=== PATIENT | female | born 1930 | race Caucasian/White ===

== ENCOUNTER → 2016-05-18 | Outpatient (REF) | payer MEDICARE ==
[~2016-05-18] MED LIST: /WARF5TA PO; AUGM500T34 PO; CALCI50TA PO; CALCTAB93 PO; COUM6TAB PO; LOPR50TA PO; MEST60TA PO; METH2.5T PO; MIRA255PW PO; MOM30SS PO; MULTTAB PO; MULTTAB4 PO; NORCOTAB PO; PERCOCET PO; PRED50TA PO; PROBCAP4 PO; SENO8.6T9 PO; TRIA0.1C60 EXT; VITA100066 PO; VITA400C2 PO; ZEST30TA2 PO; fleets PR
[2016-05-18 16:33] LABS: ALBUMIN 3.7 GM/DL (3.2-5.2); ALBUMIN/GLOBULIN RATIO 1.23 (1.00-1.93); ALKALINE PHOSPHATASE 164 U/L (45-117); ALT/SGPT 22 U/L (12-78); ANION GAP 10 MEQ/L (8-16); AST/SGOT 17 U/L (15-37); BILIRUBIN,TOTAL 0.4 MG/DL (0.2-1.0); BLOOD UREA NITROGEN 14 MG/DL (7-18); CALCIUM LEVEL 8.8 MG/DL (8.8-10.2); CARBON DIOXIDE LEVEL 29 MEQ/L (21-32); CHLORIDE LEVEL 105 MEQ/L (98-107); CREATININE FOR GFR 0.86 MG/DL (0.55-1.02); GLOMERULAR FILTRATION RATE > 60.0 (>32); GLUCOSE, FASTING 166 MG/DL (83-110); POTASSIUM SERUM 4.2 MEQ/L (3.5-5.1); SODIUM LEVEL 144 MEQ/L (136-145); TOTAL PROTEIN 6.7 GM/DL (6.4-8.2)
== END ==
LOC: M SFHCPLAZ 13:36
PROVIDERS: ATTEND Nurse Practitioner Family
DX: I10 Essential (primary) hypertension (principal); E55.9 Vitamin D deficiency, unspecified

== ENCOUNTER → 2016-08-12 | Outpatient (REF) | payer MEDICARE ==
[2016-08-12 19:32] LABS: ALBUMIN 3.7 GM/DL (3.2-5.2); ALBUMIN/GLOBULIN RATIO 1.23 (1.00-1.93); ALKALINE PHOSPHATASE 137 U/L (45-117); ALT/SGPT 26 U/L (12-78); ANION GAP 7 MEQ/L (8-16); AST/SGOT 21 U/L (15-37); BILIRUBIN,TOTAL 0.4 MG/DL (0.2-1.0); BLOOD UREA NITROGEN 24 MG/DL (7-18); CALCIUM LEVEL 8.9 MG/DL (8.8-10.2); CARBON DIOXIDE LEVEL 30 MEQ/L (21-32); CHLORIDE LEVEL 104 MEQ/L (98-107); CREATININE FOR GFR 0.72 MG/DL (0.55-1.02); GLOMERULAR FILTRATION RATE > 60.0 (>32); GLUCOSE, FASTING 114 MG/DL (83-110); POTASSIUM SERUM 3.9 MEQ/L (3.5-5.1); SODIUM LEVEL 141 MEQ/L (136-145); TOTAL PROTEIN 6.7 GM/DL (6.4-8.2)
[2016-08-12 19:57] LABS: BASO % 0.1 % (0.0-1.0); EOS # 0.3 K/mm3 (0.0-0.50); EOS % 3.2 % (0.0-3.0); LARGE UNSTAINED CELL # 0.2 K/mm3 (0.0-0.4); LARGE UNSTAINED CELL % 1.7 % (0.0-4.0); LYMPH # 1.8 K/mm3 (1.5-4.5); MEAN CORPUSCULAR HEMOGLOBIN 31.5 pg (27.0-33.0); MEAN CORPUSCULAR HGB CONC 31.7 g/dl (32.0-36.5); MEAN CORPUSCULAR VOLUME 99.4 fl (80.0-96.0); MONO # 0.5 K/mm3 (0.0-0.8); MONO % 5.7 % (0.0-5.0); NEUTROPHILS # 5.8 K/mm3 (1.8-7.7); NEUTROPHILS % 68.3 % (36.0-66.0); PLATELET COUNT, AUTOMATED 272 k/mm3 (150-450); RED CELL DISTRIBUTION WIDTH 13.5 % (11.5-14.5); WHITE BLOOD COUNT 8.4 K/mm3 (4.0-10.0)
== END ==
LOC: M SFHCPLAZ 15:06
PROVIDERS: ATTEND Nurse Practitioner Family
DX: G70.00 Myasthenia gravis without (acute) exacerbation (principal); I10 Essential (primary) hypertension; E55.9 Vitamin D deficiency, unspecified; H53.2 Diplopia

== ENCOUNTER 2017-02-12 14:12 | Inpatient (IN) | payer MEDICARE ==
[~2017-02-12] VITALS: Ht 154.9 cm; Wt 58.7 kg
[2017-02-12 15:03] LABS: BASO % 0.2 % (0.0-1.0); IMMATURE GRANULOCYTE % 0.5 % (0-0); LYMPH # 1.1 10^3/uL (1.5-4.5); LYMPH % 10.5 % (24.0-44.0); MEAN CORPUSCULAR HEMOGLOBIN 30.2 pg (27.0-33.0); MEAN CORPUSCULAR HGB CONC 32.6 g/dl (32.0-36.5); MEAN CORPUSCULAR VOLUME 92.6 fl (80.0-96.0); MONO # 0.7 10^3/uL (0.0-0.8); MONO % 6.6 % (0.0-5.0); NEUTROPHILS # 8.6 10^3/uL (1.8-7.7); NEUTROPHILS % 82.2 % (36.0-66.0); PLATELET COUNT, AUTOMATED 314 10^3/uL (150-450); RED CELL DISTRIBUTION WIDTH 14.2 % (11.5-14.5); WHITE BLOOD COUNT 10.4 10^3/uL (4.0-10.0)
[2017-02-12 15:07] LABS: INR 1.31
[2017-02-12 15:16] LABS: ALBUMIN/GLOBULIN RATIO 0.49 (1.00-1.93); BILIRUBIN,DIRECT 0.2 MG/DL (0.0-0.2); BILIRUBIN,TOTAL 0.5 MG/DL (0.2-1.0); CALCIUM LEVEL 7.9 MG/DL (8.8-10.2); CREATININE FOR GFR 1.13 MG/DL (0.55-1.02); GLOMERULAR FILTRATION RATE 48.6 (>32); MAGNESIUM LEVEL 1.7 MG/DL (1.8-2.4); TOTAL PROTEIN 6.1 GM/DL (6.4-8.2)
[2017-02-12 15:21] LABS: FREE T4 1.43 NG/DL (0.76-1.46)
[2017-02-12 15:26] LABS: POTASSIUM SERUM 2.8 MEQ/L (3.5-5.1)
[2017-02-12] MEDS ORDERED: MAG SULF 1GM/100ML (MAG RUN) 1 GM in APPROPRIATE DILUENT 1 EA IV ONE (15:45)
[2017-02-12] MEDS ORDERED: POTASSIUM CHLORIDE 10 MEQ SR TABLET PO ONE (15:45)
[2017-02-12] MEDS ORDERED: ISOVUE-370 76% 100ML VIAL (Q9967) As Ordered ONE (15:53)
[2017-02-12] MEDS ORDERED: KCL 10MEQ IN 100ML SWI (KRUN) 10 MEQ in APPROPRIATE DILUENT 1 EA IV ONE ×2 (16:00)
[2017-02-12] MEDS ORDERED: METOPROLOL 5 MG/5 ML VIAL IV STA (16:01)
[2017-02-12] MEDS ORDERED: HEPARIN SOD (PORCINE) 5000 UNITS/ML VIAL IV PRN (16:30)
[2017-02-12] MEDS ORDERED: HEPARIN DRIP 25,000 UNITS in APPROPRIATE DILUENT 1 EA IV SCH (16:30)
[2017-02-12] MEDS ORDERED: LISI-538 PO (17:09)
[2017-02-12] MEDS ORDERED: PYRI60TA2 PO (17:09)
[2017-02-12] MEDS ORDERED: ACETAMINOPHEN TAB 650MG DOSE (2X325MG) PO PRN (18:45)
--- NOTE | 2017-02-12 20:28 | HPE ---
DATE OF ADMISSION: 02/12/2017 CHIEF COMPLAINT: Abdominal mass. HISTORY OF PRESENT ILLNESS: Ms. Alcala is an 86-year-old female who presented to the emergency department, according to her daughter, looking drawn and dehydrated. The patient states that she has lost 40 pounds recently, but cannot give a time frame. The daughter who is in the room states that she does not live with her mother or see her very often, so she does not know a lot of her mother's medical problems right now. According to the patient, when she wakes up she feels fatigued with a nasty feeling that runs up and down her spine. She states that she has had diarrhea lately, about three times per week, and it has lasted for about three months. She states that she knows she has lost 40 pounds, but admits to not really eating very much. She says that she just does not have an appetite, although she does admit to increased thirst. Over the last two days, she has felt "dry as a bone" and has been drinking as much fluid as she can. The episodes of diarrhea bother her immensely, she has had multiple episodes where she will be on her way to the bathroom and the diarrhea will "just explode, and run down my trousers." The patient denies shortness of breath, chest pain, belly pain, nausea, vomiting, constipation, fevers or sweats. She does state that lately she feels like she is always cold, and upon being reminded by her daughter, she admits that she has been having some abdominal pain across her left and right upper quadrants. REVIEW OF SYSTEMS: The patient denies shortness of breath, chest pain, belly pain, nausea, vomiting , constipation, fevers or sweats. MEDICAL HISTORY: 1. Paroxysmal atrial fibrillation. 2. Essential hypertension. 3. Myasthenia gravis. 4. Vitamin D deficiency. 5. Varicose veins. 6. Mitral regurgitation. MEDICATIONS: - lisinopril 20 mg twice a day - methotrexate 7.5 mg weekly - pyridostigmine bromide 30 mg three times a day - folic acid 1 mg daily SURGICAL HISTORY: 1. 2012, right hip. 2. 2012, appendectomy. 3. 1947, tonsillectomy. SOCIAL HISTORY: The patient is a nonsmoker, denies recreational drug use, drinks 1-2 cups of coffee a day, is , lives with daughter Annie, phone number [phone], who is her alternate decision maker should she be unable to make her own medical decisions. FAMILY HISTORY: Father at 85 years from cerebrovascular accident (CVA). Mother at 96 years from congestive heart failure. Siblings, one sister from heart valve problem. Two sisters, four sons, two daughters, all healthy. PHYSICAL EXAMINATION: VITAL SIGNS: Temperature is 97.1, pulse 94, respiratory rate is 16, blood pressure is 155/80. She is 99% on three liters nasal cannula. GENERAL: The patient is pleasant, calm and cooperative. She does seem slightly confused as to what is going on, and does take exaggerated pauses when answering questions. NECK: Supple, trachea midline. No abnormalities noted. HEART: Irregular rate and rhythm, diastolic murmur is appreciated along the left midclavicular line in the position of the mitral valve. LUNGS: Clear to auscultation bilaterally. ABDOMEN: Hyperactive bowel sounds in all four quadrants, there is tenderness to palpation in the right lower quadrant. EXTREMITIES: Diminished skin turgor, capillary refill is delayed. There is some swelling in her lower extremities. SKIN: The patient is pale, there are stains from her shoes on the dorsal aspects of her feet bilaterally. LABORATORY DATA: CBC: White count 10.4, hemoglobin 11.9, hematocrit 36.5, platelets 314. CMP: Sodium 137, potassium 2.8, chloride 100, carbon dioxide 27, BUN 29, creatinine 1.13, fasting glucose 185, calcium 7.9, magnesium 1.7, AST 16, ALT 18 , alkaline phosphatase 131. Total protein 6.1, albumin 2.0, lipase 90, TSH 3.64, free T4 1.43. Coagulation: PT 16.5, INR 1.31, APTT 30.7, D-dimer 3208.1. MICROBIOLOGY: Blood cultures pending. GI Panel negative. IMAGING: Chest x-ray showed mild cardiomegaly, pending final report. CT angiography showed bilateral pulmonary emboli in the branches of the pulmonary arteries. Abdomen and pelvis CT revealed distended transverse colon, with a mass possible neoplasm in the distal transverse colon. IMPRESSION: This is an 86-year-old female presenting to the emergency room (ER) at the bequest of her daughter. Imaging discovered bilateral pulmonary emboli in the branches of the pulmonary arteries and a mass in the distal transverse colon, suspicious for neoplasm. Admit to medical/surgical floor with basic metabolic panel (BMP), complete blood count (CBC) with differential, urinalysis, urine culture, magnesium level ordered for tomorrow morning. PLAN: 1. Pulmonary embolism: Admit to PCU, 60 mg of Lovenox has been ordered daily. 2. Abdominal mass: Suspicious for possible neoplasm. Patient has been having episodes of diarrhea, possibly as a result from this. She will be rehydrated with 40 mEq of potassium in dextrose 5% (D5) half normal saline running at 125 mL per hour. Surgery has been consulted. 3. Dehydration: Fluids at 125 an hour. 40 mEq of potassium in D5 half normal saline. 4. Hypokalemia: Potassium 2.8. She has received 60 mEq by mouth in the emergency department and will be getting potassium run this evening. She is also getting 40 mEq of potassium through her IV. We will repeat a basic metabolic panel in the morning. 5. Hypertension: Continue lisinopril 20 mg by mouth twice a day from home medications. 6. Myasthenia gravis: Continue pyridostigmine bromide 30 mg by mouth twice a day, methotrexate 7.5 mg by mouth on Tuesday, and folic acid 1 mg by mouth daily. Family Medicine Attending Note: I was present on site to supervise Sofía Munoz DO (PGY-1). We discussed the history and exam. I confirmed the watkins elements during my [id number] encounter with the patient. We conferred on the assessment and plan; I agree with the note as documented. Ms. Alcala is a patient of mine in the outpatient clinic. Unfortunately she has repeatedly declined several screening examinations including mammography and colonoscopy. I am very concerned that she does have a neoplastic disease based on her presentation today. We will need to monitor carefully. 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
[2017-02-12] MEDS: ENOXAPARIN 60 MG/0.6 ML SYR (J1650) SC SCH (21:07)
[2017-02-12] MEDS: KCL 40MEQ IN D5/0.45NS 1000ML 1,000 ML IV SCH (21:08)
[2017-02-12] MEDS: PYRIDOSTIGMINE 60 MG TAB PO SCH (21:09)
[2017-02-12] MEDS: LISINOPRIL 20 MG TAB PO SCH (21:11)
[2017-02-12 22:53] VITALS: BP 152/70
[2017-02-12 23:00] VITALS: BP 122/86
[2017-02-13 04:00] VITALS: BP 135/63
[2017-02-13] MEDS: KCL 40MEQ IN D5/0.45NS 1000ML 1,000 ML IV SCH ×3 (05:26→20:11)
[2017-02-13 05:43] LABS: MEAN CORPUSCULAR HEMOGLOBIN 30.4 pg (27.0-33.0); MEAN CORPUSCULAR HGB CONC 32.9 g/dl (32.0-36.5); MEAN CORPUSCULAR VOLUME 92.5 fl (80.0-96.0); PLATELET COUNT, AUTOMATED 275 10^3/uL (150-450); WHITE BLOOD COUNT 8.6 10^3/uL (4.0-10.0)
[2017-02-13 05:45] LABS: ADD MANUAL DIFFER YES; DIFF SLIDE NUMBER 69
[2017-02-13 05:58] LABS: ANION GAP 7 MEQ/L (8-16); BLOOD UREA NITROGEN 24 MG/DL (7-18); CALCIUM LEVEL 7.4 MG/DL (8.8-10.2); CARBON DIOXIDE LEVEL 25 MEQ/L (21-32); CHLORIDE LEVEL 106 MEQ/L (98-107); CREATININE FOR GFR 0.72 MG/DL (0.55-1.02); GLOMERULAR FILTRATION RATE > 60.0 (>32); GLUCOSE, FASTING 165 MG/DL (83-110); POTASSIUM SERUM 3.9 MEQ/L (3.5-5.1); SODIUM LEVEL 138 MEQ/L (136-145)
[2017-02-13 06:56] LABS: ANISOCYTOSIS 1+; BANDS 6 % (< 11)
[2017-02-13 08:20] VITALS: BP 142/88
[2017-02-13] MEDS: LISINOPRIL 20 MG TAB PO SCH ×2 (09:39→20:12)
[2017-02-13] MEDS: PYRIDOSTIGMINE 60 MG TAB PO SCH ×2 (09:39→20:12)
[2017-02-13] MEDS: FOLIC ACID 1 MG TAB PO SCH (09:39)
--- NOTE | 2017-02-13 11:39 | REP ---
REASON: Diarrhea and weight loss. COMPARISON: 02/19/2013 Please see the chest CT report. The liver and gallbladder are within normal limits. The spleen is within normal limits. There is marked pancreatic fatty infiltration and atrophy. The adrenal glands and kidneys are within normal limits for the patient's age. The abdominal aorta and para-aortic regions are within normal limits. There is massive distention of the colon which ends abruptly at the distal transverse colon where there is evidence of a soft tissue density possibly a mass. There is gas and stool distal to this, however. There is no evidence of free intraperitoneal fluid or air. CT PELVIS: There is some gas and stool in the sigmoid colon. It is not completely collapsed. There is no free fluid or free air. There is no evidence of a pelvic mass or adenopathy. Bone window technique throughout the exam shows chronic osseous changes with bone demineralization, spinal and sacroiliac degenerative changes, and previously ORIF to affix a right hip fracture status quo. IMPRESSION: 1. There is marked appearing colonic distention to the level of the distal transverse colon where there is a soft tissue density possibly representing neoplasm. That cannot be definitely determined by this exam. There is no evidence of a complete colonic obstruction as some gas and stool is seen distal to that point as described above. There is evidence of a concomitant slight small bowel ileus. 2. Other findings as described above. Signed by Brian Billy DO 02/13/2017 09:46 A
--- NOTE | 2017-02-13 11:39 | REP ---
REASON: Chest pain. COMPARISON: 04/17/2013, which is the latest prior. There is mild cardiomegaly status quo. There is interstitial fibrotic change, status quo. There are no acute patchy parenchymal opacities or pleural effusions. There is no change in the osseous structures. IMPRESSION: Stable chronic changes. Signed by Brian Billy DO 02/13/2017 09:45 A
--- NOTE | 2017-02-13 11:39 | REP ---
REASON: Dyspnea. COMPARISON: None. CONTRAST: 100 mL Isovue 370. Large abnormal filling defects are seen in the right and left main pulmonary arteries and extending into the upper and lower lobe pulmonary arteries. These are consistent with acute pulmonary emboli. There is no mediastinal or hilar adenopathy. There are no pleural or pericardial effusions. The imaged upper abdomen is within normal limits. The pancreas is fatty infiltrated and atrophic. The osseous structures are within normal limits for the patient's age. Evaluation of the lung david show evidence of asymmetric bibasilar opacities most consistent with fibrotic changes. There is cylindrical bronchiectasis. There are scattered calcified granulomas. IMPRESSION: 1. Pulmonary emboli as described above. 2. Chronic lung david changes as described above. A phone call was placed to the emergency department to speak to Dr. Breaux about these findings. Signed by Brian Billy DO 02/13/2017 09:46 A
[2017-02-13 12:06] VITALS: BP 112/84
--- NOTE | 2017-02-13 12:41 | IPNPDOC ---
Subjective Date Seen The patient was seen on 02/13/17. Subjective Chief Complaint/HPI The patient is a 86-year-old female admitted with a reason for visit of Abdominal Mass; Pulmonary Embolism. Events since last encounter She reports that she is feeling chilly and a little fatigued today but otherwise she feels okay. She's been tolerating meals well. She did have a bowel movement earlier today, but it was mixed with urine so they were not able to check for occult blood. Nursing reported it was not frankly bloody. Dr. Mendieta saw her today. I appreciate his consultation. It appears that he is going to try to use a series of enemas for preparation for possible endoscopic procedure so he can get a tissue diagnosis of the mass in her distal transverse colon. General: Reports: Fatigue, Normal Appetite Constitutional: Reports: Chills, Weakness Pulmonary: Denies: Cough Cardiovascular: Denies: Chest Pain, Palpitations Genitourinary: Denies: Dysuria Psych: Reports: Mood Normal Objective Physical Examination General Exam: Positive: Alert, Cooperative, No Acute Distress (huddleing under 2 blankets with a down vest on when I entered the room) Eye Exam: Positive: Conjunctiva & lids normal, Negative: Sclera icteric ENT Exam: Positive: Mucous membr. moist/pink Neck Exam: Negative: Lymphadenopathy Chest Exam: Positive: Clear to auscultation, Normal air movement Heart Exam: Positive: Rate Normal, Irregular Rhythm Abdomen Exam: Positive: BS Hypoactive (normal pitch), Tenderness (mild diffuse tenderness, RLQ> others), Other (there is tympany noted on percussion) Extremity Exam: Negative: Edema Psych Exam: Positive: Mood NL, Oriented x 3 Assessment /Plan Problems (1) Pulmonary embolism Status: Acute Problem Specific Plan: Monitor Clinically Problem Text: She is currently treated with Lovenox (1mg/kg/day / CrCl 29 on admission). This may be an issue (2) Abdominal mass (3) Atrial fibrillation (4) Dehydration (5) Hypokalemia (6) Hypertension (7) Myasthenia gravis VS, I&O, 24H, Fishbone Vital Signs/I&O Vital Signs Date Time Temp Pulse Resp B/P (MAP) Pulse Ox O2 Delivery O2 Flow Rate FiO2 02/13/17 12:06 98.7 102 19 112/84 (93) 96 Room Air 02/13/17 08:20 2.0 I&O- Last 24 Hours up to 6 AM 02/14/17 06:00 Intake Total 240 ml Output Total 450 ml Balance -210 ml Laboratory Data 24H LABS Laboratory Tests 2 02/12/17 14:34: Bedside Glucose (Misc Panel) 185H 02/12/17 14:36: Immature Granulocyte % (Auto) 0.5H, White Blood Count 10.4H, Red Blood Count 3.94L, Hemoglobin 11.9L, Hematocrit 36.5, Mean Corpuscular Volume 92.6, Mean Corpuscular Hemoglobin 30.2, Mean Corpuscular Hemoglobin Concent 32.6, Red Cell Distribution Width 14.2, Platelet Count 314, Neutrophils (%) (Auto) 82.2H, Lymphocytes (%) (Auto) 10.5L, Monocytes (%) (Auto) 6.6H, Eosinophils (%) (Auto) 0.0, Basophils (%) (Auto) 0.2, Neutrophils # (Auto) 8.6H, Lymphocytes # (Auto) 1.1L, Monocytes # (Auto) 0.7, Eosinophils # (Auto) 0.0, Basophils # (Auto) 0.0, Immature Granulocyte # (Auto) 0.1H, Nucleated Red Blood Cells % (auto) 0.0, Prothrombin Time 16.5H, Prothromb Time International Ratio 1.31, Activated Partial Thromboplast Time 30.7, D-Dimer, Quantitative 3208.4H, Anion Gap 10, Glomerular Filtration Rate 48.6, Calcium Level 7.9L, Magnesium Level 1.7L, Aspartate Amino Transf (AST/SGOT) 16, Alanine Aminotransferase (ALT/SGPT) 18, Alkaline Phosphatase 131H, Total Bilirubin 0.5, Direct Bilirubin 0.2, Total Creatine Kinase 32, Creatine Kinase MB 1.4, Creatine Kinase MB Relative Index 4.37H, Troponin I 0.06, C-Reactive Protein, Quantitative 17.60H, DJ-Pik-Q-Type Natriuretic Peptide 9522H, Total Protein 6.1L, Albumin 2.0L, Albumin/Globulin Ratio 0.49L, Lipase 90, Thyroid Stimulating Hormone (TSH) 3.640, Free Thyroxine 1.43 02/12/17 22:03: Urine Appearance CLEAR, Urine Color YELLOW, Urine pH 5.0, Urine Specific [place] >1.060H, Urine Protein NEGATIVE, Urine Glucose (UA) NEGATIVE, Urine Ketones NEGATIVE, Urine Urobilinogen 2.0H, Urine Bilirubin NEGATIVE, Urine Leukocyte Esterase NEGATIVE, Urine Blood NEGATIVE, Urine Nitrite NEGATIVE, Urine WBC (Auto) 3, Urine RBC (Auto) 2, Urine Hyaline Casts (Auto) 5, Urine Bacteria (Auto) NEGATIVE, Urine Squamous Epithelial Cells 0, Urine Mucus (Auto) SMALL, Urine Sperm (Auto) 02/12/17 22:26: Activated Partial Thromboplast Time 56.4H 02/13/17 03:51: 02/13/17 05:14: Nucleated Red Blood Cells % (auto) 0.0, Neutrophils 73, Band Neutrophils 6, Lymphocytes (Manual) 16, Monocytes (Manual) 3, Atypical Lymphocytes 2, Platelet Estimate NORMAL, Anisocytosis 1+, Anion Gap 7L, Glomerular Filtration Rate > 60.0, Blood Urea Nitrogen 24H, Creatinine 0.72, Sodium Level 138, Potassium Level 3.9#, Chloride Level 106, Carbon Dioxide Level 25, Calcium Level 7.4L, Magnesium Level 2.0 CBC/BMP Laboratory Tests 02/12/17 14:36 Red Blood Count 3.94 L, Mean Corpuscular Volume 92.6, Mean Corpuscular Hemoglobin 30.2, Mean Corpuscular Hemoglobin Concent 32.6, Red Cell Distribution Width 14.2, Neutrophils (%) (Auto) 82.2 H, Lymphocytes (%) (Auto) 10.5 L, Monocytes (%) (Auto) 6.6 H, Eosinophils (%) (Auto) 0.0, Basophils (%) ( Auto) 0.2, Neutrophils # (Auto) 8.6 H, Lymphocytes # (Auto) 1.1 L, Monocytes # ( Auto) 0.7, Eosinophils # (Auto) 0.0, Basophils # (Auto) 0.0 02/13/17 05:14 Red Blood Count 3.32 L, Mean Corpuscular Volume 92.5, Mean Corpuscular Hemoglobin 30.4, Mean Corpuscular Hemoglobin Concent 32.9, Red Cell Distribution Width 14.0, Calcium Level 7.4 L Microbiology Microbiology 02/12/17 Blood Culture, Received Pending 02/12/17 Blood Culture, Received Pending 02/13/17 Stool Lactoferrin - Final, Complete 02/13/17 Gastrointestinal Tract Panel (PCR) - Final, Complete 02/12/17 Urine Culture, Received Pending Brock Portillo MD Feb 13, 2017 12:41
[2017-02-13] MEDS ORDERED: FLEET ENEMA PR ONE (13:00)
[2017-02-13 16:00] VITALS: BP 114/76
[2017-02-13 16:51] VITALS: BP 114/72
[2017-02-13 19:16] VITALS: BP 142/86
[2017-02-13] MEDS: ENOXAPARIN 60 MG/0.6 ML SYR (J1650) SC SCH (20:11)
[2017-02-13] MEDS ORDERED: ONDANSETRON 4MG/2ML VIAL (J2405) IV PRN (21:15)
[2017-02-14] VITALS: BP 132/77
[2017-02-14 04:00] VITALS: BP 127/83
[2017-02-14] MEDS: KCL 40MEQ IN D5/0.45NS 1000ML 1,000 ML IV SCH ×2 (04:26→12:08)
[2017-02-14 07:39] VITALS: BP 126/61
[2017-02-14] MEDS: PYRIDOSTIGMINE 60 MG TAB PO SCH ×2 (08:11→21:52)
[2017-02-14] MEDS: FOLIC ACID 1 MG TAB PO SCH (08:11)
[2017-02-14] MEDS: LISINOPRIL 20 MG TAB PO SCH ×2 (08:12→21:52)
--- NOTE | 2017-02-14 08:50 | ECGEPIP ---
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
--- NOTE | 2017-02-14 11:45 | REP ---
ABDOMEN, FLAT UPRIGHT, PA CHEST, FOUR VIEWS: HISTORY: Colon obstruction. Air is present in small and large intestine. There is marked distention of the colon. Several air fluid levels are present. There is no pneumoperitoneum. An increase in interstitial markings is present in the lungs consistent with chronic interstitial fibrosis. The cardiac silhouette is enlarged. IMPRESSION: Findings consistent with colonic obstruction. Signed by Gary Culver MD 02/14/2017 11:59 A
[2017-02-14 12:00] VITALS: BP 130/92
--- NOTE | 2017-02-14 12:03 | IPNPDOC ---
Subjective Date Seen The patient was seen on 02/14/17. Subjective Chief Complaint/HPI The patient is a 86-year-old female admitted with a reason for visit of Abdominal Mass; Pulmonary Embolism. Events since last encounter s/p consult by Dr. Rees, planning on Diverting colostomy pending discussion with family. Objective Physical Examination General Exam: Positive: Alert, Cooperative, No Acute Distress (huddleing under 2 blankets with a down vest on when I entered the room) Eye Exam: Positive: Conjunctiva & lids normal, Negative: Sclera icteric ENT Exam: Positive: Mucous membr. moist/pink Neck Exam: Negative: Lymphadenopathy Chest Exam: Positive: Clear to auscultation, Normal air movement Heart Exam: Positive: Rate Normal, Irregular Rhythm Abdomen Exam: Positive: BS Hypoactive (normal pitch), Tenderness (mild diffuse tenderness, RLQ> others), Other (there is tympany noted on percussion) Extremity Exam: Negative: Edema Psych Exam: Positive: Mood NL, Oriented x 3 Assessment /Plan Problems (1) Pulmonary embolism Status: Acute Problem Specific Plan: Monitor Clinically Problem Text: She is currently treated with Lovenox (1mg/kg/day 06/10 CrCl 29 on admission). This will be an issue (2) Abdominal mass Status: Acute Problem Specific Plan: Consult Specialist Problem Text: NGT in place. Planned diverting colostomy with Dr. Rees, pending discussion with family. (3) Atrial fibrillation Status: Chronic Response to Treatment: Stable Problem Text: rate controlled. On Lovenox. (4) Dehydration Status: Acute Problem Text: IVF infusing. monitor I/O (5) Hypokalemia Status: Acute Problem Text: potassium pending for today (6) Hypertension Status: Chronic Response to Treatment: Stable (7) Myasthenia gravis Status: Chronic Response to Treatment: Stable Plan/VTE VTE Prophylaxis Ordered?: Yes (Lovenox) VS, I&O, 24H, Fishbone Vital Signs/I&O Vital Signs Date Time Temp Pulse Resp B/P (MAP) Pulse Ox O2 Delivery O2 Flow Rate FiO2 02/14/17 08:12 126/61 02/14/17 08:00 Room Air 02/14/17 07:39 97.6 92 20 93 02/13/17 16:00 2.0 I&O- Last 24 Hours up to 6 AM 02/15/17 06:00 Intake Total 500 ml Output Total 200 ml Balance 300 ml Laboratory Data Microbiology Microbiology 02/12/17 Blood Culture - Preliminary, Resulted No growth after 24 hours . All specim... 02/12/17 Blood Culture - Preliminary, Resulted No growth after 24 hours . All specim... 02/13/17 Stool Lactoferrin - Final, Complete 02/13/17 Gastrointestinal Tract Panel (PCR) - Final, Complete 02/12/17 Urine Culture - Final, Complete Oumou Ballesteros [facility] Feb 14, 2017 12:03
[2017-02-14 12:24] LABS: MEAN CORPUSCULAR HEMOGLOBIN 30.4 pg (27.0-33.0); MEAN CORPUSCULAR HGB CONC 32.7 g/dl (32.0-36.5); MEAN CORPUSCULAR VOLUME 92.9 fl (80.0-96.0); PLATELET COUNT, AUTOMATED 296 10^3/uL (150-450); RED CELL DISTRIBUTION WIDTH 14.4 % (11.5-14.5)
[2017-02-14 12:26] LABS: ADD MANUAL DIFFER YES; DIFF SLIDE NUMBER 209
[2017-02-14 12:54] LABS: ALBUMIN 1.8 GM/DL (3.2-5.2); ALBUMIN/GLOBULIN RATIO 0.49 (1.00-1.93); ALKALINE PHOSPHATASE 131 U/L (45-117); ALT/SGPT 17 U/L (12-78); ANION GAP 6 MEQ/L (8-16); AST/SGOT 19 U/L (15-37); BILIRUBIN,TOTAL 0.4 MG/DL (0.2-1.0); BLOOD UREA NITROGEN 17 MG/DL (7-18); CALCIUM LEVEL 7.4 MG/DL (8.8-10.2); CARBON DIOXIDE LEVEL 25 MEQ/L (21-32); CHLORIDE LEVEL 107 MEQ/L (98-107); CREATININE FOR GFR 0.62 MG/DL (0.55-1.02); GLOMERULAR FILTRATION RATE > 60.0 (>32); GLUCOSE, FASTING 165 MG/DL (83-110); SODIUM LEVEL 138 MEQ/L (136-145); TOTAL PROTEIN 5.5 GM/DL (6.4-8.2)
[2017-02-14 13:07] LABS: POTASSIUM SERUM 5.5 MEQ/L (3.5-5.1)
[2017-02-14 14:06] LABS: BANDS 7 % (< 11)
[2017-02-14 14:07] LABS: ANISOCYTOSIS 1+
[2017-02-14] MEDS: D5W/0.45% SODIUM CHLORIDE 1,000 ML IV SCH ×2 (14:11→21:51)
[2017-02-14 15:53] VITALS: BP 106/74
[2017-02-14 19:42] VITALS: BP 127/76
[2017-02-14] MEDS: ENOXAPARIN 60 MG/0.6 ML SYR (J1650) SC SCH (21:52)
[2017-02-15] VITALS (7 sets, daily range): BP systolic 118–142; BP diastolic 68–85
[2017-02-15] MEDS ORDERED: METOPROLOL 5 MG/5 ML VIAL IV ONE (05:15)
[2017-02-15] MEDS: D5W/0.45% SODIUM CHLORIDE 1,000 ML IV SCH ×3 (05:18→20:30)
[2017-02-15 05:31] LABS: MEAN CORPUSCULAR HEMOGLOBIN 30.8 pg (27.0-33.0); MEAN CORPUSCULAR HGB CONC 33.1 g/dl (32.0-36.5); MEAN CORPUSCULAR VOLUME 92.9 fl (80.0-96.0); PLATELET COUNT, AUTOMATED 243 10^3/uL (150-450); RED CELL DISTRIBUTION WIDTH 14.4 % (11.5-14.5); WHITE BLOOD COUNT 7.1 10^3/uL (4.0-10.0)
[2017-02-15 05:37] LABS: ADD MANUAL DIFFER YES; DIFF SLIDE NUMBER 65
[2017-02-15 05:59] LABS: ALBUMIN 1.3 GM/DL (3.2-5.2); ALBUMIN/GLOBULIN RATIO 0.41 (1.00-1.93); ALKALINE PHOSPHATASE 107 U/L (45-117); ALT/SGPT 12 U/L (12-78); ANION GAP 7 MEQ/L (8-16); AST/SGOT 10 U/L (15-37); BILIRUBIN,TOTAL 0.3 MG/DL (0.2-1.0); BLOOD UREA NITROGEN 14 MG/DL (7-18); CALCIUM LEVEL 7.3 MG/DL (8.8-10.2); CARBON DIOXIDE LEVEL 26 MEQ/L (21-32); CHLORIDE LEVEL 105 MEQ/L (98-107); CREATININE FOR GFR 0.58 MG/DL (0.55-1.02); GLOMERULAR FILTRATION RATE > 60.0 (>32); GLUCOSE, FASTING 156 MG/DL (83-110); POTASSIUM SERUM 3.7 MEQ/L (3.5-5.1); SODIUM LEVEL 138 MEQ/L (136-145); TOTAL PROTEIN 4.5 GM/DL (6.4-8.2)
--- NOTE | 2017-02-15 06:25 | ECGEPIP ---
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
[2017-02-15 07:08] LABS: BANDS 8 % (< 11)
[2017-02-15 07:09] LABS: ANISOCYTOSIS 1+; OVALOCYTES 1+
[2017-02-15] MEDS ORDERED: CARVedilol 3.125 MG TAB PO SCH (09:00)
[2017-02-15] MEDS: PYRIDOSTIGMINE 60 MG TAB PO SCH ×2 (09:40→20:29)
[2017-02-15] MEDS: FOLIC ACID 1 MG TAB PO SCH (09:41)
[2017-02-15] MEDS: LISINOPRIL 20 MG TAB PO SCH (09:41)
--- NOTE | 2017-02-15 10:32 | IPNPDOC ---
Subjective Date Seen The patient was seen on 02/15/17. Subjective Chief Complaint/HPI The patient is a 86-year-old female admitted with a reason for visit of Abdominal Mass; Pulmonary Embolism. Events since last encounter Elevated HR into 170s overnight. Given Lopressor 5 mg IV x 1 with HR into the 80 -90 range. HR has come up to 120-130s since taking Lopressor. Patient has a hx of paroxysmal Atrial fibrillation and stopped taking beta noni, due to not feeling she needed it. Denies CP, palpiations or SOB. Constitutional: Denies: Chills, Fever, Night Sweats ENT: Denies: Head Aches, Ear Pain, Dysphagia Skin: Denies: Rash, Lesions, Breakdown Pulmonary: Denies: Dyspnea, Cough Cardiovascular: Denies: Chest Pain, Palpitations, Orthopnea, Paroxysmal Noc. Dyspnea, Lt Headedness Objective Physical Examination General Exam: Positive: Alert, Cooperative, No Acute Distress (huddleing under 2 blankets with a down vest on when I entered the room) Eye Exam: Positive: Conjunctiva & lids normal, Negative: Sclera icteric ENT Exam: Positive: Mucous membr. moist/pink Neck Exam: Negative: Lymphadenopathy Chest Exam: Positive: Clear to auscultation, Normal air movement Heart Exam: Positive: Rate Normal, Irregular Rhythm Abdomen Exam: Positive: BS Hypoactive (normal pitch), Tenderness (mild diffuse tenderness, RLQ> others), Other (there is tympany noted on percussion) Extremity Exam: Negative: Edema Psych Exam: Positive: Mood NL, Oriented x 3 Assessment /Plan Problems (1) Pulmonary embolism Status: Acute Problem Specific Plan: Monitor Clinically Problem Text: She is currently treated with Lovenox (1mg/kg/day / CrCl 29 on admission). This will be an issue (2) Abdominal mass Status: Acute Problem Specific Plan: Consult Specialist Problem Text: NGT in place. Planned diverting colostomy with Dr. Rees, pending discussion with family. (3) Atrial fibrillation Status: Chronic Response to Treatment: Stable Problem Text: 02/15/17: poor rate control. Will start on Coreg 3.125 mg po bid. 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 rate controlled. On Lovenox. (4) Dehydration Status: Acute Response to Treatment: Progressing Problem Text: IVF infusing. monitor I/O (5) Hypokalemia Status: Resolved Problem Text: potassium pending for today (6) Hypertension Status: Chronic Response to Treatment: Stable (7) Myasthenia gravis Status: Chronic Response to Treatment: Stable Plan/VTE VTE Prophylaxis Ordered?: Yes (Lovenox) VS, I&O, 24H, Fishbone Vital Signs/I&O Vital Signs Date Time Temp Pulse Resp B/P (MAP) Pulse Ox O2 Delivery O2 Flow Rate FiO2 02/15/17 08:00 97.7 91 20 122/74 (90) 92 Room Air 02/13/17 16:00 2.0 Laboratory Data 24H LABS Laboratory Tests 2 02/14/17 12:12: Nucleated Red Blood Cells % (auto) 0.0, Neutrophils 67, Band Neutrophils 7, Lymphocytes (Manual) 26, Platelet Estimate NORMAL, Anisocytosis 1+, Macrocytosis , Anion Gap 6L, Glomerular Filtration Rate > 60.0, Blood Urea Nitrogen 17, Creatinine 0.62, Sodium Level 138, Potassium Level 5.5H, Chloride Level 107, Carbon Dioxide Level 25, Calcium Level 7.4L, Aspartate Amino Transf ( AST/SGOT) 19, Alanine Aminotransferase (ALT/SGPT) 17, Alkaline Phosphatase 131H , Total Bilirubin 0.4, Total Protein 5.5L, Albumin 1.8L, Albumin/Globulin Ratio 0.49L 02/15/17 05:19: Nucleated Red Blood Cells % (auto) 0.0, Neutrophils 70, Band Neutrophils 8, Lymphocytes (Manual) 15L, Platelet Estimate NORMAL, Anisocytosis 1+, Anion Gap 7L, Glomerular Filtration Rate > 60.0, Blood Urea Nitrogen 14, Creatinine 0.58, Sodium Level 138, Potassium Level 3.7#, Chloride Level 105, Carbon Dioxide Level 26, Calcium Level 7.3L, Aspartate Amino Transf (AST/SGOT) 10L, Alanine Aminotransferase (ALT/SGPT) 12, Alkaline Phosphatase 107, Total Bilirubin 0.3, Total Protein 4.5L, Albumin 1.3#L, Albumin/Globulin Ratio 0.41L, Monocytes ( Manual) 7, Ovalocytes 1+ CBC/BMP Laboratory Tests 02/14/17 12:12 Red Blood Count 3.95 L, Mean Corpuscular Volume 92.9, Mean Corpuscular Hemoglobin 30.4, Mean Corpuscular Hemoglobin Concent 32.7, Red Cell Distribution Width 14.4, Calcium Level 7.4 L, Aspartate Amino Transf (AST/SGOT) 19, Alanine Aminotransferase (ALT/SGPT) 17, Alkaline Phosphatase 131 H, Total Bilirubin 0.4, Total Protein 5.5 L, Albumin 1.8 L 02/15/17 05:19 Red Blood Count 3.38 L, Mean Corpuscular Volume 92.9, Mean Corpuscular Hemoglobin 30.8, Mean Corpuscular Hemoglobin Concent 33.1, Red Cell Distribution Width 14.4, Calcium Level 7.3 L, Aspartate Amino Transf (AST/SGOT) 10 L, Alanine Aminotransferase (ALT/SGPT) 12, Alkaline Phosphatase 107, Total Bilirubin 0.3, Total Protein 4.5 L, Albumin 1.3 #L Microbiology Microbiology 02/12/17 Blood Culture - Preliminary, Resulted No Growth after 48 hours. All Specime... 02/12/17 Blood Culture - Preliminary, Resulted No Growth after 48 hours. All Specime... 02/13/17 Stool Lactoferrin - Final, Complete 02/13/17 Gastrointestinal Tract Panel (PCR) - Final, Complete 02/12/17 Urine Culture - Final, Complete Oumou BallesterosP Feb 15, 2017 10:32
--- NOTE | 2017-02-15 17:25 | ECHO ---
DATE OF PROCEDURE: 02/15/2017 REFERRING PHYSICIAN: ANT Candelaria and Brock Portillo MD The study was performed on 02/15/2017 for indication of cardiac dysrhythmia. The patient measures 155 cm and weighs 61 kg. DIMENSIONS: IVS: 1.0 LV: 3.6 LVPW: 0.9 LA: 3.2 Aorta: 2.7 FINDINGS: The study is of good technical quality. Left ventricle is of normal size. There is low normal left ventricular (LV) systolic function. I estimate ejection fraction (EF) around 50-55%. No segmental wall motion abnormalities are appreciated. Right ventricle does not appear enlarged. Both atria are at least mildly enlarged. Aortic valve has three cusps; they are mildly sclerotic but have preserved mobility. Mitral valve also exhibits mild degenerative abnormalities with mild mitral annular calcifications, but leaflet mobility is preserved. Tricuspid valve appears normal. Pulmonic valve was poorly visualized but grossly appears normal. No pericardial effusion is noted. Inferior vena cava is normal size. Aortic root appears normal. Aortic arch and abdominal aorta were not well seen. Doppler interrogation of aortic valve reveals no significant stenosis or insufficiency. There is mild mitral insufficiency and [id number] tricuspid insufficiency. Calculated pulmonary artery pressure is in high 40s corresponding to moderate pulmonary hypertension. Pulmonic valve is functionally competent. Mitral inflow pattern and tissue Doppler imaging of mitral annulus revealed grade 1 diastolic dysfunction. CONCLUSIONS: 1. The study is of good technical quality. 2. Normal left ventricular (LV) size and low normal LV systolic function (estimated LVEF 50-55%), grade 1 diastolic dysfunction. 3. No significant valvular disease. 4. Normal central venous pressure. 5. Probably moderate pulmonary hypertension. COMMENTS: Subacute bacterial endocarditis (SBE) prophylaxis is not recommended. MTDD
[2017-02-15] MEDS: ENOXAPARIN 60 MG/0.6 ML SYR (J1650) SC SCH (20:29)
[2017-02-15] MEDS: CARVedilol 6.25 MG TAB PO SCH (20:30)
[2017-02-16] VITALS (11 sets, daily range): BP systolic 105–148; BP diastolic 57–94
--- NOTE | 2017-02-16 03:47 | CR.PDOC ---
General Surgery Consultation Date of Consultation 02/13/17 History and Physical CONSULT REPORT FOR: Brock Portillo REASON FOR CONSULTATION: Colon obstruction, possible distal transverse colon mass HISTORY OF PRESENT ILLNESS: Patient is currently admitted to the hospital for complaints of generalized body weakness, change in her bowel habits, and significant weight loss for the past 2 or 3 months. She is a bit of a poor historian but that she tells me that back in October she had this episode of retching and vomiting that lasted for over a week. She reports needing to move her bowels every second or third day but usually having loose stools when she goes. She does not report any blood with the stools but notes some mucus coming out of the stools. She has not had any previous screening colonoscopies and is reluctant to agree to a colonoscopy even at this time. She reports burping and occasional nausea but is able to tolerate some food and prior to the seeing her , she has had some cottage cheese which she finished. She has had bowel movements during this admission. Her daughter was worried that she has been reported to have lost about 40 pounds over the past 3-4 months and has not been able to do much for the past couple weeks due to generalized body weakness has been mainly bedridden. PAST MEDICAL HISTORY: 1. Paroxysmal atrial fibrillation. 2. Essential hypertension. 3. Myasthenia gravis. 4. Vitamin D deficiency. 5. Varicose veins. 6. Mitral regurgitation. PAST SURGICAL HISTORY: INCLUDES: 1. 2012, right hip. 2. 2012, appendectomy. 3. 1947, tonsillectomy. PREVIOUS ANESTHESIA REACTIONS: Patient denies ALLERGIES: Please see below. FAMILY HISTORY: Denies any family history for colorectal malignancy HOME MEDICATIONS: Please see below. REVIEW OF SYSTEMS: GENERAL: Patient reports generalized body weakness, easy fatigability, significant weight loss. HEENT: Denies blurred vision and double vision. Denies ear symptoms. Denies hoarseness. NECK: Denies any neck pain CARDIOVASCULAR: Denies chest pain and palpitations. Patient reports history of paroxysmal atrial fibrillation, history of heart murmurs MUSCULOSKELETAL: Denies arthralgias, back pain and thrombophlebitis. SKIN: Denies rash. NEUROLOGIC: Denies headache, stroke and transient ischemic attack. PSYCHIATRIC: Denies anxiety and depression. ENDOCRINE: Denies thyroid disease. HEMATOLOGY/ONCOLOGY: Denies bleeding or clotting disorder. Patient admitted for pulmonary embolism found and imaging HEART: Denies any chest pains, paroxysmal dyspnea, orthopnea. PULMONARY: Denies chronic cough, dyspnea and wheezing. GASTROINTESTINAL: Denies rectal bleeding, family history of colon cancer, dysphagia, heartburn and jaundice. GENITOURINARY: Denies dysuria, frequency, hematuria and nocturia. ENDOCRINE: Denies polydipsia, polyphagia, polyuria, heat or cold intolerance. INFECTIOUS: Denies any recent upper respiratory tract infection, UTI, need for use of antibiotics. NUTRITION: Reports anorexia PHYSICAL EXAMINATION: VITALS SIGNS: Please see below. GENERAL APPEARANCE:Patient seen, laying in bed, awake, alert, and oriented. Comfortable, in no acute distress. SKIN: Warm and moist. HEENT: Normocephalic, atraumatic. [place] palpebral conjunctiva, anicteric sclerae. Lips and mucosa appear moist. NECK: Supple, no thyromegaly. No obvious jugular venous distention. LUNGS: Clear to auscultation bilaterally. No wheezing appreciated. HEART: No chest wall abnormalities. Irregular rhythm, positive 3/6 murmur ABDOMEN: Abdomen is , rounded with the upper abdomen significantly distended, soft, minimally tender on palpation over the right and midepigastric area. EXTREMITIES: Extremities have no deformities. No edema identified ANCILLARIES: . LABORATORY DATA: Please see below. IMAGING STUDIES: CT abdomen and pelvis 1. There is marked appearing colonic distention to the level of the distal transverse colon where there is a soft tissue density possibly representing neoplasm. That cannot be definitely determined by this exam. There is no evidence of a complete colonic obstruction as some gas and stool is seen distal to that point as described above. There is evidence of a concomitant slight small bowel ileus. IMPRESSION AND PLAN: She has a partial colon obstruction related to a distal transverse colon mass/ thickening. This has a high likelihood of malignancy. She is distended though she still is able to tolerate some diet and is having bowel function so we will slowly prep her with enemas daily and see if we can get her to decompress enough to do a colonoscopy. If not then, given recent history of pulmonary embolism, significant hypoalbuminemia and significant weight loss with prefer to do prefer to do divert her colon obstruction via a colostomy or ileostomy, prep her for a colonoscopy to get a definite diagnosis, give her some time to regain some of the weight that she has lost an to increase her protein stores prior to doing a definite that/radical surgery to deal with the colon obstruction. Vital Signs Vital Signs Date Time Temp Pulse Resp B/P (MAP) Pulse Ox O2 Delivery O2 Flow Rate FiO2 02/13/17 09:39 142/88 02/13/17 08:20 98.2 48 20 95 Nasal Cannula 2.0 I&Os I&O- Last 24 Hours up to 6 AM 02/14/17 06:00 Intake Total 0 ml Output Total 450 ml Balance -450 ml Laboratory Data Labs 24H Laboratory Tests 2 02/12/17 14:34: Bedside Glucose (Misc Panel) 185H 02/12/17 14:36: Immature Granulocyte % (Auto) 0.5H, White Blood Count 10.4H, Red Blood Count 3.94L, Hemoglobin 11.9L, Hematocrit 36.5, Mean Corpuscular Volume 92.6, Mean Corpuscular Hemoglobin 30.2, Mean Corpuscular Hemoglobin Concent 32.6, Red Cell Distribution Width 14.2, Platelet Count 314, Neutrophils (%) (Auto) 82.2H, Lymphocytes (%) (Auto) 10.5L, Monocytes (%) (Auto) 6.6H, Eosinophils (%) (Auto) 0.0, Basophils (%) (Auto) 0.2, Neutrophils # (Auto) 8.6H, Lymphocytes # (Auto) 1.1L, Monocytes # (Auto) 0.7, Eosinophils # (Auto) 0.0, Basophils # (Auto) 0.0, Immature Granulocyte # (Auto) 0.1H, Nucleated Red Blood Cells % (auto) 0.0, Prothrombin Time 16.5H, Prothromb Time International Ratio 1.31, Activated Partial Thromboplast Time 30.7, D-Dimer, Quantitative 3208.4H, Anion Gap 10, Glomerular Filtration Rate 48.6, Calcium Level 7.9L, Magnesium Level 1.7L, Aspartate Amino Transf (AST/SGOT) 16, Alanine Aminotransferase (ALT/SGPT) 18, Alkaline Phosphatase 131H, Total Bilirubin 0.5, Direct Bilirubin 0.2, Total Creatine Kinase 32, Creatine Kinase MB 1.4, Creatine Kinase MB Relative Index 4.37H, Troponin I 0.06, C-Reactive Protein, Quantitative 17.60H, NS-Nzo-R-Type Natriuretic Peptide 9522H, Total Protein 6.1L, Albumin 2.0L, Albumin/Globulin Ratio 0.49L, Lipase 90, Thyroid Stimulating Hormone (TSH) 3.640, Free Thyroxine 1.43 02/12/17 22:03: Urine Appearance CLEAR, Urine Color YELLOW, Urine pH 5.0, Urine Specific [place] >1.060H, Urine Protein NEGATIVE, Urine Glucose (UA) NEGATIVE, Urine Ketones NEGATIVE, Urine Urobilinogen 2.0H, Urine Bilirubin NEGATIVE, Urine Leukocyte Esterase NEGATIVE, Urine Blood NEGATIVE, Urine Nitrite NEGATIVE, Urine WBC (Auto) 3, Urine RBC (Auto) 2, Urine Hyaline Casts (Auto) 5, Urine Bacteria (Auto) NEGATIVE, Urine Squamous Epithelial Cells 0, Urine Mucus (Auto) SMALL, Urine Sperm (Auto) 02/12/17 22:26: Activated Partial Thromboplast Time 56.4H 02/13/17 03:51: 02/13/17 05:14: Nucleated Red Blood Cells % (auto) 0.0, Neutrophils 73, Band Neutrophils 6, Lymphocytes (Manual) 16, Monocytes (Manual) 3, Atypical Lymphocytes 2, Platelet Estimate NORMAL, Anisocytosis 1+, Anion Gap 7L, Glomerular Filtration Rate > 60.0, Blood Urea Nitrogen 24H, Creatinine 0.72, Sodium Level 138, Potassium Level 3.9#, Chloride Level 106, Carbon Dioxide Level 25, Calcium Level 7.4L, Magnesium Level 2.0 CBC/BMP Laboratory Tests 02/12/17 14:36 Red Blood Count 3.94 L, Mean Corpuscular Volume 92.6, Mean Corpuscular Hemoglobin 30.2, Mean Corpuscular Hemoglobin Concent 32.6, Red Cell Distribution Width 14.2, Neutrophils (%) (Auto) 82.2 H, Lymphocytes (%) (Auto) 10.5 L, Monocytes (%) (Auto) 6.6 H, Eosinophils (%) (Auto) 0.0, Basophils (%) ( Auto) 0.2, Neutrophils # (Auto) 8.6 H, Lymphocytes # (Auto) 1.1 L, Monocytes # ( Auto) 0.7, Eosinophils # (Auto) 0.0, Basophils # (Auto) 0.0 02/13/17 05:14 Red Blood Count 3.32 L, Mean Corpuscular Volume 92.5, Mean Corpuscular Hemoglobin 30.4, Mean Corpuscular Hemoglobin Concent 32.9, Red Cell Distribution Width 14.0, Calcium Level 7.4 L Microbiology Microbiology 02/12/17 Blood Culture, Received Pending 02/12/17 Blood Culture, Received Pending 02/13/17 Stool Lactoferrin - Final, Complete 02/13/17 Gastrointestinal Tract Panel (PCR) - Final, Complete 02/12/17 Urine Culture, Received Pending Home Medications Scheduled Lisinopril (Lisinopril) 20 Mg Tab, 20 MG PO BID, (Reported) Methotrexate (Methotrexate) 2.5 Mg Tab, 7.5 MG PO QWEEK, (Reported) WEDNESDAYS Pyridostigmine [place] (Pyridostigmine [place]) 60 Mg Tab, 30 MG PO BID, ( Reported) Allergies Coded Allergies: No Known Allergies (Unverified , 12/30/12) CARRIE BLACKBURN MD Feb 13, 2017 12:26
--- NOTE | 2017-02-16 03:57 | IPNPDOC ---
Subjective General Date/Time Seen The patient was seen on 02/15/17 at 18:00 Subject Chief Complaint/History The patient is a 86-year-old female admitted with a reason for visit of Abdominal Mass; Pulmonary Embolism. Patient looks comfortable feels markedly improved with a nasogastric tube decompression. She reports she has had a small bowel movement. She denies any ongoing abdominal pain. A phone call was made to her daughter and son-in-law to discuss plans for her. Current Medications Current Medications Current Medications Acetaminophen (Tylenol Tab) 650 mg Q4HP PRN PO MILD PAIN OR FEVER; Start at 18:45; Stop 03/14/17 at 18:44 Carvedilol (COReg) 3.125 mg BID PO Last administered on 02/15/17 11:10; Start 02/15/17 at 09:00; Stop 02/15/17 at 18:05; Status DC Carvedilol (COReg) 6.25 mg BID PO Last administered on 02/15/17 20:30; Start 02/15/17 at 21:00; Stop 03/17/17 at 20:59 Dextrose/Sodium Chloride 1,000 ml @ 125 mls/hr Q8H IV Last administered on 20:30; Start 02/14/17 at 14:00; Stop 03/16/17 at 13:59 Enoxaparin Sodium (Lovenox) 60 mg Q24H SC Last administered on 02/15/17 20:29 ; Start 02/12/17 at 20:00; Stop 02/17/17 at 19:59 Folic Acid (Folic Acid) 1 mg DAILY PO Last administered on 02/15/17 09:41; Start 02/13/17 at 09:00; Stop 03/15/17 at 08:59 Heparin Sodium (Porcine) (Heparin) ASDIRECTED PRN IV SEE LABEL COMMENTS; Start 02/12/17 at 16:30; Stop 02/17/17 at 16:29; Status Cancel Heparin Sodium (Porcine) 89038 units/IV Miscellaneous Supplies 250 ml @ 0 mls/ hr Q0M IV Last administered on 02/12/17 16:53; Start 02/12/17 at 16:30; Stop 02/12/17 at 19:27; Status DC Home Med (Med Rec Complete!) ASDIRECTED XX ; Start 02/12/17 at 17:15; Stop 02/12/17 at 17:29; Status DC Lisinopril (Prinivil) 20 mg BID PO Last administered on 02/15/17 09:41; Start 02/12/17 at 21:00; Stop 02/15/17 at 18:06; Status DC Lisinopril (Prinivil) 20 mg DAILY PO ; Start 02/16/17 at 09:00; Stop 03/18/17 at 08:59 Methotrexate (Folex) 7.5 mg We@0900 PO ; Start 02/16/17 at 09:00; Stop at 08:59 Metoprolol Tartrate (Lopressor) 5 mg STAT STAT IV Last administered on 16:36; Start 02/12/17 at 16:01; Stop 02/12/17 at 16:02; Status DC Non-Formulary Medication (Heparin Iv Rate Change Documentation ml/ Hr) ASDIRECTED XX ; Start 02/12/17 at 16:30; Stop 02/17/17 at 16:29; Status Cancel Ondansetron HCl (ZOFRAN INJection) 4 mg Q4HP PRN IV NAUSEA OR VOMITING Last administered on 02/14/17 03:04; Start 02/13/17 at 21:15; Stop 03/15/17 at 21:14 Potassium Chloride/Dextrose/ Sod Cl 1,000 ml @ 125 mls/hr Q8H IV Last administered on 02/14/17 12:08; Start 02/12/17 at 20:00; Stop 02/14/17 at 14:01 ; Status DC Pyridostigmine [place] (Mestinon) 30 mg BID PO Last administered on 02/15/17 20:29; Start 02/12/17 at 21:00; Stop 03/14/17 at 20:59 Allergies Coded Allergies: No Known Allergies (Unverified , 12/30/12) Objective Physical Examination Examination GENERAL APPEARANCE: Comfortable. SKIN: Warm and moist. HEENT: Normocephalic, atraumatic. [place] palpebral conjunctiva, anicteric sclerae. Lips and mucosa appear moist. NG tube in place NECK: Supple, no thyromegaly. No obvious jugular venous distention. LUNGS: Clear to auscultation bilaterally. No wheezing appreciated. HEART: No chest wall abnormalities. None tachycardic, occasional irregular beats , positive murmur ABDOMEN: Abdomen is round, soft, less distended, tympanitic, hypoactive bowel sounds, nontender. . EXTREMITIES: Extremities have no deformities. No edema identified. Vital Signs Vital Signs Date Time Temp Pulse Resp B/P (MAP) Pulse Ox O2 Delivery O2 Flow Rate FiO2 02/16/17 00:52 98.9 88 18 117/94 (102) 90 Room Air 02/13/17 16:00 2.0 Laboratory Data Labs 24H Laboratory Tests 2 02/15/17 05:19: Nucleated Red Blood Cells % (auto) 0.0, Neutrophils 70, Band Neutrophils 8, Lymphocytes (Manual) 15L, Monocytes (Manual) 7, Platelet Estimate NORMAL, Anisocytosis 1+, Ovalocytes 1+, Anion Gap 7L, Glomerular Filtration Rate > 60.0 , Blood Urea Nitrogen 14, Creatinine 0.58, Sodium Level 138, Potassium Level 3.7 #, Chloride Level 105, Carbon Dioxide Level 26, Calcium Level 7.3L, Aspartate Amino Transf (AST/SGOT) 10L, Alanine Aminotransferase (ALT/SGPT) 12, Alkaline Phosphatase 107, Total Bilirubin 0.3, Total Protein 4.5L, Albumin 1.3#L, Albumin /Globulin Ratio 0.41L CBC/BMP Laboratory Tests 02/15/17 05:19 Red Blood Count 3.38 L, Mean Corpuscular Volume 92.9, Mean Corpuscular Hemoglobin 30.8, Mean Corpuscular Hemoglobin Concent 33.1, Red Cell Distribution Width 14.4, Calcium Level 7.3 L, Aspartate Amino Transf (AST/SGOT) 10 L, Alanine Aminotransferase (ALT/SGPT) 12, Alkaline Phosphatase 107, Total Bilirubin 0.3, Total Protein 4.5 L, Albumin 1.3 #L Microbiology Microbiology 02/12/17 Blood Culture - Preliminary, Resulted No Growth after 72 hours. All specime... 02/12/17 Blood Culture - Preliminary, Resulted No Growth after 72 hours. All specime... 02/13/17 Stool Lactoferrin - Final, Complete 02/13/17 Gastrointestinal Tract Panel (PCR) - Final, Complete 02/12/17 Urine Culture - Final, Complete Imaging Studies Abdominal x-ray (02/14/2017) Air is present in small and large intestine. There is marked distention of the colon. Several air fluid levels are present. There is no pneumoperitoneum. An increase in interstitial markings is present in the lungs consistent with chronic interstitial fibrosis. The cardiac silhouette is enlarged. Impression Colon obstruction Malnutrition with significant hypoalbuminemia Pulmonary embolism I spoke to her son-in-law is her daughter was not available. He seems to be knowledgeable in some medical/surgical staff. I explained to her that the primary concern given only other things going on with her which includes the recent diagnosis of pulmonary embolism, her significant weight loss and her severe hypoalbuminemia is that she will not to well with a radical surgery at this point. She was also anemic conversations with her even hesitant underwent a colonoscopy. I think with repeated conversations he is getting a clearer picture of her situation. For now I think the most expedient way to deal with the problem of the colon obstruction is to perform a diverting colostomy. We will then prepped her for a colonoscopy in to get biopsies sent to confirm if the obstruction is malignant in nature. We can then start oral anticoagulants for her pulmonary embolism. He will then allow her to increase her protein stores for a planned colon resection and reversal of the colostomy. All their questions and concerns have been answered. Plan / VTE VTE Prophylaxis Ordered?: Yes (Lovenox) CARRIE BLACKBURN MD Feb 16, 2017 03:57
[2017-02-16] MEDS: D5W/0.45% SODIUM CHLORIDE 1,000 ML IV SCH ×3 (04:11→17:16)
[2017-02-16 07:14] LABS: MEAN CORPUSCULAR HEMOGLOBIN 30.1 pg (27.0-33.0); MEAN CORPUSCULAR HGB CONC 32.1 g/dl (32.0-36.5); PLATELET COUNT, AUTOMATED 212 10^3/uL (150-450); RED CELL DISTRIBUTION WIDTH 14.6 % (11.5-14.5)
[2017-02-16 07:28] LABS: ALBUMIN 1.2 GM/DL (3.2-5.2); ALBUMIN/GLOBULIN RATIO 0.39 (1.00-1.93); ALKALINE PHOSPHATASE 109 U/L (45-117); ALT/SGPT 12 U/L (12-78); ANION GAP 8 MEQ/L (8-16); AST/SGOT 11 U/L (15-37); BILIRUBIN,TOTAL 0.4 MG/DL (0.2-1.0); BLOOD UREA NITROGEN 17 MG/DL (7-18); CALCIUM LEVEL 7.2 MG/DL (8.8-10.2); CARBON DIOXIDE LEVEL 26 MEQ/L (21-32); CHLORIDE LEVEL 103 MEQ/L (98-107); CREATININE FOR GFR 0.59 MG/DL (0.55-1.02); GLOMERULAR FILTRATION RATE > 60.0 (>32); GLUCOSE, FASTING 155 MG/DL (83-110); MAGNESIUM LEVEL 1.6 MG/DL (1.8-2.4); POTASSIUM SERUM 3.3 MEQ/L (3.5-5.1); SODIUM LEVEL 137 MEQ/L (136-145); TOTAL PROTEIN 4.3 GM/DL (6.4-8.2)
[2017-02-16 08:30] LABS: ADD MANUAL DIFFER YES; DIFF SLIDE NUMBER 44; LEFT SHIFT MDIFF
[2017-02-16 09:27] LABS: ANISOCYTOSIS 1+; BANDS 2 % (< 11)
[2017-02-16] MEDS: METHOTREXATE 2.5 MG TAB (J8610 PER 2.5MG) PO SCH (09:58)
[2017-02-16] MEDS: PYRIDOSTIGMINE 60 MG TAB PO SCH ×2 (09:58→21:04)
[2017-02-16] MEDS: LISINOPRIL 20 MG TAB PO SCH (09:58)
[2017-02-16] MEDS: FOLIC ACID 1 MG TAB PO SCH (09:59)
[2017-02-16] MEDS: CARVedilol 6.25 MG TAB PO SCH ×2 (10:00→21:04)
[2017-02-16] MEDS ORDERED: ONDANSETRON 4MG/2ML VIAL (J2405) As Ordered ONE (10:13)
[2017-02-16] MEDS ORDERED: LIDOCAINE 2% INJ 100 MG/5 ML SDV (FOR ANES.) As Ordered ONE (10:13)
[2017-02-16] MEDS ORDERED: PROPOFOL 200 MG/20 ML VIAL As Ordered ONE ×2 (10:13→15:45)
[2017-02-16] MEDS ORDERED: ROCURONIUM BROMIDE 50 MG/5 ML VIAL/SYRINGE As Ordered ONE (10:13)
[2017-02-16] MEDS ORDERED: fentaNYL 250 MCG/5 ML INJECTION (J3010) As Ordered ONE (10:14)
[2017-02-16] MEDS ORDERED: MAG SULF 1GM/100ML (MAG RUN) 1 GM in APPROPRIATE DILUENT 1 EA IV ONE (11:00)
--- NOTE | 2017-02-16 11:25 | IPNPDOC ---
Subjective Date Seen The patient was seen on 02/16/17. Subjective Chief Complaint/HPI The patient is a 86-year-old female admitted with a reason for visit of Abdominal Mass; Pulmonary Embolism. Events since last encounter s/p 2 short runs of V Tach overnight, patient sleeping at time of event. Mag level checked and low at 1.6. Replacement ordered. Constitutional: Denies: Chills, Fever, Night Sweats ENT: Denies: Head Aches, Ear Pain, Dysphagia Pulmonary: Denies: Dyspnea, Cough Gastrointestinal: Reports: Abdominal Pain, Constipation Objective Physical Examination General Exam: Positive: Alert, Cooperative, No Acute Distress (huddleing under 2 blankets with a down vest on when I entered the room) Eye Exam: Positive: Conjunctiva & lids normal, Negative: Sclera icteric ENT Exam: Positive: Mucous membr. moist/pink Neck Exam: Negative: Lymphadenopathy Chest Exam: Positive: Clear to auscultation, Normal air movement Heart Exam: Positive: Rate Normal, Irregular Rhythm Abdomen Exam: Positive: BS Hypoactive (normal pitch), Tenderness (mild diffuse tenderness, RLQ> others), Other (there is tympany noted on percussion) Extremity Exam: Negative: Edema Psych Exam: Positive: Mood NL, Oriented x 3 Assessment /Plan Problems (1) Pulmonary embolism Status: Acute Problem Specific Plan: Monitor Clinically Problem Text: She is currently treated with Lovenox (1mg/kg/day / CrCl 29 on admission). This will be an issue (2) V-tach Problem Text: secondary to hypomagnesemia. Provide replacement and monitor. (3) Abdominal mass Status: Acute Problem Specific Plan: Consult Specialist Problem Text: 02/16/17: diverting colostomy planned for today. NGT in place. Planned diverting colostomy with Dr. Rees, pending discussion with family. (4) Atrial fibrillation Status: Chronic Response to Treatment: Stable Problem Text: 02/16/17: . Echo comlpleted. improved rate control on Coreg 6.25 mg The study is of good technical quality. 2. Normal left ventricular (LV) size and low normal LV systolic function (estimated LVEF 50-55%), grade 1 diastolic dysfunction. 3. No significant valvular disease. 4. Normal central venous pressure. 5. Probably moderate pulmonary hypertension. 02/15/17: poor rate control. Will start on Coreg 3.125 mg po bid. 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 rate controlled. On Lovenox. (5) Dehydration Status: Acute Response to Treatment: Progressing Problem Text: IVF infusing. monitor I/O (6) Hypokalemia Status: Resolved Problem Text: potassium pending for today (7) Hypertension Status: Chronic Response to Treatment: Stable (8) Myasthenia gravis Status: Chronic Response to Treatment: Stable Plan/VTE VTE Prophylaxis Ordered?: Yes (Lovenox) VS, I&O, 24H, Fishbone Vital Signs/I&O Vital Signs Date Time Temp Pulse Resp B/P (MAP) Pulse Ox O2 Delivery O2 Flow Rate FiO2 02/16/17 10:00 90 02/16/17 08:10 Room Air 02/16/17 08:00 99.7 20 131/73 (92) 93 02/13/17 16:00 2.0 Laboratory Data 24H LABS Laboratory Tests 2 02/16/17 06:57: Nucleated Red Blood Cells % (auto) 0.3H, Neutrophils 74, Band Neutrophils 2, Lymphocytes (Manual) 20, Monocytes (Manual) 2, Atypical Lymphocytes 2, Platelet Estimate NORMAL, Anisocytosis 1+, Anion Gap 8, Glomerular Filtration Rate > 60.0 , Blood Urea Nitrogen 17, Creatinine 0.59, Sodium Level 137, Potassium Level 3.3L, Chloride Level 103, Carbon Dioxide Level 26, Calcium Level 7.2L, Aspartate Amino Transf (AST/SGOT) 11L, Alanine Aminotransferase (ALT/SGPT) 12, Alkaline Phosphatase 109, Total Bilirubin 0.4, Total Protein 4.3L, Albumin 1.2L , Magnesium Level 1.6L, Albumin/Globulin Ratio 0.39L CBC/BMP Laboratory Tests 02/16/17 06:57 Red Blood Count 3.35 L, Mean Corpuscular Volume 94.0, Mean Corpuscular Hemoglobin 30.1, Mean Corpuscular Hemoglobin Concent 32.1, Red Cell Distribution Width 14.6 H, Calcium Level 7.2 L, Aspartate Amino Transf (AST/SGOT ) 11 L, Alanine Aminotransferase (ALT/SGPT) 12, Alkaline Phosphatase 109, Total Bilirubin 0.4, Total Protein 4.3 L, Albumin 1.2 L Microbiology Microbiology 02/12/17 Blood Culture - Preliminary, Resulted No Growth after 72 hours. All specime... 02/12/17 Blood Culture - Preliminary, Resulted No Growth after 72 hours. All specime... 02/13/17 Stool Lactoferrin - Final, Complete 02/13/17 Gastrointestinal Tract Panel (PCR) - Final, Complete 02/12/17 Urine Culture - Final, Complete Oumou Ballesteros [employer] Feb 16, 2017 11:24
--- NOTE | 2017-02-16 13:38 | IPNPDOC ---
Subjective General Date/Time Seen The patient was seen on 02/16/17 at 13:36. Subject Chief Complaint/History The patient is a 86-year-old female admitted with a reason for visit of Abdominal Mass; Pulmonary Embolism. Patient seen at the preop holding area. No complaints. The details of the planned procedure reviewed with her. Current Medications Current Medications Current Medications Acetaminophen (Tylenol Tab) 650 mg Q4HP PRN PO MILD PAIN OR FEVER; Start at 18:45; Stop 03/14/17 at 18:44 Carvedilol (COReg) 3.125 mg BID PO Last administered on 02/15/17 11:10; Start 02/15/17 at 09:00; Stop 02/15/17 at 18:05; Status DC Carvedilol (COReg) 6.25 mg BID PO Last administered on 02/16/17 10:00; Start 02/15/17 at 21:00; Stop 03/17/17 at 20:59 Dextrose/Sodium Chloride 1,000 ml @ 125 mls/hr Q8H IV Last administered on 04:11; Start 02/14/17 at 14:00; Stop 03/16/17 at 13:59 Enoxaparin Sodium (Lovenox) 60 mg Q24H SC Last administered on 02/15/17 20:29 ; Start 02/12/17 at 20:00; Stop 02/21/17 at 19:59 Folic Acid (Folic Acid) 1 mg DAILY PO Last administered on 02/16/17 09:59; Start 02/13/17 at 09:00; Stop 03/15/17 at 08:59 Heparin Sodium (Porcine) (Heparin) ASDIRECTED PRN IV SEE LABEL COMMENTS; Start 02/12/17 at 16:30; Stop 02/17/17 at 16:29; Status Cancel Heparin Sodium (Porcine) 97295 units/IV Miscellaneous Supplies 250 ml @ 0 mls/ hr Q0M IV Last administered on 02/12/17 16:53; Start 02/12/17 at 16:30; Stop 02/12/17 at 19:27; Status DC Home Med (Med Rec Complete!) ASDIRECTED XX ; Start 02/12/17 at 17:15; Stop 02/12/17 at 17:29; Status DC Lisinopril (Prinivil) 20 mg BID PO Last administered on 02/15/17 09:41; Start 02/12/17 at 21:00; Stop 02/15/17 at 18:06; Status DC Lisinopril (Prinivil) 20 mg DAILY PO Last administered on 02/16/17 09:58; Start 02/16/17 at 09:00; Stop 03/18/17 at 08:59 Methotrexate (Folex) 7.5 mg We@0900 PO Last administered on 02/16/17 09:58; Start 02/16/17 at 09:00; Stop 03/18/17 at 08:59 Metoprolol Tartrate (Lopressor) 5 mg STAT STAT IV Last administered on 16:36; Start 02/12/17 at 16:01; Stop 02/12/17 at 16:02; Status DC Non-Formulary Medication (Heparin Iv Rate Change Documentation ml/ Hr) ASDIRECTED XX ; Start 02/12/17 at 16:30; Stop 02/17/17 at 16:29; Status Cancel Ondansetron HCl (ZOFRAN INJection) 4 mg Q4HP PRN IV NAUSEA OR VOMITING Last administered on 02/14/17 03:04; Start 02/13/17 at 21:15; Stop 03/15/17 at 21:14 Potassium Chloride/Dextrose/ Sod Cl 1,000 ml @ 125 mls/hr Q8H IV Last administered on 02/14/17 12:08; Start 02/12/17 at 20:00; Stop 02/14/17 at 14:01 ; Status DC Pyridostigmine [place] (Mestinon) 30 mg BID PO Last administered on 02/16/17 09:58; Start 02/12/17 at 21:00; Stop 03/14/17 at 20:59 Allergies Coded Allergies: No Known Allergies (Unverified , 12/30/12) Objective Physical Examination Examination GENERAL APPEARANCE:Patient seen, laying in bed, awake, alert, and oriented. Comfortable, in no acute distress. SKIN: Warm and moist. HEENT: Normocephalic, atraumatic. [place] palpebral conjunctiva, anicteric sclerae. Lips and mucosa appear moist. NGT in place NECK: Supple, no thyromegaly. No obvious jugular venous distention. LUNGS: Clear to auscultation bilaterally. No wheezing appreciated. HEART: No chest wall abnormalities. Regular rate, (+) slight murmurs ABDOMEN: Abdomen is round, soft, mildly distended. nontender on palpation. EXTREMITIES: Extremities have no deformities. No edema identified. Vital Signs Vital Signs Date Time Temp Pulse Resp B/P (MAP) Pulse Ox O2 Delivery O2 Flow Rate FiO2 02/16/17 12:00 98.2 77 18 121/65 (83) 91 Room Air 02/13/17 16:00 2.0 Laboratory Data Labs 24H Laboratory Tests 2 02/16/17 06:57: Nucleated Red Blood Cells % (auto) 0.3H, Neutrophils 74, Band Neutrophils 2, Lymphocytes (Manual) 20, Monocytes (Manual) 2, Atypical Lymphocytes 2, Platelet Estimate NORMAL, Anisocytosis 1+, Anion Gap 8, Glomerular Filtration Rate > 60.0 , Blood Urea Nitrogen 17, Creatinine 0.59, Sodium Level 137, Potassium Level 3.3L, Chloride Level 103, Carbon Dioxide Level 26, Calcium Level 7.2L, Aspartate Amino Transf (AST/SGOT) 11L, Alanine Aminotransferase (ALT/SGPT) 12, Alkaline Phosphatase 109, Total Bilirubin 0.4, Total Protein 4.3L, Albumin 1.2L , Magnesium Level 1.6L, Albumin/Globulin Ratio 0.39L 02/16/17 12:43: CBC/BMP Laboratory Tests 02/16/17 06:57 Red Blood Count 3.35 L, Mean Corpuscular Volume 94.0, Mean Corpuscular Hemoglobin 30.1, Mean Corpuscular Hemoglobin Concent 32.1, Red Cell Distribution Width 14.6 H, Calcium Level 7.2 L, Aspartate Amino Transf (AST/SGOT ) 11 L, Alanine Aminotransferase (ALT/SGPT) 12, Alkaline Phosphatase 109, Total Bilirubin 0.4, Total Protein 4.3 L, Albumin 1.2 L Microbiology Microbiology 02/12/17 Blood Culture - Preliminary, Resulted No Growth after 72 hours. All specime... 02/12/17 Blood Culture - Preliminary, Resulted No Growth after 72 hours. All specime... 02/13/17 Stool Lactoferrin - Final, Complete 02/13/17 Gastrointestinal Tract Panel (PCR) - Final, Complete 02/12/17 Urine Culture - Final, Complete Impression Colon obstruction Malnutrition with significant hypoalbuminemia Pulmonary embolism I discussed with her the plan for today which is mainly to divert the obstruction which would allow us to work up her obstruction further via a colonoscopy after a few days. She can then be placed on oral anticoagulation after then plan to return her to the or in 2 to 4 weeks for a more definitive procedure. Plan / VTE VTE Prophylaxis Ordered?: Yes (Lovenox) CARRIE BLACKBURN MD Feb 16, 2017 13:38
[2017-02-16] MEDS ORDERED: LIDOCAINE 1% SDV INJ 30 ML VIAL As Ordered ONE ×2 (13:56→13:57)
[2017-02-16] MEDS ORDERED: BUPIVACAINE HCL 0.25% 30 ML VIAL As Ordered ONE (13:56)
[2017-02-16 14:01] LABS: ANION GAP 6 MEQ/L (8-16); BLOOD UREA NITROGEN 17 MG/DL (7-18); CARBON DIOXIDE LEVEL 29 MEQ/L (21-32); CHLORIDE LEVEL 102 MEQ/L (98-107); CREATININE FOR GFR 0.56 MG/DL (0.55-1.02); GLOMERULAR FILTRATION RATE > 60.0 (>32); GLUCOSE, FASTING 138 MG/DL (83-110); POTASSIUM SERUM 3.3 MEQ/L (3.5-5.1); SODIUM LEVEL 137 MEQ/L (136-145)
[2017-02-16] MEDS ORDERED: ZOSYN 3.375 GM VIAL (J2543) As Ordered ONE (14:13)
[2017-02-16] MEDS ORDERED: PIPERACILLIN/TAZOBACTAM SOD 3.375 GM in D5W 50 ML IV ONE (14:15)
[2017-02-16] MEDS ORDERED: SUCCINYLCHOLINE 100 MG/5 ML SYRINGE (J0330) As Ordered ONE (14:35)
[2017-02-16] MEDS ORDERED: ePHEDrine SULFATE 25 MG/5 ML(5MG/ML) SYRINGE As Ordered ONE ×2 (14:42→15:00)
[2017-02-16] MEDS ORDERED: PHENYLephrine HCL 500 MCG/5 ML (100MCG/ML) SYRINGE (J2370) As Ordered ONE (15:00)
[2017-02-16] MEDS ORDERED: SUGAMMADEX SODIUM 500 MG/5 ML VIAL (BRIDION) As Ordered ONE (15:42)
[2017-02-16] MEDS ORDERED: fentaNYL 100 MCG/2 ML INJECTION (J3010) As Ordered ONE (16:45)
[2017-02-16] MEDS ORDERED: ONDANSETRON 4MG/2ML VIAL (J2405) IV PRN (17:00)
[2017-02-16] MEDS: fentaNYL 100 MCG/2 ML INJECTION (J3010) IV PRN ×4 (17:00→17:26)
[2017-02-16] MEDS ORDERED: METOCLOPRAMIDE INJ 10MG/2ML VIAL (J2765) IV PRN (17:00)
[2017-02-16] MEDS ORDERED: LR 1,000 ML IV SCH ×2 (17:00→18:00)
--- NOTE | 2017-02-16 17:05 | REP ---
KUB, ONE VIEW: HISTORY: Rule out foreign body. COMPARISON: 02/14/2017. A small amount of air is present in the small and large intestine. There is mild distension of the colon. There are no air fluid levels. There is no pneumoperitoneum. There is no radiopaque foreign body.There appears to be an ostomy overlying the lower right abdomen. IMPRESSION: There is no radiopaque foreign body. Signed by Gary Culver MD 02/17/2017 08:41 A
[2017-02-16] MEDS ORDERED: HYDROmorphone HCL 1 MG/ML SYRINGE (J1170) As Ordered ONE (17:36)
[2017-02-16] MEDS ORDERED: fentaNYL 100 MCG/2 ML INJECTION (J3010) IV PRN (18:00)
[2017-02-16] MEDS ORDERED: HYDROmorphone HCL 1 MG/ML SYRINGE (J1170) IV PRN (18:00)
[2017-02-16] MEDS: ENOXAPARIN 60 MG/0.6 ML SYR (J1650) SC SCH (21:05)
[2017-02-17] VITALS (9 sets, daily range): BP systolic 83–131; BP diastolic 48–73
[2017-02-17] MEDS: D5W/0.45% SODIUM CHLORIDE 1,000 ML IV SCH (00:39)
[2017-02-17] MEDS: NORCO, ANEXSIA 5/325MG TABLET (HYDROcodone/ACETAMINOPHEN) PO PRN (04:10)
--- NOTE | 2017-02-17 04:29 | ROOPDOC ---
[facility] Report Of Operation Report of Operation DATE OF PROCEDURE: 02/16/17 PREPROCEDURE DIAGNOSES: Colon obstruction (distal transverse) POSTPROCEDURE DIAGNOSES: Colon obstruction PROCEDURE: Diagnostic laparoscopy, laparoscopic colostomy/cecostomy SURGEON: Bharat Rees MD CUSTOM DESIGNER: ANESTHESIA: general anesthesia ESTIMATED BLOOD LOSS: Approximately 10 mL. COMPLICATIONS: none, patient tolerated procedure well. REMARKS: Markedly distended colon from the cecum to the splenic flexure due to the amount of distention, I could not adequately visualize where the obstruction is cystic gettingto move the colon around. Small amount of ascites. Mildly distended small bowel backing up from the colon distention. Therefore appears smooth. No obvious peritoneal or omental masses. PROCEDURE NOTE: 86-year-old female admitted for generalized body weakness, dyspnea on exertion found to have evidence for pulmonary embolism and a transverse colon mass causing an obstruction of the colon. With the patient's generalized state of health, recent pulmonary embolism and presence of colon obstruction, I have discussed with her need to they were at the colon to relieve the obstruction. Consent was obtained from the patient. Discussions were done with family. DESCRIPTION OF PROCEDURE: Patient was given a dose of Zosyn 3.375 g IV as preoperative antibiotics. She was brought to the operating room placed supine table. Compression boots were placed for DVT prophylaxis. General endotracheal anesthesia started without any complications. After discussion with anesthesia, the did not give muscle relaxants due to the patient's myasthenia gravis. Sumner catheter was placed. Her abdomen prepped and draped in usual sterile fashion. Surgical timeout then performed prior to start for surgery. We entered the abdomen via small incision above the umbilicus where a Veress needle was inserted. Intra-abdominal placement was confirmed with saline drop technique. CO2 insufflation was started pressure 15 mmHg. Initially patient did not tolerate pneumoperitoneum with bradycardia. We came down and her pressure to 12 mmHg. Once patient was able to tolerate the pneumoperitoneum a 5 mm port was placed under direct vision. Laparoscopic ovary same incision of the Veress needle. Patient has a very thin abdominal wall. Entry was easy. Site of entry was inspected for injury and none was found. There were some flimsy adhesions around the umbilicus going above towards the upper abdomen. A 5 mm port was placed under direct vision over the left lower quadrant area and suprapubic area. The adhesions around the umbilicus was lysed with LigaSure device. Also there were some adhesions at the cecum from previous appendectomy. This was also sharply lysed. On diagnostic laparoscopy, small amount of serous ascites was found. The colon starting from the cecum is greatly distended occupying a lot of space in the abdomen this extends through to the splenic flexure. She is a very thin omentum as evidenced by a 40 pound weight loss that she recently experienced I tried to lift up the transverse colon to visualize where the obstruction is due to the heaviness and amount of distention of the colon I was not able to visualize the area of the splenic flexure. I looked at the liver and appears smooth no obvious nodularities. The peritoneum as well as the omentum also did not have any masses or nodularities at this point I have chosen the cecum was the site for diversion as the transverse colon seems to be too vague, I'm also hoping I could use this as an entry point for later colonoscopy. The pneumoperitoneum was released after previously marked an area both on the right and left abdomen for adequate colostomy site positioning. Before this I grabbed the antimesenteric end of the cecum this seems to be able to be pulled into the abdominal wall without releasing the lateral attachments of the cecum. A 2 cm round skin incision was created in the subcutaneous tissue underneath this was removed. The fascia was sick opened up transversely the rectus muscles was divided bluntly the underneath the inferior epigastric artery or its branch was cauterized. The posterior peritoneum was opened up under direct vision and then delivered the cecum into our opening. Just through the large size of the cecum I could only pull-up half of the antimesenteric wall of the cecum. I then secured the wall of the cecum and to the fascia with 30 Vicryls. The exteriorized wall of the cecum was then opened up and the colostomy matured. We got immediate drainage of both air and liquid yellow stool. After checking for hemostasis the colostomy appliance was applied. [place] were placed at the port sites and dry gauze dressings placed. Patient was then promptly awakened and extubated. I removed the nasogastric tube. Her Sumner catheter was discontinued. She was then brought to the recovery room stable BHARAT REES MD Feb 17, 2017 04:29
[2017-02-17 06:02] LABS: ADD MANUAL DIFFER YES; DIFF SLIDE NUMBER 32; LEFT SHIFT MDIFF; MEAN CORPUSCULAR HEMOGLOBIN 30.3 pg (27.0-33.0); MEAN CORPUSCULAR HGB CONC 32.9 g/dl (32.0-36.5); MEAN CORPUSCULAR VOLUME 92.3 fl (80.0-96.0); PLATELET COUNT, AUTOMATED 205 10^3/uL (150-450); RED CELL DISTRIBUTION WIDTH 14.4 % (11.5-14.5); WHITE BLOOD COUNT 7.2 10^3/uL (4.0-10.0)
[2017-02-17 06:24] LABS: ALBUMIN/GLOBULIN RATIO 0.36 (1.00-1.93); ALKALINE PHOSPHATASE 104 U/L (45-117); ALT/SGPT 11 U/L (12-78); ANION GAP 8 MEQ/L (8-16); AST/SGOT 10 U/L (15-37); BILIRUBIN,TOTAL 0.3 MG/DL (0.2-1.0); BLOOD UREA NITROGEN 14 MG/DL (7-18); CALCIUM LEVEL 6.7 MG/DL (8.8-10.2); CARBON DIOXIDE LEVEL 25 MEQ/L (21-32); CHLORIDE LEVEL 102 MEQ/L (98-107); CREATININE FOR GFR 0.49 MG/DL (0.55-1.02); GLOMERULAR FILTRATION RATE > 60.0 (>32); GLUCOSE, FASTING 141 MG/DL (83-110); POTASSIUM SERUM 3.5 MEQ/L (3.5-5.1); SODIUM LEVEL 135 MEQ/L (136-145); TOTAL PROTEIN 3.8 GM/DL (6.4-8.2)
[2017-02-17 07:02] LABS: BANDS 1 % (< 11)
[2017-02-17] MEDS: CARVedilol 6.25 MG TAB PO SCH ×2 (08:19→20:53)
[2017-02-17] MEDS: LISINOPRIL 20 MG TAB PO SCH (08:21)
[2017-02-17] MEDS: FOLIC ACID 1 MG TAB PO SCH (08:21)
[2017-02-17] MEDS: PYRIDOSTIGMINE 60 MG TAB PO SCH ×2 (08:21→20:53)
--- NOTE | 2017-02-17 10:01 | REP ---
Portable chest x-ray: Sitting AP view. History: Abnormal breath sounds. Comparison study: February 14, 2017. Findings: EKG monitoring electrodes overlie the chest. There is slight blunting of the left lateral pleural angle indicating a small quantity of left pleural fluid. There may be some fissural thickening on the right. Pulmonary vascular markings are slightly cephalized. No focal infiltrate. Impression: Small pleural effusions suspected with vascular cephalization consistent with CHF pattern. No pulmonary edema seen. Signed by Bogdan Garcia MD 02/17/2017 11:58 A
--- NOTE | 2017-02-17 10:11 | IPNPDOC ---
Subjective Date Seen The patient was seen on 02/17/17. Subjective Chief Complaint/HPI The patient is a 86-year-old female admitted with a reason for visit of Abdominal Mass; Pulmonary Embolism. Events since last encounter Hypotensive overnight. BP meds held. High output from ostomy per nursing staff. IVF running: D51/2NS @125 cc per hour. Constitutional: Reports: Weakness ENT: Denies: Head Aches, Ear Pain, Dysphagia Cardiovascular: Denies: Chest Pain, Palpitations, Orthopnea, Paroxysmal Noc. Dyspnea, Lt Headedness Gastrointestinal: Reports: Other Symptoms (high output from ostomy), Denies: Nausea, Vomiting, Abdominal Pain, Diarrhea, Constipation Genitourinary: Denies: Dysuria, Frequency, Incontinence, Retention Objective Physical Examination General Exam: Positive: Alert, Cooperative, No Acute Distress (huddleing under 2 blankets with a down vest on when I entered the room) Eye Exam: Positive: Conjunctiva & lids normal, Negative: Sclera icteric ENT Exam: Positive: Mucous membr. moist/pink Neck Exam: Negative: Lymphadenopathy Chest Exam: Positive: Clear to auscultation, Normal air movement Heart Exam: Positive: Rate Normal, Irregular Rhythm Abdomen Exam: Positive: Normal bowel sounds, Other (ostomy beefy red, draining) , Negative: Tenderness Extremity Exam: Negative: Edema Psych Exam: Positive: Mood NL, Oriented x 3 Assessment /Plan Problems (1) Pulmonary embolism Status: Acute Problem Specific Plan: Monitor Clinically Problem Text: 02/16/17: continue Lovenox. Planned colonoscopy Tuesday. Can start po anticoagulant post colonoscopy. Will need consideration to stop anticoagulant/ bridge therapy 4-5 days prior to colectomy in 4-6 weeks. She is currently treated with Lovenox (1mg/kg/day 06/10 CrCl 29 on admission). (2) V-tach Problem Text: 02/16/17: secondary to hypomagnesemia. Provide replacement and monitor. (3) Abdominal mass Status: Acute Problem Specific Plan: Consult Specialist Problem Text: 02/17/17: s/p diverting colostomy. Now with high output. 02/16/17: diverting colostomy planned for today. NGT in place. Planned diverting colostomy with Dr. Rees, pending discussion with family. (4) Atrial fibrillation Status: Chronic Response to Treatment: Stable Problem Text: 02/16/17: . Echo comlpleted. improved rate control on Coreg 6.25 mg The study is of good technical quality. 2. Normal left ventricular (LV) size and low normal LV systolic function (estimated LVEF 50-55%), grade 1 diastolic dysfunction. 3. No significant valvular disease. 4. Normal central venous pressure. 5. Probably moderate pulmonary hypertension. 02/15/17: poor rate control. Will start on Coreg 3.125 mg po bid. 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 rate controlled. On Lovenox. (5) Dehydration Status: Acute Response to Treatment: Progressing Problem Text: IVF infusing. monitor I/O (6) Hypokalemia Status: Resolved Problem Text: potassium pending for today (7) Hypertension Status: Chronic Response to Treatment: Stable (8) Myasthenia gravis Status: Chronic Response to Treatment: Stable Plan/VTE VTE Prophylaxis Ordered?: Yes (Lovenox) VS, I&O, 24H, Fishbone Vital Signs/I&O Vital Signs Date Time Temp Pulse Resp B/P (MAP) Pulse Ox O2 Delivery O2 Flow Rate FiO2 02/17/17 08:19 97 86/48 02/17/17 08:00 97.9 18 96 Nasal Cannula 2.0 I&O- Last 24 Hours up to 6 AM 02/18/17 06:00 Output Total 500 ml Balance -500 ml Laboratory Data 24H LABS Laboratory Tests 2 02/16/17 12:43: Anion Gap 6L, Glomerular Filtration Rate > 60.0, Blood Urea Nitrogen 17, Creatinine 0.56, Sodium Level 137, Potassium Level 3.3L, Chloride Level 102, Carbon Dioxide Level 29, Calcium Level 7.0L, Magnesium Level 2.0 02/17/17 05:37: Anion Gap 8, Glomerular Filtration Rate > 60.0, Blood Urea Nitrogen 14, Creatinine 0.49L, Sodium Level 135L, Potassium Level 3.5, Chloride Level 102, Carbon Dioxide Level 25, Calcium Level 6.7L, Nucleated Red Blood Cells % (auto) 0.0, Neutrophils 89H, Band Neutrophils 1, Lymphocytes (Manual) 10L, Platelet Estimate NORMAL, Red Blood Cell Morphology NORMAL, Aspartate Amino Transf (AST/ SGOT) 10L, Alanine Aminotransferase (ALT/SGPT) 11L, Alkaline Phosphatase 104, Total Bilirubin 0.3, Total Protein 3.8L, Albumin 1.0L, Albumin/Globulin Ratio 0.36L CBC/BMP Laboratory Tests 02/16/17 12:43 Calcium Level 7.0 L 02/17/17 05:37 Calcium Level 6.7 L, Red Blood Count 3.23 L, Mean Corpuscular Volume 92.3, Mean Corpuscular Hemoglobin 30.3, Mean Corpuscular Hemoglobin Concent 32.9, Red Cell Distribution Width 14.4, Aspartate Amino Transf (AST/SGOT) 10 L, Alanine Aminotransferase (ALT/SGPT) 11 L, Alkaline Phosphatase 104, Total Bilirubin 0.3 , Total Protein 3.8 L, Albumin 1.0 L Microbiology Microbiology 02/12/17 Blood Culture - Preliminary, Resulted No Growth after 72 hours. All specime... 02/12/17 Blood Culture - Preliminary, Resulted No Growth after 72 hours. All specime... 02/13/17 Stool Lactoferrin - Final, Complete 02/13/17 Gastrointestinal Tract Panel (PCR) - Final, Complete 02/12/17 Urine Culture - Final, Complete Oumou Ballesteros RN INTAKE Feb 17, 2017 10:11
[2017-02-17 13:41] LABS: ANION GAP 6 MEQ/L (8-16); BLOOD UREA NITROGEN 14 MG/DL (7-18); CALCIUM LEVEL 7.2 MG/DL (8.8-10.2); CARBON DIOXIDE LEVEL 28 MEQ/L (21-32); CHLORIDE LEVEL 102 MEQ/L (98-107); CREATININE FOR GFR 0.53 MG/DL (0.55-1.02); GLOMERULAR FILTRATION RATE > 60.0 (>32); GLUCOSE, FASTING 147 MG/DL (83-110); MAGNESIUM LEVEL 1.8 MG/DL (1.8-2.4); SODIUM LEVEL 136 MEQ/L (136-145)
--- NOTE | 2017-02-17 17:17 | REP ---
Procedure: PICC line insertion with Diane-Elvira The procedure was performed under the direct supervision of Dr. Garcia. The risks and benefits of the procedure were explained to the patient and informed consent was obtained. The right basilic vein was localized using ultrasound guidance. The skin was prepped and draped in a sterile fashion. 2% lidocaine was used as a local anesthetic. Using ultrasound guidance the basilic vein was cannulated and a 0.018 guidewire was inserted and advanced to the SVC using fluoroscopic guidance. The needle was removed and a 5.5 [place] dilator and peel-away sheath was inserted over the guide wire. A 5.5 [place] dual lumen catheter was cut to length of 36 cm. The dilator was removed and the catheter was inserted over the guide wire with the tip ending in the SVC. The peel-away sheath was removed and the catheter was flushed with heparinized saline as per Hospital protocol. The catheter was affixed to the skin and a sterile dressing was applied. The the patient tolerated the procedure well and there were no immediate complications. 0.6 minutes of fluoro time was utilized for this procedure. Reviewed by JEROME Siegel 02/17/2017 04:45 PSigned by Bogdan Garcia MD 02/17/2017 05:07 P
[2017-02-17] MEDS: SODIUM CHLORIDE 0.9% INJ 10 ML SYR IV SCH (17:21)
[2017-02-17] MEDS ORDERED: POTASSIUM CHLORIDE 10 MEQ SR TABLET PO ONE (18:30)
[2017-02-17] MEDS: ENOXAPARIN 60 MG/0.6 ML SYR (J1650) SC SCH (18:54)
[2017-02-18] MEDS: D5W/0.45% SODIUM CHLORIDE 1,000 ML IV SCH ×2 (00:02→09:18)
[2017-02-18 04:00] VITALS: BP 125/57
[2017-02-18] MEDS: SODIUM CHLORIDE 0.9% INJ 10 ML SYR IV SCH ×2 (05:19→17:52)
[2017-02-18] MEDS: ENOXAPARIN 60 MG/0.6 ML SYR (J1650) SC SCH ×2 (05:20→17:51)
[2017-02-18 05:40] LABS: EOS # 0.3 10^3/uL (0.0-0.50); EOS % 3.7 % (0.0-3.0); IMMATURE GRANULOCYTE % 0.9 % (0-0); LYMPH # 1.5 10^3/uL (1.5-4.5); LYMPH % 18.8 % (24.0-44.0); MEAN CORPUSCULAR HEMOGLOBIN 30.1 pg (27.0-33.0); MEAN CORPUSCULAR HGB CONC 32.8 g/dl (32.0-36.5); MONO # 0.1 10^3/uL (0.0-0.8); NEUTROPHILS # 5.9 10^3/uL (1.8-7.7); NEUTROPHILS % 75.6 % (36.0-66.0); PLATELET COUNT, AUTOMATED 217 10^3/uL (150-450); RED CELL DISTRIBUTION WIDTH 14.5 % (11.5-14.5); WHITE BLOOD COUNT 7.8 10^3/uL (4.0-10.0)
[2017-02-18 06:28] LABS: ALBUMIN 1.1 GM/DL (3.2-5.2); ALBUMIN/GLOBULIN RATIO 0.41 (1.00-1.93); ALKALINE PHOSPHATASE 161 U/L (45-117); ALT/SGPT 28 U/L (12-78); ANION GAP 5 MEQ/L (8-16); AST/SGOT 37 U/L (15-37); BILIRUBIN,TOTAL 0.4 MG/DL (0.2-1.0); BLOOD UREA NITROGEN 10 MG/DL (7-18); CALCIUM LEVEL 6.7 MG/DL (8.8-10.2); CARBON DIOXIDE LEVEL 28 MEQ/L (21-32); CHLORIDE LEVEL 107 MEQ/L (98-107); CREATININE FOR GFR 0.49 MG/DL (0.55-1.02); GLOMERULAR FILTRATION RATE > 60.0 (>32); GLUCOSE, FASTING 102 MG/DL (83-110); SODIUM LEVEL 140 MEQ/L (136-145); TOTAL PROTEIN 3.8 GM/DL (6.4-8.2)
[2017-02-18 08:00] VITALS: BP_SYST 125; BP_SYST 129; BP_DIAS 57; BP_DIAS 58
[2017-02-18] MEDS: NORCO, ANEXSIA 5/325MG TABLET (HYDROcodone/ACETAMINOPHEN) PO PRN (08:58)
[2017-02-18] MEDS: LISINOPRIL 20 MG TAB PO SCH (08:59)
[2017-02-18] MEDS: CARVedilol 6.25 MG TAB PO SCH ×2 (08:59→21:17)
[2017-02-18] MEDS: FOLIC ACID 1 MG TAB PO SCH (09:00)
[2017-02-18] MEDS: PYRIDOSTIGMINE 60 MG TAB PO SCH ×2 (09:00→21:09)
--- NOTE | 2017-02-18 10:18 | IPNPDOC ---
Subjective Date Seen The patient was seen on 02/18/17. Subjective Chief Complaint/HPI The patient is a 86-year-old female admitted with a reason for visit of Abdominal Mass; Pulmonary Embolism. Events since last encounter BPs improved today, less output from colostomy. Tolerating clear liquids well. Constitutional: Reports: Weakness, Denies: Chills, Fever, Night Sweats Pulmonary: Denies: Dyspnea, Cough Cardiovascular: Denies: Chest Pain, Palpitations, Orthopnea, Paroxysmal Noc. Dyspnea, Lt Headedness Gastrointestinal: Denies: Nausea, Vomiting, Abdominal Pain, Diarrhea, Constipation Genitourinary: Denies: Dysuria, Frequency, Incontinence, Retention Objective Physical Examination General Exam: Positive: Alert, Cooperative, No Acute Distress Eye Exam: Positive: Conjunctiva & lids normal, Negative: Sclera icteric ENT Exam: Positive: Mucous membr. moist/pink Neck Exam: Negative: Lymphadenopathy Chest Exam: Positive: Clear to auscultation, Normal air movement Heart Exam: Positive: Rate Normal, Irregular Rhythm Abdomen Exam: Positive: Normal bowel sounds, Other (ostomy beefy red, draining) , Negative: Tenderness Extremity Exam: Negative: Edema Psych Exam: Positive: Mood NL, Oriented x 3 Assessment /Plan Problems (1) Pulmonary embolism Status: Acute Problem Specific Plan: Monitor Clinically Problem Text: 02/16/17: continue Lovenox. Planned colonoscopy Tuesday. Can start po anticoagulant post colonoscopy. Will need consideration to stop anticoagulant/ bridge therapy 4-5 days prior to colectomy in 4-6 weeks. She is currently treated with Lovenox (1mg/kg/day 06/10 CrCl 29 on admission). (2) Abdominal mass Status: Acute Problem Specific Plan: Consult Specialist Problem Text: 02/18/17: colostomy output slowed. tolerating clears. consider advancing diet. 02/17/17: s/p diverting colostomy. Now with high output. 02/16/17: diverting colostomy planned for today. NGT in place. Planned diverting colostomy with Dr. Rees, pending discussion with family. (3) Atrial fibrillation Status: Chronic Response to Treatment: Stable Problem Text: 02/16/17: . Echo comlpleted. improved rate control on Coreg 6.25 mg The study is of good technical quality. 2. Normal left ventricular (LV) size and low normal LV systolic function (estimated LVEF 50-55%), grade 1 diastolic dysfunction. 3. No significant valvular disease. 4. Normal central venous pressure. 5. Probably moderate pulmonary hypertension. 02/15/17: poor rate control. Will start on Coreg 3.125 mg po bid. 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 rate controlled. On Lovenox. (4) Dehydration Status: Acute Response to Treatment: Progressing Problem Text: : improving. tolerating clears. DC IVF. BPs stable. IVF infusing. monitor I/O (5) Hypokalemia Status: Acute Problem Text: 02/18/17:KCL IV x 3 runs today (6) Hypertension Status: Chronic Response to Treatment: Stable (7) Myasthenia gravis Status: Chronic Response to Treatment: Stable (8) V-tach Status: Resolved Problem Text: 02/16/17: secondary to hypomagnesemia. Provide replacement and monitor. Plan/VTE VTE Prophylaxis Ordered?: Yes (Lovenox) VS, I&O, [facility] Vital Signs/I&O Vital Signs Date Time Temp Pulse Resp B/P (MAP) Pulse Ox O2 Delivery O2 Flow Rate FiO2 02/18/17 08:59 129/58 02/18/17 08:59 62 02/18/17 08:58 18 02/18/17 08:30 96 Room Air 02/18/17 08:00 97.6 2.0 I&O- Last 24 Hours up to 6 AM 02/19/17 06:00 Intake Total 0 ml Output Total 0 ml Balance 0 ml Laboratory Data 24H LABS Laboratory Tests 2 02/17/17 12:57: Anion Gap 6L, Glomerular Filtration Rate > 60.0, Blood Urea Nitrogen 14, Creatinine 0.53L, Sodium Level 136, Potassium Level 3.0L, Chloride Level 102, Carbon Dioxide Level 28, Calcium Level 7.2L, Magnesium Level 1.8 02/18/17 05:21: Anion Gap 5L, Glomerular Filtration Rate > 60.0, Blood Urea Nitrogen 10, Creatinine 0.49L, Sodium Level 140, Potassium Level 3.0L, Chloride Level 107, Carbon Dioxide Level 28, Calcium Level 6.7L, Immature Granulocyte % (Auto) 0.9H , White Blood Count 7.8, Red Blood Count 3.12L, Hemoglobin 9.4L, Hematocrit 28.7L, Mean Corpuscular Volume 92.0, Mean Corpuscular Hemoglobin 30.1, Mean Corpuscular Hemoglobin Concent 32.8, Red Cell Distribution Width 14.5, Platelet Count 217, Neutrophils (%) (Auto) 75.6H, Lymphocytes (%) (Auto) 18.8L, Monocytes (%) (Auto) 1.0, Eosinophils (%) (Auto) 3.7H, Basophils (%) (Auto) 0.0 , Neutrophils # (Auto) 5.9, Lymphocytes # (Auto) 1.5, Monocytes # (Auto) 0.1, Eosinophils # (Auto) 0.3, Basophils # (Auto) 0.0, Immature Granulocyte # (Auto) 0.1H, Nucleated Red Blood Cells % (auto) 0.0, Aspartate Amino Transf (AST/SGOT) 37, Alanine Aminotransferase (ALT/SGPT) 28, Alkaline Phosphatase 161H, Total Bilirubin 0.4, Total Protein 3.8L, Albumin 1.1L, Albumin/Globulin Ratio 0.41L CBC/BMP Laboratory Tests 02/17/17 12:57 Calcium Level 7.2 L 02/18/17 05:21 Calcium Level 6.7 L, Red Blood Count 3.12 L, Mean Corpuscular Volume 92.0, Mean Corpuscular Hemoglobin 30.1, Mean Corpuscular Hemoglobin Concent 32.8, Red Cell Distribution Width 14.5, Neutrophils (%) (Auto) 75.6 H, Lymphocytes (%) (Auto) 18.8 L, Monocytes (%) (Auto) 1.0, Eosinophils (%) (Auto) 3.7 H, Basophils (%) ( Auto) 0.0, Neutrophils # (Auto) 5.9, Lymphocytes # (Auto) 1.5, Monocytes # (Auto ) 0.1, Eosinophils # (Auto) 0.3, Basophils # (Auto) 0.0, Aspartate Amino Transf (AST/SGOT) 37, Alanine Aminotransferase (ALT/SGPT) 28, Alkaline Phosphatase 161 H, Total Bilirubin 0.4, Total Protein 3.8 L, Albumin 1.1 L Microbiology Microbiology 02/12/17 Blood Culture - Final, Complete NO GROWTH AFTER 5 DAYS 02/12/17 Blood Culture - Final, Complete NO GROWTH AFTER 5 DAYS 02/13/17 Stool Lactoferrin - Final, Complete 02/13/17 Gastrointestinal Tract Panel (PCR) - Final, Complete 02/12/17 Urine Culture - Final, Complete Oumou Ballesteros [employer] Feb 18, 2017 10:18
[2017-02-18] MEDS: KCL 10MEQ IN 100ML SWI (KRUN) 10 MEQ in APPROPRIATE DILUENT 1 EA IV SCH ×6 (10:40→13:15)
[2017-02-18 12:00] VITALS: BP 130/56
[2017-02-18] MEDS: POTASSIUM CHLORIDE 10 MEQ SR TABLET PO SCH (15:14)
[2017-02-18 16:00] VITALS: BP 148/67
[2017-02-18 17:43] LABS: BLOOD UREA NITROGEN 10 MG/DL (7-18); CHLORIDE LEVEL 104 MEQ/L (98-107); CREATININE FOR GFR 0.45 MG/DL (0.55-1.02); GLOMERULAR FILTRATION RATE > 60.0 (>32); GLUCOSE, FASTING 101 MG/DL (83-110); POTASSIUM SERUM 3.5 MEQ/L (3.5-5.1); SODIUM LEVEL 140 MEQ/L (136-145)
[2017-02-18 17:44] LABS: ANION GAP 7 MEQ/L (8-16); CALCIUM LEVEL 7.1 MG/DL (8.8-10.2); CARBON DIOXIDE LEVEL 29 MEQ/L (21-32); MAGNESIUM LEVEL 1.8 MG/DL (1.8-2.4)
[2017-02-18 20:36] VITALS: BP 137/60
[2017-02-19 00:28] VITALS: BP 129/60
[2017-02-19 04:48] VITALS: BP 121/70
[2017-02-19] MEDS: ENOXAPARIN 60 MG/0.6 ML SYR (J1650) SC SCH ×2 (05:28→18:57)
[2017-02-19] MEDS: SODIUM CHLORIDE 0.9% INJ 10 ML SYR IV SCH ×2 (05:29→18:57)
[2017-02-19 05:56] LABS: BASO % 0.1 % (0.0-1.0); EOS # 0.2 10^3/uL (0.0-0.50); EOS % 2.7 % (0.0-3.0); IMMATURE GRANULOCYTE % 0.6 % (0-0); LYMPH # 1.7 10^3/uL (1.5-4.5); LYMPH % 21.5 % (24.0-44.0); MEAN CORPUSCULAR HEMOGLOBIN 30.5 pg (27.0-33.0); MEAN CORPUSCULAR HGB CONC 33.1 g/dl (32.0-36.5); MEAN CORPUSCULAR VOLUME 92.1 fl (80.0-96.0); MONO # 0.1 10^3/uL (0.0-0.8); MONO % 1.4 % (0.0-5.0); NEUTROPHILS # 5.7 10^3/uL (1.8-7.7); NEUTROPHILS % 73.7 % (36.0-66.0); PLATELET COUNT, AUTOMATED 226 10^3/uL (150-450); RED CELL DISTRIBUTION WIDTH 14.5 % (11.5-14.5); WHITE BLOOD COUNT 7.8 10^3/uL (4.0-10.0)
[2017-02-19 07:07] LABS: ALBUMIN 1.2 GM/DL (3.2-5.2); ALBUMIN/GLOBULIN RATIO 0.41 (1.00-1.93); ALKALINE PHOSPHATASE 214 U/L (45-117); ALT/SGPT 59 U/L (12-78); ANION GAP 7 MEQ/L (8-16); AST/SGOT 79 U/L (15-37); BILIRUBIN,TOTAL 0.4 MG/DL (0.2-1.0); BLOOD UREA NITROGEN 12 MG/DL (7-18); CALCIUM LEVEL 6.9 MG/DL (8.8-10.2); CARBON DIOXIDE LEVEL 26 MEQ/L (21-32); CHLORIDE LEVEL 107 MEQ/L (98-107); CREATININE FOR GFR 0.44 MG/DL (0.55-1.02); GLOMERULAR FILTRATION RATE > 60.0 (>32); GLUCOSE, FASTING 86 MG/DL (83-110); POTASSIUM SERUM 3.4 MEQ/L (3.5-5.1); SODIUM LEVEL 140 MEQ/L (136-145); TOTAL PROTEIN 4.1 GM/DL (6.4-8.2)
[2017-02-19 08:00] VITALS: BP 117/56
[2017-02-19] MEDS: POTASSIUM CHLORIDE 10 MEQ SR TABLET PO SCH (09:01)
[2017-02-19] MEDS: CARVedilol 6.25 MG TAB PO SCH ×2 (09:02→20:22)
[2017-02-19] MEDS: LISINOPRIL 20 MG TAB PO SCH (09:02)
[2017-02-19] MEDS: FOLIC ACID 1 MG TAB PO SCH (09:02)
[2017-02-19] MEDS: PYRIDOSTIGMINE 60 MG TAB PO SCH ×2 (09:02→20:23)
[2017-02-19 12:00] VITALS: BP 158/62
--- NOTE | 2017-02-19 15:52 | IPN ---
DATE: 02/19/2017 SUBJECTIVE: The patient is seen today in the progressive care unit (PCU). She had a diverting colostomy. When she was signed out to me, I was told that the plans were for diagnostic colonoscopy next week and waiting at least a month for definitive surgery on her bowel. She offers no complaints of headache, dizziness, cough, shortness of breath, chest pains, palpitations. Not having any abdominal pains to speak of. She is having some lower extremity edema but no lower extremity discomfort. She continues to take potassium, Lovenox, [place], methotrexate, lisinopril, carvedilol, Zofran, folic acid, Mestinon and Tylenol as needed PHYSICAL EXAMINATION: On examination, her temperature is 99.0, blood pressure 158/62, pulse 78 and regular, respirations 18, oxygen saturation on room air is 96%. She is alert, oriented, pleasant and cooperative, not at all in any distress. Her eyes are clear. There is no facial weakness. Speech is clear. There are no neck masses, tenderness or adenopathy. No carotid bruits. Her lungs are clear. Heart has regular rhythm without any murmur, click or gallop. Abdomen is soft, nontender without any masses or organomegaly. She does have the colostomy which appears to be functioning well. She has a staple in her epigastrium. She does have one to 2+ edema in her lower extremities, but calves are not tender. LABORATORY DATA: I should note that today's labs show hemoglobin of 9.7, WBC 7800, platelet count 226,000. BUN 12, creatinine 0.44, potassium was 3.4. ASSESSMENT AND PLAN: 1. Pulmonary embolism. She continues on Lovenox. 2. Abdominal mass status post diverting colostomy. Is awaiting colonoscopy Tuesday. 3. Atrial fibrillation, stable. 4. Dehydration, resolved. 5. Hypokalemia, resolved. 6. Hypertension stable. 7. Myasthenia gravis, continues on Mestinon. 8. Ventricular tachycardia, felt related to hypomagnesemia, resolved. PLAN: Continue on her current medication regimen which also involves prep for her colonoscopy. I think we will have a little more definite idea about what we are treating with her subsequent surgery when we get the definitive biopsy report. The patient appears quite comfortable at this time. [facility]
[2017-02-19 16:00] VITALS: BP 123/65
[2017-02-19 20:00] VITALS: BP 148/67
--- NOTE | 2017-02-19 23:44 | IPN ---
DATE: 02/19/2017 SUBJECTIVE: The patient is an 86-year-old woman who was admitted on 02/12 with abdominal fullness and a significant weight loss. Evaluation revealed a markedly dilated right colon with a suggestion of a transverse colon obstruction. She was also diagnosed with bilateral pulmonary emboli based on a CT angiogram at the time of admission. She is now three days postoperative from laparoscopy and creation of a cecal stoma. This has been draining well recently. Vital signs reveal that the patient has been afebrile over the last 24 hours. Pulse is from 63-78 and her blood pressure is fine with good room air oxygen saturations. Intake and output showed intake 2160 with output 2725 on 02/18. 1200 of this was liquid stool. OBJECTIVE: Physical exam reveals a somewhat frail-appearing elderly woman lying quietly in the hospital bed. She is alert and oriented. Sclerae are anicteric. Heart and lung exams are unremarkable. Abdomen does not appear significantly distended. She has an ostomy appliance attached in the right mid to upper abdomen. There is some stool draining to this from a small flat stomal opening. She does have a few bowel sounds auscultated within the abdomen and the abdomen is otherwise soft. LABORATORY DATA: Labs show that the patient's white count is 7.8 with a hemoglobin of 10, hematocrit of 29 and platelet count of 226,000. Differential count shows 74% neutrophils and 21% lymphocytes. Chemistry profile shows her potassium slightly low at 3.4 with BUN of 12 and creatinine of 0.44. Total protein is 4.1 with an albumin of 1.2, and these are actually improved over the last two days. IMPRESSION: Patient is now doing well two days postoperative from drainage of her obstructed right colon. 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 She has had a significant weight loss and her nutrition parameters are poor. PLAN: The patient will be continued on her diet today, but will be converted to clear liquids tomorrow. She is to have a colonoscopy on Wednesday 02/21. She will receive a bowel prep using GoLYTELY on 02/20. She will also receive Fleet's enemas on the mornings of 02/20 and 02/21 to try to clear her rectum and distal colon somewhat as well. Her morning Lovenox dose on 02/21 will be held and this can be resumed after her colonoscopy has been completed. Once the colonoscopy is completed, she can be placed back on a diet. The patient will need to improve her nutritional parameters before she would be a good candidate for a partial colectomy. ROLANDO
[2017-02-20] VITALS: BP 145/63
[2017-02-20 04:01] VITALS: BP 131/64
[2017-02-20] MEDS: ENOXAPARIN 60 MG/0.6 ML SYR (J1650) SC SCH ×2 (05:33→17:43)
[2017-02-20] MEDS: SODIUM CHLORIDE 0.9% INJ 10 ML SYR IV SCH ×2 (05:34→17:44)
[2017-02-20 05:54] LABS: BASO % 0.1 % (0.0-1.0); EOS # 0.2 10^3/uL (0.0-0.50); EOS % 2.1 % (0.0-3.0); IMMATURE GRANULOCYTE % 0.6 % (0-0); LYMPH # 1.8 10^3/uL (1.5-4.5); LYMPH % 21.7 % (24.0-44.0); MEAN CORPUSCULAR HGB CONC 32.5 g/dl (32.0-36.5); MEAN CORPUSCULAR VOLUME 92.4 fl (80.0-96.0); MONO # 0.2 10^3/uL (0.0-0.8); MONO % 2.1 % (0.0-5.0); NEUTROPHILS # 6.1 10^3/uL (1.8-7.7); NEUTROPHILS % 73.4 % (36.0-66.0); PLATELET COUNT, AUTOMATED 207 10^3/uL (150-450); RED CELL DISTRIBUTION WIDTH 14.6 % (11.5-14.5); WHITE BLOOD COUNT 8.3 10^3/uL (4.0-10.0)
[2017-02-20 06:36] LABS: ALBUMIN 1.2 GM/DL (3.2-5.2); ALBUMIN/GLOBULIN RATIO 0.43 (1.00-1.93); ALKALINE PHOSPHATASE 181 U/L (45-117); ALT/SGPT 38 U/L (12-78); ANION GAP 8 MEQ/L (8-16); AST/SGOT 29 U/L (15-37); BILIRUBIN,TOTAL 0.2 MG/DL (0.2-1.0); BLOOD UREA NITROGEN 9 MG/DL (7-18); CALCIUM LEVEL 6.1 MG/DL (8.8-10.2); CARBON DIOXIDE LEVEL 25 MEQ/L (21-32); CHLORIDE LEVEL 108 MEQ/L (98-107); CREATININE FOR GFR 0.43 MG/DL (0.55-1.02); GLOMERULAR FILTRATION RATE > 60.0 (>32); GLUCOSE, FASTING 101 MG/DL (83-110); POTASSIUM SERUM 3.4 MEQ/L (3.5-5.1); SODIUM LEVEL 141 MEQ/L (136-145)
[2017-02-20 08:00] VITALS: BP 108/59
[2017-02-20] MEDS: POTASSIUM CHLORIDE 10 MEQ SR TABLET PO SCH (08:31)
[2017-02-20] MEDS: LISINOPRIL 20 MG TAB PO SCH (08:31)
[2017-02-20] MEDS: PYRIDOSTIGMINE 60 MG TAB PO SCH ×2 (08:31→21:53)
[2017-02-20] MEDS: FOLIC ACID 1 MG TAB PO SCH (08:31)
[2017-02-20] MEDS: FLEET ENEMA PR SCH (08:32)
[2017-02-20] MEDS: CARVedilol 6.25 MG TAB PO SCH ×2 (08:32→21:53)
[2017-02-20 12:00] VITALS: BP 107/66
--- NOTE | 2017-02-20 13:38 | IPN ---
DATE: 02/20/2017 The patient is seen today on the progressive care unit (PCU). She started to get her prep for her colonoscopy tomorrow. She is really denying any abdominal pain , not having any backache. No dyspnea. Her current medication regimen includes her bowel prep, potassium, Lovenox, as needed Vicodin, methotrexate, lisinopril, carvedilol, as needed Zofran, folic acid, Mestinon, and as needed Tylenol. On examination, her temperature is 98, pulse is 104 and irregular, blood pressure 108/59, respiration rate 18 and regular, oxygen saturation 93% on room air. She is alert, pleasant and cooperative, not in any distress. No facial weakness. Eyes are clear. Speech is clear. Mucous membranes are moist. There is no neck masses, tenderness or adenopathy. No carotid bruits. Lungs are clear. Heart has an irregular rhythm without any murmur, click or gallop. Abdomen is soft, really not tender, and she has the colostomy which is functioning quite well. There is no edema. Labs done today show hemoglobin of 9.1, WBC 8300, platelet count 207,000. Her BUN is 9, creatinine 0.43, potassium 3.4. Albumin is quite low at 1.2 and alkaline phosphatase is 181. It has been between 161 and 214 this admission. I reviewed her CT from her admission and found that the abdominal mass itself was the distended colon which is now resolved by her diverting colostomy. ASSESSMENT: 1. Pulmonary embolism. Continues on Lovenox. 2. Large bowel obstruction status post diverting colostomy. Awaiting colonoscopy tomorrow. 3. Atrial fibrillation. See below. 4. Dehydration. Resolved. 5. Hypokalemia. Will be addressed. 6. Hypertension. See below. 7. Myasthenia gravis. Continues on Mestinon. 8. Ventricular tachycardia. [place] related to hypomagnesemia. Resolved. PLAN: Will continue on her current medications with the following changes. Will back off on her lisinopril and keep her on the Coreg which seems to be controlling her atrial fibrillation. Her Lovenox will be held tomorrow for her surgery. Will be adding some potassium. The patient herself seemed to be rather unconcerned about plans for discharge after the colonoscopy. I think the options are either returning to her home with some nursing assistance or going to subacute rehab and doing rehab while she is awaiting her surgery. ROLANDO
[2017-02-20] MEDS ORDERED: POTASSIUM CHLORIDE 10 MEQ SR TABLET PO ONE (14:00)
[2017-02-20 16:00] VITALS: BP 129/73
[2017-02-20] MEDS ORDERED: GOLYTELY SOLN 4000 ML BTL PO ONE (16:00)
--- NOTE | 2017-02-20 18:25 | IPN ---
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 She underwent a laparoscopy with creation of a colostomy on 02/16/2017. The patient reports that she is doing fairly well. She is hungry, but has been taking liquids well and her ostomy is functioning well. VITAL SIGNS: The patient has been afebrile for the past 24 hours, pulse 65-90, respiratory rate stable at 18 with a blood pressure of 108-131 systolic. Intake and output on 02/19/2017, 1322 in, 1800 out, 1000 of which was stool. She did have some incontinent void output that was not measured. PHYSICAL EXAMINATION: Reveals an elderly woman lying quietly in the hospital bed. She is a little more interactive today than she was yesterday when she was quite somnolent. Sclerae are anicteric. The abdomen is flat and soft. She has a stoma in the lower abdomen with a colostomy appliance in place draining some greenish loose stool. The abdomen is soft and nontender. LABORATORY STUDIES: White count 8.3 with 73% neutrophils and 22% lymphocytes. Hemoglobin 9, hematocrit 28 and a platelet count of 207,000. Chemistry profile: Sodium 141, potassium 3.4, chloride 108, CO2 of 25, BUN 9, creatinine 0.43 and a glucose of 101. Calcium is low at 6.1 but it has been low all along. Her total protein is 4.0 with an albumin of 1.2 and a CEA level is pending. IMAGING STUDIES: The patient has no new imaging. IMPRESSION: The patient is tolerating her liquids well and her colostomy is functioning well. Her nutrition parameters are poor with an albumin of only 1.2 and I am sure this is in large part the cause of her low measured calcium level. She is being prepped today for a colonoscopy tomorrow by Dr. Bonner. Once the colonoscopy has been completed, she will be able to resume a diet in order to improve her nutritional status. PLAN: The patient will complete her bowel preparation today. She will be nothing by mouth after midnight. Her Lovenox is on hold after this evening's dose until after the colonoscopy. Once this has been accomplished she can resume the Lovenox and a regular diet. [facility]
[2017-02-20 20:00] VITALS: BP 125/69
[2017-02-21] VITALS (7 sets, daily range): BP systolic 101–135; BP diastolic 50–68
[2017-02-21] MEDS: SODIUM CHLORIDE 0.9% INJ 10 ML SYR IV SCH ×2 (05:51→18:09)
[2017-02-21] MEDS: SODIUM CHLORIDE 0.9% INJ 10 ML SYR IV PRN ×2 (05:55→16:55)
[2017-02-21 06:06] LABS: EOS # 0.1 10^3/uL (0.0-0.50); EOS % 2.8 % (0.0-3.0); IMMATURE GRANULOCYTE % 0.6 % (0-0); LYMPH # 2.2 10^3/uL (1.5-4.5); LYMPH % 43.1 % (24.0-44.0); MEAN CORPUSCULAR HEMOGLOBIN 30.1 pg (27.0-33.0); MEAN CORPUSCULAR HGB CONC 33.1 g/dl (32.0-36.5); MEAN CORPUSCULAR VOLUME 90.8 fl (80.0-96.0); MONO # 0.3 10^3/uL (0.0-0.8); MONO % 5.7 % (0.0-5.0); NEUTROPHILS # 2.4 10^3/uL (1.8-7.7); NEUTROPHILS % 47.8 % (36.0-66.0); PLATELET COUNT, AUTOMATED 197 10^3/uL (150-450); RED CELL DISTRIBUTION WIDTH 14.8 % (11.5-14.5); WHITE BLOOD COUNT 5.1 10^3/uL (4.0-10.0)
[2017-02-21 06:22] LABS: ALBUMIN 1.2 GM/DL (3.2-5.2); ALBUMIN/GLOBULIN RATIO 0.44 (1.00-1.93); ALKALINE PHOSPHATASE 162 U/L (45-117); ALT/SGPT 28 U/L (12-78); ANION GAP 8 MEQ/L (8-16); AST/SGOT 21 U/L (15-37); BILIRUBIN,TOTAL 0.4 MG/DL (0.2-1.0); BLOOD UREA NITROGEN 7 MG/DL (7-18); CALCIUM LEVEL 6.5 MG/DL (8.8-10.2); CARBON DIOXIDE LEVEL 27 MEQ/L (21-32); CHLORIDE LEVEL 109 MEQ/L (98-107); CREATININE FOR GFR 0.38 MG/DL (0.55-1.02); GLOMERULAR FILTRATION RATE > 60.0 (>32); GLUCOSE, FASTING 79 MG/DL (83-110); SODIUM LEVEL 144 MEQ/L (136-145); TOTAL PROTEIN 3.9 GM/DL (6.4-8.2)
[2017-02-21] MEDS ORDERED: KCL 10MEQ IN 100ML SWI (KRUN) 10 MEQ in APPROPRIATE DILUENT 1 EA IV ONE ×2 (08:00)
[2017-02-21] MEDS: CARVedilol 6.25 MG TAB PO SCH ×2 (08:35→21:00)
[2017-02-21] MEDS: KCL 10MEQ IN 100ML SWI (KRUN) 10 MEQ in APPROPRIATE DILUENT 1 EA IV SCH ×8 (08:37→11:55)
[2017-02-21] MEDS: POTASSIUM CHLORIDE 10 MEQ SR TABLET PO SCH ×3 (09:00→21:23)
[2017-02-21] MEDS: FLEET ENEMA PR SCH (09:00)
--- NOTE | 2017-02-21 10:26 | IPNPDOC ---
Subjective Date Seen The patient was seen on 02/21/17. Subjective Chief Complaint/HPI The patient is a 86-year-old female admitted with a reason for visit of Abdominal Mass; Pulmonary Embolism. Events since last encounter Pt with family at bedside. She is without new concerns, although she does tell me that she really wants a nice meal. General: Denies: Fatigue Constitutional: Denies: Chills, Fever ENT: Denies: Head Aches Pulmonary: Denies: Dyspnea, Cough Cardiovascular: Denies: Chest Pain, Palpitations Gastrointestinal: Denies: Nausea, Vomiting, Abdominal Pain Neurological: Denies: Weakness Psych: Reports: Mood Normal Objective Physical Examination General Exam: Positive: Alert, Cooperative, No Acute Distress Eye Exam: Positive: Conjunctiva & lids normal, Negative: Sclera icteric ENT Exam: Positive: Mucous membr. moist/pink Neck Exam: Negative: Lymphadenopathy Chest Exam: Positive: Clear to auscultation, Normal air movement Heart Exam: Positive: Rate Normal, Irregular Rhythm Abdomen Exam: Positive: Normal bowel sounds, Other (ostomy beefy red, draining) , Negative: Tenderness Extremity Exam: Negative: Edema Psych Exam: Positive: Mood NL, Oriented x 3 Assessment /Plan Problems (1) Pulmonary embolism Status: Acute Problem Specific Plan: Monitor Clinically Problem Text: 02/21/17 - Cont with Lovenox for treatment at this point, will then be able to transition to an oral anticoag once medically cleared. 02/16/17: continue Lovenox. Planned colonoscopy Tuesday. Can start po anticoagulant post colonoscopy. Will need consideration to stop anticoagulant/ bridge therapy 4-5 days prior to colectomy in 4-6 weeks. She is currently treated with Lovenox (1mg/kg/day 06/10 CrCl 29 on admission). (2) Abdominal mass Status: Acute Problem Specific Plan: Consult Specialist Problem Text: 02/21/17 - plan for colonoscopy today if her K + normalizes. 02/18/17: colostomy output slowed. tolerating clears. consider advancing diet. 02/17/17: s/p diverting colostomy. Now with high output. 02/16/17: diverting colostomy planned for today. NGT in place. Planned diverting colostomy with Dr. Rees, pending discussion with family. (3) Atrial fibrillation Status: Chronic Response to Treatment: Stable Problem Text: 02/21/17 - Rate is controlled, anti with Lovenox for now. 02/16/17: . Echo comlpleted. improved rate control on Coreg 6.25 mg The study is of good technical quality. 2. Normal left ventricular (LV) size and low normal LV systolic function (estimated LVEF 50-55%), grade 1 diastolic dysfunction. 3. No significant valvular disease. 4. Normal central venous pressure. 5. Probably moderate pulmonary hypertension. 02/15/17: poor rate control. Will start on Coreg 3.125 mg po bid. 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 rate controlled. On Lovenox. (4) Dehydration Status: Acute Response to Treatment: Progressing Problem Text: 02/21/17 - appears to be improved. : improving. tolerating clears. DC IVF. BPs stable. IVF infusing. monitor I/O (5) Hypokalemia Status: Acute Problem Text: 02/21/17 - K+ 3.0 this morning, 4 K Runs ordered, Kcl Po increased from 40 mg daily to TID. 02/18/17:KCL IV x 3 runs today (6) Hypertension Status: Chronic Response to Treatment: Stable (7) Myasthenia gravis Status: Chronic Response to Treatment: Stable (8) V-tach Status: Resolved Problem Text: 02/16/17: secondary to hypomagnesemia. Provide replacement and monitor. Plan/VTE VTE Prophylaxis Ordered?: Yes (Lovenox) Plan Family Medicine Attending Note: I saw and examined Ms. Alcala, discussed with SHARON Steen. Agree with their note as documented. Ms. Alcala did have her colonoscopy this afternoon. I spoke to Dr. Guerra, the performing endoscopist, regarding his impression. He said there is no question in his mind that this was a carcinoma. A sample has been sent for pathology, but in his mind we should be preparing for partial colectomy right now. He suggested that the patient may do better with a period of strengthening and nutritional improvement prior to undergoing a partial colectomy. 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) VS, I&O, 24H, [facility] Vital Signs/I&O Vital Signs Date Time Temp Pulse Resp B/P (MAP) Pulse Ox O2 Delivery O2 Flow Rate FiO2 02/21/17 08:35 78 125/61 02/21/17 08:00 98.2 18 94 Room Air 02/18/17 08:00 2.0 Laboratory Data 24H LABS Laboratory Tests 2 02/21/17 05:39: Immature Granulocyte % (Auto) 0.6H, White Blood Count 5.1, Red Blood Count 3.06L , Hemoglobin 9.2L, Hematocrit 27.8L, Mean Corpuscular Volume 90.8, Mean Corpuscular Hemoglobin 30.1, Mean Corpuscular Hemoglobin Concent 33.1, Red Cell Distribution Width 14.8H, Platelet Count 197, Neutrophils (%) (Auto) 47.8, Lymphocytes (%) (Auto) 43.1, Monocytes (%) (Auto) 5.7H, Eosinophils (%) (Auto) 2.8, Basophils (%) (Auto) 0.0, Neutrophils # (Auto) 2.4, Lymphocytes # (Auto) 2.2, Monocytes # (Auto) 0.3, Eosinophils # (Auto) 0.1, Basophils # (Auto) 0.0, Immature Granulocyte # (Auto) 0.0, Nucleated Red Blood Cells % (auto) 0.0, Anion Gap 8, Glomerular Filtration Rate > 60.0, Blood Urea Nitrogen 7, Creatinine 0.38L, Sodium Level 144, Potassium Level 3.0L, Chloride Level 109H, Carbon Dioxide Level 27, Calcium Level 6.5L, Aspartate Amino Transf (AST/SGOT) 21, Alanine Aminotransferase (ALT/SGPT) 28, Alkaline Phosphatase 162H, Total Bilirubin 0.4#, Total Protein 3.9L, Albumin 1.2L, Albumin/Globulin Ratio 0.44L CBC/BMP Laboratory Tests 02/21/17 05:39 Red Blood Count 3.06 L, Mean Corpuscular Volume 90.8, Mean Corpuscular Hemoglobin 30.1, Mean Corpuscular Hemoglobin Concent 33.1, Red Cell Distribution Width 14.8 H, Neutrophils (%) (Auto) 47.8, Lymphocytes (%) (Auto) 43.1, Monocytes (%) (Auto) 5.7 H, Eosinophils (%) (Auto) 2.8, Basophils (%) ( Auto) 0.0, Neutrophils # (Auto) 2.4, Lymphocytes # (Auto) 2.2, Monocytes # (Auto ) 0.3, Eosinophils # (Auto) 0.1, Basophils # (Auto) 0.0, Calcium Level 6.5 L, Aspartate Amino Transf (AST/SGOT) 21, Alanine Aminotransferase (ALT/SGPT) 28, Alkaline Phosphatase 162 H, Total Bilirubin 0.4 #, Total Protein 3.9 L, Albumin 1.2 L Microbiology Microbiology 02/12/17 Blood Culture - Final, Complete NO GROWTH AFTER 5 DAYS 02/12/17 Blood Culture - Final, Complete NO GROWTH AFTER 5 DAYS 02/13/17 Stool Lactoferrin - Final, Complete 02/13/17 Gastrointestinal Tract Panel (PCR) - Final, Complete 02/12/17 Urine Culture - Final, Complete ROSALIE STEWART PA-C Feb 21, 2017 10:26 am Brock Portillo MD Feb 21, 2017 10:54 pm
[2017-02-21] MEDS: MAG SULF 1GM/100ML (MAG RUN) 1 GM in APPROPRIATE DILUENT 1 EA IV SCH ×2 (13:00→14:10)
[2017-02-21] MEDS ORDERED: MAG SULF 1GM/100ML (MAG RUN) 1 GM in APPROPRIATE DILUENT 1 EA IV SCH (15:00)
[2017-02-21] MEDS ORDERED: PROPOFOL 200 MG/20 ML VIAL As Ordered ONE (15:41)
[2017-02-21] MEDS ORDERED: LIDOCAINE 2% INJ 100 MG/5 ML SDV (FOR ANES.) As Ordered ONE (15:41)
--- NOTE | 2017-02-21 16:02 | ROOR ---
Patient Name: Stephanie Alcala Procedure Date: 02/21/2017 5:13 AM Date of : 1930 Age: 86 Room: [facility] Gender: Female Note Status: Finalized Procedure: Colonoscopy Indications: Abnormal CT of the GI tract, Colonic obstruction Providers: Rayray Guerra MD Referring MD: TERRI PÉREZ MD Requesting Provider: Medicines: Monitored Anesthesia Care Complications: No immediate complications. Procedure: Pre-Anesthesia Assessment: - Prior to the procedure, a History and Physical was performed, and patient medications and allergies were reviewed. The patient is competent. The risks and benefits of the procedure and the sedation options and risks were discussed with the patient. All questions were answered and informed consent was obtained. Patient identification and proposed procedure were verified by the physician, the nurse and the eradicator in the procedure room. Mental Status Examination: alert and oriented. Airway Examination: normal oropharyngeal airway and neck mobility. CV Examination: regular rate and rhythm. Prophylactic Antibiotics: The patient does not require prophylactic antibiotics. Prior Anticoagulants: The patient has taken no previous anticoagulant or antiplatelet agents. ASA Grade Assessment: III - A patient with severe systemic disease. After reviewing the risks and benefits, the patient was deemed in satisfactory condition to undergo the procedure. The anesthesia plan was to use monitored anesthesia care (MAC). Immediately prior to administration of medications, the patient was re-assessed for adequacy to receive sedatives. The heart rate, respiratory rate, oxygen saturations, blood pressure, adequacy of pulmonary ventilation, and response to care were monitored throughout the procedure. The physical status of the patient was re-assessed after the procedure. The Colonoscope was introduced through the anus with the intention of advancing to the cecum. The scope was advanced to the transverse colon before the procedure was aborted. Medications were given. The colonoscopy was performed without difficulty. The patient tolerated the procedure well. The quality of the bowel preparation was good. Findings: The digital rectal exam findings include solid stool in the rectum which was removed. The exam was then normal. Multiple small-mouthed diverticula were found in the sigmoid colon. A fungating, polypoid and ulcerated completely obstructing large mass was found in the distal transverse colon. The mass was circumferential. Oozing was present. Biopsies were taken with a cold forceps for histology. Estimated blood loss was minimal. Impression: - Solid stool in the rectum which was removed. The exam was then normal. found on digital rectal exam. - Diverticulosis in the sigmoid colon. 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 Biopsied. Recommendation: - [facility]. - Resume regular diet. Rayray Guerra MD 02/21/2017 4:01:59 PM Number of Addenda: 0 Note Initiated On: 02/21/2017 5:13 AM Estimated Blood Loss: Estimated blood loss was minimal.
[2017-02-21] MEDS: PYRIDOSTIGMINE 60 MG TAB PO SCH ×2 (16:51→21:23)
[2017-02-21] MEDS: FOLIC ACID 1 MG TAB PO SCH (16:54)
[2017-02-21 17:40] LABS: MAGNESIUM LEVEL 2.4 MG/DL (1.8-2.4); POTASSIUM SERUM 3.6 MEQ/L (3.5-5.1)
[2017-02-21] MEDS: ENOXAPARIN 60 MG/0.6 ML SYR (J1650) SC SCH (18:09)
[2017-02-22 04:00] VITALS: BP 155/73
[2017-02-22] MEDS: ENOXAPARIN 60 MG/0.6 ML SYR (J1650) SC SCH ×2 (06:25→17:16)
[2017-02-22] MEDS: SODIUM CHLORIDE 0.9% INJ 10 ML SYR IV SCH ×2 (06:26→14:58)
[2017-02-22] MEDS: SODIUM CHLORIDE 0.9% INJ 10 ML SYR IV PRN ×2 (06:26→14:44)
[2017-02-22 06:46] LABS: MEAN CORPUSCULAR HEMOGLOBIN 30.3 pg (27.0-33.0); MEAN CORPUSCULAR HGB CONC 32.8 g/dl (32.0-36.5); MEAN CORPUSCULAR VOLUME 92.4 fl (80.0-96.0)
[2017-02-22 07:18] LABS: ANION GAP 5 MEQ/L (8-16); BLOOD UREA NITROGEN 10 MG/DL (7-18); CARBON DIOXIDE LEVEL 27 MEQ/L (21-32); CHLORIDE LEVEL 111 MEQ/L (98-107); CREATININE FOR GFR 0.49 MG/DL (0.55-1.02); GLOMERULAR FILTRATION RATE > 60.0 (>32); GLUCOSE, FASTING 94 MG/DL (83-110); POTASSIUM SERUM 4.3 MEQ/L (3.5-5.1); SODIUM LEVEL 143 MEQ/L (136-145)
[2017-02-22 07:30] VITALS: BP 146/65
[2017-02-22] MEDS: FOLIC ACID 1 MG TAB PO SCH (08:28)
[2017-02-22] MEDS: POTASSIUM CHLORIDE 10 MEQ SR TABLET PO SCH (08:28)
[2017-02-22] MEDS: PYRIDOSTIGMINE 60 MG TAB PO SCH ×2 (08:29→20:54)
[2017-02-22] MEDS: CARVedilol 6.25 MG TAB PO SCH ×2 (08:29→20:54)
--- NOTE | 2017-02-22 09:30 | IPNPDOC ---
Subjective Date Seen The patient was seen on 02/22/17. Subjective Chief Complaint/HPI The patient is a 86-year-old female admitted with a reason for visit of Abdominal Mass; Pulmonary Embolism. Events since last encounter Pt without new concerns. She did well eating last night and this morning. Nursing without new concerns. Pt slightly confused this morning with failure to remember her colostomy bag being present. General: Denies: Fatigue Constitutional: Denies: Chills, Fever ENT: Denies: Head Aches Pulmonary: Denies: Dyspnea, Cough Cardiovascular: Denies: Chest Pain, Palpitations Gastrointestinal: Denies: Nausea, Vomiting, Diarrhea Neurological: Denies: Weakness Psych: Reports: Mood Normal Objective Physical Examination General Exam: Positive: Alert, Cooperative, No Acute Distress Eye Exam: Positive: Conjunctiva & lids normal, Negative: Sclera icteric ENT Exam: Positive: Mucous membr. moist/pink Neck Exam: Negative: Lymphadenopathy Chest Exam: Positive: Clear to auscultation, Normal air movement Heart Exam: Positive: Rate Normal, Irregular Rhythm Abdomen Exam: Positive: Normal bowel sounds, Other (ostomy beefy red, draining) , Negative: Tenderness Extremity Exam: Negative: Edema Psych Exam: Positive: Mood NL, Oriented x 3 Assessment /Plan Problems (1) Pulmonary embolism Status: Acute Problem Specific Plan: Monitor Clinically Problem Text: 02/22/17 - Pt on Lovenox for treatment at this point. Was hoping to start orals today, but she has seen a slight decrease in her Hgb from 9.2 to 8.8 but her colostomy bag is noted to have red blood present. 02/21/17 - Cont with Lovenox for treatment at this point, will then be able to transition to an oral anticoag once medically cleared. 02/16/17: continue Lovenox. Planned colonoscopy Tuesday. Can start po anticoagulant post colonoscopy. Will need consideration to stop anticoagulant/ bridge therapy 4-5 days prior to colectomy in 4-6 weeks. She is currently treated with Lovenox (1mg/kg/day 06/10 CrCl 29 on admission). (2) Abdominal mass Status: Acute Problem Specific Plan: Consult Specialist Problem Text: 02/22/17 - she has seen a slight decrease in her Hgb from 9.2 to 8.8 but her colostomy bag is noted to have red blood present, colonoscopy yesterday noted her large colonic obstructing mass, pathology is pending. 02/21/17 - plan for colonoscopy today if her K + normalizes. 02/18/17: colostomy output slowed. tolerating clears. consider advancing diet. 02/17/17: s/p diverting colostomy. Now with high output. 02/16/17: diverting colostomy planned for today. NGT in place. Planned diverting colostomy with Dr. Rees, pending discussion with family. (3) Atrial fibrillation Status: Chronic Response to Treatment: Stable Problem Text: 02/22/17 - rate remains controlled, Lovenox for anticoag. 02/21/17 - Rate is controlled, anti with Lovenox for now. 02/16/17: . Echo comlpleted. improved rate control on Coreg 6.25 mg The study is of good technical quality. 2. Normal left ventricular (LV) size and low normal LV systolic function (estimated LVEF 50-55%), grade 1 diastolic dysfunction. 3. No significant valvular disease. 4. Normal central venous pressure. 5. Probably moderate pulmonary hypertension. 02/15/17: poor rate control. Will start on Coreg 3.125 mg po bid. 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 rate controlled. On Lovenox. (4) Dehydration Status: Resolved Response to Treatment: Progressing Problem Text: 02/21/17 - appears to be improved. : improving. tolerating clears. DC IVF. BPs stable. IVF infusing. monitor I/O (5) Hypokalemia Status: Resolved Problem Text: 02/22/17 - K+ 4.4 today, will back down on PO KCl order for 40 mg TID to daily. 02/21/17 - K+ 3.0 this morning, 4 K Runs ordered, Kcl Po increased from 40 mg daily to TID. 02/18/17:KCL IV x 3 runs today (6) Hypertension Status: Chronic Response to Treatment: Stable (7) Myasthenia gravis Status: Chronic Response to Treatment: Stable (8) V-tach Status: Resolved Problem Text: 02/16/17: secondary to hypomagnesemia. Provide replacement and monitor. Plan/VTE VTE Prophylaxis Ordered?: Yes (Lovenox) Plan Family Medicine Attending Note: I saw and examined Ms. Alcala, discussed with SHARON Steen. Agree with their note as documented. Her repeat Hb was actually a little higher than this morning which is reassuring. Nursing has still not collected the SOB, but will do it in the near future. I viewed the contents of her colostomy this afternoon. There was no gross blood on my evaluation. We will continue to monitor, but perhaps the blood from this morning was a one time event related to the colonoscopy with bx she had yesterday afternoon. VS, I&O, 24H, Fishbone Vital Signs/I&O Vital Signs Date Time Temp Pulse Resp B/P (MAP) Pulse Ox O2 Delivery O2 Flow Rate FiO2 02/22/17 08:29 90 146/75 02/22/17 08:00 Room Air 02/22/17 07:30 99.0 20 96 02/18/17 08:00 2.0 I&O- Last 24 Hours up to 6 AM 02/23/17 06:00 Intake Total 360 ml Output Total 275 ml Balance 85 ml Laboratory Data 24H LABS Laboratory Tests 2 02/21/17 16:58: Magnesium Level 2.4 02/22/17 06:19: Nucleated Red Blood Cells % (auto) 0.0, Anion Gap 5L, Glomerular Filtration Rate > 60.0, Blood Urea Nitrogen 10, Creatinine 0.49L, Sodium Level 143, Potassium Level 4.3, Chloride Level 111H, Carbon Dioxide Level 27, Calcium Level 7.0L CBC/BMP Laboratory Tests 02/21/17 16:58 02/22/17 06:19 Red Blood Count 2.90 L, Mean Corpuscular Volume 92.4, Mean Corpuscular Hemoglobin 30.3, Mean Corpuscular Hemoglobin Concent 32.8, Red Cell Distribution Width 15.0 H, Calcium Level 7.0 L Microbiology Microbiology 02/12/17 Blood Culture - Final, Complete NO GROWTH AFTER 5 DAYS 02/12/17 Blood Culture - Final, Complete NO GROWTH AFTER 5 DAYS 02/13/17 Stool Lactoferrin - Final, Complete 02/13/17 Gastrointestinal Tract Panel (PCR) - Final, Complete 02/12/17 Urine Culture - Final, Complete ROSALIE STEWART PA-C Feb 22, 2017 09:30 Brock Portillo MD Feb 23, 2017 07:28
[2017-02-22 09:42] LABS: CARCINOEMBRYONIC ANTIGEN 1.5 NG/ML (<2.5)
[2017-02-22 12:00] VITALS: BP 129/77
[2017-02-22 15:00] LABS: MEAN CORPUSCULAR HEMOGLOBIN 30.3 pg (27.0-33.0); MEAN CORPUSCULAR HGB CONC 32.3 g/dl (32.0-36.5); MEAN CORPUSCULAR VOLUME 93.8 fl (80.0-96.0); RED CELL DISTRIBUTION WIDTH 15.3 % (11.5-14.5); WHITE BLOOD COUNT 8.2 10^3/uL (4.0-10.0)
[2017-02-22 15:50] VITALS: BP 143/65
[2017-02-22 20:00] VITALS: BP 127/62
[2017-02-22 23:59] VITALS: BP 132/65
[2017-02-23 04:00] VITALS: BP 128/63
[2017-02-23] MEDS: SODIUM CHLORIDE 0.9% INJ 10 ML SYR IV SCH ×2 (05:09→17:43)
[2017-02-23 05:20] LABS: MEAN CORPUSCULAR HGB CONC 32.8 g/dl (32.0-36.5); MEAN CORPUSCULAR VOLUME 94.6 fl (80.0-96.0); RED CELL DISTRIBUTION WIDTH 15.7 % (11.5-14.5); WHITE BLOOD COUNT 10.1 10^3/uL (4.0-10.0)
[2017-02-23 05:51] LABS: ALBUMIN 1.4 GM/DL (3.2-5.2); ALBUMIN/GLOBULIN RATIO 0.47 (1.00-1.93); ALKALINE PHOSPHATASE 120 U/L (45-117); ALT/SGPT 22 U/L (12-78); ANION GAP 6 MEQ/L (8-16); AST/SGOT 15 U/L (15-37); BILIRUBIN,TOTAL 0.2 MG/DL (0.2-1.0); BLOOD UREA NITROGEN 10 MG/DL (7-18); CALCIUM LEVEL 6.8 MG/DL (8.8-10.2); CARBON DIOXIDE LEVEL 26 MEQ/L (21-32); CHLORIDE LEVEL 109 MEQ/L (98-107); CREATININE FOR GFR 0.61 MG/DL (0.55-1.02); GLOMERULAR FILTRATION RATE > 60.0 (>32); GLUCOSE, FASTING 118 MG/DL (83-110); POTASSIUM SERUM 3.5 MEQ/L (3.5-5.1); SODIUM LEVEL 141 MEQ/L (136-145); TOTAL PROTEIN 4.4 GM/DL (6.4-8.2)
[2017-02-23] MEDS: ENOXAPARIN 60 MG/0.6 ML SYR (J1650) SC SCH ×2 (06:45→17:43)
[2017-02-23 07:45] VITALS: BP 131/65
[2017-02-23] MEDS: POTASSIUM CHLORIDE 10 MEQ SR TABLET PO SCH (08:14)
[2017-02-23] MEDS: PYRIDOSTIGMINE 60 MG TAB PO SCH ×2 (08:14→21:05)
[2017-02-23] MEDS: METHOTREXATE 2.5 MG TAB (J8610 PER 2.5MG) PO SCH (08:14)
[2017-02-23] MEDS: FOLIC ACID 1 MG TAB PO SCH (08:14)
[2017-02-23] MEDS: CARVedilol 6.25 MG TAB PO SCH ×2 (08:19→21:05)
--- NOTE | 2017-02-23 10:15 | IPNPDOC ---
Subjective Date Seen The patient was seen on 02/23/17. Subjective Chief Complaint/HPI The patient is a 86-year-old female admitted with a reason for visit of Abdominal Mass; Pulmonary Embolism. Events since last encounter Pt states she is doing better. She states she is feeling much better. She denies abd pain, CP, SOB. Constitutional: Denies: Chills, Fever Pulmonary: Denies: Dyspnea Cardiovascular: Denies: Chest Pain Gastrointestinal: Denies: Abdominal Pain Objective Physical Examination General Exam: Positive: Alert, Cooperative, No Acute Distress Eye Exam: Positive: Conjunctiva & lids normal, Negative: Sclera icteric ENT Exam: Positive: Mucous membr. moist/pink Neck Exam: Negative: Lymphadenopathy Chest Exam: Positive: Clear to auscultation, Normal air movement Heart Exam: Positive: Rate Normal, Irregular Rhythm Abdomen Exam: Positive: Normal bowel sounds, Other (ostomy brown stool), Negative: Tenderness Extremity Exam: Negative: Edema Psych Exam: Positive: Mood NL, Oriented x 3 Assessment /Plan Problems (1) Abdominal mass Status: Acute Problem Specific Plan: Consult Specialist Problem Text: 02/23 - Patient has decrease in her Hgb to 8.0. Colonoscopy noted her large colonic obstructing mass. Pathology is pending. 02/22/17 - she has seen a slight decrease in her Hgb from 9.2 to 8.8 but her colostomy bag is noted to have red blood present, colonoscopy yesterday noted her large colonic obstructing mass, pathology is pending. 02/21/17 - plan for colonoscopy today if her K + normalizes. 02/18/17: colostomy output slowed. tolerating clears. consider advancing diet. 02/17/17: s/p diverting colostomy. Now with high output. 02/16/17: diverting colostomy planned for today. NGT in place. Planned diverting colostomy with Dr. Rees, pending discussion with family. (2) Pulmonary embolism Status: Acute Problem Specific Plan: Monitor Clinically Problem Text: 02/23 - Pt is on Lovenox. Hgb down today to 8.0. 02/22/17 - Pt on Lovenox for treatment at this point. Was hoping to start orals today, but she has seen a slight decrease in her Hgb from 9.2 to 8.8 but her colostomy bag is noted to have red blood present. 02/21/17 - Cont with Lovenox for treatment at this point, will then be able to transition to an oral anticoag once medically cleared. 02/16/17: continue Lovenox. Planned colonoscopy Tuesday. Can start po anticoagulant post colonoscopy. Will need consideration to stop anticoagulant/ bridge therapy 4-5 days prior to colectomy in 4-6 weeks. She is currently treated with Lovenox (1mg/kg/day 06/10 CrCl 29 on admission). (3) Hypokalemia Status: Resolved Problem Text: 02/23 - K 3.5. On PO Supplemental K. Monitor. 02/22/17 - K+ 4.4 today, will back down on PO KCl order for 40 mg TID to daily. 02/21/17 - K+ 3.0 this morning, 4 K Runs ordered, Kcl Po increased from 40 mg daily to TID. 02/18/17:KCL IV x 3 runs today (4) Atrial fibrillation Status: Chronic Response to Treatment: Stable Problem Text: 02/23 - Rate remains controlled. Lovenox for anticoagulation. 02/22/17 - rate remains controlled, Lovenox for anticoag. 02/21/17 - Rate is controlled, anti with Lovenox for now. 02/16/17: . Echo comlpleted. improved rate control on Coreg 6.25 mg The study is of good technical quality. 2. Normal left ventricular (LV) size and low normal LV systolic function (estimated LVEF 50-55%), grade 1 diastolic dysfunction. 3. No significant valvular disease. 4. Normal central venous pressure. 5. Probably moderate pulmonary hypertension. 02/15/17: poor rate control. Will start on Coreg 3.125 mg po bid. 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 rate controlled. On Lovenox. (5) Dehydration Status: Resolved Response to Treatment: Progressing Problem Text: 02/21/17 - appears to be improved. : improving. tolerating clears. DC IVF. BPs stable. IVF infusing. monitor I/O (6) Hypertension Status: Chronic Response to Treatment: Stable (7) Myasthenia gravis Status: Chronic Response to Treatment: Stable (8) V-tach Status: Resolved Problem Text: 02/16/17: secondary to hypomagnesemia. Provide replacement and monitor. Plan/VTE VTE Prophylaxis Ordered?: Yes (Lovenox) Plan Family Medicine Attending Note: I saw and examined Ms. Alcala, discussed with SHARON Wang. Agree with their note as documented. She continues to have significant confusion about her colostomy. Sometimes she seems to forget that it 's there. Nurses have been working with her to remember to alert them to when it 's full. They will continue their training with the patient and family. 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) VS, I&O, 24H, Fishbone Vital Signs/I&O Vital Signs Date Time Temp Pulse Resp B/P (MAP) Pulse Ox O2 Delivery O2 Flow Rate FiO2 02/23/17 08:19 72 124/91 02/23/17 07:45 98.4 20 95 Room Air 02/18/17 08:00 2.0 Laboratory Data 24H LABS Laboratory Tests 2 02/22/17 14:45: Nucleated Red Blood Cells % (auto) 0.0 02/23/17 05:08: Nucleated Red Blood Cells % (auto) 0.0, Anion Gap 6L, Glomerular Filtration Rate > 60.0, Blood Urea Nitrogen 10, Creatinine 0.61, Sodium Level 141, Potassium Level 3.5, Chloride Level 109H, Carbon Dioxide Level 26, Calcium Level 6.8L, Aspartate Amino Transf (AST/SGOT) 15, Alanine Aminotransferase (ALT/ SGPT) 22, Alkaline Phosphatase 120H, Total Bilirubin 0.2, Total Protein 4.4L, Albumin 1.4L, Albumin/Globulin Ratio 0.47L CBC/BMP Laboratory Tests 02/22/17 14:45 Red Blood Count 3.07 L, Mean Corpuscular Volume 93.8, Mean Corpuscular Hemoglobin 30.3, Mean Corpuscular Hemoglobin Concent 32.3, Red Cell Distribution Width 15.3 H 02/23/17 05:08 Red Blood Count 2.58 L, Mean Corpuscular Volume 94.6, Mean Corpuscular Hemoglobin 31.0, Mean Corpuscular Hemoglobin Concent 32.8, Red Cell Distribution Width 15.7 H, Calcium Level 6.8 L, Aspartate Amino Transf (AST/SGOT ) 15, Alanine Aminotransferase (ALT/SGPT) 22, Alkaline Phosphatase 120 H, Total Bilirubin 0.2, Total Protein 4.4 L, Albumin 1.4 L Microbiology Microbiology 02/22/17 Stool Occult Blood (TRENT) - Final, Complete 02/13/17 Stool Lactoferrin - Final, Complete 02/13/17 Gastrointestinal Tract Panel (PCR) - Final, Complete Gage Welsh RPA-C Feb 23, 2017 10:15 Brock Portillo MD Feb 25, 2017 18:49
[2017-02-23 12:00] VITALS: BP 185/81
[2017-02-23 16:00] VITALS: BP 132/68
[2017-02-23 16:52] LABS: MEAN CORPUSCULAR HEMOGLOBIN 30.8 pg (27.0-33.0); MEAN CORPUSCULAR HGB CONC 32.6 g/dl (32.0-36.5); MEAN CORPUSCULAR VOLUME 94.6 fl (80.0-96.0); RED CELL DISTRIBUTION WIDTH 15.8 % (11.5-14.5)
[2017-02-23 20:00] VITALS: BP 137/62
[2017-02-24] VITALS: BP 152/70
[2017-02-24 04:00] VITALS: BP 139/65
[2017-02-24] MEDS: ENOXAPARIN 60 MG/0.6 ML SYR (J1650) SC SCH (05:41)
[2017-02-24] MEDS: SODIUM CHLORIDE 0.9% INJ 10 ML SYR IV SCH ×2 (05:41→18:22)
[2017-02-24 06:11] LABS: MEAN CORPUSCULAR HEMOGLOBIN 30.1 pg (27.0-33.0); MEAN CORPUSCULAR HGB CONC 32.1 g/dl (32.0-36.5); RED CELL DISTRIBUTION WIDTH 16.1 % (11.5-14.5); WHITE BLOOD COUNT 9.8 10^3/uL (4.0-10.0)
[2017-02-24 06:48] LABS: ALBUMIN 1.6 GM/DL (3.2-5.2); ALBUMIN/GLOBULIN RATIO 0.53 (1.00-1.93); ALKALINE PHOSPHATASE 113 U/L (45-117); ALT/SGPT 22 U/L (12-78); ANION GAP 7 MEQ/L (8-16); AST/SGOT 17 U/L (15-37); BILIRUBIN,TOTAL 0.3 MG/DL (0.2-1.0); BLOOD UREA NITROGEN 10 MG/DL (7-18); CALCIUM LEVEL 7.2 MG/DL (8.8-10.2); CARBON DIOXIDE LEVEL 28 MEQ/L (21-32); CHLORIDE LEVEL 106 MEQ/L (98-107); CREATININE FOR GFR 0.47 MG/DL (0.55-1.02); GLOMERULAR FILTRATION RATE > 60.0 (>32); GLUCOSE, FASTING 90 MG/DL (83-110); POTASSIUM SERUM 3.6 MEQ/L (3.5-5.1); SODIUM LEVEL 141 MEQ/L (136-145); TOTAL PROTEIN 4.6 GM/DL (6.4-8.2)
[2017-02-24 07:30] VITALS: BP 123/62
--- NOTE | 2017-02-24 08:29 | IPNPDOC ---
Subjective Date Seen The patient was seen on 02/24/17. Subjective Chief Complaint/HPI The patient is a 86-year-old female admitted with a reason for visit of Abdominal Mass; Pulmonary Embolism. Events since last encounter Pt this morning without new concerns. She states that she feels just fine and always has. Never had any pain at all. General: Denies: Fatigue Constitutional: Denies: Chills, Fever ENT: Denies: Head Aches Pulmonary: Denies: Dyspnea, Cough Cardiovascular: Denies: Chest Pain, Palpitations Gastrointestinal: Denies: Nausea, Vomiting, Diarrhea Neurological: Reports: Weakness Psych: Reports: Mood Normal Objective Physical Examination General Exam: Positive: Alert, Cooperative, No Acute Distress Eye Exam: Positive: Sclera icteric Chest Exam: Positive: Clear to auscultation, Normal air movement Heart Exam: Positive: Rate Normal, Irregular Rhythm Abdomen Exam: Positive: Normal bowel sounds, Other (ostomy brown stool), Negative: Tenderness Extremity Exam: Negative: Edema Psych Exam: Positive: Mood NL, Oriented x 3, Negative: Memory Intact Assessment /Plan Problems (1) Abdominal mass Status: Acute Problem Specific Plan: Consult Specialist Problem Text: 02/24 - Hgb 8.5 this morning and improved, brown stool in bag, path reveals tubulovillous adenoma which is likely d/t the bx being superficial this is likely in fact a malignant mass. 02/23 - Patient has decrease in her Hgb to 8.0. Colonoscopy 02/21 noted her large colonic obstructing mass. Pathology is pending. 02/22/17 - she has seen a slight decrease in her Hgb from 9.2 to 8.8 but her colostomy bag is noted to have red blood present, colonoscopy yesterday noted her large colonic obstructing mass, pathology is pending. 02/21/17 - plan for colonoscopy today if her K + normalizes. 02/18/17: colostomy output slowed. tolerating clears. consider advancing diet. 02/17/17: s/p diverting colostomy. Now with high output. 02/16/17: diverting colostomy planned for today. NGT in place. Planned diverting colostomy with Dr. Rees, pending discussion with family. (2) Pulmonary embolism Status: Acute Problem Specific Plan: Monitor Clinically Problem Text: 02/24 - Pt remains on Lovenox, her Hgb seems to have stablized, I would recommend changing her to Xarelto 15 mg BID, monitor Hgb for an additional day then plan for d/c - will address with attending. 02/23 - Pt is on Lovenox. Hgb down today to 8.0. 02/22/17 - Pt on Lovenox for treatment at this point. Was hoping to start orals today, but she has seen a slight decrease in her Hgb from 9.2 to 8.8 but her colostomy bag is noted to have red blood present. 02/21/17 - Cont with Lovenox for treatment at this point, will then be able to transition to an oral anticoag once medically cleared. 02/16/17: continue Lovenox. Planned colonoscopy Tuesday. Can start po anticoagulant post colonoscopy. Will need consideration to stop anticoagulant/ bridge therapy 4-5 days prior to colectomy in 4-6 weeks. She is currently treated with Lovenox (1mg/kg/day 06/10 CrCl 29 on admission). (3) Hypokalemia Status: Resolved Problem Text: 02/23 - K 3.5. On PO Supplemental K. Monitor. 02/22/17 - K+ 4.4 today, will back down on PO KCl order for 40 mg TID to daily. 02/21/17 - K+ 3.0 this morning, 4 K Runs ordered, Kcl Po increased from 40 mg daily to TID. 02/18/17:KCL IV x 3 runs today (4) Atrial fibrillation Status: Chronic Response to Treatment: Stable Problem Text: 02/23 - Rate remains controlled. Lovenox for anticoagulation. 02/22/17 - rate remains controlled, Lovenox for anticoag. 02/21/17 - Rate is controlled, anti with Lovenox for now. 02/16/17: . Echo comlpleted. improved rate control on Coreg 6.25 mg The study is of good technical quality. 2. Normal left ventricular (LV) size and low normal LV systolic function (estimated LVEF 50-55%), grade 1 diastolic dysfunction. 3. No significant valvular disease. 4. Normal central venous pressure. 5. Probably moderate pulmonary hypertension. 02/15/17: poor rate control. Will start on Coreg 3.125 mg po bid. 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 rate controlled. On Lovenox. (5) Dehydration Status: Resolved Response to Treatment: Progressing Problem Text: 02/21/17 - appears to be improved. : improving. tolerating clears. DC IVF. BPs stable. IVF infusing. monitor I/O (6) Hypertension Status: Chronic Response to Treatment: Stable (7) Myasthenia gravis Status: Chronic Response to Treatment: Stable (8) V-tach Status: Resolved Problem Text: 02/16/17: secondary to hypomagnesemia. Provide replacement and monitor. Plan/VTE VTE Prophylaxis Ordered?: Yes (Lovenox) Plan Family Medicine Attending Note: I saw and examined Ms. Alcala, discussed with SHARON Steen. Agree with their note as documented. I had a discussion with her nurse and son-in-law. Were concerned that she does not take responsibility for her own colostomy and may not realize that she will need to care for this when she goes home. I have initiated a referral to the acute rehabilitation unit to see whether she could benefit from occupational therapy for additional teaching him for there. If she were able to go there, additional physical therapy for strengthening prior to her anticipated colectomy would also be a good thing. (section hand helper) VS, I&O, 24H, Fishbone Vital Signs/I&O Vital Signs Date Time Temp Pulse Resp B/P (MAP) Pulse Ox O2 Delivery O2 Flow Rate FiO2 02/24/17 04:00 97.7 68 18 139/65 (89) 93 Room Air 02/18/17 08:00 2.0 I&O- Last 24 Hours up to 6 AM 02/25/17 05:59 Intake Total 0 ml Output Total 0 ml Balance 0 ml Laboratory Data 24H LABS Laboratory Tests 2 02/23/17 16:42: Nucleated Red Blood Cells % (auto) 0.0 02/24/17 05:45: Nucleated Red Blood Cells % (auto) 0.0, Anion Gap 7L, Glomerular Filtration Rate > 60.0, Blood Urea Nitrogen 10, Creatinine 0.47L, Sodium Level 141, Potassium Level 3.6, Chloride Level 106, Carbon Dioxide Level 28, Calcium Level 7.2L, Aspartate Amino Transf (AST/SGOT) 17, Alanine Aminotransferase (ALT/SGPT) 22, Alkaline Phosphatase 113, Total Bilirubin 0.3, Total Protein 4.6L, Albumin 1.6L, Albumin/Globulin Ratio 0.53L CBC/BMP Laboratory Tests 02/23/17 16:42 Red Blood Count 2.79 L, Mean Corpuscular Volume 94.6, Mean Corpuscular Hemoglobin 30.8, Mean Corpuscular Hemoglobin Concent 32.6, Red Cell Distribution Width 15.8 H 02/24/17 05:45 Red Blood Count 2.82 L, Mean Corpuscular Volume 94.0, Mean Corpuscular Hemoglobin 30.1, Mean Corpuscular Hemoglobin Concent 32.1, Red Cell Distribution Width 16.1 H, Calcium Level 7.2 L, Aspartate Amino Transf (AST/SGOT ) 17, Alanine Aminotransferase (ALT/SGPT) 22, Alkaline Phosphatase 113, Total Bilirubin 0.3, Total Protein 4.6 L, Albumin 1.6 L Microbiology Microbiology 02/22/17 Stool Occult Blood (TRENT) - Final, Complete ROSALIE STEWART PA-C Feb 24, 2017 08:29 Brock Portillo MD Feb 25, 2017 18:51
[2017-02-24] MEDS: FOLIC ACID 1 MG TAB PO SCH (11:11)
[2017-02-24] MEDS: CARVedilol 6.25 MG TAB PO SCH ×2 (11:11→20:46)
[2017-02-24] MEDS: PYRIDOSTIGMINE 60 MG TAB PO SCH ×2 (11:11→20:46)
[2017-02-24] MEDS: POTASSIUM CHLORIDE 10 MEQ SR TABLET PO SCH (11:12)
[2017-02-24 12:01] VITALS: BP 130/80
--- NOTE | 2017-02-24 18:15 | IPN ---
DATE: 02/24/2017 HISTORY: The patient presented with an obstructing transverse colon mass and had a colostomy created now 8 days ago. A colonoscopy on 02/21 showed an obstructing mass. Patient reports today that she feels still a little weak but she has a plate full of food in front of her. Vital signs show that she is afebrile with stable vitals. Intake and output show 780 in and 890 out yesterday. Her colostomy appears to be functioning well. PHYSICAL EXAMINATION: Patient is thin and elderly. The abdomen is mildly protuberant. Her ostomy appears to be draining stool well. The abdomen is soft and without significant tenderness. LABORATORY DATA: Laboratory studies show white count of 10 with hemoglobin of 8, hematocrit of 26 and platelet count of 254,000. Her chemistries show normal electrolytes with BUN of 10, creatinine 0.47 and her protein is 4.6 with an albumin of 1.6. 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 The pathologist noted that in the presence of a large obstructing circumferential mass that this most likely represented a malignant tumor and that the biopsy under represented the lesion and I would concur with this appraisal. IMPRESSION: Obstructing distal transverse colon cancer. PLAN: The patient remains quite nutritionally depleted but she is now able to eat. I advised her of the findings of the pathology and indicated that she would still need surgery to remove that mass. I advised her that we will monitor her intake and when she is adequately recovered and has build up her strength and her nutritional parameters that she would be a candidate for surgery to remove the mass. I would anticipate this would take at least several weeks. I did ask her if there is any plan yet for her ostomy care and she apparently does not have significant support at home. This may be the limiting step in getting her out of the hospital. ROLANDO
[2017-02-24] MEDS: RIVAROXABAN 15 MG TAB (XARELTO) PO SCH (18:22)
[2017-02-24 20:16] VITALS: BP 144/63
[2017-02-24 22:35] VITALS: BP 144/65
[2017-02-25 04:55] LABS: MEAN CORPUSCULAR HEMOGLOBIN 30.9 pg (27.0-33.0); MEAN CORPUSCULAR HGB CONC 32.1 g/dl (32.0-36.5); MEAN CORPUSCULAR VOLUME 96.1 fl (80.0-96.0); PLATELET COUNT, AUTOMATED 275 10^3/uL (150-450); RED CELL DISTRIBUTION WIDTH 16.8 % (11.5-14.5); WHITE BLOOD COUNT 8.3 10^3/uL (4.0-10.0)
[2017-02-25] MEDS: SODIUM CHLORIDE 0.9% INJ 10 ML SYR IV SCH ×2 (05:21→15:02)
[2017-02-25 05:46] VITALS: BP 115/69
[2017-02-25 06:18] LABS: ALBUMIN 1.5 GM/DL (3.2-5.2); ALBUMIN/GLOBULIN RATIO 0.54 (1.00-1.93); ALKALINE PHOSPHATASE 111 U/L (45-117); ALT/SGPT 25 U/L (12-78); ANION GAP 6 MEQ/L (8-16); AST/SGOT 25 U/L (15-37); BILIRUBIN,TOTAL 0.2 MG/DL (0.2-1.0); BLOOD UREA NITROGEN 15 MG/DL (7-18); CALCIUM LEVEL 7.2 MG/DL (8.8-10.2); CARBON DIOXIDE LEVEL 28 MEQ/L (21-32); CHLORIDE LEVEL 108 MEQ/L (98-107); CREATININE FOR GFR 0.49 MG/DL (0.55-1.02); GLOMERULAR FILTRATION RATE > 60.0 (>32); GLUCOSE, FASTING 123 MG/DL (83-110); POTASSIUM SERUM 3.8 MEQ/L (3.5-5.1); SODIUM LEVEL 142 MEQ/L (136-145); TOTAL PROTEIN 4.3 GM/DL (6.4-8.2)
[2017-02-25] MEDS: CARVedilol 6.25 MG TAB PO SCH ×2 (09:00→21:28)
[2017-02-25] MEDS: RIVAROXABAN 15 MG TAB (XARELTO) PO SCH ×2 (09:07→17:23)
[2017-02-25] MEDS: FOLIC ACID 1 MG TAB PO SCH (09:07)
[2017-02-25] MEDS: PYRIDOSTIGMINE 60 MG TAB PO SCH ×2 (09:07→21:28)
[2017-02-25] MEDS: POTASSIUM CHLORIDE 10 MEQ SR TABLET PO SCH (09:08)
[2017-02-25 14:00] VITALS: BP 127/66
[2017-02-25] MEDS: SODIUM CHLORIDE 0.9% INJ 10 ML SYR IV PRN (14:42)
--- NOTE | 2017-02-25 19:05 | IPNPDOC ---
Subjective Date Seen The patient was seen on 02/25/17. Subjective Chief Complaint/HPI The patient is a 86-year-old female admitted with a reason for visit of Abdominal Mass; Pulmonary Embolism. Events since last encounter Ms. Alcala is reportedly not a candidate for acute rehabilitation or occupational therapy. Nurses continue to work with her on teaching her how to manage her colostomy, but it's not going that well. She still seems relatively uninterested in participating in this part of her care. General: Reports: Normal Appetite Constitutional: Reports: Weight Loss, Denies: Chills, Fever Pulmonary: Denies: Dyspnea Cardiovascular: Denies: Chest Pain Gastrointestinal: Denies: Nausea, Vomiting Psych: Reports: Memory Issues Objective Physical Examination General Exam: Positive: Alert, Cooperative, No Acute Distress Eye Exam: Positive: Sclera icteric ENT Exam: Positive: Mucous membr. moist/pink Neck Exam: Negative: Lymphadenopathy Chest Exam: Positive: Clear to auscultation, Normal air movement Heart Exam: Positive: Rate Normal, Irregular Rhythm Abdomen Exam: Positive: Normal bowel sounds, Other (right upper quadrant colostomy with brown stool), Negative: Tenderness Extremity Exam: Negative: Edema Psych Exam: Positive: Mood NL, Negative: Memory Intact Assessment /Plan Problems (1) Abdominal mass Status: Acute Problem Specific Plan: Consult Specialist Problem Text: 02/25 - Her hemoglobin dropped to 7.9 today. There is no obvious source of bleeding. I held off transfusing her today. We will continue to monitor her carefully. 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 02/23 - Patient has decrease in her Hgb to 8.0. Colonoscopy 02/21 noted her large colonic obstructing mass. Pathology is pending. 02/22/17 - she has seen a slight decrease in her Hgb from 9.2 to 8.8 but her colostomy bag is noted to have red blood present, colonoscopy yesterday noted her large colonic obstructing mass, pathology is pending. 02/21/17 - plan for colonoscopy today if her K + normalizes. 02/18/17: colostomy output slowed. tolerating clears. consider advancing diet. 02/17/17: s/p diverting colostomy. Now with high output. 02/16/17: diverting colostomy planned for today. NGT in place. Planned diverting colostomy with Dr. Rees, pending discussion with family. (2) Pulmonary embolism Status: Acute Problem Specific Plan: Monitor Clinically Problem Text: 02/25 - Given her recent precipitous hemoglobin dropped, today is not the day to change her to an oral anticoagulant. 02/24 - Pt remains on Lovenox, her Hgb seems to have stablized, I would recommend changing her to Xarelto 15 mg BID, monitor Hgb for an additional day then plan for d/c - will address with attending. 02/23 - Pt is on Lovenox. Hgb down today to 8.0. 02/22/17 - Pt on Lovenox for treatment at this point. Was hoping to start orals today, but she has seen a slight decrease in her Hgb from 9.2 to 8.8 but her colostomy bag is noted to have red blood present. 02/21/17 - Cont with Lovenox for treatment at this point, will then be able to transition to an oral anticoag once medically cleared. 02/16/17: continue Lovenox. Planned colonoscopy Tuesday. Can start po anticoagulant post colonoscopy. Will need consideration to stop anticoagulant/ bridge therapy 4-5 days prior to colectomy in 4-6 weeks. She is currently treated with Lovenox (1mg/kg/day 06/10 CrCl 29 on admission). (3) Hypokalemia Status: Resolved Problem Text: Potassium stable today. Continue current regimen, monitor. (4) Atrial fibrillation Status: Chronic Response to Treatment: Stable Problem Text: Rate remains controlled. Continue Lovenox for anticoagulation at this point. 02/16/17: . Echo comlpleted. improved rate control on Coreg 6.25 mg The study is of good technical quality. 2. Normal left ventricular (LV) size and low normal LV systolic function (estimated LVEF 50-55%), grade 1 diastolic dysfunction. 3. No significant valvular disease. 4. Normal central venous pressure. 5. Probably moderate pulmonary hypertension. (5) Hypertension Status: Chronic Response to Treatment: Stable (6) Myasthenia gravis Status: Chronic Response to Treatment: Stable (7) Dehydration Status: Resolved Response to Treatment: Progressing (8) V-tach Status: Resolved Problem Text: 02/16/17: secondary to hypomagnesemia. Provide replacement and monitor. Plan/VTE VTE Prophylaxis Ordered?: Yes (Lovenox) VS, I&O, 24H, Fishbone Vital Signs/I&O Vital Signs Date Time Temp Pulse Resp B/P (MAP) Pulse Ox O2 Delivery O2 Flow Rate FiO2 02/25/17 14:00 99.5 76 16 127/66 (86) 98 Room Air I&O- Last 24 Hours up to 6 AM 02/26/17 06:00 Intake Total 1200 ml Output Total 1100 ml Balance 100 ml Laboratory Data 24H LABS Laboratory Tests 2 02/25/17 04:37: Nucleated Red Blood Cells % (auto) 0.0, Anion Gap 6L, Glomerular Filtration Rate > 60.0, Blood Urea Nitrogen 15, Creatinine 0.49L, Sodium Level 142, Potassium Level 3.8, Chloride Level 108H, Carbon Dioxide Level 28, Calcium Level 7.2L, Aspartate Amino Transf (AST/SGOT) 25, Alanine Aminotransferase (ALT/ SGPT) 25, Alkaline Phosphatase 111, Total Bilirubin 0.2, Total Protein 4.3L, Albumin 1.5L, Albumin/Globulin Ratio 0.54L CBC/BMP Laboratory Tests 02/25/17 04:37 Red Blood Count 2.56 L, Mean Corpuscular Volume 96.1 H, Mean Corpuscular Hemoglobin 30.9, Mean Corpuscular Hemoglobin Concent 32.1, Red Cell Distribution Width 16.8 H, Calcium Level 7.2 L, Aspartate Amino Transf (AST/SGOT ) 25, Alanine Aminotransferase (ALT/SGPT) 25, Alkaline Phosphatase 111, Total Bilirubin 0.2, Total Protein 4.3 L, Albumin 1.5 L 10/20/17 14:40 Microbiology Microbiology 02/22/17 Stool Occult Blood (TRENT) - Final, Complete Brock Portillo MD Feb 25, 2017 19:05
[2017-02-25 22:11] VITALS: BP 124/66
[2017-02-26] MEDS: SODIUM CHLORIDE 0.9% INJ 10 ML SYR IV SCH ×2 (05:12→17:20)
[2017-02-26 05:19] LABS: MEAN CORPUSCULAR HGB CONC 32.3 g/dl (32.0-36.5); PLATELET COUNT, AUTOMATED 326 10^3/uL (150-450); RED CELL DISTRIBUTION WIDTH 16.9 % (11.5-14.5); WHITE BLOOD COUNT 8.5 10^3/uL (4.0-10.0)
[2017-02-26 05:50] VITALS: BP 114/64
[2017-02-26 06:14] LABS: ALBUMIN 1.7 GM/DL (3.2-5.2); ALBUMIN/GLOBULIN RATIO 0.53 (1.00-1.93); ALKALINE PHOSPHATASE 104 U/L (45-117); ALT/SGPT 26 U/L (12-78); ANION GAP 6 MEQ/L (8-16); AST/SGOT 24 U/L (15-37); BILIRUBIN,TOTAL 0.3 MG/DL (0.2-1.0); BLOOD UREA NITROGEN 12 MG/DL (7-18); CALCIUM LEVEL 7.6 MG/DL (8.8-10.2); CARBON DIOXIDE LEVEL 30 MEQ/L (21-32); CHLORIDE LEVEL 106 MEQ/L (98-107); CREATININE FOR GFR 0.44 MG/DL (0.55-1.02); GLOMERULAR FILTRATION RATE > 60.0 (>32); GLUCOSE, FASTING 101 MG/DL (83-110); POTASSIUM SERUM 4.1 MEQ/L (3.5-5.1); SODIUM LEVEL 142 MEQ/L (136-145); TOTAL PROTEIN 4.9 GM/DL (6.4-8.2)
[2017-02-26] MEDS: RIVAROXABAN 15 MG TAB (XARELTO) PO SCH ×2 (08:35→17:19)
[2017-02-26] MEDS: PYRIDOSTIGMINE 60 MG TAB PO SCH ×2 (08:35→20:17)
[2017-02-26] MEDS: FOLIC ACID 1 MG TAB PO SCH (08:37)
[2017-02-26] MEDS: CARVedilol 6.25 MG TAB PO SCH ×2 (08:38→20:18)
[2017-02-26] MEDS: POTASSIUM CHLORIDE 10 MEQ SR TABLET PO SCH (08:38)
[2017-02-26 14:55] VITALS: BP 149/65
--- NOTE | 2017-02-26 15:49 | IPNPDOC ---
Subjective Date Seen The patient was seen on 02/26/17. Subjective Chief Complaint/HPI The patient is a 86-year-old female admitted with a reason for visit of Abdominal Mass; Pulmonary Embolism. Events since last encounter She remains clinically stable. I had a discussion with her family today. They anticipate that they will be doing all of her colostomy care, so she will not have to do as much. I'm not sure this is realistic because she has such high output from the colostomy at this point in time. We discussed that briefly. General: Reports: Normal Appetite ENT: Denies: Head Aches Skin: Denies: Rash, Lesions Cardiovascular: Denies: Chest Pain, Palpitations Gastrointestinal: Denies: Nausea, Vomiting Genitourinary: Denies: Dysuria Psych: Reports: Mood Normal, Memory Issues Objective Physical Examination General Exam: Positive: Alert, Cooperative, No Acute Distress Eye Exam: Positive: Sclera icteric ENT Exam: Positive: Mucous membr. moist/pink Neck Exam: Positive: Supple, Negative: Lymphadenopathy Chest Exam: Positive: Clear to auscultation, Normal air movement Heart Exam: Positive: Rate Normal, Irregular Rhythm Abdomen Exam: Positive: Normal bowel sounds, Other (right upper quadrant colostomy brown stool), Negative: Tenderness Extremity Exam: Negative: Edema Psych Exam: Positive: Mood NL, Negative: Memory Intact Assessment /Plan Problems (1) Abdominal mass Status: Acute Problem Specific Plan: Consult Specialist Problem Text: Her hemoglobin monitored carefully overnight and she actually recovered a bit. Her BUN has not risen, which I take is a good sign that she does not have an active GI bleed. We'll continue to monitor. NGT in place. Planned diverting colostomy with Dr. Rees, pending discussion with family. (2) Pulmonary embolism Status: Acute Problem Specific Plan: Monitor Clinically Problem Text: We'll continue on Lovenox at least 1 more day before starting oral anticoagulant. Her GI blood loss to have stabilized at this point. (3) Atrial fibrillation Status: Chronic Response to Treatment: Stable Problem Text: Rate controlled. Continue on Lovenox for now. The study is of good technical quality. 2. Normal left ventricular (LV) size and low normal LV systolic function (estimated LVEF 50-55%), grade 1 diastolic dysfunction. 3. No significant valvular disease. 4. Normal central venous pressure. 5. Probably moderate pulmonary hypertension. (4) Hypertension Status: Chronic Response to Treatment: Stable (5) Myasthenia gravis Status: Chronic Response to Treatment: Stable Problem Specific Plan: Monitor Clinically (6) Dehydration Status: Resolved Response to Treatment: Progressing (7) Hypokalemia Status: Resolved (8) V-tach Status: Resolved Problem Text: 02/16/17: secondary to hypomagnesemia. Provide replacement and monitor. Plan/VTE VTE Prophylaxis Ordered?: Yes (Lovenox) VS, I&O, 24H, Fishbone Vital Signs/I&O Vital Signs Date Time Temp Pulse Resp B/P (MAP) Pulse Ox O2 Delivery O2 Flow Rate FiO2 02/26/17 14:55 98.2 73 17 149/65 (93) 98 Room Air I&O- Last 24 Hours up to 6 AM 02/27/17 06:00 Intake Total 840 ml Output Total 490 ml Balance 350 ml Laboratory Data 24H LABS Laboratory Tests 2 02/26/17 05:08: Nucleated Red Blood Cells % (auto) 0.0, Anion Gap 6L, Glomerular Filtration Rate > 60.0, Blood Urea Nitrogen 12, Creatinine 0.44L, Sodium Level 142, Potassium Level 4.1, Chloride Level 106, Carbon Dioxide Level 30, Calcium Level 7.6L, Aspartate Amino Transf (AST/SGOT) 24, Alanine Aminotransferase (ALT/SGPT) 26, Alkaline Phosphatase 104, Total Bilirubin 0.3, Total Protein 4.9L, Albumin 1.7L, Albumin/Globulin Ratio 0.53L CBC/BMP Laboratory Tests 02/26/17 05:08 Red Blood Count 2.74 L, Mean Corpuscular Volume 96.0, Mean Corpuscular Hemoglobin 31.0, Mean Corpuscular Hemoglobin Concent 32.3, Red Cell Distribution Width 16.9 H, Calcium Level 7.6 L, Aspartate Amino Transf (AST/SGOT ) 24, Alanine Aminotransferase (ALT/SGPT) 26, Alkaline Phosphatase 104, Total Bilirubin 0.3, Total Protein 4.9 L, Albumin 1.7 L Microbiology Microbiology 02/22/17 Stool Occult Blood (TRENT) - Final, Complete Bandar,Brock D MD Feb 26, 2017 15:49
[2017-02-26 22:00] VITALS: BP 114/77
[2017-02-27] MEDS: SODIUM CHLORIDE 0.9% INJ 10 ML SYR IV SCH ×2 (05:33→17:06)
[2017-02-27 06:00] VITALS: BP 93/58
[2017-02-27] MEDS: PYRIDOSTIGMINE 60 MG TAB PO SCH ×2 (08:52→21:00)
[2017-02-27] MEDS: POTASSIUM CHLORIDE 10 MEQ SR TABLET PO SCH (08:52)
[2017-02-27] MEDS: FOLIC ACID 1 MG TAB PO SCH (08:52)
[2017-02-27] MEDS: RIVAROXABAN 15 MG TAB (XARELTO) PO SCH ×2 (08:52→17:06)
[2017-02-27] MEDS: CARVedilol 6.25 MG TAB PO SCH ×2 (08:55→21:00)
[2017-02-27 14:00] VITALS: BP 128/61
--- NOTE | 2017-02-27 16:28 | IPNPDOC ---
Subjective Date Seen The patient was seen on 02/27/17. Subjective Chief Complaint/HPI The patient is a 86-year-old female admitted with a reason for visit of Abdominal Mass; Pulmonary Embolism. Events since last encounter She has no complaints today. She has been up walking the halls and has made at least two laps today. Nursing is working with her on helping her learn her to manage/change her own colostomy. She has not been able (for technical failure reasons) watch the educational videos yet. Her family came to see her today, but they are wondering how much she is participating in her own care... General: Reports: Normal Appetite, Denies: Chills Constitutional: Denies: Fever, Weakness Pulmonary: Denies: Cough Gastrointestinal: Denies: Nausea, Vomiting Objective Physical Examination General Exam: Positive: Alert, Cooperative, No Acute Distress Eye Exam: Positive: Sclera icteric ENT Exam: Positive: Mucous membr. 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 The surgical team is waiting till she heals from her previous surgery before scheduling the partial colectomy. This is anticipate in ~3 weeks. Her barrier to discharge currently is someone who can provide adequate care of her colostomy. She has shown some progress in the last couple of days, but still occasionally forgets that she has a colostomy. (2) Pulmonary embolism Status: Acute Problem Specific Plan: Monitor Clinically Problem Text: She is on Xarelto now. She seems to be tolerating it well. There were no Am labs done today, but her Hb has been reasonable stable after an initial drop. (3) Atrial fibrillation Status: Chronic Response to Treatment: Stable Problem Text: She is rate controlled. Continue current regimen, monitor. Echo comlpleted 02/22/17. The study is of good technical quality. 2. Normal left ventricular (LV) size and low normal LV systolic function (estimated LVEF 50-55%), grade 1 diastolic dysfunction. 3. No significant valvular disease. 4. Normal central venous pressure. 5. Probably moderate pulmonary hypertension. (4) Hypertension Status: Chronic Response to Treatment: Stable (5) Myasthenia gravis Status: Chronic Response to Treatment: Stable (6) Dehydration Status: Resolved Response to Treatment: Progressing (7) V-tach Status: Resolved Problem Text: 02/16/17: secondary to hypomagnesemia. Provide replacement and monitor. (8) Hypokalemia Status: Resolved Plan/VTE VTE Prophylaxis Ordered?: Yes (Xarelto) VS, I&O, 24H, Fishbone Vital Signs/I&O Vital Signs Date Time Temp Pulse Resp B/P (MAP) Pulse Ox O2 Delivery O2 Flow Rate FiO2 02/27/17 14:00 98.2 75 18 128/61 (83) 96 Room Air I&O- Last 24 Hours up to 6 AM 02/28/17 06:00 Intake Total 1100 ml Output Total 1325 ml Balance -225 ml Laboratory Data Microbiology Microbiology 02/22/17 Stool Occult Blood (TRENT) - Final, Complete Brock Portillo MD Feb 27, 2017 16:28
[2017-02-27 22:00] VITALS: BP 126/58
[2017-02-28 05:49] LABS: MEAN CORPUSCULAR HEMOGLOBIN 31.4 pg (27.0-33.0); MEAN CORPUSCULAR VOLUME 97.9 fl (80.0-96.0); PLATELET COUNT, AUTOMATED 359 10^3/uL (150-450); RED CELL DISTRIBUTION WIDTH 18.2 % (11.5-14.5); WHITE BLOOD COUNT 9.9 10^3/uL (4.0-10.0)
[2017-02-28] MEDS: SODIUM CHLORIDE 0.9% INJ 10 ML SYR IV SCH ×2 (05:56→18:19)
[2017-02-28 06:00] VITALS: BP 116/62
[2017-02-28 06:06] LABS: ALBUMIN 1.7 GM/DL (3.2-5.2); ALBUMIN/GLOBULIN RATIO 0.53 (1.00-1.93); ALKALINE PHOSPHATASE 99 U/L (45-117); ALT/SGPT 24 U/L (12-78); ANION GAP 5 MEQ/L (8-16); AST/SGOT 18 U/L (15-37); BILIRUBIN,TOTAL 0.2 MG/DL (0.2-1.0); BLOOD UREA NITROGEN 16 MG/DL (7-18); CALCIUM LEVEL 7.5 MG/DL (8.8-10.2); CARBON DIOXIDE LEVEL 28 MEQ/L (21-32); CHLORIDE LEVEL 107 MEQ/L (98-107); CREATININE FOR GFR 0.57 MG/DL (0.55-1.02); GLOMERULAR FILTRATION RATE > 60.0 (>32); GLUCOSE, FASTING 130 MG/DL (83-110); SODIUM LEVEL 140 MEQ/L (136-145); TOTAL PROTEIN 4.9 GM/DL (6.4-8.2)
--- NOTE | 2017-02-28 07:59 | IPNPDOC ---
Subjective Date Seen The patient was seen on 02/28/17. Subjective Chief Complaint/HPI The patient is a 86-year-old female admitted with a reason for visit of Abdominal Mass; Pulmonary Embolism. Events since last encounter Denies c/o. eating well. General: Denies: ROS Unobtainable, Chills, Night Sweats, Fatigue, Malaise, Normal Appetite, Other Symptoms Pulmonary: Denies: Dyspnea, Cough Cardiovascular: Denies: Chest Pain, Palpitations, Orthopnea, Paroxysmal Noc. Dyspnea, Edema, Lt Headedness, Other Symptoms Gastrointestinal: Denies: Nausea, Vomiting, Abdominal Pain, Diarrhea, Constipation, Melena, Hematochezia, Other Symptoms Genitourinary: Denies: Dysuria, Frequency, Incontinence, Retention Objective Physical Examination General Exam: Positive: Alert, Cooperative, No Acute Distress Eye Exam: Negative: Sclera icteric ENT Exam: Positive: Mucous membr. moist/pink Neck Exam: Negative: Lymphadenopathy Chest Exam: Positive: Clear to auscultation, Normal air movement Heart Exam: Positive: Rate Normal, Irregular Rhythm Abdomen Exam: Positive: Normal bowel sounds, Other (ostomy brown stool), Negative: Tenderness Extremity Exam: Negative: Edema Psych Exam: Positive: Mood NL, Negative: Memory Intact Assessment /Plan Problems (1) Anemia Status: Acute Problem Text: hgb 7.4. will transfuse 1 unit today. Discussed risks/benefit of transfusion. Patient consented. Stool for occult blood ordered. 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 The surgical team is waiting till she heals from her previous surgery before scheduling the partial colectomy. This is anticipate in ~3 weeks. Her barrier to discharge currently is someone who can provide adequate care of her colostomy. She has shown some progress in the last couple of days, but still occasionally forgets that she has a colostomy. (3) Pulmonary embolism Status: Acute Problem Specific Plan: Monitor Clinically Problem Text: Continue Xarelto and monitor H/H after blood transfusion; we may need to consider stopping Xarelto if H/H continues to drop. (4) Atrial fibrillation Status: Chronic Response to Treatment: Stable Problem Text: She is rate controlled. Continue current regimen, monitor. Echo completed 02/22/17. The study is of good technical quality. 2. Normal left ventricular (LV) size and low normal LV systolic function (estimated LVEF 50-55%), grade 1 diastolic dysfunction. 3. No significant valvular disease. 4. Normal central venous pressure. 5. Probably moderate pulmonary hypertension. (5) Hypertension Status: Chronic Response to Treatment: Stable (6) Myasthenia gravis Status: Chronic Response to Treatment: Stable (7) Dehydration Status: Resolved Response to Treatment: Progressing (8) V-tach Status: Resolved Problem Text: 02/16/17: secondary to hypomagnesemia. Replacement provided. (9) Hypokalemia Status: Resolved Plan/VTE VTE Prophylaxis Ordered?: Yes (Xarelto) Plan Family Medicine Attending Note: Patient was seen and examined this afternoon. I discussed her care with ANT Candelaria and I agree with her note as documented. Patient denies any symptoms of anemia (no lightheadedness, fatigue , palpitations). Hemoccult was positive last week; will recheck now. Stool in ostomy is brown and there is no tobin blood. I am concerned that stopping Xarelto would be a greater risk due to recent PE and chronic Afib than her risk of major bleeding. She is receiving pRBCs x2 today and we will recheck an H/H in the AM. ([place]) VS, I&O, 24H, Fishbone Vital Signs/I&O Vital Signs Date Time Temp Pulse Resp B/P (MAP) Pulse Ox O2 Delivery O2 Flow Rate FiO2 02/28/17 06:00 98.7 70 15 116/62 (80) 97 Room Air I&O- Last 24 Hours up to 6 AM 03/01/17 05:59 Intake Total 360 ml Output Total 200 ml Balance 160 ml Laboratory Data 24H LABS Laboratory Tests 2 02/28/17 05:34: Nucleated Red Blood Cells % (auto) 0.0, Anion Gap 5L, Glomerular Filtration Rate > 60.0, Blood Urea Nitrogen 16, Creatinine 0.57, Sodium Level 140, Potassium Level 4.0, Chloride Level 107, Carbon Dioxide Level 28, Calcium Level 7.5L, Aspartate Amino Transf (AST/SGOT) 18, Alanine Aminotransferase (ALT/SGPT) 24, Alkaline Phosphatase 99, Total Bilirubin 0.2, Total Protein 4.9L, Albumin 1.7L, Albumin/Globulin Ratio 0.53L CBC/BMP Laboratory Tests 02/28/17 05:34 Red Blood Count 2.36 L, Mean Corpuscular Volume 97.9 H, Mean Corpuscular Hemoglobin 31.4, Mean Corpuscular Hemoglobin Concent 32.0, Red Cell Distribution Width 18.2 H, Calcium Level 7.5 L, Aspartate Amino Transf (AST/SGOT ) 18, Alanine Aminotransferase (ALT/SGPT) 24, Alkaline Phosphatase 99, Total Bilirubin 0.2, Total Protein 4.9 L, Albumin 1.7 L Microbiology Microbiology 02/22/17 Stool Occult Blood (TRENT) - Final, Complete Oumou Ballesterso Feb 28, 2017 07:59 STEFAN SHAH MD Feb 28, 2017 14:45
[2017-02-28] MEDS: FOLIC ACID 1 MG TAB PO SCH (09:35)
[2017-02-28] MEDS: RIVAROXABAN 15 MG TAB (XARELTO) PO SCH ×2 (09:35→18:19)
[2017-02-28] MEDS: CARVedilol 6.25 MG TAB PO SCH ×2 (09:36→21:57)
[2017-02-28] MEDS: PYRIDOSTIGMINE 60 MG TAB PO SCH ×2 (09:36→21:57)
[2017-02-28] MEDS: POTASSIUM CHLORIDE 10 MEQ SR TABLET PO SCH (09:36)
[2017-02-28 14:00] VITALS: BP 117/58
[2017-02-28 18:52] LABS: BASO % 0.2 % (0.0-1.0); EOS # 0.3 10^3/uL (0.0-0.50); EOS % 3.1 % (0.0-3.0); IMMATURE GRANULOCYTE % 0.4 % (0-0); LYMPH # 1.4 10^3/uL (1.5-4.5); LYMPH % 14.9 % (24.0-44.0); MEAN CORPUSCULAR HEMOGLOBIN 30.2 pg (27.0-33.0); MEAN CORPUSCULAR HGB CONC 31.6 g/dl (32.0-36.5); MEAN CORPUSCULAR VOLUME 95.5 fl (80.0-96.0); MONO # 0.6 10^3/uL (0.0-0.8); MONO % 6.3 % (0.0-5.0); NEUTROPHILS % 75.1 % (36.0-66.0); PLATELET COUNT, AUTOMATED 415 10^3/uL (150-450); WHITE BLOOD COUNT 9.3 10^3/uL (4.0-10.0)
[2017-02-28 18:56] LABS: POSITIVE MORPH POS FLAG; RED CELL DISTRIBUTION WIDTH 20.2 % (11.5-14.5)
[2017-02-28 18:57] LABS: ADD MORPHOLOGY? YES
[2017-02-28 21:17] LABS: ANISOCYTOSIS 3+; HYPOCHROMASIA 1+; MICROCYTOSIS 1+
[2017-02-28 22:00] VITALS: BP 111/58
[2017-03-01] MEDS: SODIUM CHLORIDE 0.9% INJ 10 ML SYR IV SCH ×2 (05:03→18:12)
[2017-03-01 05:17] LABS: MEAN CORPUSCULAR HEMOGLOBIN 31.2 pg (27.0-33.0); MEAN CORPUSCULAR HGB CONC 32.6 g/dl (32.0-36.5); MEAN CORPUSCULAR VOLUME 95.7 fl (80.0-96.0); PLATELET COUNT, AUTOMATED 343 10^3/uL (150-450); WHITE BLOOD COUNT 8.4 10^3/uL (4.0-10.0)
[2017-03-01 05:29] LABS: RED CELL DISTRIBUTION WIDTH 20.3 % (11.5-14.5)
[2017-03-01 06:00] VITALS: BP 130/62
--- NOTE | 2017-03-01 07:11 | IPNPDOC ---
Subjective Date Seen The patient was seen on 03/01/17. Subjective Chief Complaint/HPI The patient is a 86-year-old female admitted with a reason for visit of Abdominal Mass; Pulmonary Embolism. Events since last encounter Denies c/o. received 1 unit PRBC yesterday w/o incident. Constitutional: Denies: Chills, Fever, Night Sweats Skin: Denies: Rash, Lesions, Breakdown Pulmonary: Denies: Dyspnea, Cough Cardiovascular: Denies: Chest Pain, Palpitations, Orthopnea, Paroxysmal Noc. Dyspnea, Lt Headedness Gastrointestinal: Denies: Nausea, Vomiting, Abdominal Pain, Diarrhea, Constipation Objective Physical Examination General Exam: Positive: Alert, Cooperative, No Acute Distress Eye Exam: Negative: Sclera icteric ENT Exam: Positive: Mucous membr. moist/pink Neck Exam: Negative: Lymphadenopathy Chest Exam: Positive: Clear to auscultation, Normal air movement Heart Exam: Positive: Rate Normal, Irregular Rhythm Abdomen Exam: Positive: Normal bowel sounds, Other (ostomy brown stool), Negative: Tenderness Extremity Exam: Positive: Edema Psych Exam: Positive: Mood NL, Negative: Memory Intact Other physical findings 3+ BLE edema Assessment /Plan Problems (1) Edema Status: Chronic Problem Text: at least partially 2 hypoalb (03/01/17 1.7! 3.7)) BLE 3/4 edema-new per patient 03/01 check BNP, BLE DVT US (given recent PE) CONCLUSIONS: 1. The study is of good technical quality. 2. Normal left ventricular (LV) size and low normal LV systolic function (estimated LVEF 50-55%), grade 1 diastolic dysfunction. 3. No significant valvular disease. 4. Normal central venous pressure. 5. Probably moderate pulmonary hypertension. (2) Anemia Status: Acute Problem Text: 2 Fe def (2 acute blood loss), 02/14/17 hgb 12.0 plan IV Fe, tx prn until at least colon mass is resected and 3M for PE rx if hgb remains stable 03/01/17: Hgb 8.6 today. monitor. stool for occult blood negative. 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 The surgical team is waiting till she heals from her previous surgery before scheduling the partial colectomy. This is anticipate in ~3 weeks. Her barrier to discharge currently is someone who can provide adequate care of her colostomy. She has shown some progress in the last couple of days, but still occasionally forgets that she has a colostomy. 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 No stroma or submucosa is noted to evaluate for invasion. In view of presence of a large obstructing circumferential mass in the transverse colon, this is most likely a malignant tumor, however the biopsy may be from the surface of the mass, not showing definitive invasion. Follow up is recommended as clinically indicated. (4) Pulmonary embolism Status: Acute Problem Specific Plan: Monitor Clinically Problem Text: Continue Xarelto and monitor H/H after blood transfusion; we may need to consider stopping Xarelto if H/H continues to drop. (5) Atrial fibrillation Status: Chronic Response to Treatment: Stable Problem Text: She is rate controlled. Continue current regimen, monitor. 02/22/17 TTE: The study is of good technical quality. 2. Normal left ventricular (LV) size and low normal LV systolic function (estimated LVEF 50-55%), grade 1 diastolic dysfunction. 3. No significant valvular disease. 4. Normal central venous pressure. 5. Probably moderate pulmonary hypertension. (6) Myasthenia gravis Status: Chronic Response to Treatment: Stable (7) V-tach Status: Resolved Problem Text: 02/16/17: secondary to hypomagnesemia. Replacement provided. Plan/VTE VTE Prophylaxis Ordered?: Yes (Xarelto) VS, I&O, 24H, Fishbone Vital Signs/I&O Vital Signs Date Time Temp Pulse Resp B/P (MAP) Pulse Ox O2 Delivery O2 Flow Rate FiO2 03/01/17 06:00 98.1 75 16 130/62 (84) 100 Room Air I&O- Last 24 Hours up to 6 AM 03/02/17 05:59 Intake Total 0 ml Output Total 300 ml Balance -300 ml Laboratory Data 24H LABS Laboratory Tests 2 02/28/17 18:18: Immature Granulocyte % (Auto) 0.4H, White Blood Count 9.3, Red Blood Count 3.08L , Hemoglobin 9.3L, Hematocrit 29.4L, Mean Corpuscular Volume 95.5, Mean Corpuscular Hemoglobin 30.2, Mean Corpuscular Hemoglobin Concent 31.6L, Red Cell Distribution Width 20.2H, Platelet Count 415, Neutrophils (%) (Auto) 75.1H , Lymphocytes (%) (Auto) 14.9L, Monocytes (%) (Auto) 6.3H, Eosinophils (%) (Auto ) 3.1H, Basophils (%) (Auto) 0.2, Neutrophils # (Auto) 7.0, Lymphocytes # (Auto ) 1.4L, Monocytes # (Auto) 0.6, Eosinophils # (Auto) 0.3, Basophils # (Auto) 0.0 , Immature Granulocyte # (Auto) 0.0, Nucleated Red Blood Cells % (auto) 0.0, Platelet Estimate NORMAL, Hypochromasia 1+, Anisocytosis 3+, Microcytosis 1+, Macrocytosis 1+ 03/01/17 05:04: Nucleated Red Blood Cells % (auto) 0.0 CBC/BMP Laboratory Tests 02/28/17 18:18 Red Blood Count 3.08 L, Mean Corpuscular Volume 95.5, Mean Corpuscular Hemoglobin 30.2, Mean Corpuscular Hemoglobin Concent 31.6 L, Red Cell Distribution Width 20.2 H, Neutrophils (%) (Auto) 75.1 H, Lymphocytes (%) (Auto ) 14.9 L, Monocytes (%) (Auto) 6.3 H, Eosinophils (%) (Auto) 3.1 H, Basophils (% ) (Auto) 0.2, Neutrophils # (Auto) 7.0, Lymphocytes # (Auto) 1.4 L, Monocytes # (Auto) 0.6, Eosinophils # (Auto) 0.3, Basophils # (Auto) 0.0 03/01/17 05:04 Red Blood Count 2.76 L, Mean Corpuscular Volume 95.7, Mean Corpuscular Hemoglobin 31.2, Mean Corpuscular Hemoglobin Concent 32.6, Red Cell Distribution Width 20.3 H Microbiology Microbiology 02/28/17 Stool Occult Blood (TRENT) - Final, Complete 02/22/17 Stool Occult Blood (TRENT) - Final, Complete Oumou Ballesteros Mar 01, 2017 07:11 Vikram Fischer M.D. Mar 01, 2017 16:42
[2017-03-01] MEDS: CARVedilol 6.25 MG TAB PO SCH ×2 (09:16→20:53)
[2017-03-01] MEDS: FOLIC ACID 1 MG TAB PO SCH (09:17)
[2017-03-01] MEDS: PYRIDOSTIGMINE 60 MG TAB PO SCH ×2 (09:17→20:53)
[2017-03-01] MEDS: POTASSIUM CHLORIDE 10 MEQ SR TABLET PO SCH (09:17)
[2017-03-01] MEDS: RIVAROXABAN 15 MG TAB (XARELTO) PO SCH ×2 (09:17→18:11)
[2017-03-01 10:59] LABS: FOLATE 8.6 NG/ML (>5.4)
[2017-03-01 14:00] VITALS: BP 109/53
--- NOTE | 2017-03-01 18:18 | REP ---
BILATERAL LOWER EXTREMITY DOPPLER VENOUS ULTRASOUND: 03/01/2017. Clinical history: lower extremity edema, recent pulmonary emboli. There are no prior comparison studies. Technique: Standard duplex techniques used bilaterally. Findings: The right lower extremity shows full compressibility throughout its course from the groin to the popliteal fossa and respiratory variation and augmented flow, color flow is preserved. There is soft tissue edema in the right popliteal area greater than the left. The left lower extremity shows some nonocclusive thrombus in the common femoral vein with the remainder of the femoral vein and popliteal veins fully compressible throughout their course. There was respiratory variation and augmentation in the common femoral vein on that left side. Impression: 1. Evidence of nonocclusive thrombus representing clot in the common femoral vein on the left side. This may be acute or chronic. The remainder of the left lower extremity is without thrombus in the deep veins. 2. Right lower extremity without evidence of DVT. 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 3. Soft tissue edema in the popliteal fossae, right greater than left. Signed by Paulino Watson MD 03/01/2017 08:25 P
[2017-03-01 22:00] VITALS: BP 133/62
[2017-03-02] MEDS: SODIUM CHLORIDE 0.9% INJ 10 ML SYR IV SCH ×2 (05:09→17:12)
[2017-03-02 05:27] LABS: BASO % 0.3 % (0.0-1.0); EOS # 0.4 10^3/uL (0.0-0.50); EOS % 4.7 % (0.0-3.0); IMMATURE GRANULOCYTE % 0.2 % (0-0); LYMPH # 1.5 10^3/uL (1.5-4.5); LYMPH % 17.7 % (24.0-44.0); MEAN CORPUSCULAR HEMOGLOBIN 30.7 pg (27.0-33.0); MEAN CORPUSCULAR HGB CONC 31.7 g/dl (32.0-36.5); MEAN CORPUSCULAR VOLUME 96.7 fl (80.0-96.0); MONO # 0.7 10^3/uL (0.0-0.8); NEUTROPHILS % 69.1 % (36.0-66.0); PLATELET COUNT, AUTOMATED 363 10^3/uL (150-450); WHITE BLOOD COUNT 8.7 10^3/uL (4.0-10.0)
[2017-03-02 05:30] LABS: ADD MORPHOLOGY? YES; POSITIVE MORPH POS FLAG; RED CELL DISTRIBUTION WIDTH 20.5 % (11.5-14.5)
[2017-03-02 05:57] LABS: ALBUMIN 1.8 GM/DL (3.2-5.2); ALBUMIN/GLOBULIN RATIO 0.55 (1.00-1.93); ALKALINE PHOSPHATASE 95 U/L (45-117); ALT/SGPT 21 U/L (12-78); ANION GAP 6 MEQ/L (8-16); AST/SGOT 16 U/L (15-37); BILIRUBIN,TOTAL 0.2 MG/DL (0.2-1.0); BLOOD UREA NITROGEN 20 MG/DL (7-18); CALCIUM LEVEL 7.6 MG/DL (8.8-10.2); CARBON DIOXIDE LEVEL 28 MEQ/L (21-32); CHLORIDE LEVEL 107 MEQ/L (98-107); CREATININE FOR GFR 0.51 MG/DL (0.55-1.02); GLOMERULAR FILTRATION RATE > 60.0 (>32); GLUCOSE, FASTING 103 MG/DL (83-110); POTASSIUM SERUM 4.2 MEQ/L (3.5-5.1); SODIUM LEVEL 141 MEQ/L (136-145); TOTAL PROTEIN 5.1 GM/DL (6.4-8.2)
[2017-03-02 06:00] VITALS: BP 129/63
[2017-03-02 06:10] LABS: ANISOCYTOSIS 1+
[2017-03-02] MEDS ORDERED: IRON SUCROSE 100MG 5ML VIAL (J1756 PER 1MG) IV SCH (07:30)
--- NOTE | 2017-03-02 07:47 | IPNPDOC ---
Subjective Date Seen The patient was seen on 03/02/17. Subjective Chief Complaint/HPI The patient is a 86-year-old female admitted with a reason for visit of Abdominal Mass; Pulmonary Embolism. Events since last encounter denies c/o. US BLE completed yesterday due to edema. + on-occlusive thrombus to LLE noted. BNP 2800, down from 9000 on admission. Constitutional: Denies: Chills, Fever, Night Sweats Pulmonary: Denies: Dyspnea, Cough Cardiovascular: Denies: Chest Pain, Palpitations, Orthopnea, Paroxysmal Noc. Dyspnea, Lt Headedness Gastrointestinal: Denies: Nausea, Vomiting, Abdominal Pain, Diarrhea, Constipation Genitourinary: Denies: Dysuria, Frequency, Incontinence, Retention Objective Physical Examination General Exam: Positive: Alert, Cooperative, No Acute Distress Eye Exam: Negative: Sclera icteric ENT Exam: Positive: Mucous membr. moist/pink Neck Exam: Negative: Lymphadenopathy Chest Exam: Positive: Clear to auscultation, Normal air movement Heart Exam: Positive: Rate Normal, Irregular Rhythm Abdomen Exam: Positive: Normal bowel sounds, Other (ostomy brown stool), Negative: Tenderness Extremity Exam: Positive: Edema Psych Exam: Positive: Mood NL, Negative: Memory Intact Assessment /Plan Problems (1) Edema Status: Chronic Problem Text: 03/02/17: TEDS and SCDs today. Add on Ensure tid. Albumin slowly rising. Up to 1.8 today. Monitor. Will change diet to 2 gram sodium. at least partially 2 hypoalb (03/01/17 1.7! 3.7)) BLE 3/4 edema-new per patient 03/01 check BNP, BLE DVT US (given recent PE) CONCLUSIONS: 1. The study is of good technical quality. 2. Normal left ventricular (LV) size and low normal LV systolic function (estimated LVEF 50-55%), grade 1 diastolic dysfunction. 3. No significant valvular disease. 4. Normal central venous pressure. 5. Probably moderate pulmonary hypertension. (2) Anemia Status: Acute Problem Text: 03/02/2017: Stool for occult blood negative. will repeat today. Venofer infusion today. repeat H/H in am. Continue Xarelto for PE management. 2 Fe def (2 acute blood loss), 02/14/17 hgb 12.0 Plan IV Fe, tx prn until at least colon mass is resected; plan to anticoagulate for at least 3 months for PE rx if hgb remains stable Xarelto is needed due to afib and acute PE (3) Abdominal mass Status: Acute Problem Specific Plan: Consult Specialist Problem Text: 03/02: Surgery is now considering resection with permanent ileostomy given her ongoing anemia and need for anticoagulation - Gen Surg will d/w her today. 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 The surgical team is waiting till she heals from her previous surgery before scheduling the partial colectomy. This is anticipate in ~3 weeks. Her barrier to discharge currently is someone who can provide adequate care of her colostomy. She has shown some progress in the last couple of days, but still occasionally forgets that she has a colostomy. 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 No stroma or submucosa is noted to evaluate for invasion. In view of presence of a large obstructing circumferential mass in the transverse colon, this is most likely a malignant tumor, however the biopsy may be from the surface of the mass, not showing definitive invasion. Follow up is recommended as clinically indicated. (4) Pulmonary embolism Status: Acute Problem Specific Plan: Monitor Clinically Problem Text: Continue Xarelto and monitor H/H (5) Atrial fibrillation Status: Chronic Response to Treatment: Stable Problem Text: She is rate controlled. Continue current regimen, monitor. 02/22/17 TTE: The study is of good technical quality. 2. Normal left ventricular (LV) size and low normal LV systolic function (estimated LVEF 50-55%), grade 1 diastolic dysfunction. 3. No significant valvular disease. 4. Normal central venous pressure. 5. Probably moderate pulmonary hypertension. (6) Myasthenia gravis Status: Chronic Response to Treatment: Stable (7) V-tach Status: Resolved Problem Text: 02/16/17: secondary to hypomagnesemia. Replacement provided. (8) Thrombosis of left lower extremity Status: Acute Problem Text: probably present on admission, given PE. (9) Severe protein-calorie malnutrition Status: Acute Plan/VTE VTE Prophylaxis Ordered?: Yes (Xarelto) Plan Family Medicine Attending Note: Patient seen and examined this afternoon; I discussed her care with ANT Candelaria and I agree with her note as documented. The patient has no complaints and remains asymptomatic in terms of her anemia. Plan is for Venofer and to repeat her hemoccult. General Surgery is also considering pursuing surgery while she is in the hospital rather than deferring for 3 weeks - she may not be a candidate for re-anastomosis. In addition, she may be losing some blood in relation to her colon mass. Will monitor CBC daily and f/u Gen Surg recommendations. (KES) VS, I&O, 24H, Fishbone Vital Signs/I&O Vital Signs Date Time Temp Pulse Resp B/P (MAP) Pulse Ox O2 Delivery O2 Flow Rate FiO2 03/01/17 22:00 96.2 81 20 133/62 (85) 98 Room Air Laboratory Data 24H LABS Laboratory Tests 2 03/02/17 05:10: Immature Granulocyte % (Auto) 0.2H, White Blood Count 8.7, Red Blood Count 2.74L , Hemoglobin 8.4L, Hematocrit 26.5L, Mean Corpuscular Volume 96.7H, Mean Corpuscular Hemoglobin 30.7, Mean Corpuscular Hemoglobin Concent 31.7L, Red Cell Distribution Width 20.5H, Platelet Count 363, Neutrophils (%) (Auto) 69.1H , Lymphocytes (%) (Auto) 17.7L, Monocytes (%) (Auto) 8.0H, Eosinophils (%) (Auto ) 4.7H, Basophils (%) (Auto) 0.3, Neutrophils # (Auto) 6.0, Lymphocytes # (Auto ) 1.5, Monocytes # (Auto) 0.7, Eosinophils # (Auto) 0.4, Basophils # (Auto) 0.0 , Immature Granulocyte # (Auto) 0.0, Nucleated Red Blood Cells % (auto) 0.0, Platelet Estimate NORMAL, Anisocytosis 1+, Macrocytosis 1+, Anion Gap 6L, Glomerular Filtration Rate > 60.0, Blood Urea Nitrogen 20H, Creatinine 0.51L, Sodium Level 141, Potassium Level 4.2, Chloride Level 107, Carbon Dioxide Level 28, Calcium Level 7.6L, Aspartate Amino Transf (AST/SGOT) 16, Alanine Aminotransferase (ALT/SGPT) 21, Alkaline Phosphatase 95, Total Bilirubin 0.2, Total Protein 5.1L, Albumin 1.8L, [id number]-Type Natriuretic Peptide 2808H, Albumin/Globulin Ratio 0.55L CBC/BMP Laboratory Tests 03/02/17 05:10 Red Blood Count 2.74 L, Mean Corpuscular Volume 96.7 H, Mean Corpuscular Hemoglobin 30.7, Mean Corpuscular Hemoglobin Concent 31.7 L, Red Cell Distribution Width 20.5 H, Neutrophils (%) (Auto) 69.1 H, Lymphocytes (%) (Auto ) 17.7 L, Monocytes (%) (Auto) 8.0 H, Eosinophils (%) (Auto) 4.7 H, Basophils (% ) (Auto) 0.3, Neutrophils # (Auto) 6.0, Lymphocytes # (Auto) 1.5, Monocytes # ( Auto) 0.7, Eosinophils # (Auto) 0.4, Basophils # (Auto) 0.0, Calcium Level 7.6 L , Aspartate Amino Transf (AST/SGOT) 16, Alanine Aminotransferase (ALT/SGPT) 21, Alkaline Phosphatase 95, Total Bilirubin 0.2, Total Protein 5.1 L, Albumin 1.8 L Microbiology Microbiology 02/28/17 Stool Occult Blood (TRENT) - Final, Complete 02/22/17 Stool Occult Blood (TRENT) - Final, Complete Oumou Ballesteros Mar 02, 2017 07:47 STEFAN SHAH MD Mar 02, 2017 13:37
[2017-03-02] MEDS: POTASSIUM CHLORIDE 10 MEQ SR TABLET PO SCH (09:26)
[2017-03-02] MEDS: PYRIDOSTIGMINE 60 MG TAB PO SCH ×2 (09:26→22:07)
[2017-03-02] MEDS: CARVedilol 6.25 MG TAB PO SCH ×2 (09:26→22:08)
[2017-03-02] MEDS: METHOTREXATE 2.5 MG TAB (J8610 PER 2.5MG) PO SCH (09:26)
[2017-03-02] MEDS: RIVAROXABAN 15 MG TAB (XARELTO) PO SCH ×2 (09:26→17:12)
[2017-03-02] MEDS: FOLIC ACID 1 MG TAB PO SCH (09:26)
[2017-03-02] MEDS ORDERED: IRON SUCROSE 100MG 5ML VIAL (J1756 PER 1MG) IV ONE (10:00)
[2017-03-02] MEDS ORDERED: IRON SUCROSE 200 MG in NS 250 ML IV ONE (13:00)
[2017-03-02 14:00] VITALS: BP 114/55
--- NOTE | 2017-03-02 14:41 | IPNPDOC ---
Subjective General Date/Time Seen The patient was seen on 03/02/17 at 14:36. Subject Chief Complaint/History The patient is a 86-year-old female admitted with a reason for visit of Abdominal Mass; Pulmonary Embolism. I visited her today to get gauge and how she is doing. She was just finished eating lunch and she seems to finished her meal. She reports she is hungry. Nurse reports that she is finishing her meals. Main issue for the past week as her anemia and her providers were entertained thoughts that she might be bleeding from her cancer wasn't no blood coming out from her cecostomy nor any reports of any bloody bowel movements. She is getting IV Venofer today. Overall patient reports feeling much better since the last time I saw her 2 weeks ago with the placement of the cecostomy to relieve the obstruction. Current Medications Current Medications Current Medications Acetaminophen (Tylenol Tab) 650 mg Q4HP PRN PO MILD PAIN OR FEVER Last administered on 02/23/17 13:45; Start 02/12/17 at 18:45; Stop 03/14/17 at 18: 44 Acetaminophen/ Hydrocodone Bitart ([place], [place] 5/325) 1 tab Q4HP PRN PO MILD /MODERATE PAIN (PS 1-7) Last administered on 02/18/17 08:58; Start 02/16/17 at 16:30; Stop 03/07/17 at 16:29 Carvedilol (COReg) 3.125 mg BID PO Last administered on 02/15/17 11:10; Start 02/15/17 at 09:00; Stop 02/15/17 at 18:05; Status DC Carvedilol (COReg) 6.25 mg BID PO Last administered on 03/02/17 09:26; Start 02/15/17 at 21:00; Stop 03/17/17 at 20:59 Dextrose/Sodium Chloride 1,000 ml @ 100 mls/hr Q10H IV Last administered on 09:18; Start 02/14/17 at 14:00; Stop 02/18/17 at 10:15; Status DC Enoxaparin Sodium (Lovenox) 60 mg BID@0600,1800 SC Last administered on 05:41; Start 02/17/17 at 18:00; Stop 02/24/17 at 09:40; Status DC Enoxaparin Sodium (Lovenox) 60 mg Q24H SC Last administered on 02/16/17 21:05 ; Start 02/12/17 at 20:00; Stop 02/17/17 at 18:08; Status DC Fentanyl Citrate (Sublimaze) 25 mcg Q5MP PRN IV MODERATE PAIN (PS 4-7) Last administered on 02/16/17 17:26; Start 02/16/17 at 17:00; Stop 02/16/17 at 17 :53; Status DC Fentanyl Citrate (Sublimaze) 25 mcg Q5MP PRN IV MODERATE PAIN (PS 4-7); Start 02/16/17 at 18:00; Stop 02/16/17 at 19:00; Status DC Folic Acid (Folic Acid) 1 mg DAILY PO Last administered on 03/02/17 09:26; Start 02/13/17 at 09:00; Stop 03/15/17 at 08:59 Heparin Sodium (Heparin (Flush)) 200 units ASDIRECTED PRN IV SEE LABEL COMMENTS Last administered on 02/25/17 14:42; Start 02/17/17 at 16:15; Stop 03/19/17 at 16:14 Heparin Sodium (Heparin (Flush)) 200 units PICC IV Last administered on 05:09; Start 02/17/17 at 18:00; Stop 03/19/17 at 17:59 Heparin Sodium (Porcine) (Heparin) ASDIRECTED PRN IV SEE LABEL COMMENTS; Start 02/12/17 at 16:30; Stop 02/17/17 at 16:29; Status Cancel Heparin Sodium (Porcine) 35250 units/IV Miscellaneous Supplies 250 ml @ 0 mls/ hr Q0M IV Last administered on 02/12/17 16:53; Start 02/12/17 at 16:30; Stop 02/12/17 at 19:27; Status DC Home Med (Med Rec Complete!) ASDIRECTED XX ; Start 02/12/17 at 17:15; Stop 02/12/17 at 17:29; Status DC Hydromorphone HCl (Dilaudid) 0.2 mg Q5MP PRN IV MODERATE/SEVERE PAIN (PS 7-10) Last administered on 02/16/17 17:44; Start 02/16/17 at 18:00; Stop 02/16/17 at 19:00; Status DC Iron (Venofer) 100 mg HD IV ; Start 03/02/17 at 07:30; Stop 04/01/17 at 07:29 ; Status Cancel Lactated Ringer's 1,000 ml @ 50 mls/hr Q20H IV ; Start 02/16/17 at 17:00; Stop 02/16/17 at 17:53; Status DC Lactated Ringer's 1,000 ml @ 100 mls/hr Q10H IV ; Start 02/16/17 at 18:00; Stop 02/16/17 at 19:00; Status DC Lisinopril (Prinivil) 20 mg BID PO Last administered on 02/15/17 09:41; Start 02/12/17 at 21:00; Stop 02/15/17 at 18:06; Status DC Lisinopril (Prinivil) 20 mg DAILY PO Last administered on 02/20/17 08:31; Start 02/16/17 at 09:00; Stop 02/20/17 at 13:11; Status DC Magnesium Sulfate/ Dextrose 1 gm/IV Miscellaneous Supplies 100 ml @ 100 mls/hr Q1H IV Last administered on 02/21/17 14:10; Start 02/21/17 at 09:00; Stop 02/21/17 at 10:59; Status DC Magnesium Sulfate/ Dextrose 1 gm/IV Miscellaneous Supplies 100 ml @ 100 mls/hr Q1H IV ; Start 02/21/17 at 15:00; Stop 02/21/17 at 15:59; Status DC Methotrexate (Folex) 7.5 mg We@0900 PO Last administered on 03/02/17 09:26; Start 02/16/17 at 09:00; Stop 03/18/17 at 08:59 Metoclopramide HCl (REGLAN INJection) 10 mg Q6HP PRN IV NAUSEA OR VOMITING; Start 02/16/17 at 17:00; Stop 02/16/17 at 18:00; Status DC Metoprolol Tartrate (Lopressor) 5 mg STAT STAT IV Last administered on 16:36; Start 02/12/17 at 16:01; Stop 02/12/17 at 16:02; Status DC Non-Formulary Medication (Heparin Iv Rate Change Documentation ml/ Hr) ASDIRECTED XX ; Start 02/12/17 at 16:30; Stop 02/17/17 at 16:29; Status Cancel Ondansetron HCl (ZOFRAN INJection) 4 mg Q4HP PRN IV NAUSEA OR VOMITING; Start 02/16/17 at 17:00; Stop 02/16/17 at 18:00; Status DC Ondansetron HCl (ZOFRAN INJection) 4 mg Q4HP PRN IV NAUSEA OR VOMITING Last administered on 02/14/17 03:04; Start 02/13/17 at 21:15; Stop 03/15/17 at 21:14 Potassium Chloride 10 meq/ IV Miscellaneous Supplies 100 ml @ 100 mls/hr Q1H IV Last administered on 02/18/17 13:15; Start 02/18/17 at 11:00; Stop 02/18 at 13:59; Status DC Potassium Chloride 10 meq/ IV Miscellaneous Supplies 100 ml @ 100 mls/hr Q1H IV Last administered on 02/21/17 11:55; Start 02/21/17 at 08:00; Stop 02/21 at 11:59; Status DC Potassium Chloride/Dextrose/ Sod Cl 1,000 ml @ 125 mls/hr Q8H IV Last administered on 02/14/17 12:08; Start 02/12/17 at 20:00; Stop 02/14/17 at 14:01 ; Status DC Potassium Chloride (Micro-K Extencaps) 40 meq DAILY PO Last administered on 08:31; Start 02/18/17 at 09:00; Stop 02/21/17 at 07:43; Status DC Potassium Chloride (Micro-K Extencaps) 40 meq DAILY PO Last administered on 09:26; Start 02/23/17 at 09:00; Stop 03/25/17 at 08:59 Potassium Chloride (Micro-K Extencaps) 40 meq TID PO Last administered on 02/22 08:28; Start 02/21/17 at 09:00; Stop 02/22/17 at 10:09; Status DC Pyridostigmine Flow[place]ree (Mestinon) 30 mg BID PO Last administered on 03/02/17 09:26; Start 02/12/17 at 21:00; Stop 03/14/17 at 20:59 Rivaroxaban (Xarelto) 15 mg BID@08,18 PO Last administered on 02/27/17 17:06 ; Start 02/24/17 at 18:00; Stop 02/28/17 at 07:56; Status DC Rivaroxaban (Xarelto) 15 mg BID@08,18 PO Last administered on 03/02/17 09:26 ; Start 02/28/17 at 08:00; Stop 03/07/17 at 07:59 Sodium Biphosphate/ Sodium Phosphate (Fleet Enema) 1 ea QAM VT Last administered on 02/20/17 08:32; Start 02/20/17 at 09:00; Stop 02/22/17 at 08 :59; Status DC Sodium Chloride (Saline Lock Flush) 10 ML PICC IV Last administered on 05:09; Start 02/17/17 at 18:00; Stop 03/19/17 at 17:59 Sodium Chloride (Saline Lock Flush) 10ML ASDIRECTED PRN IV SEE LABEL COMMENTS Last administered on 02/25/17 14:42; Start 02/17/17 at 16:15; Stop 03/19/17 at 16:14 Allergies Coded Allergies: No Known Allergies (Unverified , 12/30/12) Objective Physical Examination Examination GENERAL APPEARANCE: Patient sitting up on the chair, pleasant, comfortable. SKIN: [Warm and moist]. HEENT: Peel palpebral conjunctiva. NECK: [Supple, no thyromegaly. No obvious jugular venous distention]. LUNGS: [Clear to auscultation bilaterally. No wheezing appreciated]. HEART: [No chest wall abnormalities. Regular rate and rhythm with no murmurs appreciated]. ABDOMEN: Abdomen is round, soft, nondistended. Right lower quadrant cecostomy with brown thin liquid stool. EXTREMITIES: Both extremities edematous. Vital Signs Vital Signs Date Time Temp Pulse Resp B/P (MAP) Pulse Ox O2 Delivery O2 Flow Rate FiO2 03/02/17 09:26 76 129/63 03/02/17 06:00 97.2 18 97 Room Air I&Os I&O- Last 24 Hours up to 6 AM 03/03/17 06:00 Intake Total 0 ml Output Total 460 ml Balance -460 ml Laboratory Data Labs 24H Laboratory Tests 2 03/02/17 05:10: Immature Granulocyte % (Auto) 0.2H, White Blood Count 8.7, Red Blood Count 2.74L , Hemoglobin 8.4L, Hematocrit 26.5L, Mean Corpuscular Volume 96.7H, Mean Corpuscular Hemoglobin 30.7, Mean Corpuscular Hemoglobin Concent 31.7L, Red Cell Distribution Width 20.5H, Platelet Count 363, Neutrophils (%) (Auto) 69.1H , Lymphocytes (%) (Auto) 17.7L, Monocytes (%) (Auto) 8.0H, Eosinophils (%) (Auto ) 4.7H, Basophils (%) (Auto) 0.3, Neutrophils # (Auto) 6.0, Lymphocytes # (Auto ) 1.5, Monocytes # (Auto) 0.7, Eosinophils # (Auto) 0.4, Basophils # (Auto) 0.0 , Immature Granulocyte # (Auto) 0.0, Nucleated Red Blood Cells % (auto) 0.0, Platelet Estimate NORMAL, Anisocytosis 1+, Macrocytosis 1+, Anion Gap 6L, Glomerular Filtration Rate > 60.0, Blood Urea Nitrogen 20H, Creatinine 0.51L, Sodium Level 141, Potassium Level 4.2, Chloride Level 107, Carbon Dioxide Level 28, Calcium Level 7.6L, Aspartate Amino Transf (AST/SGOT) 16, Alanine Aminotransferase (ALT/SGPT) 21, Alkaline Phosphatase 95, Total Bilirubin 0.2, Total Protein 5.1L, Albumin 1.8L, XV-Brd-O-Type Natriuretic Peptide 2808H, Albumin/Globulin Ratio 0.55L CBC/BMP Laboratory Tests 03/02/17 05:10 Red Blood Count 2.74 L, Mean Corpuscular Volume 96.7 H, Mean Corpuscular Hemoglobin 30.7, Mean Corpuscular Hemoglobin Concent 31.7 L, Red Cell Distribution Width 20.5 H, Neutrophils (%) (Auto) 69.1 H, Lymphocytes (%) (Auto ) 17.7 L, Monocytes (%) (Auto) 8.0 H, Eosinophils (%) (Auto) 4.7 H, Basophils (% ) (Auto) 0.3, Neutrophils # (Auto) 6.0, Lymphocytes # (Auto) 1.5, Monocytes # ( Auto) 0.7, Eosinophils # (Auto) 0.4, Basophils # (Auto) 0.0, Calcium Level 7.6 L , Aspartate Amino Transf (AST/SGOT) 16, Alanine Aminotransferase (ALT/SGPT) 21, Alkaline Phosphatase 95, Total Bilirubin 0.2, Total Protein 5.1 L, Albumin 1.8 L Microbiology Microbiology 02/28/17 Stool Occult Blood (TRENT) - Final, Complete 02/22/17 Stool Occult Blood (TRENT) - Final, Complete Impression Distal transverse colon obstruction. Colonoscopy shows obstruction from a mass. 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 I clarified with the patient that though the pathology is only showing villous adenoma, most likely this is cancer this would just be a sampling error most likely. She would still need surgery to relieve some obstruction and to resect the mass. May original plan was for her to build up some strengthen her proteins and to complete the: Excision with most likely trying to form an ileocolostomy. This would be ideal as she would avoid a long-term ileostomy. If there are any events of bleeding or she is not able to be anticoagulated because of the mass were severe cachexia from the mass that she did not improve , another option would be to resect the colon but given her state of health right now I would not perform an anastomosis. The advantage of this is we would help remove the mass/cancer and she could recovered fully and we can reverse the ileostomy. She though would have to take care of her ileostomy longer. Patient has not really decided which passed to take. She was asking me what my preference is. I think overall she probably would fare better with a single surgery than 2 stents the surgery though this would depend on her improving her clinical condition and her state of nutrition. Plan / VTE VTE Prophylaxis Ordered?: Yes (Xarelto) CARRIE BLACKBURN MD Mar 02, 2017 14:41
[2017-03-02 22:00] VITALS: BP 119/56
[2017-03-03] MEDS: SODIUM CHLORIDE 0.9% INJ 10 ML SYR IV SCH ×2 (05:06→17:28)
[2017-03-03 05:18] LABS: BASO % 0.1 % (0.0-1.0); EOS # 0.4 10^3/uL (0.0-0.50); EOS % 4.9 % (0.0-3.0); IMMATURE GRANULOCYTE % 0.4 % (0-0); LYMPH # 1.3 10^3/uL (1.5-4.5); MEAN CORPUSCULAR HEMOGLOBIN 31.1 pg (27.0-33.0); MEAN CORPUSCULAR HGB CONC 31.9 g/dl (32.0-36.5); MEAN CORPUSCULAR VOLUME 97.4 fl (80.0-96.0); MONO # 0.7 10^3/uL (0.0-0.8); MONO % 9.2 % (0.0-5.0); NEUTROPHILS # 4.9 10^3/uL (1.8-7.7); NEUTROPHILS % 67.4 % (36.0-66.0); PLATELET COUNT, AUTOMATED 342 10^3/uL (150-450); WHITE BLOOD COUNT 7.3 10^3/uL (4.0-10.0)
[2017-03-03 05:28] LABS: ADD MORPHOLOGY? YES; POSITIVE MORPH POS FLAG; RED CELL DISTRIBUTION WIDTH 20.4 % (11.5-14.5)
[2017-03-03 05:48] LABS: ALBUMIN 1.8 GM/DL (3.2-5.2); ALBUMIN/GLOBULIN RATIO 0.58 (1.00-1.93); ALKALINE PHOSPHATASE 92 U/L (45-117); ALT/SGPT 19 U/L (12-78); ANION GAP 5 MEQ/L (8-16); AST/SGOT 15 U/L (15-37); BILIRUBIN,TOTAL 0.3 MG/DL (0.2-1.0); BLOOD UREA NITROGEN 21 MG/DL (7-18); CALCIUM LEVEL 7.6 MG/DL (8.8-10.2); CARBON DIOXIDE LEVEL 29 MEQ/L (21-32); CHLORIDE LEVEL 107 MEQ/L (98-107); CREATININE FOR GFR 0.54 MG/DL (0.55-1.02); GLOMERULAR FILTRATION RATE > 60.0 (>32); GLUCOSE, FASTING 124 MG/DL (83-110); SODIUM LEVEL 141 MEQ/L (136-145); TOTAL PROTEIN 4.9 GM/DL (6.4-8.2)
[2017-03-03 06:00] VITALS: BP 117/59
[2017-03-03 06:10] LABS: ANISOCYTOSIS 2+
--- NOTE | 2017-03-03 08:46 | IPNPDOC ---
Subjective Date Seen The patient was seen on 03/03/17. Subjective Chief Complaint/HPI The patient is a 86-year-old female admitted with a reason for visit of Abdominal Mass; Pulmonary Embolism. Events since last encounter Denies c/o. Getting OOB, managed ostomy drainage the is am. Discussion held between patient and surgeon on options to remove mass and provide longer term ileostomy with potential for reversal in the future once nutrition is optimized. Patient considering options. Constitutional: Denies: Chills, Fever, Night Sweats Skin: Denies: Rash, Lesions, Jaundice, Bruising, Itching, Dry, Breakdown, Nail Changes, Other Cardiovascular: Denies: Chest Pain, Palpitations, Orthopnea, Paroxysmal Noc. Dyspnea, Lt Headedness Gastrointestinal: Reports: Melena (+ hemoccult), Denies: Nausea, Vomiting, Abdominal Pain, Diarrhea, Constipation Objective Physical Examination General Exam: Positive: Alert, Cooperative, No Acute Distress Eye Exam: Negative: Sclera icteric ENT Exam: Positive: Mucous membr. moist/pink Neck Exam: Negative: Lymphadenopathy Chest Exam: Positive: Clear to auscultation, Normal air movement Heart Exam: Positive: Rate Normal, Irregular Rhythm Abdomen Exam: Positive: Normal bowel sounds, Other (ostomy brown stool), Negative: Tenderness Extremity Exam: Positive: Edema Psych Exam: Positive: Mood NL, Negative: Memory Intact Assessment /Plan Problems (1) Anemia Status: Acute Problem Text: 03/03/17: Stool for occult blood + on 03/02/17. s/p venofer infusion. Hgb holding at 8.4. Will repeat Venofer infusion today and tomorrow. 03/02/2017: Stool for occult blood negative. will repeat today. Venofer infusion today. repeat H/H in am. Continue Xarelto for PE management. 2 Fe def (2 acute blood loss), 02/14/17 hgb 12.0 Plan IV Fe, tx prn until at least colon mass is resected; plan to anticoagulate for at least 3 months for PE rx if hgb remains stable Xarelto is needed due to afib and acute PE (2) Edema Status: Chronic Problem Text: 03/03/17: Edema is mildly improved with TEDs today. 03/02/17: TEDS and SCDs today. Add on Ensure tid. Monitor. Will change diet to 2 gram sodium. at least partially 2 hypoalb (03/01/17 1.7! 3.7)) BLE 3/4 edema-new per patient 03/01 check BNP, BLE DVT US (given recent PE) CONCLUSIONS: 1. The study is of good technical quality. 2. Normal left ventricular (LV) size and low normal LV systolic function (estimated LVEF 50-55%), grade 1 diastolic dysfunction. 3. No significant valvular disease. 4. Normal central venous pressure. 5. Probably moderate pulmonary hypertension. (3) Abdominal mass Status: Acute Problem Specific Plan: Consult Specialist Problem Text: 03/03/17: Surgery following. monitor. 03/02: Surgery is now considering resection with permanent ileostomy given her ongoing anemia and need for anticoagulation - Gen Surg will d/w her today. 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 The surgical team is waiting till she heals from her previous surgery before scheduling the partial colectomy. This is anticipate in ~3 weeks. Her barrier to discharge currently is someone who can provide adequate care of her colostomy. She has shown some progress in the last couple of days, but still occasionally forgets that she has a colostomy. 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 No stroma or submucosa is noted to evaluate for invasion. In view of presence of a large obstructing circumferential mass in the transverse colon, this is most likely a malignant tumor, however the biopsy may be from the surface of the mass, not showing definitive invasion. Follow up is recommended as clinically indicated. (4) Pulmonary embolism Status: Acute Problem Specific Plan: Monitor Clinically Problem Text: Continue Xarelto and monitor H/H (5) Atrial fibrillation Status: Chronic Response to Treatment: Stable Problem Text: She is rate controlled. Continue current regimen, monitor. 02/22/17 TTE: The study is of good technical quality. 2. Normal left ventricular (LV) size and low normal LV systolic function (estimated LVEF 50-55%), grade 1 diastolic dysfunction. 3. No significant valvular disease. 4. Normal central venous pressure. 5. Probably moderate pulmonary hypertension. (6) Myasthenia gravis Status: Chronic Response to Treatment: Stable (7) V-tach Status: Resolved Problem Text: 02/16/17: secondary to hypomagnesemia. Replacement provided. (8) Thrombosis of left lower extremity Status: Acute Problem Text: probably present on admission, given PE. (9) Severe protein-calorie malnutrition Status: Acute Plan/VTE VTE Prophylaxis Ordered?: Yes (Xarelto) Plan Family Medicine Attending Note: I saw Ms. Alcala this afternoon; I discussed her care with ANT Candelaria and I agree with her note as documented. At this point, given that her prealbumin is good, I believe General Surgery plans to continue with original plan to resect her colon tumor in 3 weeks with re-anastomosis. The 3 week delay will allow time for her ostomy to heal. We need to make sure that her H/H will remain stable on Xarelto, and that she or a family member can provide ostomy care at home in order for her to be discharged home. (KES) VS, I&O, 24H, Fishbone Vital Signs/I&O Vital Signs Date Time Temp Pulse Resp B/P (MAP) Pulse Ox O2 Delivery O2 Flow Rate FiO2 03/03/17 06:00 97.5 84 21 117/59 (78) 94 Room Air Laboratory Data 24H LABS Laboratory Tests 2 03/03/17 05:08: Immature Granulocyte % (Auto) 0.4H, White Blood Count 7.3, Red Blood Count 2.70L , Hemoglobin 8.4L, Hematocrit 26.3L, Mean Corpuscular Volume 97.4H, Mean Corpuscular Hemoglobin 31.1, Mean Corpuscular Hemoglobin Concent 31.9L, Red Cell Distribution Width 20.4H, Platelet Count 342, Neutrophils (%) (Auto) 67.4H , Lymphocytes (%) (Auto) 18.0L, Monocytes (%) (Auto) 9.2H, Eosinophils (%) (Auto ) 4.9H, Basophils (%) (Auto) 0.1, Neutrophils # (Auto) 4.9, Lymphocytes # (Auto ) 1.3L, Monocytes # (Auto) 0.7, Eosinophils # (Auto) 0.4, Basophils # (Auto) 0.0 , Immature Granulocyte # (Auto) 0.0, Nucleated Red Blood Cells % (auto) 0.0, Platelet Estimate NORMAL, Basophilic Stippling 1+, Anisocytosis 2+, Anion Gap 5L , Glomerular Filtration Rate > 60.0, Blood Urea Nitrogen 21H, Creatinine 0.54L, Sodium Level 141, Potassium Level 4.0, Chloride Level 107, Carbon Dioxide Level 29, Calcium Level 7.6L, Aspartate Amino Transf (AST/SGOT) 15, Alanine Aminotransferase (ALT/SGPT) 19, Alkaline Phosphatase 92, Total Bilirubin 0.3, Total Protein 4.9L, Albumin 1.8L, Albumin/Globulin Ratio 0.58L, Prealbumin 20.6 CBC/BMP Laboratory Tests 03/03/17 05:08 Red Blood Count 2.70 L, Mean Corpuscular Volume 97.4 H, Mean Corpuscular Hemoglobin 31.1, Mean Corpuscular Hemoglobin Concent 31.9 L, Red Cell Distribution Width 20.4 H, Neutrophils (%) (Auto) 67.4 H, Lymphocytes (%) (Auto ) 18.0 L, Monocytes (%) (Auto) 9.2 H, Eosinophils (%) (Auto) 4.9 H, Basophils (% ) (Auto) 0.1, Neutrophils # (Auto) 4.9, Lymphocytes # (Auto) 1.3 L, Monocytes # (Auto) 0.7, Eosinophils # (Auto) 0.4, Basophils # (Auto) 0.0, Calcium Level 7.6 L, Aspartate Amino Transf (AST/SGOT) 15, Alanine Aminotransferase (ALT/SGPT) 19 , Alkaline Phosphatase 92, Total Bilirubin 0.3, Total Protein 4.9 L, Albumin 1.8 L Microbiology Microbiology 03/02/17 Stool Occult Blood (TRENT) - Final, Complete 02/28/17 Stool Occult Blood (TRNET) - Final, Complete 02/22/17 Stool Occult Blood (TRENT) - Final, Complete Oumou Ballesteros Mar 03, 2017 08:46 STEFAN SHAH MD Mar 03, 2017 15:07
[2017-03-03] MEDS: FOLIC ACID 1 MG TAB PO SCH (09:09)
[2017-03-03] MEDS: RIVAROXABAN 15 MG TAB (XARELTO) PO SCH ×2 (09:09→17:28)
[2017-03-03] MEDS: POTASSIUM CHLORIDE 10 MEQ SR TABLET PO SCH (09:10)
[2017-03-03] MEDS: PYRIDOSTIGMINE 60 MG TAB PO SCH ×2 (09:10→21:10)
[2017-03-03] MEDS: CARVedilol 6.25 MG TAB PO SCH ×2 (09:10→21:10)
[2017-03-03] MEDS ORDERED: IRON SUCROSE 100MG 5ML VIAL (J1756 PER 1MG) IV SCH (13:15)
[2017-03-03 14:00] VITALS: BP 107/56
[2017-03-03] MEDS: IRON SUCROSE 200 MG in NS 250 ML IV SCH (16:36)
[2017-03-03 22:00] VITALS: BP 130/65
[2017-03-04] MEDS: SODIUM CHLORIDE 0.9% INJ 10 ML SYR IV SCH ×2 (05:05→18:09)
[2017-03-04 05:18] LABS: BASO % 0.5 % (0.0-1.0); EOS # 0.4 10^3/uL (0.0-0.50); EOS % 6.5 % (0.0-3.0); IMMATURE GRANULOCYTE % 0.3 % (0-0); LYMPH # 1.2 10^3/uL (1.5-4.5); MEAN CORPUSCULAR HGB CONC 31.5 g/dl (32.0-36.5); MEAN CORPUSCULAR VOLUME 98.6 fl (80.0-96.0); MONO # 0.6 10^3/uL (0.0-0.8); MONO % 8.4 % (0.0-5.0); NEUTROPHILS # 4.3 10^3/uL (1.8-7.7); NEUTROPHILS % 65.3 % (36.0-66.0); PLATELET COUNT, AUTOMATED 383 10^3/uL (150-450); WHITE BLOOD COUNT 6.5 10^3/uL (4.0-10.0)
[2017-03-04 06:00] VITALS: BP 110/60
[2017-03-04 08:51] LABS: ALBUMIN 2.1 GM/DL (3.2-5.2); ALBUMIN/GLOBULIN RATIO 0.68 (1.00-1.93); ALKALINE PHOSPHATASE 108 U/L (45-117); ALT/SGPT 23 U/L (12-78); ANION GAP 8 MEQ/L (8-16); AST/SGOT 20 U/L (15-37); BILIRUBIN,TOTAL 0.2 MG/DL (0.2-1.0); BLOOD UREA NITROGEN 24 MG/DL (7-18); CALCIUM LEVEL 7.8 MG/DL (8.8-10.2); CARBON DIOXIDE LEVEL 25 MEQ/L (21-32); CHLORIDE LEVEL 108 MEQ/L (98-107); CREATININE FOR GFR 0.53 MG/DL (0.55-1.02); GLOMERULAR FILTRATION RATE > 60.0 (>32); GLUCOSE, FASTING 113 MG/DL (83-110); POTASSIUM SERUM 4.5 MEQ/L (3.5-5.1); SODIUM LEVEL 141 MEQ/L (136-145); TOTAL PROTEIN 5.2 GM/DL (6.4-8.2)
[2017-03-04] MEDS: CARVedilol 6.25 MG TAB PO SCH ×2 (09:00→20:33)
[2017-03-04] MEDS: PYRIDOSTIGMINE 60 MG TAB PO SCH ×2 (09:00→20:31)
[2017-03-04] MEDS: FOLIC ACID 1 MG TAB PO SCH (09:11)
[2017-03-04] MEDS: POTASSIUM CHLORIDE 10 MEQ SR TABLET PO SCH (09:12)
[2017-03-04] MEDS: RIVAROXABAN 15 MG TAB (XARELTO) PO SCH ×2 (09:14→18:09)
--- NOTE | 2017-03-04 09:24 | IPNPDOC ---
Subjective Date Seen The patient was seen on 03/04/17. Subjective Chief Complaint/HPI The patient is a 86-year-old female admitted with a reason for visit of Abdominal Mass; Pulmonary Embolism. Events since last encounter Pt without new concerns this morning. She is feeling well, eating well. Nursing also without concerns. General: Denies: Fatigue Constitutional: Denies: Chills, Fever ENT: Denies: Head Aches Pulmonary: Denies: Dyspnea, Cough Cardiovascular: Denies: Chest Pain, Palpitations Gastrointestinal: Denies: Nausea, Vomiting, Abdominal Pain, Diarrhea Neurological: Denies: Weakness Psych: Reports: Mood Normal Objective Physical Examination General Exam: Positive: Alert, Cooperative, No Acute Distress Eye Exam: Negative: Sclera icteric ENT Exam: Positive: Mucous membr. moist/pink Neck Exam: Negative: Lymphadenopathy Chest Exam: Positive: Clear to auscultation, Normal air movement Heart Exam: Positive: Rate Normal, Irregular Rhythm Abdomen Exam: Positive: Normal bowel sounds, Other (ostomy brown stool), Negative: Tenderness Extremity Exam: Positive: Edema Psych Exam: Positive: Mood NL, Negative: Memory Intact Assessment /Plan Problems (1) Anemia Status: Acute Problem Text: 03/04 - Hgb up to 9, she has had IV Venofer x 2, #3 ordered for today. 03/03/17: Stool for occult blood + on 03/02/17. s/p venofer infusion. Hgb holding at 8.4. Will repeat Venofer infusion today and tomorrow. 03/02/2017: Stool for occult blood negative. will repeat today. Venofer infusion today. repeat H/H in am. Continue Xarelto for PE management. 2 Fe def (2 acute blood loss), 02/14/17 hgb 12.0 Plan IV Fe, tx prn until at least colon mass is resected; plan to anticoagulate for at least 3 months for PE rx if hgb remains stable Xarelto is needed due to afib and acute PE (2) Edema Status: Chronic Problem Text: 03/04 - Enc elevated legs when at rest. 03/03/17: Edema is mildly improved with TEDs today. 03/02/17: TEDS and SCDs today. Add on Ensure tid. Monitor. Will change diet to 2 gram sodium. at least partially 2 hypoalb (03/01/17 1.7! 3.7)) BLE 3/4 edema-new per patient 03/01 check BNP, BLE DVT US (given recent PE) CONCLUSIONS: 1. The study is of good technical quality. 2. Normal left ventricular (LV) size and low normal LV systolic function (estimated LVEF 50-55%), grade 1 diastolic dysfunction. 3. No significant valvular disease. 4. Normal central venous pressure. 5. Probably moderate pulmonary hypertension. (3) Abdominal mass Status: Acute Problem Specific Plan: Consult Specialist Problem Text: 03/04- plans to cont to hold off on surgery for now, Dr Rees re-evaluated the pt 03/02. 03/03/17: Surgery following. monitor. 03/02: Surgery is now considering resection with permanent ileostomy given her ongoing anemia and need for anticoagulation - Gen Surg will d/w her today. 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 The surgical team is waiting till she heals from her previous surgery before scheduling the partial colectomy. This is anticipate in ~3 weeks. Her barrier to discharge currently is someone who can provide adequate care of her colostomy. She has shown some progress in the last couple of days, but still occasionally forgets that she has a colostomy. 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 No stroma or submucosa is noted to evaluate for invasion. In view of presence of a large obstructing circumferential mass in the transverse colon, this is most likely a malignant tumor, however the biopsy may be from the surface of the mass, not showing definitive invasion. Follow up is recommended as clinically indicated. (4) Pulmonary embolism Status: Acute Problem Specific Plan: Monitor Clinically Problem Text: Continue Xarelto and monitor H/H (5) Atrial fibrillation Status: Chronic Response to Treatment: Stable Problem Text: She is rate controlled. Continue current regimen, monitor. 02/22/17 TTE: The study is of good technical quality. 2. Normal left ventricular (LV) size and low normal LV systolic function (estimated LVEF 50-55%), grade 1 diastolic dysfunction. 3. No significant valvular disease. 4. Normal central venous pressure. 5. Probably moderate pulmonary hypertension. (6) Myasthenia gravis Status: Chronic Response to Treatment: Stable (7) V-tach Status: Resolved Problem Text: 02/16/17: secondary to hypomagnesemia. Replacement provided. (8) Thrombosis of left lower extremity Status: Acute Problem Text: probably present on admission, given PE. (9) Severe protein-calorie malnutrition Status: Acute Plan/VTE VTE Prophylaxis Ordered?: Yes (Xarelto) Plan Family Medicine Attending Note: I saw and examined Ms. Alcala this afternoon; I discussed her care with SHARON Steen and I agree with her note as documented. At this point, patient's H/H is remaining stable on Xarelto; this will be day 3/3 of Venofer for iron deficiency. General surgery is still planning on delaying colon mass resection for 2 more weeks to allow her ostomy to heal prior to re-anastomosis. The patient states she is replacing her ostomy bag herself, but nursing staff state this is not the case and she needs assistance with replacing the bag. At this point, I am not sure the patient is going to be able to do her own ostomy care at home. She may need placement or 29/11 care at home from family in order for her to go home. [facility] is aware and is following her. (KES) VS, I&O, 24H, Fishbone Vital Signs/I&O Vital Signs Date Time Temp Pulse Resp B/P (MAP) Pulse Ox O2 Delivery O2 Flow Rate FiO2 03/04/17 09:00 107/54 03/04/17 06:00 98.1 71 17 96 03/03/17 22:00 Room Air I&O- Last 24 Hours up to 6 AM 03/05/17 05:59 Intake Total 0 ml Output Total 600 ml Balance -600 ml Laboratory Data 24H LABS Laboratory Tests 2 03/04/17 05:04: Immature Granulocyte % (Auto) 0.3H, White Blood Count 6.5, Red Blood Count 2.90L , Hemoglobin 9.0L, Hematocrit 28.6L, Mean Corpuscular Volume 98.6H, Mean Corpuscular Hemoglobin 31.0, Mean Corpuscular Hemoglobin Concent 31.5L, Red Cell Distribution Width 20.0H, Platelet Count 383, Neutrophils (%) (Auto) 65.3, Lymphocytes (%) (Auto) 19.0L, Monocytes (%) (Auto) 8.4H, Eosinophils (%) (Auto) 6.5H, Basophils (%) (Auto) 0.5, Neutrophils # (Auto) 4.3, Lymphocytes # (Auto) 1.2L, Monocytes # (Auto) 0.6, Eosinophils # (Auto) 0.4, Basophils # (Auto) 0.0, Immature Granulocyte # (Auto) 0.0, Nucleated Red Blood Cells % (auto) 0.0, Anion Gap 8, Glomerular Filtration Rate > 60.0, Blood Urea Nitrogen 24H, Creatinine 0.53L, Sodium Level 141, Potassium Level 4.5, Chloride Level 108H, Carbon Dioxide Level 25, Calcium Level 7.8L, Aspartate Amino Transf (AST/SGOT) 20, Alanine Aminotransferase (ALT/SGPT) 23, Alkaline Phosphatase 108, Total Bilirubin 0.2, Total Protein 5.2L, Albumin 2.1L, Albumin/Globulin Ratio 0.68L CBC/BMP Laboratory Tests 03/04/17 05:04 Red Blood Count 2.90 L, Mean Corpuscular Volume 98.6 H, Mean Corpuscular Hemoglobin 31.0, Mean Corpuscular Hemoglobin Concent 31.5 L, Red Cell Distribution Width 20.0 H, Neutrophils (%) (Auto) 65.3, Lymphocytes (%) (Auto) 19.0 L, Monocytes (%) (Auto) 8.4 H, Eosinophils (%) (Auto) 6.5 H, Basophils (%) (Auto) 0.5, Neutrophils # (Auto) 4.3, Lymphocytes # (Auto) 1.2 L, Monocytes # ( Auto) 0.6, Eosinophils # (Auto) 0.4, Basophils # (Auto) 0.0, Calcium Level 7.8 L , Aspartate Amino Transf (AST/SGOT) 20, Alanine Aminotransferase (ALT/SGPT) 23, Alkaline Phosphatase 108, Total Bilirubin 0.2, Total Protein 5.2 L, Albumin 2.1 L Microbiology Microbiology 03/02/17 Stool Occult Blood (TRENT) - Final, Complete 02/28/17 Stool Occult Blood (TRENT) - Final, Complete 02/22/17 Stool Occult Blood (TRENT) - Final, Complete ROSALIE STEWART PA-C Mar 04, 2017 09:24 STEFAN SHAH MD Mar 04, 2017 12:17
[2017-03-04 14:00] VITALS: BP 116/58
[2017-03-04] MEDS: IRON SUCROSE 200 MG in NS 250 ML IV SCH (14:07)
[2017-03-04 22:00] VITALS: BP 121/57
[2017-03-05] MEDS: SODIUM CHLORIDE 0.9% INJ 10 ML SYR IV SCH ×2 (05:28→18:04)
[2017-03-05 05:29] LABS: BASO % 0.3 % (0.0-1.0); EOS # 0.5 10^3/uL (0.0-0.50); EOS % 7.4 % (0.0-3.0); IMMATURE GRANULOCYTE % 0.2 % (0-0); LYMPH # 1.5 10^3/uL (1.5-4.5); LYMPH % 23.8 % (24.0-44.0); MEAN CORPUSCULAR HEMOGLOBIN 30.8 pg (27.0-33.0); MEAN CORPUSCULAR HGB CONC 30.9 g/dl (32.0-36.5); MEAN CORPUSCULAR VOLUME 99.7 fl (80.0-96.0); MONO # 0.6 10^3/uL (0.0-0.8); NEUTROPHILS # 3.7 10^3/uL (1.8-7.7); NEUTROPHILS % 59.3 % (36.0-66.0); PLATELET COUNT, AUTOMATED 352 10^3/uL (150-450); RED CELL DISTRIBUTION WIDTH 20.1 % (11.5-14.5); WHITE BLOOD COUNT 6.3 10^3/uL (4.0-10.0)
[2017-03-05 05:54] LABS: ALBUMIN 2.1 GM/DL (3.2-5.2); ALBUMIN/GLOBULIN RATIO 0.62 (1.00-1.93); ALKALINE PHOSPHATASE 111 U/L (45-117); ALT/SGPT 23 U/L (12-78); ANION GAP 5 MEQ/L (8-16); AST/SGOT 16 U/L (7-37); BILIRUBIN,TOTAL 0.2 MG/DL (0.2-1.0); BLOOD UREA NITROGEN 21 MG/DL (7-18); CALCIUM LEVEL 7.8 MG/DL (8.8-10.2); CARBON DIOXIDE LEVEL 27 MEQ/L (21-32); CHLORIDE LEVEL 109 MEQ/L (98-107); GLOMERULAR FILTRATION RATE > 60.0 (>32); GLUCOSE, FASTING 120 MG/DL (83-110); POTASSIUM SERUM 4.2 MEQ/L (3.5-5.1); SODIUM LEVEL 141 MEQ/L (136-145); TOTAL PROTEIN 5.5 GM/DL (6.4-8.2)
[2017-03-05 06:00] VITALS: BP 110/55
[2017-03-05] MEDS: POTASSIUM CHLORIDE 10 MEQ SR TABLET PO SCH (09:03)
[2017-03-05] MEDS: FOLIC ACID 1 MG TAB PO SCH (09:03)
[2017-03-05] MEDS: PYRIDOSTIGMINE 60 MG TAB PO SCH ×2 (09:03→20:14)
[2017-03-05] MEDS: CARVedilol 6.25 MG TAB PO SCH ×2 (09:04→20:15)
[2017-03-05] MEDS: RIVAROXABAN 15 MG TAB (XARELTO) PO SCH ×2 (09:04→18:04)
[2017-03-05 14:00] VITALS: BP 110/54
[2017-03-05 22:00] VITALS: BP 114/56
--- NOTE | 2017-03-05 23:56 | IPNPDOC ---
Subjective Date Seen The patient was seen on 03/05/17. Subjective Chief Complaint/HPI The patient is a 86-year-old female admitted with a reason for visit of Abdominal Mass; Pulmonary Embolism. Events since last encounter Patient states that she is doing well this a.m. She tells me that she is caring for her ostomy, and then states that nursing changed the bag; she can't reconcile these statements, and can't tell me what would need to be done to care for the ostomy. She reports good appetite and is eating well. Constitutional: Denies: Chills, Fever ENT: Denies: Head Aches Cardiovascular: Denies: Chest Pain Gastrointestinal: Denies: Nausea, Vomiting, Abdominal Pain Objective Physical Examination General Exam: Positive: Alert, Cooperative, No Acute Distress Eye Exam: Negative: Sclera icteric ENT Exam: Positive: Mucous membr. moist/pink Neck Exam: Negative: Lymphadenopathy Chest Exam: Positive: Clear to auscultation, Normal air movement Heart Exam: Positive: Rate Normal, Irregular Rhythm Abdomen Exam: Positive: Normal bowel sounds, Other (ostomy brown stool), Negative: Tenderness Extremity Exam: Positive: Edema Psych Exam: Positive: Mood NL, Negative: Memory Intact Assessment /Plan Problems (1) Anemia Status: Acute Problem Text: 03/05 -- hemoglobin remains stable 03/04 - Hgb up to 9, she has had IV Venofer x 2, #3 ordered for today. 03/03/17: Stool for occult blood + on 03/02/17. s/p venofer infusion. Hgb holding at 8.4. Will repeat Venofer infusion today and tomorrow. 03/02/2017: Stool for occult blood negative. will repeat today. Venofer infusion today. repeat H/H in am. Continue Xarelto for PE management. 2 Fe def (2 acute blood loss), 02/14/17 hgb 12.0 Plan IV Fe, tx prn until at least colon mass is resected; plan to anticoagulate for at least 3 months for PE rx if hgb remains stable Xarelto is needed due to afib and acute PE (2) Edema Status: Chronic Problem Text: 03/04 - Enc elevated legs when at rest. 03/03/17: Edema is mildly improved with TEDs today. 03/02/17: TEDS and SCDs today. Add on Ensure tid. Monitor. Will change diet to 2 gram sodium. at least partially 2 hypoalb (03/01/17 1.7! 3.7)) BLE 3/4 edema-new per patient 03/01 check BNP, BLE DVT US (given recent PE) CONCLUSIONS: 1. The study is of good technical quality. 2. Normal left ventricular (LV) size and low normal LV systolic function (estimated LVEF 50-55%), grade 1 diastolic dysfunction. 3. No significant valvular disease. 4. Normal central venous pressure. 5. Probably moderate pulmonary hypertension. (3) Abdominal mass Status: Acute Problem Specific Plan: Consult Specialist Problem Text: 03/04- plans to cont to hold off on surgery for now, Dr Rees re-evaluated the pt 03/02. 03/03/17: Surgery following. monitor. 03/02: Surgery is now considering resection with permanent ileostomy given her ongoing anemia and need for anticoagulation - Gen Surg will d/w her today. 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 The surgical team is waiting till she heals from her previous surgery before scheduling the partial colectomy. This is anticipate in ~3 weeks. Her barrier to discharge currently is someone who can provide adequate care of her colostomy. She has shown some progress in the last couple of days, but still occasionally forgets that she has a colostomy. 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 No stroma or submucosa is noted to evaluate for invasion. In view of presence of a large obstructing circumferential mass in the transverse colon, this is most likely a malignant tumor, however the biopsy may be from the surface of the mass, not showing definitive invasion. Follow up is recommended as clinically indicated. (4) Pulmonary embolism Status: Acute Problem Specific Plan: Monitor Clinically Problem Text: Continue Xarelto and monitor H/H (5) Atrial fibrillation Status: Chronic Response to Treatment: Stable Problem Text: She is rate controlled. Continue current regimen, monitor. 02/22/17 TTE: The study is of good technical quality. 2. Normal left ventricular (LV) size and low normal LV systolic function (estimated LVEF 50-55%), grade 1 diastolic dysfunction. 3. No significant valvular disease. 4. Normal central venous pressure. 5. Probably moderate pulmonary hypertension. (6) Myasthenia gravis Status: Chronic Response to Treatment: Stable (7) V-tach Status: Resolved Problem Text: 02/16/17: secondary to hypomagnesemia. Replacement provided. (8) Thrombosis of left lower extremity Status: Acute Problem Text: probably present on admission, given PE. (9) Severe protein-calorie malnutrition Status: Acute Plan/VTE VTE Prophylaxis Ordered?: Yes (Xarelto) VS, I&O, 24H, Fishbone Vital Signs/I&O Vital Signs Date Time Temp Pulse Resp B/P (MAP) Pulse Ox O2 Delivery O2 Flow Rate FiO2 03/05/17 20:15 76 120/60 03/05/17 14:00 97.7 18 97 Room Air I&O- Last 24 Hours up to 6 AM 03/06/17 06:00 Intake Total 720 ml Output Total 1200 ml Balance -480 ml Laboratory Data 24H LABS Laboratory Tests 2 03/05/17 05:18: Immature Granulocyte % (Auto) 0.2H, White Blood Count 6.3, Red Blood Count 2.92L , Hemoglobin 9.0L, Hematocrit 29.1L, Mean Corpuscular Volume 99.7H, Mean Corpuscular Hemoglobin 30.8, Mean Corpuscular Hemoglobin Concent 30.9L, Red Cell Distribution Width 20.1H, Platelet Count 352, Neutrophils (%) (Auto) 59.3, Lymphocytes (%) (Auto) 23.8L, Monocytes (%) (Auto) 9.0H, Eosinophils (%) (Auto) 7.4H, Basophils (%) (Auto) 0.3, Neutrophils # (Auto) 3.7, Lymphocytes # (Auto) 1.5, Monocytes # (Auto) 0.6, Eosinophils # (Auto) 0.5, Basophils # (Auto) 0.0, Immature Granulocyte # (Auto) 0.0, Nucleated Red Blood Cells % (auto) 0.0, Anion Gap 5L, Glomerular Filtration Rate > 60.0, Blood Urea Nitrogen 21H, Creatinine 0.40L, Sodium Level 141, Potassium Level 4.2, Chloride Level 109H, Carbon Dioxide Level 27, Calcium Level 7.8L, Aspartate Amino Transf (AST/SGOT) 16, Alanine Aminotransferase (ALT/SGPT) 23, Alkaline Phosphatase 111, Total Bilirubin 0.2, Total Protein 5.5L, Albumin 2.1L, Albumin/Globulin Ratio 0.62L CBC/BMP Laboratory Tests 03/05/17 05:18 Red Blood Count 2.92 L, Mean Corpuscular Volume 99.7 H, Mean Corpuscular Hemoglobin 30.8, Mean Corpuscular Hemoglobin Concent 30.9 L, Red Cell Distribution Width 20.1 H, Neutrophils (%) (Auto) 59.3, Lymphocytes (%) (Auto) 23.8 L, Monocytes (%) (Auto) 9.0 H, Eosinophils (%) (Auto) 7.4 H, Basophils (%) (Auto) 0.3, Neutrophils # (Auto) 3.7, Lymphocytes # (Auto) 1.5, Monocytes # ( Auto) 0.6, Eosinophils # (Auto) 0.5, Basophils # (Auto) 0.0, Calcium Level 7.8 L , Aspartate Amino Transf (AST/SGOT) 16, Alanine Aminotransferase (ALT/SGPT) 23, Alkaline Phosphatase 111, Total Bilirubin 0.2, Total Protein 5.5 L, Albumin 2.1 L Microbiology Microbiology 03/02/17 Stool Occult Blood (TRENT) - Final, Complete 02/28/17 Stool Occult Blood (TRENT) - Final, Complete LORA FRAGOSO DO Mar 05, 2017 23:56
[2017-03-06] MEDS: SODIUM CHLORIDE 0.9% INJ 10 ML SYR IV SCH ×2 (05:05→17:18)
[2017-03-06 05:29] LABS: BASO % 0.3 % (0.0-1.0); EOS # 0.5 10^3/uL (0.0-0.50); EOS % 6.3 % (0.0-3.0); IMMATURE GRANULOCYTE % 0.6 % (0-0); LYMPH # 1.5 10^3/uL (1.5-4.5); LYMPH % 18.6 % (24.0-44.0); MEAN CORPUSCULAR HEMOGLOBIN 31.2 pg (27.0-33.0); MEAN CORPUSCULAR HGB CONC 30.9 g/dl (32.0-36.5); MEAN CORPUSCULAR VOLUME 100.8 fl (80.0-96.0); MONO # 0.9 10^3/uL (0.0-0.8); NEUTROPHILS # 4.9 10^3/uL (1.8-7.7); NEUTROPHILS % 63.2 % (36.0-66.0); PLATELET COUNT, AUTOMATED 337 10^3/uL (150-450); WHITE BLOOD COUNT 7.8 10^3/uL (4.0-10.0)
[2017-03-06 06:00] VITALS: BP 120/56
[2017-03-06 06:12] LABS: ALBUMIN/GLOBULIN RATIO 0.61 (1.00-1.93); ALKALINE PHOSPHATASE 115 U/L (45-117); ALT/SGPT 26 U/L (12-78); ANION GAP 5 MEQ/L (8-16); AST/SGOT 24 U/L (7-37); BILIRUBIN,TOTAL 0.2 MG/DL (0.2-1.0); BLOOD UREA NITROGEN 20 MG/DL (7-18); CALCIUM LEVEL 7.9 MG/DL (8.8-10.2); CARBON DIOXIDE LEVEL 28 MEQ/L (21-32); CHLORIDE LEVEL 108 MEQ/L (98-107); GLOMERULAR FILTRATION RATE > 60.0 (>32); GLUCOSE, FASTING 115 MG/DL (83-110); POTASSIUM SERUM 4.1 MEQ/L (3.5-5.1); SODIUM LEVEL 141 MEQ/L (136-145); TOTAL PROTEIN 5.3 GM/DL (6.4-8.2)
[2017-03-06] MEDS: PYRIDOSTIGMINE 60 MG TAB PO SCH ×2 (08:18→21:59)
[2017-03-06] MEDS: POTASSIUM CHLORIDE 10 MEQ SR TABLET PO SCH (08:19)
[2017-03-06] MEDS: RIVAROXABAN 15 MG TAB (XARELTO) PO SCH ×2 (08:34→17:17)
[2017-03-06] MEDS: CARVedilol 6.25 MG TAB PO SCH ×2 (08:34→21:59)
[2017-03-06] MEDS: FOLIC ACID 1 MG TAB PO SCH (08:34)
[2017-03-06 14:00] VITALS: BP 118/67
[2017-03-06 22:00] VITALS: BP 113/60
--- NOTE | 2017-03-07 01:04 | IPNPDOC ---
Subjective Date Seen The patient was seen on 03/06/17. Subjective Chief Complaint/HPI The patient is a 86-year-old female admitted with a reason for visit of Abdominal Mass; Pulmonary Embolism. Events since last encounter She denies complaints. She remains enthusiastic about hospital food. She asks if she needs to have surgery with Dr. Rees in a couple weeks. Continues to work with PT, not cleared for DC home from a PT perspective yet. Constitutional: Denies: Chills, Fever Pulmonary: Denies: Dyspnea, Cough Cardiovascular: Denies: Chest Pain, Palpitations Gastrointestinal: Reports: Other Symptoms (loose stool in ostomy), Denies: Nausea, Vomiting, Abdominal Pain, Constipation Objective Physical Examination General Exam: Positive: Alert, Cooperative, No Acute Distress Eye Exam: Negative: Sclera icteric ENT Exam: Positive: Mucous membr. moist/pink Neck Exam: Negative: Lymphadenopathy Chest Exam: Positive: Clear to auscultation, Normal air movement Heart Exam: Positive: Rate Normal, Irregular Rhythm Abdomen Exam: Positive: Normal bowel sounds, Other (ostomy brown stool), Negative: Tenderness Extremity Exam: Positive: Edema Psych Exam: Positive: Mood NL, Negative: Memory Intact Assessment /Plan Problems (1) Anemia Status: Acute Problem Text: 03/05 -- hemoglobin remains stable 03/04 - Hgb up to 9, she has had IV Venofer x 2, #3 ordered for today. 03/03/17: Stool for occult blood + on 03/02/17. s/p venofer infusion. Hgb holding at 8.4. Will repeat Venofer infusion today and tomorrow. 03/02/2017: Stool for occult blood negative. will repeat today. Venofer infusion today. repeat H/H in am. Continue Xarelto for PE management. 2 Fe def (2 acute blood loss), 02/14/17 hgb 12.0 Plan IV Fe, tx prn until at least colon mass is resected; plan to anticoagulate for at least 3 months for PE rx if hgb remains stable Xarelto is needed due to afib and acute PE (2) Edema Status: Chronic Problem Text: 03/04 - Enc elevated legs when at rest. 03/03/17: Edema is mildly improved with TEDs today. 03/02/17: TEDS and SCDs today. Add on Ensure tid. Monitor. Will change diet to 2 gram sodium. at least partially 2 hypoalb (03/01/17 1.7! 3.7)) BLE 3/4 edema-new per patient 03/01 check BNP, BLE DVT US (given recent PE) CONCLUSIONS: 1. The study is of good technical quality. 2. Normal left ventricular (LV) size and low normal LV systolic function (estimated LVEF 50-55%), grade 1 diastolic dysfunction. 3. No significant valvular disease. 4. Normal central venous pressure. 5. Probably moderate pulmonary hypertension. (3) Abdominal mass Status: Acute Problem Specific Plan: Consult Specialist Problem Text: 03/06 -- Discussed surgery in broad terms. Patient is not enthusiastic about surgery, but also unenthusiastic about the inconvenience of having an ostomy for the rest of her life. 03/04- plans to cont to hold off on surgery for now, Dr Rees re- evaluated the pt 03/02. 03/03/17: Surgery following. monitor. 03/02: Surgery is now considering resection with permanent ileostomy given her ongoing anemia and need for anticoagulation - Gen Surg will d/w her today. 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 The surgical team is waiting till she heals from her previous surgery before scheduling the partial colectomy. This is anticipate in ~3 weeks. Her barrier to discharge currently is someone who can provide adequate care of her colostomy. She has shown some progress in the last couple of days, but still occasionally forgets that she has a colostomy. 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 No stroma or submucosa is noted to evaluate for invasion. In view of presence of a large obstructing circumferential mass in the transverse colon, this is most likely a malignant tumor, however the biopsy may be from the surface of the mass, not showing definitive invasion. Follow up is recommended as clinically indicated. (4) Pulmonary embolism Status: Acute Problem Specific Plan: Monitor Clinically Problem Text: Continue Xarelto and monitor H/H (5) Atrial fibrillation Status: Chronic Response to Treatment: Stable Problem Text: She is rate controlled. Continue current regimen, monitor. 02/22/17 TTE: The study is of good technical quality. 2. Normal left ventricular (LV) size and low normal LV systolic function (estimated LVEF 50-55%), grade 1 diastolic dysfunction. 3. No significant valvular disease. 4. Normal central venous pressure. 5. Probably moderate pulmonary hypertension. (6) Myasthenia gravis Status: Chronic Response to Treatment: Stable (7) V-tach Status: Resolved Problem Text: 02/16/17: secondary to hypomagnesemia. Replacement provided. (8) Thrombosis of left lower extremity Status: Acute Problem Text: probably present on admission, given PE. (9) Severe protein-calorie malnutrition Status: Acute Problem Text: Good appetite, nutritional status improving. Plan/VTE VTE Prophylaxis Ordered?: Yes (Xarelto) VS, I&O, 24H, Fishbone Vital Signs/I&O Vital Signs Date Time Temp Pulse Resp B/P (MAP) Pulse Ox O2 Delivery O2 Flow Rate FiO2 03/06/17 22:00 98.0 93 18 113/60 (77) 95 Room Air Laboratory Data 24H LABS Laboratory Tests 2 03/06/17 05:09: Immature Granulocyte % (Auto) 0.6H, White Blood Count 7.8, Red Blood Count 2.60L , Hemoglobin 8.1L, Hematocrit 26.2L, Mean Corpuscular Volume 100.8H, Mean Corpuscular Hemoglobin 31.2, Mean Corpuscular Hemoglobin Concent 30.9L, Red Cell Distribution Width 20.0H, Platelet Count 337, Neutrophils (%) (Auto) 63.2, Lymphocytes (%) (Auto) 18.6L, Monocytes (%) (Auto) 11.0H, Eosinophils (%) (Auto ) 6.3H, Basophils (%) (Auto) 0.3, Neutrophils # (Auto) 4.9, Lymphocytes # (Auto ) 1.5, Monocytes # (Auto) 0.9H, Eosinophils # (Auto) 0.5, Basophils # (Auto) 0.0 , Immature Granulocyte # (Auto) 0.1H, Nucleated Red Blood Cells % (auto) 0.3H, Anion Gap 5L, Glomerular Filtration Rate > 60.0, Blood Urea Nitrogen 20H, Creatinine 0.60, Sodium Level 141, Potassium Level 4.1, Chloride Level 108H, Carbon Dioxide Level 28, Calcium Level 7.9L, Aspartate Amino Transf (AST/SGOT) 24, Alanine Aminotransferase (ALT/SGPT) 26, Alkaline Phosphatase 115, Total Bilirubin 0.2, Total Protein 5.3L, Albumin 2.0L, Albumin/Globulin Ratio 0.61L CBC/BMP Laboratory Tests 03/06/17 05:09 Red Blood Count 2.60 L, Mean Corpuscular Volume 100.8 H, Mean Corpuscular Hemoglobin 31.2, Mean Corpuscular Hemoglobin Concent 30.9 L, Red Cell Distribution Width 20.0 H, Neutrophils (%) (Auto) 63.2, Lymphocytes (%) (Auto) 18.6 L, Monocytes (%) (Auto) 11.0 H, Eosinophils (%) (Auto) 6.3 H, Basophils (% ) (Auto) 0.3, Neutrophils # (Auto) 4.9, Lymphocytes # (Auto) 1.5, Monocytes # ( Auto) 0.9 H, Eosinophils # (Auto) 0.5, Basophils # (Auto) 0.0, Calcium Level 7.9 L, Aspartate Amino Transf (AST/SGOT) 24, Alanine Aminotransferase (ALT/SGPT ) 26, Alkaline Phosphatase 115, Total Bilirubin 0.2, Total Protein 5.3 L, Albumin 2.0 L Microbiology Microbiology 03/02/17 Stool Occult Blood (TRENT) - Final, Complete 02/28/17 Stool Occult Blood (TRENT) - Final, Complete LORA FRAGOSO DO Mar 07, 2017 01:03
[2017-03-07] MEDS: SODIUM CHLORIDE 0.9% INJ 10 ML SYR IV SCH ×2 (05:38→18:19)
[2017-03-07 05:46] LABS: BASO % 0.3 % (0.0-1.0); EOS # 0.5 10^3/uL (0.0-0.50); EOS % 6.6 % (0.0-3.0); IMMATURE GRANULOCYTE % 0.5 % (0-0); LYMPH # 1.3 10^3/uL (1.5-4.5); MEAN CORPUSCULAR HEMOGLOBIN 31.4 pg (27.0-33.0); MEAN CORPUSCULAR HGB CONC 31.3 g/dl (32.0-36.5); MEAN CORPUSCULAR VOLUME 100.4 fl (80.0-96.0); MONO % 12.5 % (0.0-5.0); NEUTROPHILS # 4.8 10^3/uL (1.8-7.7); NEUTROPHILS % 63.1 % (36.0-66.0); PLATELET COUNT, AUTOMATED 327 10^3/uL (150-450); RED CELL DISTRIBUTION WIDTH 20.6 % (11.5-14.5); WHITE BLOOD COUNT 7.6 10^3/uL (4.0-10.0)
[2017-03-07 06:00] VITALS: BP 121/64
[2017-03-07 06:11] LABS: ALBUMIN/GLOBULIN RATIO 0.59 (1.00-1.93); ALKALINE PHOSPHATASE 113 U/L (45-117); ALT/SGPT 24 U/L (12-78); ANION GAP 8 MEQ/L (8-16); AST/SGOT 17 U/L (7-37); BILIRUBIN,TOTAL 0.3 MG/DL (0.2-1.0); BLOOD UREA NITROGEN 22 MG/DL (7-18); CALCIUM LEVEL 7.9 MG/DL (8.8-10.2); CARBON DIOXIDE LEVEL 27 MEQ/L (21-32); CHLORIDE LEVEL 105 MEQ/L (98-107); CREATININE FOR GFR 0.58 MG/DL (0.55-1.02); GLOMERULAR FILTRATION RATE > 60.0 (>32); GLUCOSE, FASTING 111 MG/DL (83-110); POTASSIUM SERUM 4.2 MEQ/L (3.5-5.1); SODIUM LEVEL 140 MEQ/L (136-145); TOTAL PROTEIN 5.4 GM/DL (6.4-8.2)
[2017-03-07] MEDS: POTASSIUM CHLORIDE 10 MEQ SR TABLET PO SCH (09:27)
[2017-03-07] MEDS: PYRIDOSTIGMINE 60 MG TAB PO SCH ×2 (09:27→20:11)
[2017-03-07] MEDS: RIVAROXABAN 15 MG TAB (XARELTO) PO SCH ×2 (09:27→18:19)
[2017-03-07] MEDS: FOLIC ACID 1 MG TAB PO SCH (09:28)
[2017-03-07] MEDS: CARVedilol 6.25 MG TAB PO SCH ×2 (09:31→20:12)
--- NOTE | 2017-03-07 11:27 | IPNPDOC ---
Subjective Date Seen The patient was seen on 03/07/17. Subjective Chief Complaint/HPI The patient is a 86-year-old female admitted with a reason for visit of Abdominal Mass; Pulmonary Embolism. Events since last encounter Pt without new concerns. She is feeling well, denies pain. Nursing remains concerned about her ability to manage her colostomy and get around on her own at home. General: Denies: Fatigue Constitutional: Denies: Chills, Fever Pulmonary: Denies: Dyspnea, Cough Cardiovascular: Denies: Chest Pain, Palpitations Gastrointestinal: Denies: Nausea, Vomiting, Abdominal Pain Psych: Reports: Mood Normal Objective Physical Examination General Exam: Positive: Alert, Cooperative, No Acute Distress Eye Exam: Negative: Sclera icteric ENT Exam: Positive: Mucous membr. moist/pink Neck Exam: Negative: Lymphadenopathy Chest Exam: Positive: Clear to auscultation, Normal air movement Heart Exam: Positive: Rate Normal, Irregular Rhythm Abdomen Exam: Positive: Normal bowel sounds, Other (ostomy brown stool), Negative: Tenderness Extremity Exam: Positive: Edema Psych Exam: Positive: Mood NL, Negative: Memory Intact Assessment /Plan Problems (1) Anemia Status: Acute Problem Text: 03/07 - Hgb 10.5, stable. 03/05 -- hemoglobin remains stable 03/04 - Hgb up to 9, she has had IV Venofer x 2, #3 ordered for today. 03/03/17: Stool for occult blood + on 03/02/17. s/p venofer infusion. Hgb holding at 8.4. Will repeat Venofer infusion today and tomorrow. 03/02/2017: Stool for occult blood negative. will repeat today. Venofer infusion today. repeat H/H in am. Continue Xarelto for PE management. 2 Fe def (2 acute blood loss), 02/14/17 hgb 12.0 Plan IV Fe, tx prn until at least colon mass is resected; plan to anticoagulate for at least 3 months for PE rx if hgb remains stable Xarelto is needed due to afib and acute PE (2) Edema Status: Chronic Problem Text: 03/04 - Enc elevated legs when at rest. 03/03/17: Edema is mildly improved with TEDs today. 03/02/17: TEDS and SCDs today. Add on Ensure tid. Monitor. Will change diet to 2 gram sodium. at least partially 2 hypoalb (03/01/17 1.7! 3.7)) BLE 3/4 edema-new per patient 03/01 check BNP, BLE DVT US (given recent PE) CONCLUSIONS: 1. The study is of good technical quality. 2. Normal left ventricular (LV) size and low normal LV systolic function (estimated LVEF 50-55%), grade 1 diastolic dysfunction. 3. No significant valvular disease. 4. Normal central venous pressure. 5. Probably moderate pulmonary hypertension. (3) Abdominal mass Status: Acute Problem Specific Plan: Consult Specialist Problem Text: 03/06 -- Discussed surgery in broad terms. Patient is not enthusiastic about surgery, but also unenthusiastic about the inconvenience of having an ostomy for the rest of her life. 03/04- plans to cont to hold off on surgery for now, Dr Rees re- evaluated the pt 03/02. 03/03/17: Surgery following. monitor. 03/02: Surgery is now considering resection with permanent ileostomy given her ongoing anemia and need for anticoagulation - Gen Surg will d/w her today. 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 The surgical team is waiting till she heals from her previous surgery before scheduling the partial colectomy. This is anticipate in ~3 weeks. Her barrier to discharge currently is someone who can provide adequate care of her colostomy. She has shown some progress in the last couple of days, but still occasionally forgets that she has a colostomy. 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 No stroma or submucosa is noted to evaluate for invasion. In view of presence of a large obstructing circumferential mass in the transverse colon, this is most likely a malignant tumor, however the biopsy may be from the surface of the mass, not showing definitive invasion. Follow up is recommended as clinically indicated. (4) Pulmonary embolism Status: Acute Problem Specific Plan: Monitor Clinically Problem Text: Continue Xarelto and monitor H/H (5) Atrial fibrillation Status: Chronic Response to Treatment: Stable Problem Text: She is rate controlled. Continue current regimen, monitor. 02/22/17 TTE: The study is of good technical quality. 2. Normal left ventricular (LV) size and low normal LV systolic function (estimated LVEF 50-55%), grade 1 diastolic dysfunction. 3. No significant valvular disease. 4. Normal central venous pressure. 5. Probably moderate pulmonary hypertension. (6) Myasthenia gravis Status: Chronic Response to Treatment: Stable (7) V-tach Status: Resolved Problem Text: 02/16/17: secondary to hypomagnesemia. Replacement provided. (8) Thrombosis of left lower extremity Status: Acute Problem Text: probably present on admission, given PE. (9) Severe protein-calorie malnutrition Status: Acute Problem Text: Good appetite, nutritional status improving. Plan/VTE VTE Prophylaxis Ordered?: Yes (Xarelto) VS, I&O, 24H, Fishbone Vital Signs/I&O Vital Signs Date Time Temp Pulse Resp B/P (MAP) Pulse Ox O2 Delivery O2 Flow Rate FiO2 03/07/17 09:31 80 116/58 03/07/17 06:00 98.0 18 94 Room Air I&O- Last 24 Hours up to 6 AM 03/08/17 06:00 Intake Total 240 ml Output Total 500 ml Balance -260 ml Laboratory Data 24H LABS Laboratory Tests 2 03/07/17 05:34: Immature Granulocyte % (Auto) 0.5H, White Blood Count 7.6, Red Blood Count 2.71L , Hemoglobin 8.5L, Hematocrit 27.2L, Mean Corpuscular Volume 100.4H, Mean Corpuscular Hemoglobin 31.4, Mean Corpuscular Hemoglobin Concent 31.3L, Red Cell Distribution Width 20.6H, Platelet Count 327, Neutrophils (%) (Auto) 63.1, Lymphocytes (%) (Auto) 17.0L, Monocytes (%) (Auto) 12.5H, Eosinophils (%) (Auto ) 6.6H, Basophils (%) (Auto) 0.3, Neutrophils # (Auto) 4.8, Lymphocytes # (Auto ) 1.3L, Monocytes # (Auto) 1.0H, Eosinophils # (Auto) 0.5, Basophils # (Auto) 0.0, Immature Granulocyte # (Auto) 0.0, Nucleated Red Blood Cells % (auto) 0.0, Anion Gap 8, Glomerular Filtration Rate > 60.0, Blood Urea Nitrogen 22H, Creatinine 0.58, Sodium Level 140, Potassium Level 4.2, Chloride Level 105, Carbon Dioxide Level 27, Calcium Level 7.9L, Aspartate Amino Transf (AST/SGOT) 17, Alanine Aminotransferase (ALT/SGPT) 24, Alkaline Phosphatase 113, Total Bilirubin 0.3, Total Protein 5.4L, Albumin 2.0L, Albumin/Globulin Ratio 0.59L CBC/BMP Laboratory Tests 03/07/17 05:34 Red Blood Count 2.71 L, Mean Corpuscular Volume 100.4 H, Mean Corpuscular Hemoglobin 31.4, Mean Corpuscular Hemoglobin Concent 31.3 L, Red Cell Distribution Width 20.6 H, Neutrophils (%) (Auto) 63.1, Lymphocytes (%) (Auto) 17.0 L, Monocytes (%) (Auto) 12.5 H, Eosinophils (%) (Auto) 6.6 H, Basophils (% ) (Auto) 0.3, Neutrophils # (Auto) 4.8, Lymphocytes # (Auto) 1.3 L, Monocytes # (Auto) 1.0 H, Eosinophils # (Auto) 0.5, Basophils # (Auto) 0.0, Calcium Level 7.9 L, Aspartate Amino Transf (AST/SGOT) 17, Alanine Aminotransferase (ALT/SGPT ) 24, Alkaline Phosphatase 113, Total Bilirubin 0.3, Total Protein 5.4 L, Albumin 2.0 L Microbiology Microbiology 03/02/17 Stool Occult Blood (TRENT) - Final, Complete 02/28/17 Stool Occult Blood (TRENT) - Final, Complete ROSALIE STEWART PA-C Mar 07, 2017 11:27
[2017-03-07 14:00] VITALS: BP 126/62
--- NOTE | 2017-03-07 16:36 | IPN ---
DATE: 03/07/[address] Alin Zelaya and Annie Bangsherine, the patient's daughter. They had questions regarding her disposition. This is my first day taking care of her during this hospitalization. I do not see any patient and family services (PFS) notes in the last five days. From what I can gather, the plan is for discharge once the patient demonstrates ability to care for her cecostomy. I expect that she should be able to be discharged tomorrow. I am hoping that on tomorrow's care rounds any issues that might delay discharge can be discussed. I have ordered a home safety evaluation for tomorrow. Dr. Zelaya can be reached at [phone] with a home number of [phone], and he would like a phone call tomorrow concerning discharge plans.
[2017-03-07 20:13] VITALS: BP 118/62
[2017-03-08] MEDS: SODIUM CHLORIDE 0.9% INJ 10 ML SYR IV SCH ×2 (05:01→18:00)
[2017-03-08 05:17] LABS: BASO % 0.3 % (0.0-1.0); EOS # 0.5 10^3/uL (0.0-0.50); EOS % 7.3 % (0.0-3.0); IMMATURE GRANULOCYTE % 0.6 % (0-0); LYMPH # 1.4 10^3/uL (1.5-4.5); LYMPH % 20.1 % (24.0-44.0); MEAN CORPUSCULAR HGB CONC 31.2 g/dl (32.0-36.5); MEAN CORPUSCULAR VOLUME 102.7 fl (80.0-96.0); MONO # 0.9 10^3/uL (0.0-0.8); MONO % 12.8 % (0.0-5.0); NEUTROPHILS # 4.2 10^3/uL (1.8-7.7); NEUTROPHILS % 58.9 % (36.0-66.0); PLATELET COUNT, AUTOMATED 326 10^3/uL (150-450); RED CELL DISTRIBUTION WIDTH 20.7 % (11.5-14.5); WHITE BLOOD COUNT 7.1 10^3/uL (4.0-10.0)
[2017-03-08 05:30] LABS: ALBUMIN 1.9 GM/DL (3.2-5.2); ALBUMIN/GLOBULIN RATIO 0.58 (1.00-1.93); ALKALINE PHOSPHATASE 111 U/L (45-117); ALT/SGPT 24 U/L (12-78); ANION GAP 4 MEQ/L (8-16); AST/SGOT 17 U/L (7-37); BILIRUBIN,TOTAL 0.2 MG/DL (0.2-1.0); BLOOD UREA NITROGEN 26 MG/DL (7-18); CALCIUM LEVEL 7.8 MG/DL (8.8-10.2); CARBON DIOXIDE LEVEL 30 MEQ/L (21-32); CHLORIDE LEVEL 107 MEQ/L (98-107); CREATININE FOR GFR 0.46 MG/DL (0.55-1.02); GLOMERULAR FILTRATION RATE > 60.0 (>32); GLUCOSE, FASTING 122 MG/DL (83-110); POTASSIUM SERUM 4.5 MEQ/L (3.5-5.1); SODIUM LEVEL 141 MEQ/L (136-145); TOTAL PROTEIN 5.2 GM/DL (6.4-8.2)
[2017-03-08 06:00] VITALS: BP 113/57
[2017-03-08] MEDS: POTASSIUM CHLORIDE 10 MEQ SR TABLET PO SCH (08:25)
[2017-03-08] MEDS: FOLIC ACID 1 MG TAB PO SCH (08:26)
[2017-03-08] MEDS: PYRIDOSTIGMINE 60 MG TAB PO SCH ×2 (08:26→21:05)
[2017-03-08] MEDS: RIVAROXABAN 15 MG TAB (XARELTO) PO SCH ×2 (08:26→18:18)
[2017-03-08] MEDS: CARVedilol 6.25 MG TAB PO SCH ×2 (08:27→21:05)
[2017-03-08 14:00] VITALS: BP 124/56
--- NOTE | 2017-03-08 14:01 | DSES ---
DATE OF ADMISSION: 02/12/2017 DATE OF TRANSITION TO SNF: 03/08/2017 Stephanie Alcala was transitioned to correction facility (SNF) level of care today on recommendations of patient and family services (PFS). She was admitted for anemia secondary to acute blood. She was transfused both red blood cells and iron with Venofer infusion times three. She underwent a colonoscopy. She had a large obstructing circumferential mass in the transverse colon, probably a malignant tumor. Biopsy did show villous adenoma with high grade dysplasia but suspect it was taken from the surface of the mass and not deep enough to get to the malignancy. She had a diverting colostomy done by Dr. Rees and then plans for a definitive procedure in three weeks. She has a history of pulmonary embolism and atrial fibrillation and is on anticoagulation with Xarelto for this. She had some nonsustained V-tach secondary to hypomagnesemia that resolved with magnesium replacement. She had severe protein calorie malnutrition treated with high protein shakes. Myasthenia gravis was stable during this hospitalization. SIGNIFICANT STUDIES: Echocardiogram showed an ejection fraction of 50-55%. No significant valvular disease. Moderate pulmonary hypertension. LABS: Today, white count 7.1, hemoglobin 8.3, MCV 102, platelets 326. Sodium was 141, potassium 4.5, BUN 26, creatinine 0.4, glucose 112. Stool for occult blood was positive. Pathology results as summarized above. CT scan of abdomen and pelvis showed marked distention at the level of the distal transverse colon. No sign of metastatic disease or adenopathy. CT angiogram showed pulmonary emboli right and left main pulmonary arteries. CURRENT MEDICATIONS: - Xarelto 15 mg twice a day (this dosing is for 21 days - she is currently on day 12 of this so March 17, 2017 her dosing will change to 20 mg daily) - Tylenol as needed - carvedilol 6.25 mg twice a day - folic acid 1 mg daily - methotrexate 7.5 mg every Tuesday - potassium chloride 40 mEq daily - Mestinon 30 mg twice a day DIET: She is on a regular diet with Ensure supplement. ACTIVITY: As tolerated.
[2017-03-08 22:00] VITALS: BP 122/60
[2017-03-09] MEDS: SODIUM CHLORIDE 0.9% INJ 10 ML SYR IV SCH (05:59)
[2017-03-09 06:00] VITALS: BP 137/71
[2017-03-09] MEDS: RIVAROXABAN 15 MG TAB (XARELTO) PO SCH (09:13)
[2017-03-09 09:14] VITALS: BP 118/65
[2017-03-09] MEDS: FOLIC ACID 1 MG TAB PO SCH (09:14)
[2017-03-09] MEDS: CARVedilol 6.25 MG TAB PO SCH (09:14)
[2017-03-09] MEDS: METHOTREXATE 2.5 MG TAB (J8610 PER 2.5MG) PO SCH (09:14)
[2017-03-09] MEDS: POTASSIUM CHLORIDE 10 MEQ SR TABLET PO SCH (09:15)
[2017-03-09] MEDS: PYRIDOSTIGMINE 60 MG TAB PO SCH (09:16)
[2017-03-09] MEDS ORDERED: CARV6.25 PO (11:19)
[2017-03-09] MEDS ORDERED: XARE15TA PO (11:19)
[2017-03-09] MEDS ORDERED: FOLI1TAB4 PO (11:19)
[2017-03-09] MEDS ORDERED: POTA10CA PO (11:19)
[2017-03-09] MEDS ORDERED: XARE20TA PO (11:21)
--- NOTE | 2017-03-10 09:41 | DSES ---
DATE OF ADMISSION: 02/12/2017 DATE OF DISCHARGE: 03/09/2017 The patient's family decided to take her home with 24-hour care. She is unable to manage her ostomy on her own, and her family is arranging to manage this for her, and she will have a [facility] nurse. Otherwise, there are no new changes compared to her previous residential facility (SNF) summary. Please note that she will be discharged home on Xarelto 15 mg twice a day. On 03/17/2017,she should switch over to Xarelto 20 mg daily. The 15 mg twice a day prescription and the 20 mg prescription have been sent to the pharmacy, but her primary care provider will need to assure that this did occur.
== END 2017-03-09 14:15 | disposition home health service (06) | DRG 329 ==
LOC: M ED 14:12 → M ED INP 18:31 → M PCU 22:53 → M MS4PR 02-24 20:10 → M MSPAV 02-26 14:53
PROVIDERS: ADMIT Family Medicine; ATTEND Family Medicine
PROC: 0D1 Gastrointestinal System, Bypass (ICD-10-PCS; principal; 2017-02-16 12:00)
PROC: 02HV33Z Insertion of Infusion Device into Superior Vena Cava, Percutaneous Approach (ICD-10-PCS; 2017-02-17)
PROC: 0DBE8ZX Excision of Large Intestine, Via Natural or Artificial Opening Endoscopic, Diagnostic (ICD-10-PCS; 2017-02-21)
PROC: 30253N1 (ICD-10-PCS; 2017-02-28)
DX: C18.4 Malignant neoplasm of transverse colon (principal); I26.99 Other pulmonary embolism without acute cor pulmonale; E43 Unspecified severe protein-calorie malnutrition; I47.2 Ventricular tachycardia; D62 Acute posthemorrhagic anemia; I82.412 Acute embolism and thrombosis of left femoral vein; I48.0 Paroxysmal atrial fibrillation; K57.30 Diverticulosis of large intestine without perforation or abscess without bleeding; I10 Essential (primary) hypertension; G70.00 Myasthenia gravis without (acute) exacerbation; I83.90 Asymptomatic varicose veins of unspecified lower extremity; I34.0 Nonrheumatic mitral (valve) insufficiency; E86.0 Dehydration; E83.42 Hypomagnesemia; E87.6 Hypokalemia; Z79.899 Other long term (current) drug therapy

== ENCOUNTER 2017-03-11 17:37 | Inpatient (IN) | payer MEDICARE ==
[~2017-03-11] VITALS: Ht 157.5 cm; Wt 63.9 kg
[~2017-03-11 17:37] MED LIST changes: +CARV6.25 PO; +FOLI1TAB4 PO; +LISI-538 PO; +POTA10CA PO; +PYRI60TA2 PO; +XARE15TA PO; +XARE20TA PO
[2017-03-11] MEDS: NS 1,000 ML IV SCH (18:06)
[2017-03-11 18:44] LABS: BASO % 0.3 % (0.0-1.0); EOS # 0.3 10^3/uL (0.0-0.50); EOS % 3.2 % (0.0-3.0); IMMATURE GRANULOCYTE % 0.2 % (0-0); LYMPH # 1.4 10^3/uL (1.5-4.5); LYMPH % 13.9 % (24.0-44.0); MEAN CORPUSCULAR HEMOGLOBIN 31.3 pg (27.0-33.0); MEAN CORPUSCULAR HGB CONC 30.9 g/dl (32.0-36.5); MEAN CORPUSCULAR VOLUME 101.2 fl (80.0-96.0); MONO # 0.4 10^3/uL (0.0-0.8); MONO % 3.8 % (0.0-5.0); NEUTROPHILS # 7.6 10^3/uL (1.8-7.7); NEUTROPHILS % 78.6 % (36.0-66.0); PLATELET COUNT, AUTOMATED 450 10^3/uL (150-450); RED CELL DISTRIBUTION WIDTH 20.5 % (11.5-14.5); WHITE BLOOD COUNT 9.7 10^3/uL (4.0-10.0)
[2017-03-11 18:55] LABS: INR 1.91
[2017-03-11] MEDS ORDERED: POTA10CA PO (18:56)
[2017-03-11] MEDS ORDERED: CARV6.25 PO (18:56)
[2017-03-11] MEDS ORDERED: FOLI1TAB4 PO (18:56)
[2017-03-11] MEDS ORDERED: XARE15TA PO (18:56)
[2017-03-11 19:00] LABS: ALBUMIN 2.8 GM/DL (3.2-5.2); ALKALINE PHOSPHATASE 130 U/L (45-117); ALT/SGPT 25 U/L (12-78); AMYLASE 73 U/L (25-115); ANION GAP 8 MEQ/L (8-16); AST/SGOT 17 U/L (7-37); BILIRUBIN,DIRECT 0.2 MG/DL (0.0-0.2); BILIRUBIN,TOTAL 0.4 MG/DL (0.2-1.0); BLOOD UREA NITROGEN 31 MG/DL (7-18); CARBON DIOXIDE LEVEL 26 MEQ/L (21-32); CHLORIDE LEVEL 106 MEQ/L (98-107); CREATININE FOR GFR 0.54 MG/DL (0.55-1.02); GLOMERULAR FILTRATION RATE > 60.0 (>32); GLUCOSE, FASTING 105 MG/DL (83-110); POTASSIUM SERUM 4.2 MEQ/L (3.5-5.1); SODIUM LEVEL 140 MEQ/L (136-145); TOTAL PROTEIN 6.3 GM/DL (6.4-8.2)
--- NOTE | 2017-03-11 19:17 | REP ---
AP PORTABLE CHEST: 03/11/2017. Clinical history: Abnormal ostomy. Comparison: portable chest 02/17/2017. Findings: Lung david show hyperinflation. There is underlying interstitial fibrotic change. Some patchy infrahilar atelectasis or infiltrate on the right. Venous hypertension noted without tobin edema. Small effusions difficult to exclude. Heart size not grossly enlarged but portable technique limits evaluation. Tortuous calcified aorta without aneurysm. Airway intact. Bony thorax with Some demineralization. Impression: 1. COPD and some fibrosis with pulmonary venous hypertension. There is no tobin edema. Small effusions difficult to exclude. 2. Infrahilar patchy atelectasis/infiltrate versus some increase fibrosis on the right medial base. No dense consolidation with air bronchograms. 3. Tortuous aorta without aneurysm. Airway midline. Bones demineralized. Signed by Paulino Watson MD 03/11/2017 08:43 P
[2017-03-11] MEDS ORDERED: ISOVUE-370 76% 100ML VIAL (Q9967) As Ordered ONE (19:24)
[2017-03-11] MEDS ORDERED: PROMETHAZINE INJ 25 MG/ML VIAL (J2550) IV PRN (20:00)
[2017-03-11] MEDS ORDERED: metroNIDAZOLE 500 MG in APPROPRIATE DILUENT 1 EA IV SCH (20:00)
[2017-03-11] MEDS ORDERED: ONDANSETRON 4MG/2ML VIAL (J2405) IV PRN (20:00)
--- NOTE | 2017-03-11 20:40 | REPUSA ---
CT of the abdomen and pelvis with contrast Clinical statement: Ostomy black and swollen. Technique: Multiple axial CT images were obtained from the base of the lungs through the floor of the pelvis utilizing 5 mm axial slices after administration of oral and nonionic intravenous contrast. C oronal and sagittal reconstructions were also obtained. No comparison is available. Findings: Chest: The visualized lung bases are clear. Abdomen: The liver, spleen, pancreas, kidneys, gallbladder, and adrenal glands are unremarkable. The aorta is within normal limits. There is no evidence of abdominal lymphadenopathy or ascites. Pelvis: There is moderately severe bowel wall thickening that ostomy site. The distal bowel also demo nstrates moderate wall thickening. There is moderate herniation of bowel through the ostomy site as w ell. There is no evidence of obstruction. The urinary bladder is within normal limits. The other pelv ic structures appear grossly intact. There is no evidence of pelvic lymphadenopathy or ascites. Bones: There are no suspicious osseous abnormalities seen. Multilevel degenerative disc disease is no manda throughout the lumbar spine. Impression: 1. Herniation of bowel through the ostomy site is noted. There is no evidence of obstruction. Moderat e diffuse bowel wall thickening involving the distal wall and the ostomy site is noted however. 2. Moderate spondylosis and lumbar spine.
[2017-03-11] MEDS: CIPROFLOXACIN 400 MG in APPROPRIATE DILUENT 1 EA IV SCH (22:39)
[2017-03-11 22:50] VITALS: BP 161/70
[2017-03-12] MEDS: metroNIDAZOLE 500 MG in APPROPRIATE DILUENT 1 EA IV SCH ×4 (00:13→20:44)
[2017-03-12] MEDS: ENOXAPARIN 60 MG/0.6 ML SYR (J1650) SC SCH ×3 (00:14→20:43)
[2017-03-12] MEDS: CARVedilol 6.25 MG TAB PO SCH ×3 (00:14→20:44)
[2017-03-12] MEDS: PYRIDOSTIGMINE 60 MG TAB PO SCH ×3 (00:14→20:44)
[2017-03-12] MEDS: NS 1,000 ML IV SCH ×3 (04:43→20:51)
[2017-03-12 06:00] VITALS: BP 124/77
[2017-03-12] MEDS: POTASSIUM CHLORIDE 10 MEQ SR TABLET PO SCH (08:55)
[2017-03-12] MEDS: FOLIC ACID 1 MG TAB PO SCH (08:55)
[2017-03-12] MEDS: CIPROFLOXACIN 400 MG in APPROPRIATE DILUENT 1 EA IV SCH ×2 (08:56→20:42)
[2017-03-12 14:00] VITALS: BP 125/59
--- NOTE | 2017-03-12 14:38 | HPEPDOC ---
General Surgery H&P Date of Admission Mar 11, 2017 Attending Physician: CARRIE BLACKBURN MD History and Physical CHIEF COMPLAINT: Swelling of cecostomy HISTORY OF PRESENT ILLNESS: Patient is known to me from her previous admission. She presented last month with history of nausea, vomiting, weight loss was found to have obstruction at the level of the distal transverse colon. At the same time she is also possible found to have pulmonary embolism. He underwent cecostomy placement to relieve the obstruction. She had a colonoscopy that visualized the obstruction. Biopsies of this only showed villous polyp with high -grade dysplasia. Certainly this is suspected to be malignant. Previous plan is to get her nutrition up and plan for colon resection with anastomosis. She was discharged home last week and was reporting good appetite and was feeling well up until last night when she started having severe mid periumbilical abdominal cramps. She then noted swelling on her cecostomy which appears more prominent. This morning the cecostomy was noted to be very swollen, inflamed, black is. There reporting and she was instructed to go to the emergency room. ALLERGIES: Please see below. HOME MEDICATIONS: Please see below. PAST MEDICAL HISTORY: 1. . 2. . PAST SURGICAL HISTORY: 1. . 2. . PERSONAL/SOCIAL HISTORY: [Denies smoking, alcohol use, or recreational drug use] . REVIEW OF SYSTEMS: GENERAL: [Denies chills, fatigue, fever, weight gain and weight loss]. HEENT: [Denies blurred vision and double vision. Denies ear symptoms. Denies hoarseness]. NECK: [Denies any neck pain]. CARDIOVASCULAR: [Denies chest pain and palpitations]. MUSCULOSKELETAL: [Denies arthralgias, back pain and thrombophlebitis]. SKIN: [Denies rash]. NEUROLOGIC: [Denies headache, stroke and transient ischemic attack]. PSYCHIATRIC: [Denies anxiety and depression]. ENDOCRINE: [Denies thyroid disease]. HEMATOLOGY/ONCOLOGY: [Denies any bleeding or clotting disorder]. HEART: [Denies any chest pains, palpitations, paroxysmal dyspnea, orthopnea]. PULMONARY: [Denies chronic cough, dyspnea and wheezing]. GASTROINTESTINAL: [Denies rectal bleeding, family history of colon cancer, constipation, diarrhea, dysphagia, heartburn and jaundice]. GENITOURINARY: [Denies dysuria, frequency, hematuria and nocturia]. ENDOCRINE: [Denies polydipsia, polyphagia, polyuria, heat or cold intolerance]. INFECTIOUS: [Denies any recent upper respiratory tract infection, UTI, need for use of antibiotics]. NUTRITION: [Reports good appetite]. PHYSICAL EXAMINATION: VITAL SIGNS: Please see below. GENERAL APPEARANCE: [Patient seen at bedside, appears comfortable]. [Awake, alert, oriented]. HEENT: [Normocephalic, atraumatic. [place] palpebral conjunctivae. Anicteric sclerae. Lips moist]. CHEST: [No chest wall abnormalities. Normal respiratory motion/effort]. NECK: [Supple. No thyromegaly. No lymphadenopathies]. LUNGS: [Lung sounds are clear to auscultation bilaterally. No wheezing appreciated]. HEART: [No chest wall abnormalities. Heart rate and rhythm are regular with no murmurs]. ABDOMEN: [Abdomen is obese, soft, slightly rounded. No hepatosplenomegaly. No umbilical or groin herniations, nondistended. No noticeable rebound or guarding. No grimacing with palpation. No rebound tenderness. No masses appreciated]. SKIN: [Warm, moist]. EXTREMITIES: [Extremities have no deformities. No edema identified]. NEUROLOGICAL: . ANCILLARIES: . LABORATORY DATA: Please see below. MICROBIOLOGY: Please see below. IMAGING: CT scan of abdomen and pelvis 1. Herniation of bowel through the ostomy site is noted. There is no evidence of obstruction. Moderate diffuse bowel wall thickening involving the distal wall and the ostomy site is noted however. 2. Moderate spondylosis and lumbar spine. 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 No bleeding and does not seem to be full-thickness necrosis at this point. The cecostomy continues to function with loose brownish stool. No evidence of full-thickness necrosis or perforation of the colon or any intra- abdominal bowel. This is a mechanical problem. On her initial presentation her colon was greatly distended which did not allow me to place a full-thickness colostomy this only one part of the wall of the colon/cecum was pulled out as an ostomy. Now that her bowel obstruction is improved and her colon has decreased in size the other side of the wall of the colon seems to have herniated through the fascial defect essentially causing some swelling over the area possibly some partial ischemia. This does not seem to be full-thickness and certainly not necrotic. For now he will observe this and bring her to the hospital. I'll start her on Cipro and Flagyl for the partial ischemia of the cecostomy. It has been 3 weeks since the cecostomy has been placed and it seems like the colon has decreased markedly in size of the expected. She still is malnourished with an albumin of 2.8. As it seems like this colon would need to be revised I suggested keeping her here and that her the noting the Xarelto wean off from her body plan for a definite difference surgery for her colon obstruction which means a colectomy plus or minus an anastomosis depending on how she is sparing and how the 2 ends of the bowel looked intraoperatively. So for now we will hold the Xarelto and just keep her on Lovenox. Vital Signs Vital Signs Date Time Temp Pulse Resp B/P (MAP) Pulse Ox O2 Delivery O2 Flow Rate FiO2 03/12/17 08:55 82 124/77 03/12/17 06:00 97.2 18 97 Room Air I&Os I&O- Last 24 Hours up to 6 AM 03/13/17 06:00 Intake Total 1580 ml Output Total 250 ml Balance 1330 ml Laboratory Data Labs 24H Laboratory Tests 2 03/11/17 18:23: Immature Granulocyte % (Auto) 0.2H, White Blood Count 9.7, Red Blood Count 3.42L , Hemoglobin 10.7L, Hematocrit 34.6L, Mean Corpuscular Volume 101.2H, Mean Corpuscular Hemoglobin 31.3, Mean Corpuscular Hemoglobin Concent 30.9L, Red Cell Distribution Width 20.5H, Platelet Count 450, Neutrophils (%) (Auto) 78.6H , Lymphocytes (%) (Auto) 13.9L, Monocytes (%) (Auto) 3.8, Eosinophils (%) (Auto ) 3.2H, Basophils (%) (Auto) 0.3, Neutrophils # (Auto) 7.6, Lymphocytes # (Auto ) 1.4L, Monocytes # (Auto) 0.4, Eosinophils # (Auto) 0.3, Basophils # (Auto) 0.0 , Immature Granulocyte # (Auto) 0.0, Nucleated Red Blood Cells % (auto) 0.0, Prothrombin Time 22.5H, Prothromb Time International Ratio 1.91, Activated Partial Thromboplast Time 45.2H, Anion Gap 8, Glomerular Filtration Rate > 60.0 , Calcium Level 8.0L, Aspartate Amino Transf (AST/SGOT) 17, Alanine Aminotransferase (ALT/SGPT) 25, Alkaline Phosphatase 130H, Total Bilirubin 0.4, Direct Bilirubin 0.2, Total Creatine Kinase 31, Creatine Kinase MB 1.4, Creatine Kinase MB Relative Index 4.51H, Troponin I < 0.02, Total Protein 6.3L, Albumin 2.8L, Albumin/Globulin Ratio 0.80L, Amylase Level 73, Lipase 400H 03/11/17 18:24: Lactic Acid Level 0.9 CBC/BMP Laboratory Tests 03/11/17 18:23 Red Blood Count 3.42 L, Mean Corpuscular Volume 101.2 H, Mean Corpuscular Hemoglobin 31.3, Mean Corpuscular Hemoglobin Concent 30.9 L, Red Cell Distribution Width 20.5 H, Neutrophils (%) (Auto) 78.6 H, Lymphocytes (%) (Auto ) 13.9 L, Monocytes (%) (Auto) 3.8, Eosinophils (%) (Auto) 3.2 H, Basophils (%) (Auto) 0.3, Neutrophils # (Auto) 7.6, Lymphocytes # (Auto) 1.4 L, Monocytes # ( Auto) 0.4, Eosinophils # (Auto) 0.3, Basophils # (Auto) 0.0 Microbiology Microbiology 03/11/17 Blood Culture, Received Pending 03/11/17 Blood Culture, Received Pending Home Medications Scheduled Carvedilol (Carvedilol) 6.25 Mg Tab, 6.25 MG PO BID, (Reported) Folic Acid (Folic Acid) 1 Mg Tab, 1 MG PO DAILY, (Reported) Methotrexate (Methotrexate) 2.5 Mg Tab, 7.5 MG PO QWEEK, (Reported) WEDNESDAYS Potassium Chloride (Klor-Con M10) 10 Meq Tabcr, 40 MEQ PO DAILY, (Reported) Pyridostigmine Revere (Pyridostigmine Revere) 60 Mg Tab, 30 MG PO BID, ( Reported) Rivaroxaban (Xarelto) 15 Mg Tab, 15 MG PO BID, (Reported) 8 DAYS TOTAL, TO START 20MG DAILY NEXT WEEK Allergies Coded Allergies: No Known Allergies (Unverified , 12/30/12) CARRIE BLACKBURN MD Mar 12, 2017 14:38
--- NOTE | 2017-03-12 15:10 | IPNPDOC ---
Text Note Date of Service The patient was seen on 03/12/17. NOTE Family Medicine Consult Note Subjective: This is a 86-year-old female who was recently readmitted under surgery. Patient was discharged home on 03/09/2017. 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 Patient had cecostomy. After returning home, patient noted that the cecostomy site was turning black which prompted her to come back for evaluation. She was also having periumbilical cramping. Today, patient continues to have a good appetite. She does continue to have infrequent cramping in the abdomen. Otherwise, patient remains comfortable. Denies chest pain, shortness of breath, dysuria. Objective: Vital signs: Please see below. Gen.: Alert and oriented, in no acute distress. HEENT: Normocephalic, atraumatic. EOMI. Mucous membranes moist. Cardiovascular: Regular rate and rhythm, no murmurs. Respiratory: Clear to auscultation, no wheezes. Gastrointestinal: Abdominal wall with cecostomy site intact, appears enlarged and has black discoloration. Surrounding skin intact. No erythema or breakdown. No discharge. 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 We will defer management to surgery. Continue patient on Cipro and Flagyl. Patient was changed from Xarelto to Lovenox 60 mg twice a day, which is an appropriate dose given her history of pulmonary embolism. Patient has a history of hypertension, was continued on Coreg which is managing her pressures. Also a history of myasthenia gravis, continue patient on Mestinon. VS,Fishbone, I+O VS, Fishbone, I+O Laboratory Tests 03/11/17 18:23 Red Blood Count 3.42 L, Mean Corpuscular Volume 101.2 H, Mean Corpuscular Hemoglobin 31.3, Mean Corpuscular Hemoglobin Concent 30.9 L, Red Cell Distribution Width 20.5 H, Neutrophils (%) (Auto) 78.6 H, Lymphocytes (%) (Auto ) 13.9 L, Monocytes (%) (Auto) 3.8, Eosinophils (%) (Auto) 3.2 H, Basophils (%) (Auto) 0.3, Neutrophils # (Auto) 7.6, Lymphocytes # (Auto) 1.4 L, Monocytes # ( Auto) 0.4, Eosinophils # (Auto) 0.3, Basophils # (Auto) 0.0 Vital Signs Date Time Temp Pulse Resp B/P (MAP) Pulse Ox O2 Delivery O2 Flow Rate FiO2 03/12/17 08:55 82 124/77 03/12/17 06:00 97.2 18 97 Room Air I&O- Last 24 Hours up to 6 AM 03/13/17 05:59 Intake Total 1580 ml Output Total 700 ml Balance 880 ml GME ATTESTATION GME ATTESTATION My preceptor for this patient encounter was physically present in the building during the encounter and was fully available. As needed, all aspects of the patient interview, examination, medical decision making process, and medical care plan development were reviewed and approved by the preceptor. Preceptor is aware and concurs with the plan as stated in the body of this note and will attest to such by his/her cosignature. JANETH STEPHENSON DO Mar 12, 2017 15:02
--- NOTE | 2017-03-12 19:05 | ECGEPIP ---
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
[2017-03-12 22:00] VITALS: BP 132/68
[2017-03-13] MEDS: metroNIDAZOLE 500 MG in APPROPRIATE DILUENT 1 EA IV SCH ×3 (05:08→21:02)
[2017-03-13 06:00] VITALS: BP 96/54
[2017-03-13] MEDS: CIPROFLOXACIN 400 MG in APPROPRIATE DILUENT 1 EA IV SCH ×2 (10:26→21:01)
[2017-03-13] MEDS: NS 1,000 ML IV SCH ×2 (10:26→21:00)
[2017-03-13] MEDS: ENOXAPARIN 60 MG/0.6 ML SYR (J1650) SC SCH ×2 (10:26→21:02)
[2017-03-13] MEDS: POTASSIUM CHLORIDE 10 MEQ SR TABLET PO SCH (10:29)
[2017-03-13] MEDS: FOLIC ACID 1 MG TAB PO SCH (10:29)
[2017-03-13] MEDS: CARVedilol 6.25 MG TAB PO SCH ×2 (10:31→21:00)
[2017-03-13] MEDS: PYRIDOSTIGMINE 60 MG TAB PO SCH ×2 (10:32→21:00)
--- NOTE | 2017-03-13 10:56 | IPNPDOC ---
Subjective Date Seen The patient was seen on 03/13/17. Subjective Chief Complaint/HPI The patient is a 86-year-old female admitted with a reason for visit of Colon Obstruction,Colostomy Enterostomy Malfunctio. Events since last encounter Patient is seen at bedside with her daughter and son-in-law. She is eating breakfast and has no complaints. Her daughter reports that she has a good appetite and is eating everything in front of her. Per Dr. Rees, he is hoping that the patient will go to surgery sometime this week for her colonic mass resection. Constitutional: Denies: Chills, Fever, Malaise ENT: Denies: Dysphagia Skin: Denies: Rash, Lesions Pulmonary: Denies: Dyspnea, Cough Cardiovascular: Denies: Chest Pain Gastrointestinal: Denies: Nausea, Vomiting, Abdominal Pain, Diarrhea Objective Physical Examination General Exam: Positive: Alert, Cooperative, No Acute Distress ENT Exam: Positive: Atraumatic, Tongue Midline Neck Exam: Positive: Supple, Negative: JVD Chest Exam: Positive: Clear to auscultation Heart Exam: Positive: Rate Normal, Regular Rhythm, Normal S1, Normal S2, Negative: Gallops, Murmurs, Rubs Abdomen Exam: Positive: Normal bowel sounds (Abdominal wall with cecostomy site intact, appears enlarged and has black discoloration. Surrounding skin intact. No erythema or breakdown. No discharge.), Soft, Negative: Tenderness Assessment /Plan Problems (1) Complication of ostomy Status: Acute Problem Text: Patient presented to the ER with swelling and necrosis of her cecostomy site. Dr. Rees (General Surgery) suspects herniation of the cecostomy causing swelling and probably mild ischemia from the swelling. Her albumin is 2.8 right now, but she has a good appetite and is eating everything in front of her per her daughter. Surgery is hoping to take her to the OR this week. She has been switched from Xarelto (outpatient) to Lovenox. Plan/VTE VTE Prophylaxis Ordered?: No VS, I&O, 24H, Fishbone Vital Signs/I&O Vital Signs Date Time Temp Pulse Resp B/P (MAP) Pulse Ox O2 Delivery O2 Flow Rate FiO2 03/13/17 10:31 70 118/80 03/13/17 06:00 98.1 18 96 Room Air Laboratory Data Microbiology Microbiology 03/11/17 Blood Culture - Preliminary, Resulted No growth after 24 hours . All specim... 03/11/17 Blood Culture - Preliminary, Resulted No growth after 24 hours . All specim... KEYLA AJ DO Mar 13, 2017 10:56
[2017-03-13 14:00] VITALS: BP 120/66
[2017-03-13 22:00] VITALS: BP 128/60
[2017-03-14] MEDS: metroNIDAZOLE 500 MG in APPROPRIATE DILUENT 1 EA IV SCH ×3 (05:08→23:00)
[2017-03-14] MEDS: NS 1,000 ML IV SCH (05:20)
[2017-03-14 06:00] VITALS: BP 134/72
[2017-03-14 06:43] LABS: BASO % 0.2 % (0.0-1.0); EOS # 0.5 10^3/uL (0.0-0.50); EOS % 5.2 % (0.0-3.0); IMMATURE GRANULOCYTE % 0.8 % (0-0); LYMPH # 1.4 10^3/uL (1.5-4.5); LYMPH % 14.8 % (24.0-44.0); MEAN CORPUSCULAR HGB CONC 31.1 g/dl (32.0-36.5); MEAN CORPUSCULAR VOLUME 102.9 fl (80.0-96.0); MONO # 0.8 10^3/uL (0.0-0.8); MONO % 8.3 % (0.0-5.0); NEUTROPHILS # 6.5 10^3/uL (1.8-7.7); NEUTROPHILS % 70.7 % (36.0-66.0); PLATELET COUNT, AUTOMATED 358 10^3/uL (150-450); RED CELL DISTRIBUTION WIDTH 20.1 % (11.5-14.5); WHITE BLOOD COUNT 9.2 10^3/uL (4.0-10.0)
[2017-03-14 07:01] LABS: ANION GAP 7 MEQ/L (8-16); BLOOD UREA NITROGEN 17 MG/DL (7-18); CALCIUM LEVEL 7.7 MG/DL (8.8-10.2); CARBON DIOXIDE LEVEL 23 MEQ/L (21-32); CHLORIDE LEVEL 110 MEQ/L (98-107); CREATININE FOR GFR 0.71 MG/DL (0.55-1.02); GLOMERULAR FILTRATION RATE > 60.0 (>32); GLUCOSE, FASTING 123 MG/DL (83-110); POTASSIUM SERUM 4.3 MEQ/L (3.5-5.1); SODIUM LEVEL 140 MEQ/L (136-145)
[2017-03-14] MEDS: FOLIC ACID 1 MG TAB PO SCH (11:16)
[2017-03-14] MEDS: CARVedilol 6.25 MG TAB PO SCH ×2 (11:16→22:02)
[2017-03-14] MEDS: PYRIDOSTIGMINE 60 MG TAB PO SCH ×2 (11:17→22:02)
[2017-03-14] MEDS: POTASSIUM CHLORIDE 10 MEQ SR TABLET PO SCH (11:18)
[2017-03-14] MEDS: ENOXAPARIN 60 MG/0.6 ML SYR (J1650) SC SCH ×2 (11:19→22:03)
[2017-03-14] MEDS: CIPROFLOXACIN 400 MG in APPROPRIATE DILUENT 1 EA IV SCH ×2 (11:19→22:04)
[2017-03-14 13:39] VITALS: BP 118/57
--- NOTE | 2017-03-14 14:18 | IPNPDOC ---
Text Note Date of Service The patient was seen on 03/14/17. NOTE Subjective: Patient seen and examined at bedside this afternoon. She had no complaints today. She continues to eat well. Her cecostomy site is still draining. Denies any abdominal discomfort and pain. Patient states that surgery may operate on her towards the middle of the week. Denies chest pain, shortness of breath, dysuria. Objective: Vital signs: Please see below. Gen.: Alert and oriented, in no acute distress. HEENT: Normocephalic, atraumatic. EOMI. Mucous membranes moist. Cardiovascular: Regular rate and rhythm, no murmurs. Respiratory: Clear to auscultation, no wheezes. Gastrointestinal: Abdominal wall with cecostomy site intact, appears enlarged and has black discoloration. Surrounding skin intact. No erythema or breakdown. No discharge. 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 We will defer management to surgery. Continue patient on Cipro and Flagyl, day #4. Patient has history of PE , currently on Lovenox 60 mg twice a day. Patient has a history of hypertension , continue on Coreg. History of myasthenia gravis, continue patient on Mestinon. VS,Fishbone, I+O VS, Fishbone, I+O Laboratory Tests 03/14/17 06:06 Red Blood Count 2.72 L, Mean Corpuscular Volume 102.9 H, Mean Corpuscular Hemoglobin 32.0, Mean Corpuscular Hemoglobin Concent 31.1 L, Red Cell Distribution Width 20.1 H, Neutrophils (%) (Auto) 70.7 H, Lymphocytes (%) (Auto ) 14.8 L, Monocytes (%) (Auto) 8.3 H, Eosinophils (%) (Auto) 5.2 H, Basophils (% ) (Auto) 0.2, Neutrophils # (Auto) 6.5, Lymphocytes # (Auto) 1.4 L, Monocytes # (Auto) 0.8, Eosinophils # (Auto) 0.5, Basophils # (Auto) 0.0, Calcium Level 7.7 L Vital Signs Date Time Temp Pulse Resp B/P (MAP) Pulse Ox O2 Delivery O2 Flow Rate FiO2 03/14/17 13:39 99.0 74 14 118/57 (77) Room Air 03/14/17 06:00 95 I&O- Last 24 Hours up to 6 AM 03/15/17 06:00 Intake Total 620 ml Output Total 750 ml Balance -130 ml GME ATTESTATION GME ATTESTATION My preceptor for this patient encounter was physically present in the building during the encounter and was fully available. As needed, all aspects of the patient interview, examination, medical decision making process, and medical care plan development were reviewed and approved by the preceptor. Preceptor is aware and concurs with the plan as stated in the body of this note and will attest to such by his/her cosignature. JANETH STEPHENSON DO Mar 14, 2017 14:18
[2017-03-14 20:00] VITALS: BP 137/61
[2017-03-15] MEDS: metroNIDAZOLE 500 MG in APPROPRIATE DILUENT 1 EA IV SCH ×3 (05:29→21:29)
[2017-03-15 06:00] VITALS: BP 135/62
[2017-03-15 07:14] LABS: ALBUMIN 2.2 GM/DL (3.2-5.2); ALBUMIN/GLOBULIN RATIO 0.69 (1.00-1.93); ALKALINE PHOSPHATASE 91 U/L (45-117); ALT/SGPT 15 U/L (12-78); ANION GAP 6 MEQ/L (8-16); AST/SGOT 14 U/L (7-37); BILIRUBIN,TOTAL 0.2 MG/DL (0.2-1.0); BLOOD UREA NITROGEN 18 MG/DL (7-18); CALCIUM LEVEL 7.8 MG/DL (8.8-10.2); CARBON DIOXIDE LEVEL 26 MEQ/L (21-32); CHLORIDE LEVEL 108 MEQ/L (98-107); CREATININE FOR GFR 0.64 MG/DL (0.55-1.02); GLOMERULAR FILTRATION RATE > 60.0 (>32); GLUCOSE, FASTING 112 MG/DL (83-110); POTASSIUM SERUM 4.3 MEQ/L (3.5-5.1); SODIUM LEVEL 140 MEQ/L (136-145); TOTAL PROTEIN 5.4 GM/DL (6.4-8.2)
[2017-03-15] MEDS: CIPROFLOXACIN 400 MG in APPROPRIATE DILUENT 1 EA IV SCH ×2 (09:40→20:13)
[2017-03-15] MEDS: ENOXAPARIN 60 MG/0.6 ML SYR (J1650) SC SCH ×2 (09:40→20:15)
[2017-03-15] MEDS: PYRIDOSTIGMINE 60 MG TAB PO SCH ×2 (09:41→20:11)
[2017-03-15] MEDS: POTASSIUM CHLORIDE 10 MEQ SR TABLET PO SCH (09:41)
[2017-03-15] MEDS: CARVedilol 6.25 MG TAB PO SCH ×2 (09:41→20:13)
[2017-03-15] MEDS: FOLIC ACID 1 MG TAB PO SCH (09:41)
[2017-03-15 14:00] VITALS: BP_SYST 113; BP_SYST 166; BP_DIAS 58; BP_DIAS 67
[2017-03-15 22:00] VITALS: BP 135/68
--- NOTE | 2017-03-16 01:35 | IPNPDOC ---
Subjective Date Seen The patient was seen on 03/15/17. Subjective Chief Complaint/HPI The patient is a 86-year-old female admitted with a reason for visit of Colon Obstruction,Colostomy Enterostomy Malfunctio. Events since last encounter Patient seen on Med-Surg. She is having trouble placing a lunch order, as every time she picked up the hall supervisor she heard the dial tone, and confused it with a busy signal. Her daughter brought in protein supplements, though she seems uninterested in them. Otherwise, without complaints. Constitutional: Denies: Chills, Fever ENT: Denies: Head Aches Pulmonary: Reports: Dyspnea, Denies: Cough Cardiovascular: Denies: Chest Pain, Palpitations Gastrointestinal: Denies: Nausea, Vomiting, Abdominal Pain, Diarrhea, Constipation Objective Physical Examination General Exam: Positive: Alert, Cooperative, No Acute Distress ENT Exam: Positive: Atraumatic, Tongue Midline Neck Exam: Positive: Supple, Negative: JVD Chest Exam: Positive: Clear to auscultation Heart Exam: Positive: Rate Normal, Regular Rhythm, Normal S1, Normal S2, Negative: Gallops, Murmurs, Rubs Abdomen Exam: Positive: Normal bowel sounds (Abdominal wall with cecostomy site intact. Surrounding skin intact. No erythema or breakdown. No discharge.) , Soft, Negative: Tenderness Assessment /Plan Problems (1) Complication of ostomy Status: Acute Problem Text: Patient presented to the ER with swelling and necrosis of her cecostomy site. Dr. Rees (General Surgery) suspects herniation of the cecostomy causing swelling and probably mild ischemia from the swelling. Her albumin is 2.8 right now, but she has a good appetite and is eating everything in front of her per her daughter. Surgery is hoping to take her to the OR this week. She has been switched from Xarelto (outpatient) to Lovenox. Plan/VTE VTE Prophylaxis Ordered?: No VS, I&O, 24H, Fishbone Vital Signs/I&O Vital Signs Date Time Temp Pulse Resp B/P (MAP) Pulse Ox O2 Delivery O2 Flow Rate FiO2 03/15/17 22:00 98.7 98 16 135/68 (90) 96 Room Air Laboratory Data 24H LABS Laboratory Tests 2 03/15/17 06:29: Anion Gap 6L, Glomerular Filtration Rate > 60.0, Blood Urea Nitrogen 18, Creatinine 0.64, Sodium Level 140, Potassium Level 4.3, Chloride Level 108H, Carbon Dioxide Level 26, Calcium Level 7.8L, Aspartate Amino Transf (AST/SGOT) 14, Alanine Aminotransferase (ALT/SGPT) 15, Alkaline Phosphatase 91, Total Bilirubin 0.2, Total Protein 5.4L, Albumin 2.2L, Albumin/Globulin Ratio 0.69L CBC/BMP Laboratory Tests 03/15/17 06:29 Calcium Level 7.8 L, Aspartate Amino Transf (AST/SGOT) 14, Alanine Aminotransferase (ALT/SGPT) 15, Alkaline Phosphatase 91, Total Bilirubin 0.2, Total Protein 5.4 L, Albumin 2.2 L Microbiology Microbiology 03/11/17 Blood Culture - Preliminary, Resulted No Growth after 72 hours. All specime... 03/11/17 Blood Culture - Preliminary, Resulted No Growth after 72 hours. All specime... LORA FRAGOSO DO Mar 16, 2017 01:35
[2017-03-16 06:00] VITALS: BP 124/58
[2017-03-16] MEDS ORDERED: METHOTREXATE 2.5 MG TAB (J8610 PER 2.5MG) PO SCH (09:00)
[2017-03-16] MEDS: CARVedilol 6.25 MG TAB PO SCH ×2 (09:42→20:12)
[2017-03-16] MEDS: FOLIC ACID 1 MG TAB PO SCH (09:43)
[2017-03-16] MEDS: PYRIDOSTIGMINE 60 MG TAB PO SCH ×2 (09:43→20:12)
[2017-03-16] MEDS: POTASSIUM CHLORIDE 10 MEQ SR TABLET PO SCH (09:43)
[2017-03-16] MEDS: ENOXAPARIN 60 MG/0.6 ML SYR (J1650) SC SCH ×2 (12:26→20:13)
[2017-03-16 14:00] VITALS: BP 130/63
[2017-03-16 22:00] VITALS: BP 117/67
[2017-03-17 06:00] VITALS: BP 124/58
[2017-03-17 07:36] LABS: ALBUMIN 2.3 GM/DL (3.2-5.2); ALBUMIN/GLOBULIN RATIO 0.59 (1.00-1.93); ALKALINE PHOSPHATASE 104 U/L (45-117); ALT/SGPT 17 U/L (12-78); ANION GAP 6 MEQ/L (8-16); AST/SGOT 16 U/L (7-37); BILIRUBIN,TOTAL 0.4 MG/DL (0.2-1.0); BLOOD UREA NITROGEN 27 MG/DL (7-18); CALCIUM LEVEL 8.2 MG/DL (8.8-10.2); CARBON DIOXIDE LEVEL 26 MEQ/L (21-32); CHLORIDE LEVEL 106 MEQ/L (98-107); GLOMERULAR FILTRATION RATE > 60.0 (>32); GLUCOSE, FASTING 111 MG/DL (83-110); POTASSIUM SERUM 4.5 MEQ/L (3.5-5.1); SODIUM LEVEL 138 MEQ/L (136-145); TOTAL PROTEIN 6.2 GM/DL (6.4-8.2)
[2017-03-17] MEDS: ENOXAPARIN 60 MG/0.6 ML SYR (J1650) SC SCH ×2 (08:15→21:21)
[2017-03-17] MEDS: CARVedilol 6.25 MG TAB PO SCH ×2 (08:16→21:22)
[2017-03-17] MEDS: FOLIC ACID 1 MG TAB PO SCH (08:16)
[2017-03-17] MEDS: POTASSIUM CHLORIDE 10 MEQ SR TABLET PO SCH (08:16)
[2017-03-17] MEDS: PYRIDOSTIGMINE 60 MG TAB PO SCH ×2 (08:16→21:21)
[2017-03-17 14:00] VITALS: BP 133/71
[2017-03-17 22:00] VITALS: BP 120/57
--- NOTE | 2017-03-18 05:13 | IPN ---
DATE OF SERVICE: 03/17/2017 The patient has an obstructing distal transverse colon lesion with an ostomy at the level of the cecum. She re-presented recently with what appears to be prolapse of the entire cecum through her ostomy site. Vital signs show her to be afebrile with stable vitals. Intake and output on the 8th showed recorded 840 in with 2350 out. Her urine output has been excellent and I suspect that we are under recording her intake on a regular basis. We are not measuring her urine output adequately either I believe. PHYSICAL EXAMINATION: Reveals a pleasant woman sitting up at the bedside. She denies any pain. She has had no nausea or vomiting. She is alert and oriented. Sclerae are anicteric. Heart exam shows a regular rhythm. The abdomen is mildly obese, but soft. The ostomy appears viable and is putting out intestinal contents. LABORATORY STUDIES: Today, she had a CPA that shows her total protein at 6.2 with an albumin of 2.3 and her electrolytes are normal. IMPRESSION: Obstructing distal transverse colon lesion likely cancer with now significantly prolapsed cecal ostomy. PLAN: I believe the patient's nutrition is probably adequate to consider proceeding with her surgery. I have recommended that we place a peripherally inserted central catheter (PICC) line and start her on total parenteral nutrition (TPN) to ensure that her nutritional intake is optimized for the next few days and for the immediate postoperative period as well. I will look for operating room (OR) time on this coming Tuesday or Tuesday the or 22 of March to proceed with a laparotomy with colon resection and anastomosis. The patient is in agreement with this plan. ROLANDO
[2017-03-18 06:00] VITALS: BP 126/60
--- NOTE | 2017-03-18 06:01 | IPNPDOC ---
Text Note Date of Service The patient was seen on 03/17/17. NOTE Subjective: Patient seen and examined at bedside this afternoon. She complains of occasional abdominal cramping, unchanged. She continues to eat well. Her cecostomy site is still draining. Denies any abdominal discomfort and pain. Family members continue to bring her snacks with protein. Denies chest pain, shortness of breath, dysuria. Objective: Vital signs: Please see below. Gen.: Alert and oriented, in no acute distress. HEENT: Normocephalic, atraumatic. EOMI. Mucous membranes moist. Cardiovascular: Regular rate and rhythm, no murmurs. Respiratory: Clear to auscultation, no wheezes. Gastrointestinal: Abdominal wall with cecostomy site intact, appears enlarged and has black discoloration. Surrounding skin intact. No erythema or breakdown. No discharge. 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 We will defer management to surgery. They plan on starting patient on TPN to optimize her nutrition, current albumin 2.3. Possible surgery early next week. Patient has history of PE , currently on Lovenox 60 mg twice a day. Patient has a history of hypertension , continue on Coreg. History of myasthenia gravis, continue patient on Mestinon. Patient was started on methotrexate yesterday. VS,Fishbone, I+O VS, Fishbone, I+O Laboratory Tests 03/17/17 06:55 Calcium Level 8.2 L, Aspartate Amino Transf (AST/SGOT) 16, Alanine Aminotransferase (ALT/SGPT) 17, Alkaline Phosphatase 104, Total Bilirubin 0.4 # , Total Protein 6.2 L, Albumin 2.3 L Vital Signs Date Time Temp Pulse Resp B/P (MAP) Pulse Ox O2 Delivery O2 Flow Rate FiO2 03/17/17 22:00 99.1 94 18 120/57 (78) 96 Room Air GME ATTESTATION GME ATTESTATION My preceptor for this patient encounter was physically present in the building during the encounter and was fully available. As needed, all aspects of the patient interview, examination, medical decision making process, and medical care plan development were reviewed and approved by the preceptor. Preceptor is aware and concurs with the plan as stated in the body of this note and will attest to such by his/her cosignature. JANETH STEPHENSON DO Mar 18, 2017 06:01
[2017-03-18 07:18] LABS: MEAN CORPUSCULAR HEMOGLOBIN 31.7 pg (27.0-33.0); MEAN CORPUSCULAR HGB CONC 31.2 g/dl (32.0-36.5); MEAN CORPUSCULAR VOLUME 101.6 fl (80.0-96.0); PLATELET COUNT, AUTOMATED 405 10^3/uL (150-450); RED CELL DISTRIBUTION WIDTH 20.5 % (11.5-14.5); WHITE BLOOD COUNT 7.5 10^3/uL (4.0-10.0)
[2017-03-18 07:33] LABS: ALBUMIN 2.2 GM/DL (3.2-5.2); ALBUMIN/GLOBULIN RATIO 0.61 (1.00-1.93); ALKALINE PHOSPHATASE 101 U/L (45-117); ALT/SGPT 27 U/L (12-78); ANION GAP 4 MEQ/L (8-16); AST/SGOT 30 U/L (7-37); BILIRUBIN,TOTAL 0.2 MG/DL (0.2-1.0); BLOOD UREA NITROGEN 36 MG/DL (7-18); CALCIUM LEVEL 7.8 MG/DL (8.8-10.2); CARBON DIOXIDE LEVEL 27 MEQ/L (21-32); CHLORIDE LEVEL 109 MEQ/L (98-107); CREATININE FOR GFR 0.54 MG/DL (0.55-1.02); GLOMERULAR FILTRATION RATE > 60.0 (>32); GLUCOSE, FASTING 108 MG/DL (83-110); POTASSIUM SERUM 4.3 MEQ/L (3.5-5.1); SODIUM LEVEL 140 MEQ/L (136-145); TOTAL PROTEIN 5.8 GM/DL (6.4-8.2)
[2017-03-18] MEDS: PYRIDOSTIGMINE 60 MG TAB PO SCH ×2 (07:47→20:13)
[2017-03-18] MEDS: POTASSIUM CHLORIDE 10 MEQ SR TABLET PO SCH (07:47)
[2017-03-18] MEDS: FOLIC ACID 1 MG TAB PO SCH (07:47)
[2017-03-18] MEDS: CARVedilol 6.25 MG TAB PO SCH ×2 (07:48→20:13)
[2017-03-18] MEDS: ENOXAPARIN 60 MG/0.6 ML SYR (J1650) SC SCH ×2 (09:14→20:13)
[2017-03-18 14:00] VITALS: BP 119/59
--- NOTE | 2017-03-18 17:44 | REP ---
Procedure: PICC line insertion with Diane-Elvira The procedure was performed under the direct supervision of Dr. Garcia. The risks and benefits of the procedure were explained to the patient and informed consent was obtained. The left basilic vein was localized using ultrasound guidance. The skin was prepped and draped in a sterile fashion. 2% lidocaine was used as a local anesthetic. Using ultrasound guidance the basilic vein was cannulated and a 0.018 guidewire was inserted and advanced to the SVC using fluoroscopic guidance. The needle was removed and a 5.5 Japanese dilator and peel-away sheath was inserted over the guide wire. A 5.5 Japanese dual lumen catheter was cut to length of 41 cm. The dilator was removed and the catheter was inserted over the guide wire with the tip ending in the SVC. The peel-away sheath was removed and the catheter was flushed with heparinized saline as per Hospital protocol. The catheter was affixed to the skin and a sterile dressing was applied. The the patient tolerated the procedure well and there were no immediate complications. 0.4 minutes of fluoro time was utilized for this procedure. Reviewed by JEROME Siegel 03/18/2017 05:00 PSigned by Bogdan Garcia MD 03/18/2017 05:35 P
[2017-03-18] MEDS ORDERED: MULTIVITAMIN -ADULT INJECTION 10 ML, CR/CU/SE/MN/ZN INJ 1 ML in AMINO AC/ELECTROLYTE/DE... IV SCH (18:00)
[2017-03-18] MEDS: SODIUM CHLORIDE 0.9% INJ 10 ML SYR IV SCH (18:08)
[2017-03-18] MEDS: HumaLOG INSULIN (NovoLOG) PER UNIT SC SCH ×2 (18:08→23:37)
--- NOTE | 2017-03-18 18:28 | IPN ---
DATE: 03/18/2017 HISTORY: The patient is an 86-year-old woman with an obstructing transverse colon mass. A previous cecostomy has prolapsed and she was readmitted for further management. When her nutrition is felt to be adequate, we will proceed with a colectomy and closure of her ostomy. Vital signs show that she has been afebrile for the past 24 hours with a pulse generally in the low 90s and an acceptable blood pressure. Intake and output shows that on the 7th she had 1560 in and 1850 out. Much of her output is in the form of output from what is effectively an ileostomy. PHYSICAL EXAMINATION: The patient is an elderly woman lying quietly on her hospital bed. She does not appear uncomfortable. She is alert. Heart exam shows a regular rhythm. The lungs are clear. The abdomen is soft. She has an ostomy in the right. Inspection suggests to me that she has everted her entire cecum and that the ileocecal valve is present at the inferior aspect of her stoma and this is where her output is from. The mass of tissue is perhaps 8 cm in diameter. The abdomen is soft and without significant tenderness. LABORATORY FINDINGS: The patient has no new labs on the . IMPRESSION: 1. Obstructing distal transverse mass, probable cancer. 2. Recent deep venous thrombosis (DVT), currently on twice a day Lovenox. 3. Malnutrition. PLAN: The patient will remain in the hospital for now. Dr. Rees's plan had been to operate later this week, but her most recent protein and albumin were 5.4 and 2.2 on the . Her prealbumin on the 6th was 15.6. I think she is eating about as much as she is comfortable with. This remains a balancing act effectively trying to encourage a good diet so that her nutrition will improve and she will likely have fewer problems after her surgery but at the same time not wanting her tumor to have long to grow. I think we may have reached a point where given the prolapse of her stoma that accepting slightly less than optimal nutritional status may be preferable to waiting a prolonged period in hopes that she will gain enough strength to be optimized. I will watch her for the next day or two and see how things proceed with her diet and her nutrition. ROLANDO
--- NOTE | 2017-03-18 21:52 | IPNPDOC ---
Text Note Date of Service The patient was seen on 03/18/17. NOTE Patient seen and examined at bedside this afternoon. She complains of occasional abdominal cramping, unchanged. She continues to eat well. Her cecostomy site is still draining. Surgery plans to start her on TPN today. Patient was not walking on the unit because she thought that the nurses were to busy to walk with her. Denies chest pain, shortness of breath, dysuria. Objective: Vital signs: Please see below. Gen.: Alert and oriented, in no acute distress. HEENT: Normocephalic, atraumatic. EOMI. Mucous membranes moist. Cardiovascular: Regular rate and rhythm, no murmurs. Respiratory: Clear to auscultation, no wheezes. Gastrointestinal: Abdominal wall with cecostomy site intact, appears enlarged and has black discoloration, but improved from previous day. Surrounding skin intact. No erythema or breakdown. No discharge. 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 We will defer management to surgery. Plan to start TPN tonight, current albumin 2.2. Possible surgery early next week. Patient has history of PE, currently on Lovenox 60 mg twice a day. Patient has a history of hypertension, continue on Coreg. History of myasthenia gravis, continue patient on Mestinon. VS,Fishbone, I+O VS, Fishbone, I+O Laboratory Tests 03/18/17 06:49 Red Blood Count 3.09 L, Mean Corpuscular Volume 101.6 H, Mean Corpuscular Hemoglobin 31.7, Mean Corpuscular Hemoglobin Concent 31.2 L, Red Cell Distribution Width 20.5 H, Calcium Level 7.8 L, Aspartate Amino Transf (AST/SGOT ) 30, Alanine Aminotransferase (ALT/SGPT) 27, Alkaline Phosphatase 101, Total Bilirubin 0.2, Total Protein 5.8 L, Albumin 2.2 L Vital Signs Date Time Temp Pulse Resp B/P (MAP) Pulse Ox O2 Delivery O2 Flow Rate FiO2 03/18/17 20:13 80 119/59 03/18/17 18:40 Room Air 03/18/17 14:00 98.3 16 96 I&O- Last 24 Hours up to 6 AM 03/19/17 06:00 Intake Total 1450 ml Output Total 1100 ml Balance 350 ml GME ATTESTATION GME ATTESTATION My preceptor for this patient encounter was physically present in the building during the encounter and was fully available. As needed, all aspects of the patient interview, examination, medical decision making process, and medical care plan development were reviewed and approved by the preceptor. Preceptor is aware and concurs with the plan as stated in the body of this note and will attest to such by his/her cosignature. JANETH STEPHENSON DO Mar 18, 2017 21:52
[2017-03-18 22:00] VITALS: BP 132/60
[2017-03-19] MEDS: SODIUM CHLORIDE 0.9% INJ 10 ML SYR IV SCH ×2 (05:31→17:24)
[2017-03-19 05:44] LABS: MEAN CORPUSCULAR HEMOGLOBIN 31.3 pg (27.0-33.0); MEAN CORPUSCULAR HGB CONC 30.7 g/dl (32.0-36.5); MEAN CORPUSCULAR VOLUME 101.6 fl (80.0-96.0); PLATELET COUNT, AUTOMATED 365 10^3/uL (150-450); RED CELL DISTRIBUTION WIDTH 20.1 % (11.5-14.5); WHITE BLOOD COUNT 8.3 10^3/uL (4.0-10.0)
[2017-03-19 06:00] VITALS: BP 123/60
[2017-03-19 06:16] LABS: ALBUMIN 2.3 GM/DL (3.2-5.2); ALBUMIN/GLOBULIN RATIO 0.77 (1.00-1.93); ALKALINE PHOSPHATASE 94 U/L (45-117); ALT/SGPT 23 U/L (12-78); ANION GAP 9 MEQ/L (8-16); AST/SGOT 25 U/L (7-37); BILIRUBIN,TOTAL 0.2 MG/DL (0.2-1.0); BLOOD UREA NITROGEN 31 MG/DL (7-18); CALCIUM LEVEL 7.7 MG/DL (8.8-10.2); CARBON DIOXIDE LEVEL 24 MEQ/L (21-32); CHLORIDE LEVEL 109 MEQ/L (98-107); CREATININE FOR GFR 0.47 MG/DL (0.55-1.02); GLOMERULAR FILTRATION RATE > 60.0 (>32); GLUCOSE, FASTING 131 MG/DL (83-110); POTASSIUM SERUM 4.6 MEQ/L (3.5-5.1); SODIUM LEVEL 142 MEQ/L (136-145); TOTAL PROTEIN 5.3 GM/DL (6.4-8.2)
[2017-03-19] MEDS: HumaLOG INSULIN (NovoLOG) PER UNIT SC SCH ×3 (06:22→18:36)
[2017-03-19] MEDS: FOLIC ACID 1 MG TAB PO SCH (09:10)
[2017-03-19] MEDS: CARVedilol 6.25 MG TAB PO SCH ×2 (09:10→20:07)
[2017-03-19] MEDS: ENOXAPARIN 60 MG/0.6 ML SYR (J1650) SC SCH ×2 (09:10→20:08)
[2017-03-19] MEDS: PYRIDOSTIGMINE 60 MG TAB PO SCH ×2 (09:10→20:07)
[2017-03-19] MEDS: POTASSIUM CHLORIDE 10 MEQ SR TABLET PO SCH (09:11)
[2017-03-19 14:00] VITALS: BP 126/58
--- NOTE | 2017-03-19 17:05 | IPNPDOC ---
Subjective Date Seen The patient was seen on 03/19/17. Subjective Chief Complaint/HPI The patient is a 86-year-old female admitted with a reason for visit of Colon Obstruction,Colostomy Enterostomy Malfunctio. Constitutional: Denies: Chills Eyes: Denies: Pain Skin: Denies: Rash Pulmonary: Denies: Dyspnea, Cough Cardiovascular: Denies: Chest Pain, Palpitations Gastrointestinal: Denies: Nausea, Vomiting Objective Physical Examination General Exam: Positive: Alert, Cooperative, No Acute Distress ENT Exam: Positive: Atraumatic, Tongue Midline Neck Exam: Positive: Supple, Negative: JVD Chest Exam: Positive: Clear to auscultation Heart Exam: Positive: Rate Normal, Regular Rhythm, Normal S1, Normal S2, Negative: Gallops, Murmurs, Rubs Abdomen Exam: Positive: Normal bowel sounds (Abdominal wall with cecostomy site intact. Surrounding skin intact. No erythema or breakdown. No discharge.) , Soft, Negative: Tenderness Assessment /Plan Problems (1) Severe protein-calorie malnutrition Status: Chronic Problem Text: 03/19 alb 2.3, Toni started TPN 03/18 PICC placed (2) Anemia Status: Chronic Response to Treatment: Stable Problem Text: 03/19 stable hgb 9.5 03/17 HO - 02/2017 admission for acute GI blood loss anemia-tx 2u PRBCs and Venofer 750- probably 2 bleeding colonic mass (3) Pulmonary emboli Status: Chronic Response to Treatment: Stable Problem Text: changed to Lovenox in preparation for surgery 02/12/17 CTA chest c large B main PA PE; therefore, rivaroxaban started (4) Complication of ostomy Status: Acute Problem Text: plan colectomy of obstructing transverse colon mass c ostomy closure Patient presented to the ER with swelling and necrosis of her cecostomy site- Dr. Rees (General Surgery) suspects herniation of the cecostomy causing swelling and probably mild ischemia from the swelling. (5) Atrial fibrillation Status: Chronic Problem Text: Patient remains asx Lovenox for anticoag carvedilol for rate control (6) Myasthenia gravis Status: Chronic Problem Text: stable on HD MTX 7.5 qW and pyrido (7) Hypertension Status: Chronic (8) Colon obstruction Plan/VTE VTE Prophylaxis Ordered?: No VS, I&O, 24H, Fishbone Vital Signs/I&O Vital Signs Date Time Temp Pulse Resp B/P (MAP) Pulse Ox O2 Delivery O2 Flow Rate FiO2 03/19/17 09:10 78 123/60 03/19/17 08:00 Room Air 03/19/17 06:00 97.8 18 95 I&O- Last 24 Hours up to 6 AM 03/20/17 05:59 Intake Total 720 ml Output Total 850 ml Balance -130 ml Laboratory Data 24H LABS Laboratory Tests 2 03/18/17 18:03: Bedside Glucose (Misc Panel) 150H 03/18/17 23:31: Bedside Glucose (Misc Panel) 139H 03/19/17 05:29: Nucleated Red Blood Cells % (auto) 0.0, Anion Gap 9, Glomerular Filtration Rate > 60.0, Blood Urea Nitrogen 31H, Creatinine 0.47L, Sodium Level 142, Potassium Level 4.6, Chloride Level 109H, Carbon Dioxide Level 24, Calcium Level 7.7L, Aspartate Amino Transf (AST/SGOT) 25, Alanine Aminotransferase (ALT/SGPT) 23, Alkaline Phosphatase 94, Total Bilirubin 0.2, Total Protein 5.3L, Albumin 2.3L, Albumin/Globulin Ratio 0.77L 03/19/17 05:36: Bedside Glucose (Misc Panel) 115H 03/19/17 11:38: Bedside Glucose (Misc Panel) 217H CBC/BMP Laboratory Tests 03/19/17 05:29 Red Blood Count 3.04 L, Mean Corpuscular Volume 101.6 H, Mean Corpuscular Hemoglobin 31.3, Mean Corpuscular Hemoglobin Concent 30.7 L, Red Cell Distribution Width 20.1 H, Calcium Level 7.7 L, Aspartate Amino Transf (AST/SGOT ) 25, Alanine Aminotransferase (ALT/SGPT) 23, Alkaline Phosphatase 94, Total Bilirubin 0.2, Total Protein 5.3 L, Albumin 2.3 L Microbiology Microbiology 03/11/17 Blood Culture - Final, Complete NO GROWTH AFTER 5 DAYS 03/11/17 Blood Culture - Final, Complete NO GROWTH AFTER 5 DAYS 03/17/17 Stool Occult Blood (TRENT) - Final, Complete Vikram Fischer M.D. Mar 19, 2017 17:05
[2017-03-19] MEDS ORDERED: AMINO AC/ELECTROLYTE/DEX/CALC 2,566 ML IV SCH (18:00)
[2017-03-19 22:00] VITALS: BP 111/55
[2017-03-20] MEDS: HumaLOG INSULIN (NovoLOG) PER UNIT SC SCH ×4 (00:36→18:35)
[2017-03-20] MEDS: SODIUM CHLORIDE 0.9% INJ 10 ML SYR IV SCH ×2 (05:11→18:03)
[2017-03-20 05:20] LABS: MEAN CORPUSCULAR HGB CONC 31.6 g/dl (32.0-36.5); MEAN CORPUSCULAR VOLUME 101.3 fl (80.0-96.0); PLATELET COUNT, AUTOMATED 345 10^3/uL (150-450); RED CELL DISTRIBUTION WIDTH 20.2 % (11.5-14.5); WHITE BLOOD COUNT 7.6 10^3/uL (4.0-10.0)
[2017-03-20 05:42] LABS: ALBUMIN 2.3 GM/DL (3.2-5.2); ALBUMIN/GLOBULIN RATIO 0.72 (1.00-1.93); ALKALINE PHOSPHATASE 96 U/L (45-117); ALT/SGPT 23 U/L (12-78); ANION GAP 7 MEQ/L (8-16); AST/SGOT 17 U/L (7-37); BILIRUBIN,TOTAL 0.2 MG/DL (0.2-1.0); BLOOD UREA NITROGEN 32 MG/DL (7-18); CALCIUM LEVEL 7.7 MG/DL (8.8-10.2); CARBON DIOXIDE LEVEL 25 MEQ/L (21-32); CHLORIDE LEVEL 110 MEQ/L (98-107); CREATININE FOR GFR 0.49 MG/DL (0.55-1.02); FERRITIN 291 NG/ML (8-252); GLOMERULAR FILTRATION RATE > 60.0 (>32); GLUCOSE, FASTING 131 MG/DL (83-110); PERCENT SATURATION 26.8 % (13.2-45.0); POTASSIUM SERUM 4.7 MEQ/L (3.5-5.1); SODIUM LEVEL 142 MEQ/L (136-145); TOTAL IRON BINDING CAPACITY 231 UG/DL (250-450); TOTAL PROTEIN 5.5 GM/DL (6.4-8.2)
[2017-03-20 06:00] VITALS: BP 127/58
[2017-03-20] MEDS: ENOXAPARIN 60 MG/0.6 ML SYR (J1650) SC SCH ×2 (08:53→20:56)
[2017-03-20] MEDS: CARVedilol 6.25 MG TAB PO SCH ×2 (08:54→20:57)
[2017-03-20] MEDS: POTASSIUM CHLORIDE 10 MEQ SR TABLET PO SCH (08:54)
[2017-03-20] MEDS: PYRIDOSTIGMINE 60 MG TAB PO SCH ×2 (08:54→20:57)
[2017-03-20] MEDS: FOLIC ACID 1 MG TAB PO SCH (08:54)
[2017-03-20 14:00] VITALS: BP 119/56
--- NOTE | 2017-03-20 16:31 | IPNPDOC ---
Subjective Date Seen The patient was seen on 03/20/17. Subjective Chief Complaint/HPI The patient is a 86-year-old female admitted with a reason for visit of Colon Obstruction,Colostomy Enterostomy Malfunctio. Constitutional: Denies: Chills Pulmonary: Denies: Dyspnea, Cough Cardiovascular: Denies: Chest Pain Gastrointestinal: Denies: Nausea, Vomiting Objective Physical Examination General Exam: Positive: Alert, Cooperative, No Acute Distress ENT Exam: Positive: Atraumatic, Tongue Midline Neck Exam: Positive: Supple, Negative: JVD Chest Exam: Positive: Clear to auscultation Heart Exam: Positive: Rate Normal, Regular Rhythm, Normal S1, Normal S2, Negative: Gallops, Murmurs, Rubs Abdomen Exam: Positive: Normal bowel sounds (Abdominal wall with cecostomy site intact. Surrounding skin intact. No erythema or breakdown. No discharge.) , Soft, Negative: Tenderness Assessment /Plan Problems (1) Severe protein-calorie malnutrition Status: Chronic Problem Text: 03/19 alb 2.3, Toni started TPN 03/18 PICC placed (2) Anemia Status: Chronic Response to Treatment: Stable Problem Text: 03/20 9.7 03/19 stable hgb 9.5 03/20 % sat 27%/ferritin 291 03/17 HO - 02/2017 admission for acute GI blood loss anemia-tx 2u PRBCs and Venofer 750- probably 2 bleeding colonic mass (3) Pulmonary emboli Status: Chronic Response to Treatment: Stable Problem Text: changed to Lovenox in preparation for surgery 02/12/17 CTA chest c large B main PA PE; therefore, rivaroxaban started (4) Complication of ostomy Status: Acute Problem Text: plan colectomy of obstructing transverse colon mass c ostomy closure Patient presented to the ER with swelling and necrosis of her cecostomy site- Dr. Rees (General Surgery) suspects herniation of the cecostomy causing swelling and probably mild ischemia from the swelling. (5) Atrial fibrillation Status: Chronic Problem Text: Patient remains asx Lovenox for anticoag carvedilol for rate control (6) Myasthenia gravis Status: Chronic Problem Text: stable on HD MTX 7.5 qW and pyrido (7) Hypertension Status: Chronic Response to Treatment: Stable Plan/VTE VTE Prophylaxis Ordered?: No VS, I&O, 24H, Fishbone Vital Signs/I&O Vital Signs Date Time Temp Pulse Resp B/P (MAP) Pulse Ox O2 Delivery O2 Flow Rate FiO2 03/20/17 08:54 77 127/58 03/20/17 07:54 Room Air 03/20/17 06:00 97.8 18 98 I&O- Last 24 Hours up to 6 AM 03/21/17 06:00 Intake Total 240 ml Output Total 400 ml Balance -160 ml Laboratory Data 24H LABS Laboratory Tests 2 03/19/17 18:31: Bedside Glucose (Misc Panel) 163H 03/19/17 23:40: Bedside Glucose (Misc Panel) 125H 03/20/17 05:07: Nucleated Red Blood Cells % (auto) 0.0, Anion Gap 7L, Glomerular Filtration Rate > 60.0, Blood Urea Nitrogen 32H, Creatinine 0.49L, Sodium Level 142, Potassium Level 4.7, Chloride Level 110H, Carbon Dioxide Level 25, Calcium Level 7.7L, Aspartate Amino Transf (AST/SGOT) 17, Alanine Aminotransferase (ALT/ SGPT) 23, Alkaline Phosphatase 96, Total Bilirubin 0.2, Total Protein 5.5L, Albumin 2.3L, Iron Level 62, Total Iron Binding Capacity 231L, Transferrin % Saturation 26.8, Ferritin 291H, Albumin/Globulin Ratio 0.72L 03/20/17 12:21: Bedside Glucose (Misc Panel) 176H CBC/BMP Laboratory Tests 03/20/17 05:07 Red Blood Count 3.03 L, Mean Corpuscular Volume 101.3 H, Mean Corpuscular Hemoglobin 32.0, Mean Corpuscular Hemoglobin Concent 31.6 L, Red Cell Distribution Width 20.2 H, Calcium Level 7.7 L, Aspartate Amino Transf (AST/SGOT ) 17, Alanine Aminotransferase (ALT/SGPT) 23, Alkaline Phosphatase 96, Total Bilirubin 0.2, Total Protein 5.5 L, Albumin 2.3 L Microbiology Microbiology 03/11/17 Blood Culture - Final, Complete NO GROWTH AFTER 5 DAYS 03/11/17 Blood Culture - Final, Complete NO GROWTH AFTER 5 DAYS 03/17/17 Stool Occult Blood (TRENT) - Final, Complete Vikram Fischer M.D. Mar 20, 2017 16:31
[2017-03-20] MEDS ORDERED: AMINO AC/ELECTROLYTE/DEX/CALC 2,566 ML IV SCH (18:00)
--- NOTE | 2017-03-20 19:24 | IPN ---
DATE: 03/18/2017 SUBJECTIVE: The patient has an obstructing distal transverse colon lesion with a cecal ostomy which has now prolapsed. The patient's vital signs show that she is afebrile with a pulse in the 70s to 90s. Her blood pressure is good. Her intake and output from 03/17 showed 1260 in, and 2825 out. I suspect we may be under representing her oral intake. A peripherally inserted central catheter (PICC) line was placed on 03/18 to begin total parenteral nutrition (TPN). OBJECTIVE: Physical examination shows a pleasant elderly woman sitting up in a chair at the bedside. She is alert and oriented. Her daughter is present today. The abdomen is soft and without tenderness and her prolapsed ostomy has an appliance in place which is draining some intestinal contents. LABORATORY FINDINGS: Her CBC shows a white count of 7.5 with a hemoglobin 10, hematocrit 31, and a platelet count of 405,000. Chemistry profile shows a sodium 140, potassium 4.3, chloride 109 and a CO2 of 27. BUN is 36 with creatinine of 0.5. Total protein is 5.8 with an albumin of 2.2. As noted above, she had a PICC line placed in this morning for initiation of TPN. IMPRESSION: 1. Obstructing distal transverse colon cancer. 2. Borderline nutritional parameters. PLAN: The patient has not made ideal progress in improving her protein and albumin. Some of this may represent problems associated with her prolapsed ostomy and her persistent distal transverse colon obstruction. I think she is fit enough at this point to undergo surgery. I have recommended that we proceed to the operating room on March 22 for an open transverse colectomy with ileal colostomy. We will keep her on total parenteral nutrition over the weekend to ensure that she is getting optimal nutrition for at least the next three days. We will do a limited bowel prep on Tuesday, March 21. [facility] CAMPUSGillian
[2017-03-20 22:00] VITALS: BP 127/58
[2017-03-21] MEDS: HumaLOG INSULIN (NovoLOG) PER UNIT SC SCH ×4 (00:01→18:09)
[2017-03-21] MEDS: SODIUM CHLORIDE 0.9% INJ 10 ML SYR IV SCH ×2 (05:21→18:10)
[2017-03-21 05:47] LABS: MEAN CORPUSCULAR HEMOGLOBIN 32.1 pg (27.0-33.0); MEAN CORPUSCULAR HGB CONC 31.3 g/dl (32.0-36.5); MEAN CORPUSCULAR VOLUME 102.6 fl (80.0-96.0); PLATELET COUNT, AUTOMATED 347 10^3/uL (150-450); RED CELL DISTRIBUTION WIDTH 20.4 % (11.5-14.5); WHITE BLOOD COUNT 8.5 10^3/uL (4.0-10.0)
[2017-03-21 06:00] VITALS: BP 137/65
[2017-03-21 06:04] LABS: ALBUMIN 2.3 GM/DL (3.2-5.2); ALBUMIN/GLOBULIN RATIO 0.74 (1.00-1.93); ALKALINE PHOSPHATASE 100 U/L (45-117); ALT/SGPT 22 U/L (12-78); ANION GAP 7 MEQ/L (8-16); AST/SGOT 18 U/L (7-37); BILIRUBIN,TOTAL 0.2 MG/DL (0.2-1.0); BLOOD UREA NITROGEN 28 MG/DL (7-18); CALCIUM LEVEL 7.7 MG/DL (8.8-10.2); CARBON DIOXIDE LEVEL 25 MEQ/L (21-32); CHLORIDE LEVEL 110 MEQ/L (98-107); CREATININE FOR GFR 0.52 MG/DL (0.55-1.02); GLOMERULAR FILTRATION RATE > 60.0 (>32); GLUCOSE, FASTING 118 MG/DL (83-110); POTASSIUM SERUM 4.6 MEQ/L (3.5-5.1); SODIUM LEVEL 142 MEQ/L (136-145); TOTAL PROTEIN 5.4 GM/DL (6.4-8.2)
[2017-03-21 08:25] VITALS: BP 122/64
--- NOTE | 2017-03-21 09:04 | IPNPDOC ---
Subjective Date Seen The patient was seen on 03/21/17. Subjective Chief Complaint/HPI The patient is a 86-year-old female admitted with a reason for visit of Colon Obstruction,Colostomy Enterostomy Malfunctio. Events since last encounter Pt without new concerns this morning. General: Denies: Fatigue Constitutional: Denies: Chills, Fever Pulmonary: Denies: Dyspnea, Cough Cardiovascular: Denies: Chest Pain, Palpitations Gastrointestinal: Denies: Nausea, Vomiting Neurological: Denies: Weakness Psych: Reports: Mood Normal Objective Physical Examination General Exam: Positive: Alert, Cooperative, No Acute Distress Neck Exam: Positive: Supple, Negative: JVD Chest Exam: Positive: Clear to auscultation, Diminished Heart Exam: Positive: Rate Normal, Regular Rhythm, Normal S1, Normal S2, Negative: Gallops, Murmurs, Rubs Abdomen Exam: Positive: Normal bowel sounds (Abdominal wall with cecostomy site intact. Surrounding skin intact. No erythema or breakdown. No discharge.) , Soft, Negative: Tenderness Assessment /Plan Problems (1) Severe protein-calorie malnutrition Status: Chronic Problem Text: 03/21 Plan is for OR 03/[address] Guerra. She will have bowel prep today per . She has been on TPN over the weekend to help boost her Albumin ahead of surgery. 03/19 alb 2.3, Toni started TPN 03/18 PICC placed (2) Anemia Status: Chronic Response to Treatment: Stable Problem Text: 03/21 - Hgb stable at 9.7 03/20 9.7 03/19 stable hgb 9.5 03/20 % sat 27%/ferritin 291 03/17 HO - 02/2017 admission for acute GI blood loss anemia-tx 2u PRBCs and Venofer 750- probably 2 bleeding colonic mass (3) Pulmonary emboli Status: Chronic Response to Treatment: Stable Problem Text: 03/20 changed to Lovenox in preparation for surgery 02/12/17 CTA chest c large B main PA PE; therefore, rivaroxaban started (4) Complication of ostomy Status: Acute Problem Text: plan colectomy of obstructing transverse colon mass c ostomy closure Patient presented to the ER with swelling and necrosis of her cecostomy site- Dr. Rees (General Surgery) suspects herniation of the cecostomy causing swelling and probably mild ischemia from the swelling. (5) Atrial fibrillation Status: Chronic Problem Text: Patient remains asx Lovenox for anticoag carvedilol for rate control (6) Myasthenia gravis Status: Chronic Problem Text: stable on HD MTX 7.5 qW and pyrido (7) Hypertension Status: Chronic Response to Treatment: Stable Plan/VTE VTE Prophylaxis Ordered?: Yes VS, I&O, 24H, Fishbone Vital Signs/I&O Vital Signs Date Time Temp Pulse Resp B/P (MAP) Pulse Ox O2 Delivery O2 Flow Rate FiO2 03/21/17 08:25 97.8 91 18 122/64 (83) 98 Room Air I&O- Last 24 Hours up to 6 AM 03/22/17 06:00 Intake Total 360 ml Balance 360 ml Laboratory Data 24H LABS Laboratory Tests 2 03/20/17 12:21: Bedside Glucose (Misc Panel) 176H 03/20/17 17:47: Bedside Glucose (Misc Panel) 186H 03/20/17 23:32: Bedside Glucose (Misc Panel) 126H 03/21/17 05:19: Nucleated Red Blood Cells % (auto) 0.0, Anion Gap 7L, Glomerular Filtration Rate > 60.0, Blood Urea Nitrogen 28H, Creatinine 0.52L, Sodium Level 142, Potassium Level 4.6, Chloride Level 110H, Carbon Dioxide Level 25, Calcium Level 7.7L, Aspartate Amino Transf (AST/SGOT) 18, Alanine Aminotransferase (ALT/ SGPT) 22, Alkaline Phosphatase 100, Total Bilirubin 0.2, Total Protein 5.4L, Albumin 2.3L, Albumin/Globulin Ratio 0.74L CBC/BMP Laboratory Tests 03/21/17 05:19 Red Blood Count 3.02 L, Mean Corpuscular Volume 102.6 H, Mean Corpuscular Hemoglobin 32.1, Mean Corpuscular Hemoglobin Concent 31.3 L, Red Cell Distribution Width 20.4 H, Calcium Level 7.7 L, Aspartate Amino Transf (AST/SGOT ) 18, Alanine Aminotransferase (ALT/SGPT) 22, Alkaline Phosphatase 100, Total Bilirubin 0.2, Total Protein 5.4 L, Albumin 2.3 L Microbiology Microbiology 03/11/17 Blood Culture - Final, Complete NO GROWTH AFTER 5 DAYS 03/11/17 Blood Culture - Final, Complete NO GROWTH AFTER 5 DAYS 03/17/17 Stool Occult Blood (TRENT) - Final, Complete STEWART,ROSALIE N. PA-C Mar 21, 2017 09:04
[2017-03-21] MEDS: PYRIDOSTIGMINE 60 MG TAB PO SCH ×2 (10:23→20:12)
[2017-03-21] MEDS: POTASSIUM CHLORIDE 10 MEQ SR TABLET PO SCH (10:24)
[2017-03-21] MEDS: CARVedilol 6.25 MG TAB PO SCH ×2 (10:25→20:13)
[2017-03-21] MEDS: FOLIC ACID 1 MG TAB PO SCH (10:25)
[2017-03-21] MEDS: ENOXAPARIN 60 MG/0.6 ML SYR (J1650) SC SCH ×2 (10:27→20:12)
[2017-03-21 10:55] LABS: VITAMIN B12 LEVEL 375 PG/ML (247-911)
[2017-03-21 14:19] VITALS: BP 124/57
[2017-03-21] MEDS: NEOMYCIN SULFATE 500 MG TAB PO SCH ×2 (14:37→22:10)
[2017-03-21] MEDS: metroNIDAZOLE (FLAGYL) 500 MG TAB PO SCH ×2 (14:37→22:10)
[2017-03-21] MEDS: MIRALAX *UNIT DOSE* 17GM PACKET PO SCH ×3 (16:40→20:11)
[2017-03-21] MEDS ORDERED: MULTIVITAMIN -ADULT INJECTION 10 ML, CR/CU/SE/MN/ZN INJ 1 ML in AMINO AC/ELECTROLYTE/DE... IV SCH (18:00)
--- NOTE | 2017-03-21 18:00 | IPN ---
DATE: 03/21/2017 Patient has done well over the weekend. She tolerated her TPN at 50 mL an hour and has been taking diet as well. Her ostomy appears to be functioning well. Vital signs show her to be afebrile with a pulse in the 70s to 90s. Blood pressure is fine. Intake and output shows that on the she had 3,300 in with 2,800 out. Her weight remains stable at 60 kg. Physical exam reveals a pleasant older woman sitting up in her chair at the bedside. She is alert and oriented. Skin turgor is good. Skin is warm and dry. Heart: Exam shows a regular rhythm. The lungs are clear. The abdomen is soft. Her prolapsed ostomy is noted the right upper quadrant. Laboratory studies show white count of 8.5 with a hemoglobin of 10, hematocrit of 31 and a platelet count of 347,000. Chemistry profile shows a sodium of 142, potassium 4.6, chloride 110, CO2 of 25, BUN is 28 with a creatinine of 0.5. Her glucose is 118. Liver function tests are normal. Her protein is 5.4 with an albumin of 2.3. IMPRESSION: Distal transverse colon obstructing mass with prolapsed cecal ostomy. PLAN: The patient was counseled for surgery for March 22. I believe her nutrition is adequate and I would anticipate continuing her total parenteral nutrition postop at least until she is able to eat again. I will start her on a limited bowel prep with clear liquids today with several doses of MiraLax and start her on antibiotic bowel prep with oral Flagyl and neomycin. She was counseled for surgery to include laparotomy with colon resection and ileo descending colostomy. She had an opportunity to ask questions. She desires to proceed with the surgery and this will take place on the . ROLANDO
[2017-03-21 22:00] VITALS: BP 113/51
[2017-03-22] MEDS: NEOMYCIN SULFATE 500 MG TAB PO SCH (05:54)
[2017-03-22] MEDS: metroNIDAZOLE (FLAGYL) 500 MG TAB PO SCH (05:54)
[2017-03-22] MEDS: SODIUM CHLORIDE 0.9% INJ 10 ML SYR IV SCH ×2 (05:54→18:00)
[2017-03-22 06:00] VITALS: BP 113/62
[2017-03-22] MEDS: HumaLOG INSULIN (NovoLOG) PER UNIT SC SCH ×4 (06:00→21:00)
[2017-03-22 06:14] LABS: MEAN CORPUSCULAR HEMOGLOBIN 32.1 pg (27.0-33.0); MEAN CORPUSCULAR HGB CONC 31.6 g/dl (32.0-36.5); MEAN CORPUSCULAR VOLUME 101.5 fl (80.0-96.0); PLATELET COUNT, AUTOMATED 313 10^3/uL (150-450); RED CELL DISTRIBUTION WIDTH 20.1 % (11.5-14.5); WHITE BLOOD COUNT 8.8 10^3/uL (4.0-10.0)
[2017-03-22 07:24] LABS: ALBUMIN 2.5 GM/DL (3.2-5.2); ALBUMIN/GLOBULIN RATIO 0.78 (1.00-1.93); ALKALINE PHOSPHATASE 104 U/L (45-117); ALT/SGPT 22 U/L (12-78); ANION GAP 8 MEQ/L (8-16); AST/SGOT 15 U/L (7-37); BILIRUBIN,TOTAL 0.3 MG/DL (0.2-1.0); BLOOD UREA NITROGEN 15 MG/DL (7-18); CALCIUM LEVEL 7.8 MG/DL (8.8-10.2); CARBON DIOXIDE LEVEL 23 MEQ/L (21-32); CHLORIDE LEVEL 109 MEQ/L (98-107); GLOMERULAR FILTRATION RATE > 60.0 (>32); GLUCOSE, FASTING 111 MG/DL (83-110); POTASSIUM SERUM 4.3 MEQ/L (3.5-5.1); SODIUM LEVEL 140 MEQ/L (136-145); TOTAL PROTEIN 5.7 GM/DL (6.4-8.2)
[2017-03-22] MEDS: FOLIC ACID 1 MG TAB PO SCH (08:59)
[2017-03-22] MEDS: CARVedilol 6.25 MG TAB PO SCH ×2 (08:59→22:00)
[2017-03-22] MEDS: PYRIDOSTIGMINE 60 MG TAB PO SCH ×2 (08:59→22:00)
[2017-03-22] MEDS: POTASSIUM CHLORIDE 10 MEQ SR TABLET PO SCH (08:59)
--- NOTE | 2017-03-22 10:45 | IPNPDOC ---
Subjective Date Seen The patient was seen on 03/22/17. Subjective Chief Complaint/HPI The patient is a 86-year-old female admitted with a reason for visit of Colon Obstruction,Colostomy Enterostomy Malfunctio. Events since last encounter Pt this morning without new concerns. She is anticipating going to the OR later today. General: Denies: Fatigue Constitutional: Denies: Chills, Fever Pulmonary: Denies: Dyspnea, Cough Cardiovascular: Denies: Chest Pain, Palpitations Gastrointestinal: Denies: Nausea, Vomiting, Diarrhea Psych: Reports: Mood Normal Objective Physical Examination General Exam: Positive: Alert, Cooperative, No Acute Distress Neck Exam: Positive: Supple, Negative: JVD Chest Exam: Positive: Clear to auscultation, Diminished Heart Exam: Positive: Rate Normal, Regular Rhythm, Normal S1, Normal S2, Negative: Gallops, Murmurs, Rubs Abdomen Exam: Positive: Normal bowel sounds (Abdominal wall with cecostomy site intact. Surrounding skin intact. No erythema or breakdown. No discharge.) , Soft, Negative: Tenderness Assessment /Plan Problems (1) Colon obstruction Status: Chronic Response to Treatment: Stable Discussed With: Nurse, Patient Problem Specific Plan: Consult Specialist, Monitor Clinically, Repeat Labs Problem Text: Planned OR today to remove mass. (2) Severe protein-calorie malnutrition Status: Chronic Problem Text: 03/21 Plan is for OR 03/[address] Guerra. She will have bowel prep today per . She has been on TPN over the weekend to help boost her Albumin ahead of surgery. 03/19 alb 2.3, Toni started TPN 03/18 PICC placed (3) Complication of ostomy Status: Acute Problem Text: plan colectomy of obstructing transverse colon mass c ostomy closure Patient presented to the ER with swelling and necrosis of her cecostomy site- Dr. Rees (General Surgery) suspects herniation of the cecostomy causing swelling and probably mild ischemia from the swelling. (4) Anemia Status: Chronic Response to Treatment: Stable Problem Text: 03/21 - Hgb stable at 9.7 03/20 9.7 03/19 stable hgb 9.5 03/20 % sat 27%/ferritin 291 03/17 HO - 02/2017 admission for acute GI blood loss anemia-tx 2u PRBCs and Venofer 750- probably 2 bleeding colonic mass (5) Pulmonary emboli Status: Chronic Response to Treatment: Stable Problem Text: 03/20 changed to Lovenox in preparation for surgery 02/12/17 CTA chest c large B main PA PE; therefore, rivaroxaban started (6) Atrial fibrillation Status: Chronic Problem Text: Patient remains asx Lovenox for anticoag carvedilol for rate control (7) Myasthenia gravis Status: Chronic Problem Text: stable on HD MTX 7.5 qW and pyrido (8) Hypertension Status: Chronic Response to Treatment: Stable Plan/VTE VTE Prophylaxis Ordered?: Yes VS, I&O, 24H, Fishbone Vital Signs/I&O Vital Signs Date Time Temp Pulse Resp B/P (MAP) Pulse Ox O2 Delivery O2 Flow Rate FiO2 03/22/17 08:59 63 113/62 03/22/17 08:00 Room Air 03/22/17 06:00 98.4 18 96 I&O- Last 24 Hours up to 6 AM 03/23/17 06:00 Intake Total 0 ml Output Total 500 ml Balance -500 ml Laboratory Data 24H LABS Laboratory Tests 2 03/21/17 12:02: Bedside Glucose (Misc Panel) 101 03/21/17 16:27: Bedside Glucose (Misc Panel) 110 03/22/17 00:14: Bedside Glucose (Misc Panel) 142H 03/22/17 05:58: Bedside Glucose (Misc Panel) 112H 03/22/17 06:00: Nucleated Red Blood Cells % (auto) 0.0, Anion Gap 8, Glomerular Filtration Rate > 60.0, Blood Urea Nitrogen 15, Creatinine 0.50L, Sodium Level 140, Potassium Level 4.3, Chloride Level 109H, Carbon Dioxide Level 23, Calcium Level 7.8L, Aspartate Amino Transf (AST/SGOT) 15, Alanine Aminotransferase (ALT/SGPT) 22, Alkaline Phosphatase 104, Total Bilirubin 0.3, Total Protein 5.7L, Albumin 2.5L , Albumin/Globulin Ratio 0.78L CBC/BMP Laboratory Tests 03/22/17 06:00 Red Blood Count 3.24 L, Mean Corpuscular Volume 101.5 H, Mean Corpuscular Hemoglobin 32.1, Mean Corpuscular Hemoglobin Concent 31.6 L, Red Cell Distribution Width 20.1 H, Calcium Level 7.8 L, Aspartate Amino Transf (AST/SGOT ) 15, Alanine Aminotransferase (ALT/SGPT) 22, Alkaline Phosphatase 104, Total Bilirubin 0.3, Total Protein 5.7 L, Albumin 2.5 L Microbiology Microbiology 03/17/17 Stool Occult Blood (TRENT) - Final, Complete ROSALIE STEWART PA-C Mar 22, 2017 10:45
[2017-03-22] MEDS ORDERED: ONDANSETRON 4MG/2ML VIAL (J2405) As Ordered ONE ×2 (12:06→16:39)
[2017-03-22] MEDS ORDERED: ONDANSETRON 4MG/2ML VIAL (J2405) IV ONE (12:15)
--- NOTE | 2017-03-22 13:52 | IPN ---
DATE: 03/22/2017 This note supplements Lore Carter's note from today. Staff notes that Stephanie seems fatigued and was picking at her IV site, etc.. I was concerned because she received both neomycin and metronidazole preoperatively and neomycin could lead to exacerbation of her myasthenia gravis. On exam, she does not show evidence of myasthenic crisis. Her extraocular movements are normal. There is no ptosis. Her muscle strength is normal in the proximal muscles and her respirations are unremarkable, unlabored and normal on exam. I think her fatigue is related to her prep and not from any worsening of her myesthesia related to the neomycin or the metronidazole. I think she can proceed with surgery. Would like anesthesia to be aware of the myasthenia so they can take typical precautions with a myasthenic patient.
[2017-03-22] MEDS ORDERED: ERTAPENEM SODIUM 1 GM in NS MINI-BAG PLUS 50 ML IV ONE (15:00)
[2017-03-22] MEDS ORDERED: ERTAPENEM 1 GM INJ (INVanz) (J1335) As Ordered ONE (15:35)
[2017-03-22] MEDS ORDERED: fentaNYL 250 MCG/5 ML INJECTION (J3010) As Ordered ONE (16:39)
[2017-03-22] MEDS ORDERED: ROCURONIUM BROMIDE 50 MG/5 ML VIAL/SYRINGE As Ordered ONE ×2 (16:39→17:57)
[2017-03-22] MEDS ORDERED: MIDAZOLAM INJ 2 MG/2 ML VIAL (J2250) As Ordered ONE (16:39)
[2017-03-22] MEDS ORDERED: GLYCOPYRROLATE INJ 0.2 MG/ML 2 ML VIAL As Ordered ONE (16:39)
[2017-03-22] MEDS ORDERED: METOCLOPRAMIDE INJ 10MG/2ML VIAL (J2765) As Ordered ONE (16:39)
[2017-03-22] MEDS ORDERED: PROPOFOL 200 MG/20 ML VIAL As Ordered ONE (16:39)
[2017-03-22] MEDS ORDERED: LIDOCAINE 2% INJ 100 MG/5 ML SDV (FOR ANES.) As Ordered ONE (16:39)
[2017-03-22] MEDS ORDERED: NEOSTIGMINE 10 MG/10 ML VIAL (J2710) As Ordered ONE (16:39)
[2017-03-22] MEDS ORDERED: fentaNYL 100 MCG/2 ML INJECTION (J3010) As Ordered ONE ×2 (17:30→19:19)
[2017-03-22] MEDS ORDERED: LABETALOL HCL 100 MG/20 ML VIAL As Ordered ONE (17:34)
[2017-03-22] MEDS ORDERED: AMINO AC/ELECTROLYTE/DEX/CALC 2,566 ML IV SCH (18:00)
[2017-03-22] MEDS ORDERED: HYDROmorphone HCL 1 MG/ML SYRINGE (J1170) As Ordered ONE (19:19)
[2017-03-22] MEDS: fentaNYL 100 MCG/2 ML INJECTION (J3010) IV PRN ×4 (19:22→19:43)
[2017-03-22] MEDS ORDERED: LR 1,000 ML IV SCH ×2 (19:30)
[2017-03-22] MEDS ORDERED: METOCLOPRAMIDE INJ 10MG/2ML VIAL (J2765) IV PRN (19:30)
[2017-03-22] MEDS ORDERED: ONDANSETRON 4MG/2ML VIAL (J2405) IV PRN (19:30)
[2017-03-22] MEDS ORDERED: MORPHINE 2 MG/ML 1ML SYRINGE IV PRN (19:30)
[2017-03-22] MEDS: HYDROmorphone HCL 1 MG/ML SYRINGE (J1170) IV PRN ×5 (19:33→20:00)
[2017-03-22] MEDS ORDERED: ACETAMINOPHEN TAB 650MG DOSE (2X325MG) PO PRN (19:45)
[2017-03-22] MEDS: KETOROLAC 30 MG/ML VIAL (J1885) IV SCH (20:00)
[2017-03-22 21:00] VITALS: BP 195/88
[2017-03-22 21:30] VITALS: BP 148/65
[2017-03-22] MEDS: ALVIMOPAN 12 MG CAPSULE (ENTEREG) PO SCH (22:00)
[2017-03-22 22:30] VITALS: BP 130/65
[2017-03-22 23:30] VITALS: BP 121/60
[2017-03-23] VITALS (7 sets, daily range): BP systolic 104–116; BP diastolic 51–75
[2017-03-23] MEDS: KETOROLAC 30 MG/ML VIAL (J1885) IV SCH ×3 (04:43→20:11)
[2017-03-23 05:40] LABS: BASO % 0.2 % (0.0-1.0); IMMATURE GRANULOCYTE % 0.5 % (0-0); LYMPH # 0.6 10^3/uL (1.5-4.5); MEAN CORPUSCULAR HEMOGLOBIN 31.3 pg (27.0-33.0); MEAN CORPUSCULAR HGB CONC 31.2 g/dl (32.0-36.5); MEAN CORPUSCULAR VOLUME 100.3 fl (80.0-96.0); MONO # 0.8 10^3/uL (0.0-0.8); MONO % 6.1 % (0.0-5.0); NEUTROPHILS # 11.2 10^3/uL (1.8-7.7); NEUTROPHILS % 88.2 % (36.0-66.0); PLATELET COUNT, AUTOMATED 257 10^3/uL (150-450); RED CELL DISTRIBUTION WIDTH 19.6 % (11.5-14.5); WHITE BLOOD COUNT 12.7 10^3/uL (4.0-10.0)
[2017-03-23] MEDS: SODIUM CHLORIDE 0.9% INJ 10 ML SYR IV SCH ×2 (05:55→17:41)
[2017-03-23 06:11] LABS: ALBUMIN 2.2 GM/DL (3.2-5.2); ALBUMIN/GLOBULIN RATIO 0.73 (1.00-1.93); ALKALINE PHOSPHATASE 92 U/L (45-117); ALT/SGPT 24 U/L (12-78); ANION GAP 8 MEQ/L (8-16); AST/SGOT 21 U/L (7-37); BILIRUBIN,TOTAL 0.2 MG/DL (0.2-1.0); BLOOD UREA NITROGEN 24 MG/DL (7-18); CALCIUM LEVEL 7.6 MG/DL (8.8-10.2); CARBON DIOXIDE LEVEL 23 MEQ/L (21-32); CHLORIDE LEVEL 107 MEQ/L (98-107); CREATININE FOR GFR 0.66 MG/DL (0.55-1.02); GLOMERULAR FILTRATION RATE > 60.0 (>32); GLUCOSE, FASTING 127 MG/DL (83-110); POTASSIUM SERUM 4.3 MEQ/L (3.5-5.1); SODIUM LEVEL 138 MEQ/L (136-145); TOTAL PROTEIN 5.2 GM/DL (6.4-8.2)
[2017-03-23] MEDS: HumaLOG INSULIN (NovoLOG) PER UNIT SC SCH ×4 (06:15→17:41)
--- NOTE | 2017-03-23 08:18 | IPNPDOC ---
Subjective Date Seen The patient was seen on 03/23/17. Subjective Chief Complaint/HPI The patient is a 86-year-old female admitted with a reason for visit of Colon Obstruction,Colostomy Enterostomy Malfunctio. Events since last encounter Patient reports some abd pain. No n/v. NO SOB or CP Constitutional: Denies: Chills, Fever Pulmonary: Denies: Dyspnea, Cough Cardiovascular: Denies: Chest Pain, Palpitations Gastrointestinal: Reports: Abdominal Pain, Other Symptoms, Denies: Nausea, Vomiting Objective Physical Examination General Exam: Positive: Alert (sleepy but easily arousable and answers questions appropriately and follows commands), Cooperative, No Acute Distress Chest Exam: Positive: Clear to auscultation, Diminished Heart Exam: Positive: Rate Normal, Irregular Rhythm (regular rhythm with frequent ectopic beats), Normal S1, Normal S2, Negative: Gallops, Murmurs, Rubs Abdomen Exam: Positive: BS Hypoactive, Soft, Tenderness (appropriately tender near ostomy site) Extremity Exam: Negative: Edema Assessment /Plan Problems (1) Colon obstruction Status: Chronic Response to Treatment: Stable Discussed With: Nurse, Patient Problem Specific Plan: Consult Specialist, Monitor Clinically, Repeat Labs Problem Text: s/p Exp lap and transverse colectomy 03/22/17 - Dr. Guerra (2) Pulmonary emboli Status: Chronic Response to Treatment: Stable Problem Text: 03/23 - restart anticoag when ok with surgery I spoke with Dr. Guerra who will hold off on anticoag. until tomorrow morning at the earliest. 02/12/17 CTA chest c large B main PA PE; therefore, rivaroxaban started (3) Severe protein-calorie malnutrition Status: Chronic Problem Text: 03/23/17 - TPN per surgery (4) Atrial fibrillation Status: Chronic Response to Treatment: Stable Problem Text: 03/23/17 - rate controlled. Restart anticoag Lovenox for anticoag carvedilol for rate control (5) Anemia Status: Chronic Response to Treatment: Stable Problem Text: 03/23 - stable 02/2017 admission for acute GI blood loss anemia-tx 2u PRBCs and Venofer 750- probably 2 bleeding colonic mass (6) Myasthenia gravis Status: Chronic Response to Treatment: Stable Problem Text: stable on HD MTX 7.5 qW and pyrido (7) Hypertension Status: Chronic Response to Treatment: Stable (8) Complication of ostomy Status: Acute Problem Text: plan colectomy of obstructing transverse colon mass c ostomy closure Patient presented to the ER with swelling and necrosis of her cecostomy site- Dr. Rees (General Surgery) suspects herniation of the cecostomy causing swelling and probably mild ischemia from the swelling. Plan/VTE VTE Prophylaxis Ordered?: Yes VS, I&O, 24H, Fishbone Vital Signs/I&O Vital Signs Date Time Temp Pulse Resp B/P (MAP) Pulse Ox O2 Delivery O2 Flow Rate FiO2 03/23/17 05:30 98.4 70 15 111/56 (74) 94 Room Air 03/22/17 21:00 2.0 I&O- Last 24 Hours up to 6 AM 03/24/17 06:00 Output Total 300 ml Balance -300 ml Laboratory Data 24H LABS Laboratory Tests 2 03/22/17 12:25: Bedside Glucose (Misc Panel) 165H 03/22/17 21:54: Bedside Glucose (Misc Panel) 201H 03/23/17 05:30: Immature Granulocyte % (Auto) 0.5H, White Blood Count 12.7H, Red Blood Count 3.29L, Hemoglobin 10.3L, Hematocrit 33.0L, Mean Corpuscular Volume 100.3H, Mean Corpuscular Hemoglobin 31.3, Mean Corpuscular Hemoglobin Concent 31.2L, Red Cell Distribution Width 19.6H, Platelet Count 257, Neutrophils (%) (Auto) 88.2H , Lymphocytes (%) (Auto) 5.0L, Monocytes (%) (Auto) 6.1H, Eosinophils (%) (Auto ) 0.0, Basophils (%) (Auto) 0.2, Neutrophils # (Auto) 11.2H, Lymphocytes # (Auto ) 0.6L, Monocytes # (Auto) 0.8, Eosinophils # (Auto) 0.0, Basophils # (Auto) 0.0 , Immature Granulocyte # (Auto) 0.1H, Nucleated Red Blood Cells % (auto) 0.0, Anion Gap 8, Glomerular Filtration Rate > 60.0, Blood Urea Nitrogen 24#H, Creatinine 0.66, Sodium Level 138, Potassium Level 4.3, Chloride Level 107, Carbon Dioxide Level 23, Calcium Level 7.6L, Aspartate Amino Transf (AST/SGOT) 21, Alanine Aminotransferase (ALT/SGPT) 24, Alkaline Phosphatase 92, Total Bilirubin 0.2, Total Protein 5.2L, Albumin 2.2L, Albumin/Globulin Ratio 0.73L 03/23/17 05:56: Bedside Glucose (Misc Panel) 164H CBC/BMP Laboratory Tests 03/23/17 05:30 Red Blood Count 3.29 L, Mean Corpuscular Volume 100.3 H, Mean Corpuscular Hemoglobin 31.3, Mean Corpuscular Hemoglobin Concent 31.2 L, Red Cell Distribution Width 19.6 H, Neutrophils (%) (Auto) 88.2 H, Lymphocytes (%) (Auto ) 5.0 L, Monocytes (%) (Auto) 6.1 H, Eosinophils (%) (Auto) 0.0, Basophils (%) ( Auto) 0.2, Neutrophils # (Auto) 11.2 H, Lymphocytes # (Auto) 0.6 L, Monocytes # (Auto) 0.8, Eosinophils # (Auto) 0.0, Basophils # (Auto) 0.0, Calcium Level 7.6 L, Aspartate Amino Transf (AST/SGOT) 21, Alanine Aminotransferase (ALT/SGPT) 24 , Alkaline Phosphatase 92, Total Bilirubin 0.2, Total Protein 5.2 L, Albumin 2.2 L Microbiology Microbiology 03/17/17 Stool Occult Blood (TRENT) - Final, Complete GUMARO MENDIETA PA-C Mar 23, 2017 08:18
[2017-03-23] MEDS: ALVIMOPAN 12 MG CAPSULE (ENTEREG) PO SCH ×2 (08:49→20:04)
[2017-03-23] MEDS: FOLIC ACID 1 MG TAB PO SCH (08:50)
[2017-03-23] MEDS: ENOXAPARIN 30 MG/0.3 ML SYR (J1650) SC SCH (08:51)
[2017-03-23] MEDS: PYRIDOSTIGMINE 60 MG TAB PO SCH ×2 (08:51→20:04)
[2017-03-23] MEDS: SODIUM CHLORIDE 0.9% INJ 10 ML SYR IV PRN ×2 (08:51→11:50)
[2017-03-23] MEDS: CARVedilol 6.25 MG TAB PO SCH ×2 (09:00→20:09)
--- NOTE | 2017-03-23 15:54 | IPN ---
DATE: 03/23/2017 Patient is now postoperative day #1 from her open right hemicolectomy with ileocolostomy. She has generally done well overnight. She is alert and seems oriented this morning. She says she still has some pain but appears much more comfortable than she did in the recovery room. Vital signs show that she has been afebrile most of the last 24 hours with a maximum temperature (Tmax) of 100.2 at about 9 o'clock last night. Her pulse is back down into the 70s-80s, and her blood pressure is normal. Intake and output shows 1700 in on 03/22/2017 with 2100 out. She remains on total parenteral nutrition (TPN) at this time, but is also taking some clear liquids. PHYSICAL EXAMINATION: Patient is alert and cooperative. Heart exam shows a regular rhythm. Lungs are clear. The abdomen is flat. Her dressing shows a small amount of serosanguineous fluid on the dressing overlying the ostomy site as would be expected. She does have a few bowel sounds auscultable. LABORATORY STUDIES: She had a white count of 13 with a hemoglobin 10, hematocrit 33 and a platelet count of 257,000. Differential count showed 88% neutrophils, 5% lymphocytes and 6% monocytes. Chemistry profile showed normal electrolytes with a BUN of 24, creatinine 0.66 and a glucose of 127. Liver function tests are normal with a total protein of 5.2 and an albumin of 2.2. IMPRESSION: Patient is doing quite well postoperative day #1 from her colectomy. She is more comfortable today. I have advised her that she needs to be out of bed at least several times today. She will be monitored as to her fluid intake and her diet can be advanced when she is clearly tolerating clear liquids. I will stop her ringer's lactate and continue the TPN for now. I will change her dressing within the next day or two and consider removal of the two Alejo drains that are in her ostomy site wound. ROLANDO
[2017-03-23] MEDS: NORCO, ANEXSIA 5/325MG TABLET (HYDROcodone/ACETAMINOPHEN) PO PRN (17:42)
[2017-03-23] MEDS ORDERED: MULTIVITAMIN -ADULT INJECTION 10 ML, CR/CU/SE/MN/ZN INJ 1 ML in AMINO AC/ELECTROLYTE/DE... IV SCH (18:00)
[2017-03-24 02:00] VITALS: BP 114/74
[2017-03-24] MEDS: SODIUM CHLORIDE 0.9% INJ 10 ML SYR IV SCH ×2 (05:13→17:48)
[2017-03-24] MEDS: KETOROLAC 30 MG/ML VIAL (J1885) IV SCH ×2 (05:14→11:49)
[2017-03-24] MEDS: HumaLOG INSULIN (NovoLOG) PER UNIT SC SCH ×3 (05:56→11:48)
[2017-03-24 06:00] VITALS: BP 127/64
[2017-03-24] MEDS: ALVIMOPAN 12 MG CAPSULE (ENTEREG) PO SCH ×2 (08:45→22:12)
[2017-03-24] MEDS: ENOXAPARIN 30 MG/0.3 ML SYR (J1650) SC SCH (08:45)
[2017-03-24] MEDS: PYRIDOSTIGMINE 60 MG TAB PO SCH ×2 (08:45→22:12)
[2017-03-24] MEDS: FOLIC ACID 1 MG TAB PO SCH (08:46)
[2017-03-24] MEDS: CARVedilol 6.25 MG TAB PO SCH ×2 (08:46→22:13)
--- NOTE | 2017-03-24 09:12 | IPNPDOC ---
Subjective Date Seen The patient was seen on 03/24/17. Subjective Chief Complaint/HPI The patient is a 86-year-old female admitted with a reason for visit of Colon Obstruction,Colostomy Enterostomy Malfunctio. Events since last encounter Pt this morning is feeling pretty good. She has had two large BM in the night. She is looking at a breakfast menu hoping to eat. General: Denies: Fatigue Constitutional: Denies: Fever Pulmonary: Denies: Dyspnea, Cough Cardiovascular: Denies: Chest Pain, Palpitations Gastrointestinal: Denies: Nausea, Vomiting, Diarrhea Psych: Reports: Mood Normal Objective Physical Examination General Exam: Positive: Alert (sleepy but easily arousable and answers questions appropriately and follows commands), Cooperative, No Acute Distress Chest Exam: Positive: Clear to auscultation, Diminished Heart Exam: Positive: Rate Normal, Irregular Rhythm (regular rhythm with frequent ectopic beats), Normal S1, Normal S2, Negative: Gallops, Murmurs, Rubs Abdomen Exam: Positive: Normal bowel sounds, Soft, Tenderness (at incision site.) Extremity Exam: Negative: Edema Assessment /Plan Problems (1) Colon obstruction Status: Chronic Response to Treatment: Stable Discussed With: Nurse, Patient Problem Specific Plan: Consult Specialist, Monitor Clinically, Repeat Labs Problem Text: s/p Exp lap and transverse colectomy 03/22/17 - Dr. Guerra (2) Pulmonary emboli Status: Acute Response to Treatment: Stable Problem Text: 03/24 Will restart Anticoag when OK with GS, spoke with nursing who is plans to f/u on this today, with GS 03/23 - restart anticoag when ok with surgery I spoke with Dr. Guerra who will hold off on anticoag. until tomorrow morning at the earliest. 02/12/17 CTA chest c large B main PA PE; therefore, rivaroxaban started (3) Severe protein-calorie malnutrition Status: Chronic Problem Text: 03/23/17 - TPN per surgery (4) Atrial fibrillation Status: Chronic Response to Treatment: Stable Problem Text: 03/23/17 - rate controlled. Restart anticoag Lovenox for anticoag carvedilol for rate control (5) Anemia Status: Chronic Response to Treatment: Stable Problem Text: 03/23 - stable 02/2017 admission for acute GI blood loss anemia-tx 2u PRBCs and Venofer 750- probably 2 bleeding colonic mass (6) Myasthenia gravis Status: Chronic Response to Treatment: Stable Problem Text: stable on HD MTX 7.5 qW and pyrido (7) Hypertension Status: Chronic Response to Treatment: Stable (8) Complication of ostomy Status: Resolved Problem Text: plan colectomy of obstructing transverse colon mass c ostomy closure Patient presented to the ER with swelling and necrosis of her cecostomy site- Dr. Rees (General Surgery) suspects herniation of the cecostomy causing swelling and probably mild ischemia from the swelling. Plan/VTE VTE Prophylaxis Ordered?: Yes VS, I&O, 24H, Fishbone Vital Signs/I&O Vital Signs Date Time Temp Pulse Resp B/P (MAP) Pulse Ox O2 Delivery O2 Flow Rate FiO2 03/24/17 08:46 88 127/64 03/24/17 07:40 Room Air 03/24/17 06:00 97.0 16 100 03/23/17 10:00 3.0 Laboratory Data 24H LABS Laboratory Tests 2 03/23/17 11:33: Bedside Glucose (Misc Panel) 123H 03/23/17 17:28: Bedside Glucose (Misc Panel) 124H 03/24/17 00:11: Bedside Glucose (Misc Panel) 130H 03/24/17 05:28: Bedside Glucose (Misc Panel) 144H Microbiology Microbiology 03/17/17 Stool Occult Blood (TRENT) - Final, Complete ROSALIE STEWART PA-C Mar 24, 2017 09:12
--- NOTE | 2017-03-24 10:56 | RO ---
DATE OF PROCEDURE: 03/22/2017 PREOPERATIVE DIAGNOSES: Obstructing transverse colon mass and prolapsed cecal ostomy. POSTOPERATIVE DIAGNOSES: Obstructing transverse colon mass and prolapsed cecal ostomy. PROCEDURE PERFORMED: Exploratory laparotomy with right hemicolectomy with takedown of prolapsed ostomy and ileotransverse colon anastomosis. SURGEON: Dr. Guerra REPA[employer]: Dr. Hanson ANESTHESIA: General. INDICATIONS FOR THE PROCEDURE: The patient is an 86-year-old woman who had presented to the hospital with a bowel obstruction, perhaps a month earlier. She was found on CT scan to have an obstructing mass in the distal transverse colon and to prevent a bowel rupture she underwent a laparoscopic creation of an ostomy within the cecum in the right upper quadrant. She had, had a significant weight loss before admission and so was being monitored to improve her nutrition prior to surgery. A colonoscopy did identify an obstructing mass in the distal transverse colon the appearance of which is consistent with tumor, though biopsy showed only villous adenoma. Her ostomy prolapsed with what appears to be an eversion of the entire cecum through her ostomy site. Her nutritional status has improved, I believe adequately to proceed with surgery and she is now for a laparotomy with removal of her right colon and an ileocolic anastomosis. OPERATIVE PROCEDURE: The patient was brought to the operating room where she was placed under general endotracheal anesthesia. A Sumner catheter was inserted. Thromboembolism deterrents (TEDs) and sequentials. I attempted to reduce the prolapsed colon through the ostomy without success. It was clear that her entire cecum was everted through the wound with the ileocecal valve evident in the center of the mass of prolapsed tissue. As noted, I was unable to reduce this. Therefore, this area was prepped with Betadine and the remainder of the abdomen was prepped. A lap pad was placed over the prolapsed stoma and held in place with an ioban drape, which was wrapped around this tissue. The abdomen was entered through a midline incision centered on the umbilicus. This was approximately 20 cm in length. The peritoneum was opened throughout the length of the wound. Palpation revealed a mass, perhaps 4-5 cm in diameter, in the left side of the transverse colon. The distal colon was clearly decompressed. The small bowel was normal to palpation and inspection. The liver was without apparent mass. Palpation of the ostomy from the inside confirmed that the prolapsed tissue was the entire cecum and proximal ascending colon with the terminal ileum entering as well. I was still unable to achieve any reduction of this tissue. The transverse colon was identified and the greater omentum was elevated off of this to preserve as much as possible. The mass was identified and this clearly showed puckering of the of the bowel wall and the peritoneum over the tumor suggesting malignancy. I did not feel any definite nodes within the mesentery. The middle colic vessels appeared to come up to the bowel just about at the level of the tumor. I selected a point to divide the colon approximately 5 cm distal to the tumor mass. This was accomplished with a linear cutter 55 stapler. The mesentery was then divided down toward the base of the mesentery. It appeared that the major vessels had been taken but there was still a pulse palpable in the arcuate artery at the level of the colon transection and the bowel remained pink. The terminal ileum was divided with a linear cutter 55 stapler just proximal to its entry into her prolapsed stoma. Likewise, to facilitate the surgery, the proximal transverse colon was divided just inside the abdominal wall again with a linear cutter stapler. The remaining tissues of the mesentery in the right upper quadrant were divided and the skin was incised around the stoma and the mass of prolapsed tissue was removed and placed aside as a specimen. The wound was inspected at the ostomy site and hemostasis was ensured with the cautery. The remaining dissection of the proximal transverse colon continued from left to right resecting the bowel with the transverse colon mesentery. This was also set aside for later inspection. Attention was then turned to the ostomy site. The inner fascia was closed with interrupted simple sutures of #1 Vicryl. The subcutaneous tissues were freed off of the external fascia. This was also closed with interrupted simple sutures of #1 Vicryl. The terminal ileum was easily mobile to reach the area of the distal transverse colon in the left upper quadrant. A stapled anastomosis was performed with a linear cutter 55 stapler and a TA-90 stapler. Several reinforcing sutures of #3-0 Vicryl were placed, but an excellent anastomosis was achieved, which appeared to be well vascularized. The mesenteric defect was closed with interrupted sutures of Vicryl. The abdomen was irrigated and inspected and there appeared to be excellent hemostasis with a good anastomosis. The peritoneum in the lower portion of the wound was closed with a running suture #1-0 chromic. The fascia along the midline was closed with interrupted simple sutures of #1 Vicryl. The midline incision was closed with skin renetta. The ostomy site was closed with widely spaced skin renetta and two short segments of a 1/4 inch Alejo drain were placed into the subcutaneous space between renetta and these were held with sutures. A bulky bandage was applied. The patient tolerated the procedure well. In order to keep the appropriate orientation for the pathologist, I placed several sutures to approximate the ends of the proximal transverse colon in anatomic orientation. The colon was sent for permanent pathology. The patient was awakened in the operating room, extubated and taken to the recovery room in stable condition. ROLANDO
[2017-03-24 12:20] LABS: BASO % 0.1 % (0.0-1.0); EOS # 0.4 10^3/uL (0.0-0.50); EOS % 5.4 % (0.0-3.0); IMMATURE GRANULOCYTE % 0.4 % (0-0); LYMPH # 0.8 10^3/uL (1.5-4.5); LYMPH % 9.4 % (24.0-44.0); MEAN CORPUSCULAR HEMOGLOBIN 32.6 pg (27.0-33.0); MEAN CORPUSCULAR HGB CONC 31.9 g/dl (32.0-36.5); MEAN CORPUSCULAR VOLUME 102.1 fl (80.0-96.0); MONO # 0.6 10^3/uL (0.0-0.8); MONO % 7.6 % (0.0-5.0); NEUTROPHILS # 6.3 10^3/uL (1.8-7.7); NEUTROPHILS % 77.1 % (36.0-66.0); PLATELET COUNT, AUTOMATED 212 10^3/uL (150-450); RED CELL DISTRIBUTION WIDTH 19.7 % (11.5-14.5); WHITE BLOOD COUNT 8.2 10^3/uL (4.0-10.0)
[2017-03-24 12:55] LABS: ALBUMIN 2.4 GM/DL (3.2-5.2); ALBUMIN/GLOBULIN RATIO 0.67 (1.00-1.93); ALKALINE PHOSPHATASE 115 U/L (45-117); ALT/SGPT 29 U/L (12-78); ANION GAP 10 MEQ/L (8-16); AST/SGOT 25 U/L (7-37); BILIRUBIN,TOTAL 0.4 MG/DL (0.2-1.0); BLOOD UREA NITROGEN 28 MG/DL (7-18); CARBON DIOXIDE LEVEL 22 MEQ/L (21-32); CHLORIDE LEVEL 106 MEQ/L (98-107); CREATININE FOR GFR 0.56 MG/DL (0.55-1.02); GLOMERULAR FILTRATION RATE > 60.0 (>32); GLUCOSE, FASTING 150 MG/DL (83-110); POTASSIUM SERUM 4.6 MEQ/L (3.5-5.1); SODIUM LEVEL 138 MEQ/L (136-145)
[2017-03-24 14:00] VITALS: BP 120/60
[2017-03-24] MEDS: RIVAROXABAN 20 MG TAB (XARELTO) PO SCH (17:49)
[2017-03-24] MEDS ORDERED: AMINO AC/ELECTROLYTE/DEX/CALC 2,566 ML IV SCH (18:00)
[2017-03-24 22:00] VITALS: BP 142/63
--- NOTE | 2017-03-24 23:16 | IPN ---
DATE: 03/24/2017 The patient is now 2 days postop from her right hemicolectomy, which involved taking down her prolapsed cecal stoma and performing the ileotransverse colostomy. She has done very well over the last 24 hours. Vital signs: Show that she has been afebrile the entire time. Her pulse is in the 70s to 80s. Her blood pressure is good and her oxygen saturations are fine on room air. Intake and output from the 15 shows 1420 in with 500 recorded out. She has a small liquid bowel movement recorded out earlier this morning. She has tolerated liquids without any reported nausea or vomiting. PHYSICAL EXAMINATION: The patient is sitting up in a chair when I came to visit. She is alert and appears fairly comfortable. Sclerae are anicteric. Heart exam shows a regular rate and rhythm. The lungs show good bilateral breath sounds. The abdomen shows that she has some blood staining on the bandage over her ostomy site and this is not unexpected as there are Alejo drains in this wound with a subcutaneous space present. She does have a few bowel sounds present on auscultation and the abdomen is nondistended. Chemistry profile shows normal electrolytes with BUN of 28, creatinine 0.5 and glucose of 150. Her CBC shows a white count of 8, with a hemoglobin of 11, hematocrit 35 and a platelet count of 212,000. Differential count shows 77% neutrophils, 9 lymphocytes and 8 monocytes. IMPRESSION: The patient is doing very well 2 days out from her colectomy. She has taken some Emma, but is not using any morphine for pain. She is tolerating liquids. She has a Sumner catheter still in place. PLAN: The patient's Sumner catheter will be removed. I will advance her to a regular diet. She will be continued on her total parenteral nutrition until we see that she is able to tolerate a diet adequately. I will restart her Xarelto for her deep venous thrombosis (DVT) with pulmonary embolus at 20 mg per day. She was encouraged to be up out of bed. [facility]
[2017-03-25] MEDS: SODIUM CHLORIDE 0.9% INJ 10 ML SYR IV SCH ×2 (05:19→16:35)
[2017-03-25 05:46] LABS: PLATELET COUNT, AUTOMATED 215 10^3/uL (150-450); RED CELL DISTRIBUTION WIDTH 19.1 % (11.5-14.5); WHITE BLOOD COUNT 8.6 10^3/uL (4.0-10.0)
[2017-03-25 05:57] LABS: ANION GAP 8 MEQ/L (8-16); BLOOD UREA NITROGEN 24 MG/DL (7-18); CALCIUM LEVEL 7.3 MG/DL (8.8-10.2); CARBON DIOXIDE LEVEL 22 MEQ/L (21-32); CHLORIDE LEVEL 108 MEQ/L (98-107); CREATININE FOR GFR 0.55 MG/DL (0.55-1.02); GLOMERULAR FILTRATION RATE > 60.0 (>32); GLUCOSE, FASTING 151 MG/DL (83-110); POTASSIUM SERUM 4.4 MEQ/L (3.5-5.1); SODIUM LEVEL 138 MEQ/L (136-145)
[2017-03-25 06:00] VITALS: BP 139/65
--- NOTE | 2017-03-25 08:04 | IPNPDOC ---
Subjective Date Seen The patient was seen on 03/25/17. Subjective Chief Complaint/HPI The patient is a 86-year-old female admitted with a reason for visit of Colon Obstruction,Colostomy Enterostomy Malfunctio. Events since last encounter Pt this morning without new concerns. She reports that she is getting up and moving around with minimal difficulty. General: Denies: Fatigue Constitutional: Denies: Chills, Fever Pulmonary: Denies: Dyspnea, Cough Cardiovascular: Denies: Chest Pain, Palpitations Gastrointestinal: Reports: Abdominal Pain, Denies: Nausea, Vomiting Neurological: Denies: Weakness Psych: Reports: Mood Normal Objective Physical Examination General Exam: Positive: Alert, Cooperative, No Acute Distress ENT Exam: Positive: Mucous membr. moist/pink Chest Exam: Positive: Clear to auscultation, Diminished Heart Exam: Positive: Rate Normal, Irregular Rhythm (regular rhythm with frequent ectopic beats), Normal S1, Normal S2, Negative: Gallops, Murmurs, Rubs Abdomen Exam: Positive: Normal bowel sounds, Soft, Tenderness (at incision site.) Extremity Exam: Negative: Edema Assessment /Plan Problems (1) Colon obstruction Status: Chronic Response to Treatment: Stable Discussed With: Nurse, Patient Problem Specific Plan: Consult Specialist, Monitor Clinically, Repeat Labs Problem Text: s/p Exp lap and transverse colectomy 03/22/17 - Dr. Guerra (2) Pulmonary emboli Status: Acute Response to Treatment: Stable Problem Text: 03/25 - Xarelto resumed by Dr Guerra 03/24 Will restart Anticoag when OK with GS, spoke with nursing who is plans to f/u on this today, with 03/23 - restart anticoag when ok with surgery I spoke with Dr. Guerra who will hold off on anticoag. until tomorrow morning at the earliest. 02/12/17 CTA chest c large B main PA PE; therefore, rivaroxaban started (3) Severe protein-calorie malnutrition Status: Chronic Problem Text: 03/23/17 - TPN per surgery (4) Atrial fibrillation Status: Chronic Response to Treatment: Stable Problem Text: 03/23/17 - rate controlled. Restart anticoag Lovenox for anticoag carvedilol for rate control (5) Anemia Status: Chronic Response to Treatment: Stable Problem Text: 03/23 - stable 02/2017 admission for acute GI blood loss anemia-tx 2u PRBCs and Venofer 750- probably 2 bleeding colonic mass (6) Myasthenia gravis Status: Chronic Response to Treatment: Stable Problem Text: stable on HD MTX 7.5 qW and pyrido (7) Hypertension Status: Chronic Response to Treatment: Stable (8) Complication of ostomy Status: Resolved Problem Text: plan colectomy of obstructing transverse colon mass c ostomy closure Patient presented to the ER with swelling and necrosis of her cecostomy site- Dr. Rees (General Surgery) suspects herniation of the cecostomy causing swelling and probably mild ischemia from the swelling. Plan/VTE VTE Prophylaxis Ordered?: Yes VS, I&O, 24H, Fishbone Vital Signs/I&O Vital Signs Date Time Temp Pulse Resp B/P (MAP) Pulse Ox O2 Delivery O2 Flow Rate FiO2 03/25/17 06:00 99.9 92 20 139/65 (89) 98 Room Air 03/23/17 10:00 3.0 Laboratory Data 24H LABS Laboratory Tests 2 03/24/17 11:37: Bedside Glucose (Misc Panel) 170H 03/24/17 12:08: Immature Granulocyte % (Auto) 0.4H, White Blood Count 8.2, Red Blood Count 3.41L , Hemoglobin 11.1L, Hematocrit 34.8L, Mean Corpuscular Volume 102.1H, Mean Corpuscular Hemoglobin 32.6, Mean Corpuscular Hemoglobin Concent 31.9L, Red Cell Distribution Width 19.7H, Platelet Count 212, Neutrophils (%) (Auto) 77.1H , Lymphocytes (%) (Auto) 9.4L, Monocytes (%) (Auto) 7.6H, Eosinophils (%) (Auto ) 5.4H, Basophils (%) (Auto) 0.1, Neutrophils # (Auto) 6.3, Lymphocytes # (Auto ) 0.8L, Monocytes # (Auto) 0.6, Eosinophils # (Auto) 0.4, Basophils # (Auto) 0.0 , Immature Granulocyte # (Auto) 0.0, Nucleated Red Blood Cells % (auto) 0.0, Anion Gap 10, Glomerular Filtration Rate > 60.0, Blood Urea Nitrogen 28H, Creatinine 0.56, Sodium Level 138, Potassium Level 4.6, Chloride Level 106, Carbon Dioxide Level 22, Calcium Level 8.0L, Aspartate Amino Transf (AST/SGOT) 25, Alanine Aminotransferase (ALT/SGPT) 29, Alkaline Phosphatase 115, Total Bilirubin 0.4#, Total Protein 6.0L, Albumin 2.4L, Albumin/Globulin Ratio 0.67L 03/25/17 05:23: Nucleated Red Blood Cells % (auto) 0.0, Anion Gap 8, Glomerular Filtration Rate > 60.0, Blood Urea Nitrogen 24H, Creatinine 0.55, Sodium Level 138, Potassium Level 4.4, Chloride Level 108H, Carbon Dioxide Level 22, Calcium Level 7.3L CBC/BMP Laboratory Tests 03/24/17 12:08 Red Blood Count 3.41 L, Mean Corpuscular Volume 102.1 H, Mean Corpuscular Hemoglobin 32.6, Mean Corpuscular Hemoglobin Concent 31.9 L, Red Cell Distribution Width 19.7 H, Neutrophils (%) (Auto) 77.1 H, Lymphocytes (%) (Auto ) 9.4 L, Monocytes (%) (Auto) 7.6 H, Eosinophils (%) (Auto) 5.4 H, Basophils (% ) (Auto) 0.1, Neutrophils # (Auto) 6.3, Lymphocytes # (Auto) 0.8 L, Monocytes # (Auto) 0.6, Eosinophils # (Auto) 0.4, Basophils # (Auto) 0.0, Calcium Level 8.0 L, Aspartate Amino Transf (AST/SGOT) 25, Alanine Aminotransferase (ALT/SGPT) 29 , Alkaline Phosphatase 115, Total Bilirubin 0.4 #, Total Protein 6.0 L, Albumin 2.4 L 03/25/17 05:23 Red Blood Count 2.97 L, Mean Corpuscular Volume 100.0 H, Mean Corpuscular Hemoglobin 32.0, Mean Corpuscular Hemoglobin Concent 32.0, Red Cell Distribution Width 19.1 H, Calcium Level 7.3 L Microbiology Microbiology 03/17/17 Stool Occult Blood (TRENT) - Final, Complete ROSALIE STEWART PA-C Mar 25, 2017 08:04
[2017-03-25] MEDS: CARVedilol 6.25 MG TAB PO SCH ×2 (09:49→20:42)
[2017-03-25] MEDS: PYRIDOSTIGMINE 60 MG TAB PO SCH ×2 (09:50→20:42)
[2017-03-25] MEDS: FOLIC ACID 1 MG TAB PO SCH (09:50)
[2017-03-25] MEDS: ALVIMOPAN 12 MG CAPSULE (ENTEREG) PO SCH ×2 (09:50→20:42)
[2017-03-25 14:00] VITALS: BP 127/61
--- NOTE | 2017-03-25 16:02 | IPN ---
DATE: 03/25/2017 HISTORY: The patient is now 3 days postoperative from a right hemicolectomy for an obstructing distal transverse colon mass. She also had a recent pulmonary embolus and has been on anticoagulation for this. The patient has been doing well and remains on total parenteral nutrition, but was advanced to a regular diet yesterday. Vital signs show that she had a T-max of 100.8 at 10:00 p.m. last night but is afebrile today. Her pulse is in the 80s to low 90s and her blood pressure is good. Intake and output shows 1320 in yesterday with 1050 out. She does have five bowel movements recorded yesterday and three so far today. These have been unformed stool. PHYSICAL EXAMINATION: The patient is sitting up in a chair with her daughter at the bedside. She is alert and oriented. She denies significant pain. Sclerae are anicteric. The skin is warm and dry. Heart exam shows a regular rhythm and the lungs are clear. The abdominal exam shows that the abdomen is nondistended. She has some bowel sounds present. Her midline incision is dry. Her [place] drains remain in place in the right-sided ostomy site incision with no new drainage noted on her dressing. Laboratory studies show white count of 8.6 with a hemoglobin of 10, hematocrit of 30 and platelet count of 215,000. Chemistry profile shows chloride is minimally elevated at 108. BUN is 24 with a creatinine of 0.6 and the fasting glucose is 151. IMPRESSION: Now 3 days postoperative from her right hemicolectomy with ileotransverse colostomy. She is tolerating a diet well and having bowel function. She had a low grade temperature last night but her abdomen remains benign and her white count is not elevated. PLAN: The patient will be continued on the TPN at a low rate at least for today. She appears to be eating okay but we need to ensure that her nutrition is good in the immediate postoperative period to promote best wound healing. She is encouraged to be out of bed and ambulatory as able. I would anticipate that the wound drains would be removed within the next 1-2 days. MTDD
[2017-03-25] MEDS: RIVAROXABAN 20 MG TAB (XARELTO) PO SCH (16:35)
[2017-03-25] MEDS: HumaLOG INSULIN (NovoLOG) PER UNIT SC SCH ×2 (16:36→23:55)
[2017-03-25] MEDS ORDERED: MULTIVITAMIN -ADULT INJECTION 10 ML, CR/CU/SE/MN/ZN INJ 1 ML in AMINO AC/ELECTROLYTE/DE... IV SCH (18:00)
[2017-03-25] MEDS: NORCO, ANEXSIA 5/325MG TABLET (HYDROcodone/ACETAMINOPHEN) PO PRN (20:43)
[2017-03-25 22:00] VITALS: BP 142/67
[2017-03-26] MEDS: SODIUM CHLORIDE 0.9% INJ 10 ML SYR IV SCH ×2 (05:30→16:32)
[2017-03-26 05:44] LABS: MEAN CORPUSCULAR HEMOGLOBIN 32.2 pg (27.0-33.0); MEAN CORPUSCULAR HGB CONC 32.2 g/dl (32.0-36.5); PLATELET COUNT, AUTOMATED 228 10^3/uL (150-450); WHITE BLOOD COUNT 6.9 10^3/uL (4.0-10.0)
[2017-03-26 06:00] VITALS: BP 147/64
[2017-03-26 06:03] LABS: ANION GAP 8 MEQ/L (8-16); BLOOD UREA NITROGEN 27 MG/DL (7-18); CALCIUM LEVEL 7.9 MG/DL (8.8-10.2); CARBON DIOXIDE LEVEL 23 MEQ/L (21-32); CHLORIDE LEVEL 108 MEQ/L (98-107); CREATININE FOR GFR 0.42 MG/DL (0.55-1.02); GLOMERULAR FILTRATION RATE > 60.0 (>32); GLUCOSE, FASTING 138 MG/DL (83-110); POTASSIUM SERUM 4.5 MEQ/L (3.5-5.1); SODIUM LEVEL 139 MEQ/L (136-145)
[2017-03-26] MEDS: HumaLOG INSULIN (NovoLOG) PER UNIT SC SCH ×2 (06:16→12:00)
[2017-03-26] MEDS: ALVIMOPAN 12 MG CAPSULE (ENTEREG) PO SCH ×2 (09:44→20:09)
[2017-03-26] MEDS: NORCO, ANEXSIA 5/325MG TABLET (HYDROcodone/ACETAMINOPHEN) PO PRN ×2 (09:44→16:31)
[2017-03-26] MEDS: PYRIDOSTIGMINE 60 MG TAB PO SCH ×2 (09:45→20:09)
[2017-03-26] MEDS: FOLIC ACID 1 MG TAB PO SCH (09:45)
[2017-03-26] MEDS: CARVedilol 6.25 MG TAB PO SCH ×2 (09:45→20:10)
[2017-03-26 14:00] VITALS: BP 149/68
[2017-03-26] MEDS: RIVAROXABAN 20 MG TAB (XARELTO) PO SCH (16:31)
[2017-03-26 22:00] VITALS: BP 145/69
[2017-03-27] MEDS: SODIUM CHLORIDE 0.9% INJ 10 ML SYR IV SCH ×2 (05:12→17:40)
[2017-03-27 05:41] LABS: MEAN CORPUSCULAR HEMOGLOBIN 31.9 pg (27.0-33.0); MEAN CORPUSCULAR HGB CONC 31.9 g/dl (32.0-36.5); PLATELET COUNT, AUTOMATED 247 10^3/uL (150-450); WHITE BLOOD COUNT 6.3 10^3/uL (4.0-10.0)
[2017-03-27 06:00] VITALS: BP 137/62
[2017-03-27 06:09] LABS: ALBUMIN 2.1 GM/DL (3.2-5.2); ALBUMIN/GLOBULIN RATIO 0.68 (1.00-1.93); ALKALINE PHOSPHATASE 136 U/L (45-117); ALT/SGPT 24 U/L (12-78); ANION GAP 8 MEQ/L (8-16); AST/SGOT 21 U/L (7-37); BILIRUBIN,TOTAL 0.2 MG/DL (0.2-1.0); BLOOD UREA NITROGEN 23 MG/DL (7-18); CALCIUM LEVEL 7.6 MG/DL (8.8-10.2); CARBON DIOXIDE LEVEL 24 MEQ/L (21-32); CHLORIDE LEVEL 107 MEQ/L (98-107); CREATININE FOR GFR 0.47 MG/DL (0.55-1.02); GLOMERULAR FILTRATION RATE > 60.0 (>32); GLUCOSE, FASTING 105 MG/DL (83-110); MAGNESIUM LEVEL 1.8 MG/DL (1.8-2.4); POTASSIUM SERUM 4.3 MEQ/L (3.5-5.1); SODIUM LEVEL 139 MEQ/L (136-145); TOTAL PROTEIN 5.2 GM/DL (6.4-8.2)
[2017-03-27] MEDS: PYRIDOSTIGMINE 60 MG TAB PO SCH ×2 (09:00→21:09)
[2017-03-27] MEDS: FOLIC ACID 1 MG TAB PO SCH (09:00)
[2017-03-27] MEDS: CARVedilol 6.25 MG TAB PO SCH ×2 (09:00→21:11)
[2017-03-27] MEDS: ALVIMOPAN 12 MG CAPSULE (ENTEREG) PO SCH ×2 (09:00→21:09)
[2017-03-27 14:00] VITALS: BP 120/69
[2017-03-27] MEDS: RIVAROXABAN 20 MG TAB (XARELTO) PO SCH (17:39)
[2017-03-27 22:00] VITALS: BP 125/60
[2017-03-28] MEDS: SODIUM CHLORIDE 0.9% INJ 10 ML SYR IV SCH ×2 (05:09→17:36)
[2017-03-28 05:28] LABS: MEAN CORPUSCULAR HEMOGLOBIN 31.7 pg (27.0-33.0); MEAN CORPUSCULAR HGB CONC 32.4 g/dl (32.0-36.5); MEAN CORPUSCULAR VOLUME 97.9 fl (80.0-96.0); PLATELET COUNT, AUTOMATED 271 10^3/uL (150-450); RED CELL DISTRIBUTION WIDTH 18.8 % (11.5-14.5); WHITE BLOOD COUNT 7.3 10^3/uL (4.0-10.0)
[2017-03-28 06:00] VITALS: BP 126/62
[2017-03-28 06:13] LABS: ALBUMIN 2.1 GM/DL (3.2-5.2); ALBUMIN/GLOBULIN RATIO 0.68 (1.00-1.93); ALKALINE PHOSPHATASE 130 U/L (45-117); ALT/SGPT 27 U/L (12-78); ANION GAP 9 MEQ/L (8-16); AST/SGOT 22 U/L (7-37); BILIRUBIN,TOTAL 0.2 MG/DL (0.2-1.0); BLOOD UREA NITROGEN 21 MG/DL (7-18); CALCIUM LEVEL 7.7 MG/DL (8.8-10.2); CARBON DIOXIDE LEVEL 25 MEQ/L (21-32); CHLORIDE LEVEL 107 MEQ/L (98-107); CREATININE FOR GFR 0.51 MG/DL (0.55-1.02); GLOMERULAR FILTRATION RATE > 60.0 (>32); GLUCOSE, FASTING 100 MG/DL (83-110); MAGNESIUM LEVEL 1.8 MG/DL (1.8-2.4); SODIUM LEVEL 141 MEQ/L (136-145); TOTAL PROTEIN 5.2 GM/DL (6.4-8.2)
[2017-03-28] MEDS: FOLIC ACID 1 MG TAB PO SCH (08:55)
[2017-03-28] MEDS: PYRIDOSTIGMINE 60 MG TAB PO SCH ×2 (08:56→21:29)
[2017-03-28] MEDS: CARVedilol 6.25 MG TAB PO SCH ×2 (08:56→21:30)
[2017-03-28 14:00] VITALS: BP 120/59
[2017-03-28] MEDS: RIVAROXABAN 20 MG TAB (XARELTO) PO SCH (17:36)
--- NOTE | 2017-03-28 20:46 | IPN ---
DATE: 03/28/2017 HISTORY: The patient is now postop day #6 from her transverse colectomy with ileocolostomy. Her TPN was discontinued over this past weekend by my covering physician. Her wound drains were also removed from the ostomy site wound. Vital signs: The patient remains afebrile for the last 2 days. Her pulse has varied between the low 50s and the low 90s. Blood pressure is normal. Intake and output from the showed 1320 in with 825 out. She had eight bowel movements recorded. PHYSICAL EXAMINATION: The patient is sitting up in a chair at the bedside eating lunch. She is alert and seems oriented. She denies any pain at rest. Skin is warm and dry. Sclerae are anicteric. Heart exam shows a regular rhythm. The lungs are clear to auscultation. The abdomen is nondistended and soft. Her dressing is dry and I looked beneath the dressing and see that she has two well-approximated incisions, which appear to be healing well with no sign of infection. There is a minimal spot of serosanguineous drainage on the dressing over the ostomy site wound. LABORATORY FINDINGS: She has a white count of 7, with a hemoglobin of 9, hematocrit 28 and platelet count of 271,000. Chemistry profile shows normal electrolytes with a BUN of 21, creatinine 0.5 and a glucose of 100. Magnesium is 1.8. Liver function tests are normal. Her protein is 5.2 with an albumin of 2.1. 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 Zero of 11 pericolonic lymph nodes were positive for malignancy. The tumor was noted to invade into the muscularis propria and focally into the pericolonic soft tissue. IMPRESSION: The patient is now doing well postop day #6 from her right hemicolectomy with ileocolostomy. She appears to be tolerating a regular diet adequately. She is having regular bowel function though she is having multiple smaller loose stools, which is not surprising given her significantly shortened colon and her diet immediately postop. PLAN: I will stop the patient's Entereg at this point as she has had a good return of bowel function. She has oral pain medications available to take as needed though she has not had any pain medication now in 2 days. She is on her Xarelto for her pulmonary embolus. It is probably time to start looking toward discharge planning. ROLANDO
[2017-03-28 22:00] VITALS: BP 133/69
[2017-03-29] MEDS: SODIUM CHLORIDE 0.9% INJ 10 ML SYR IV SCH ×2 (05:25→17:27)
[2017-03-29 06:00] VITALS: BP 119/60
[2017-03-29] MEDS: PYRIDOSTIGMINE 60 MG TAB PO SCH ×2 (08:01→19:49)
[2017-03-29] MEDS: FOLIC ACID 1 MG TAB PO SCH (08:01)
[2017-03-29] MEDS: CARVedilol 6.25 MG TAB PO SCH ×2 (08:02→19:49)
[2017-03-29 14:00] VITALS: BP 113/55
[2017-03-29] MEDS: RIVAROXABAN 20 MG TAB (XARELTO) PO SCH (17:28)
--- NOTE | 2017-03-29 19:26 | IPN ---
DATE: 03/29/2017 The patient is now 1 week postoperative from her right hemicolectomy with ileocolonic anastomosis. She is doing, I think, surprisingly well. She has been ambulating in the hallway with good success. She is taking a diet well. Her bowel function is good and the number of bowel movements has diminished somewhat. She denies any significant discomfort. Vital signs show that she has been afebrile with a pulse between 65-100. Her blood pressure is good. Her intake and output shows 960 in and 1100 out with three bowel movements yesterday. Physical examination shows that she still appears somewhat pale. She responds readily to voice and is alert and oriented. Heart exam shows a regular rhythm. The lungs are clear. The abdomen shows two healing incisions without evidence of infection. The abdomen otherwise reveals active bowel sounds and the abdomen is soft and without significant tenderness. She has no laboratory studies today. IMPRESSION: Excellent progress now 1 week postoperative from colectomy with ileocolonic anastomosis. PLAN: I discussed with the patient that it is time for us to arrange for her discharge. I spoke with the nurse in charge on the floor and she reports that the plan is for the patient to be discharged home and the patient's daughter is on board with this. We will, I expect, need to arrange a visiting nurse. I would hope that we would have plans in place within the next 1-2 days to have her discharged. ROLANDO
[2017-03-29 22:00] VITALS: BP 142/65
[2017-03-30 06:00] VITALS: BP 128/64
[2017-03-30 06:45] LABS: MEAN CORPUSCULAR HGB CONC 31.8 g/dl (32.0-36.5); MEAN CORPUSCULAR VOLUME 100.7 fl (80.0-96.0); PLATELET COUNT, AUTOMATED 329 10^3/uL (150-450); RED CELL DISTRIBUTION WIDTH 18.6 % (11.5-14.5)
[2017-03-30 07:10] LABS: ALBUMIN 2.1 GM/DL (3.2-5.2); ALBUMIN/GLOBULIN RATIO 0.58 (1.00-1.93); ALKALINE PHOSPHATASE 120 U/L (45-117); ALT/SGPT 25 U/L (12-78); ANION GAP 6 MEQ/L (8-16); AST/SGOT 17 U/L (7-37); BILIRUBIN,TOTAL 0.3 MG/DL (0.2-1.0); BLOOD UREA NITROGEN 18 MG/DL (7-18); CALCIUM LEVEL 8.1 MG/DL (8.8-10.2); CARBON DIOXIDE LEVEL 28 MEQ/L (21-32); CHLORIDE LEVEL 109 MEQ/L (98-107); CREATININE FOR GFR 0.52 MG/DL (0.55-1.02); GLOMERULAR FILTRATION RATE > 60.0 (>32); GLUCOSE, FASTING 100 MG/DL (83-110); POTASSIUM SERUM 3.9 MEQ/L (3.5-5.1); SODIUM LEVEL 143 MEQ/L (136-145); TOTAL PROTEIN 5.7 GM/DL (6.4-8.2)
[2017-03-30 08:05] VITALS: BP 128/64
[2017-03-30] MEDS: FOLIC ACID 1 MG TAB PO SCH (08:05)
[2017-03-30] MEDS: PYRIDOSTIGMINE 60 MG TAB PO SCH (08:05)
[2017-03-30] MEDS: CARVedilol 6.25 MG TAB PO SCH (08:05)
[2017-03-30] MEDS ORDERED: XARE20TA PO (08:41)
--- NOTE | 2017-03-30 18:51 | IPN ---
DATE: 03/30/2017 The patient is now 8 days postop from her right hemicolectomy with ileocolostomy. 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 The tumor extended into the muscularis propria and focally into the pericolonic soft tissue. There were 11 pericolonic nodes identified. There were all negative for malignancy. The patient has done well over the last 24 hours. She ambulates well and is taking a diet without difficulty. Vital signs show that she has been afebrile with a pulse in the 60s to low 80s and a good blood pressure. Intake and output shows 1260 in and 850 out on the . She had five bowel movements recorded. PHYSICAL EXAM: Physical exam shows a pleasant woman sitting up in a chair at the bedside. She is alert and oriented. She appears comfortable. Heart exam shows a regular rhythm. The lungs are clear. The abdomen is soft. Her incisions are both healing well with two minimal spots of drainage from her ostomy site wound on the overlying dressing. The abdomen is soft and without tenderness with positive bowel sounds. LABORATORY FINDINGS: She has a white count of 8 with a hemoglobin of 9, hematocrit 28 and 329,000 platelets. Chemistry profile shows normal electrolytes with BUN of 18, creatinine 0.5 and a glucose of 100. Total protein is 5.7 with an albumin of 2.1. IMPRESSION: The patient is doing very well following her for colectomy. The abdomen is benign and her wounds are healing well. She is tolerating a diet without difficulty and her bowel movements seem to be slowing down somewhat now. PLAN: The patient will be discharged today if plans can be made. We will arrange for her to have [facility] for visiting nurse service to monitor her progress. I will leave her surgical renetta in her wounds for now and plan on seeing her back next week to remove these. She can take a diet as tolerated and shower ad liang. ROLANDO
== END 2017-03-30 14:30 | disposition home or self-care (01) | DRG 329 ==
LOC: M ED 17:37 → M ED INP 19:55 → M MS5PR 22:20
PROVIDERS: ADMIT Surgery; ATTEND Surgery
PROC: 02HV33Z Insertion of Infusion Device into Superior Vena Cava, Percutaneous Approach (ICD-10-PCS; 2017-03-18)
PROC: 3E0336Z Introduction of Nutritional Substance into Peripheral Vein, Percutaneous Approach (ICD-10-PCS; 2017-03-19)
PROC: 0DBL0ZZ Excision of Transverse Colon, Open Approach (ICD-10-PCS; 2017-03-22)
PROC: 0D1B0Z4 Bypass Ileum to Cutaneous, Open Approach (ICD-10-PCS; 2017-03-22)
PROC: 0DBB0ZZ Excision of Ileum, Open Approach (ICD-10-PCS; principal; 2017-03-22 15:00)
DX: K94.09 Other complications of colostomy (principal); E43 Unspecified severe protein-calorie malnutrition; C18.4 Malignant neoplasm of transverse colon; I10 Essential (primary) hypertension; G70.00 Myasthenia gravis without (acute) exacerbation; I48.2 Chronic atrial fibrillation; D64.9 Anemia, unspecified; Z86.711 Personal history of pulmonary embolism; Z79.01 Long term (current) use of anticoagulants; Z79.899 Other long term (current) drug therapy

== ENCOUNTER → 2017-04-07 | Outpatient (REF) | payer MEDICARE ==
[2017-04-07 16:18] LABS: BASO % 0.2 % (0.0-1.0); EOS # 0.6 10^3/uL (0.0-0.50); EOS % 6.1 % (0.0-3.0); IMMATURE GRANULOCYTE % 0.3 % (0-0); LYMPH # 1.5 10^3/uL (1.5-4.5); LYMPH % 15.3 % (24.0-44.0); MEAN CORPUSCULAR HEMOGLOBIN 31.9 pg (27.0-33.0); MEAN CORPUSCULAR HGB CONC 30.5 g/dl (32.0-36.5); MEAN CORPUSCULAR VOLUME 104.4 fl (80.0-96.0); MONO # 0.8 10^3/uL (0.0-0.8); MONO % 7.9 % (0.0-5.0); NEUTROPHILS % 70.2 % (36.0-66.0); PLATELET COUNT, AUTOMATED 444 10^3/uL (150-450); RED CELL DISTRIBUTION WIDTH 17.1 % (11.5-14.5)
[2017-04-07 16:37] LABS: ALBUMIN 2.6 GM/DL (3.2-5.2); ALBUMIN/GLOBULIN RATIO 0.68 (1.00-1.93); ALKALINE PHOSPHATASE 109 U/L (45-117); ALT/SGPT 17 U/L (12-78); ANION GAP 7 MEQ/L (8-16); AST/SGOT 13 U/L (7-37); BILIRUBIN,TOTAL 0.3 MG/DL (0.2-1.0); BLOOD UREA NITROGEN 17 MG/DL (7-18); CALCIUM LEVEL 8.2 MG/DL (8.8-10.2); CARBON DIOXIDE LEVEL 29 MEQ/L (21-32); CHLORIDE LEVEL 106 MEQ/L (98-107); CREATININE FOR GFR 0.56 MG/DL (0.55-1.02); GLOMERULAR FILTRATION RATE > 60.0 (>32); GLUCOSE, FASTING 106 MG/DL (83-110); PERCENT SATURATION 19.5 % (13.2-45.0); POTASSIUM SERUM 3.5 MEQ/L (3.5-5.1); SODIUM LEVEL 142 MEQ/L (136-145); TOTAL IRON BINDING CAPACITY 220 UG/DL (250-450); TOTAL PROTEIN 6.4 GM/DL (6.4-8.2)
[2017-04-07 17:58] LABS: FOLATE > 24.0 NG/ML; VITAMIN B12 LEVEL 482 PG/ML
== END ==
LOC: M SFHCPLAZ 12:18
PROVIDERS: ATTEND Nurse Practitioner Family
DX: D64.9 Anemia, unspecified (principal)

== ENCOUNTER → 2017-05-26 | Outpatient (REF) | payer MEDICARE ==
[2017-05-26 18:08] LABS: BASO % 0.2 % (0.0-1.0); EOS # 0.2 10^3/uL (0.0-0.50); EOS % 2.2 % (0.0-3.0); HEMATOCRIT 37.7 % (36.0-47.0); HEMOGLOBIN 11.7 g/dl (12.0-16.0); IMMATURE GRANULOCYTE % 0.3 % (0-0); LYMPH # 1.1 10^3/uL (1.5-4.5); LYMPH % 12.3 % (24.0-44.0); MEAN CORPUSCULAR HEMOGLOBIN 30.2 pg (27.0-33.0); MEAN CORPUSCULAR VOLUME 97.2 fl (80.0-96.0); MONO # 0.6 10^3/uL (0.0-0.8); MONO % 6.6 % (0.0-5.0); NEUTROPHILS # 7.1 10^3/uL (1.8-7.7); NEUTROPHILS % 78.4 % (36.0-66.0); PLATELET COUNT, AUTOMATED 248 10^3/uL (150-450); RED BLOOD COUNT 3.88 10^6/uL (4.00-5.40); RED CELL DISTRIBUTION WIDTH 14.5 % (11.5-14.5); WHITE BLOOD COUNT 9.1 10^3/uL (4.0-10.0)
[2017-05-26 18:59] LABS: ALBUMIN/GLOBULIN RATIO 0.75 (1.00-1.93); ALKALINE PHOSPHATASE 152 U/L (45-117); ALT/SGPT 15 U/L (12-78); ANION GAP 8 MEQ/L (8-16); AST/SGOT 20 U/L (7-37); BILIRUBIN,TOTAL 0.5 MG/DL (0.2-1.0); BLOOD UREA NITROGEN 15 MG/DL (7-18); CALCIUM LEVEL 7.9 MG/DL (8.8-10.2); CARBON DIOXIDE LEVEL 31 MEQ/L (21-32); CHLORIDE LEVEL 102 MEQ/L (98-107); CREATININE FOR GFR 0.68 MG/DL (0.55-1.02); FERRITIN 144 NG/ML (8-252); GLOMERULAR FILTRATION RATE > 60.0 (>32); GLUCOSE, FASTING 87 MG/DL (83-110); IRON (FE) 25 UG/DL (50-170); POTASSIUM SERUM 3.8 MEQ/L (3.5-5.1); SODIUM LEVEL 141 MEQ/L (136-145); TOTAL IRON BINDING CAPACITY 251 UG/DL (250-450)
== END ==
LOC: M SFHCPLAZ 14:36
DX: I10 Essential (primary) hypertension (principal); D50.8 Other iron deficiency anemias
CPT/HCPCS: 83550

== ENCOUNTER 2017-06-05 11:28 | Emergency (ER) | payer MEDICARE ==
[2017-06-05 13:25] LABS: BASO % 0.2 % (0.0-1.0); EOS # 0.1 10^3/uL (0.0-0.50); EOS % 0.6 % (0.0-3.0); HEMATOCRIT 34.8 % (36.0-47.0); HEMOGLOBIN 11.2 g/dl (12.0-16.0); IMMATURE GRANULOCYTE % 0.3 % (0-0); MEAN CORPUSCULAR HEMOGLOBIN 29.6 pg (27.0-33.0); MEAN CORPUSCULAR HGB CONC 32.2 g/dl (32.0-36.5); MEAN CORPUSCULAR VOLUME 92.1 fl (80.0-96.0); MONO # 0.6 10^3/uL (0.0-0.8); MONO % 6.5 % (0.0-5.0); NEUTROPHILS # 7.9 10^3/uL (1.8-7.7); NEUTROPHILS % 82.4 % (36.0-66.0); PLATELET COUNT, AUTOMATED 166 10^3/uL (150-450); RED BLOOD COUNT 3.78 10^6/uL (4.00-5.40); RED CELL DISTRIBUTION WIDTH 14.6 % (11.5-14.5); WHITE BLOOD COUNT 9.5 10^3/uL (4.0-10.0)
[2017-06-05 14:14] LABS: AMORPHOUS SEDIMENT SMALL (NEGATIVE); APPEARANCE, URINE CLOUDY (CLEAR); BACTERIA, URINE AUTO 2+ (NEGATIVE); BILIRUBIN, URINE AUTO NEGATIVE (NEGATIVE); BLOOD, URINE BLOOD 1+ (NEGATIVE); COLOR, URINE AMBER (YELLOW); GLUCOSE, URINE (UA) AUTO NEGATIVE (NEGATIVE); KETONE, URINE AUTO NEGATIVE (NEGATIVE); LEUKOCYTE ESTERASE, URINE AUTO 3+ (NEGATIVE); MUCUS, URINE MODERATE (NEGATIVE); NITRITE, URINE AUTO POSITIVE (NEGATIVE); PROTEIN, URINE AUTO 1+ mg/dL (NEGATIVE); RBC, URINE AUTO 5 /HPF (0-3); SPECIFIC GRAVITY URINE AUTO 1.019 (1.002-1.035); SQUAMOUS EPITHELIAL CELL UR AU 2 /HPF (0-6); WBC, URINE AUTO TNTC /HPF (0-3)
[2017-06-05 15:07] LABS: ANION GAP 9 MEQ/L (8-16); BLOOD UREA NITROGEN 13 MG/DL (7-18); CALCIUM LEVEL 7.6 MG/DL (8.8-10.2); CARBON DIOXIDE LEVEL 28 MEQ/L (21-32); CHLORIDE LEVEL 103 MEQ/L (98-107); GLOMERULAR FILTRATION RATE > 60.0 (>32); GLUCOSE, FASTING 127 MG/DL (70-100); NT-PRO BNP 8285 PG/ML (<450); POTASSIUM SERUM 3.4 MEQ/L (3.5-5.1); SODIUM LEVEL 140 MEQ/L (136-145)
== END 2017-06-05 16:19 | disposition home or self-care (01) ==
LOC: M ED 11:28
DX: R19.7 Diarrhea, unspecified (principal); E87.6 Hypokalemia; I48.91 Unspecified atrial fibrillation; R60.9 Edema, unspecified; J98.11 Atelectasis; I10 Essential (primary) hypertension; J44.9 Chronic obstructive pulmonary disease, unspecified; G70.01 Myasthenia gravis with (acute) exacerbation; E55.9 Vitamin D deficiency, unspecified; Z79.01 Long term (current) use of anticoagulants; Z79.899 Other long term (current) drug therapy; Z86.718 Personal history of other venous thrombosis and embolism; Z87.19 Personal history of other diseases of the digestive system; Z87.09 Personal history of other diseases of the respiratory system; Z86.010 Personal history of colon polyps; Z98.890 Other specified postprocedural states
CPT/HCPCS: 71046

== ENCOUNTER → 2017-06-16 | Outpatient (REF) | payer MEDICARE | LOC: M SFHCPLAZ 06-17 12:00 | DX: R41.0 Disorientation, unspecified (principal) | CPT/HCPCS: 87086 ==

== ENCOUNTER 2017-06-23 19:29 | Inpatient (IN) | payer MEDICARE ==
[2017-06-23] MEDS: NS 1,000 ML IV ×2 (19:37→21:37)
[2017-06-23] MEDS ORDERED: ACETAMINOPHEN 650 MG SUPP As Ordered (19:39)
[2017-06-23] MEDS: ACETAMINOPHEN 650 MG SUPP PR (19:45)
[2017-06-23] MEDS: NS 1,830 ML in APPROPRIATE DILUENT 1 EA IV (19:55)
[2017-06-23 20:06] LABS: VENOUS BASE EXCESS 0.2 (-2.0-2.0); VENOUS HCO3 23.5 MEQ/L (23.0-27.0); VENOUS O2 SATURATION 75.6 % (60.0-80.0); VENOUS PARTIAL PRESSURE O2 40.1 mmHg (30.0-50.0); VENOUS PH 7.457 UNITS (7.330-7.430); VENOUS STANDARD HCO3 24.1 MEQ/L; VENOUS TOTAL CO2 24.5 MEQ/L (24.0-28.0)
[2017-06-23 20:09] LABS: BASO % 0.1 % (0.0-1.0); HEMATOCRIT 37.7 % (36.0-47.0); HEMOGLOBIN 12.3 g/dl (12.0-16.0); IMMATURE GRANULOCYTE % 0.7 % (0-3.0); LYMPH # 0.4 10^3/uL (1.5-4.5); LYMPH % 2.9 % (24.0-44.0); MEAN CORPUSCULAR HGB CONC 32.6 g/dl (32.0-36.5); MEAN CORPUSCULAR VOLUME 88.9 fl (80.0-96.0); MONO # 0.3 10^3/uL (0.0-0.8); MONO % 2.3 % (0.0-5.0); NEUTROPHILS # 12.8 10^3/uL (1.8-7.7); PLATELET COUNT, AUTOMATED 206 10^3/uL (150-450); RED BLOOD COUNT 4.24 10^6/uL (4.00-5.40); RED CELL DISTRIBUTION WIDTH 16.6 % (11.5-14.5); WHITE BLOOD COUNT 13.6 10^3/uL (4.0-10.0)
[2017-06-23 20:21] LABS: KETONE, URINE AUTO RFX NEGATIVE (NEGATIVE); MUCUS, URINE RFX SMALL (NEGATIVE); NITRITE, URINE AUTO RFX NEGATIVE (NEGATIVE); RBC, URINE AUTO RFX 35 /HPF (0-3); SPECIFIC GRAVITY UR AUTO RFX 1.015 (1.002-1.035); SQUAM EPITHELIAL CELL UR AURFX 0 /HPF (0-6)
[2017-06-23 20:22] LABS: INR 2.51; PARTIAL THROMBOPLASTIN TIME 33.2 SECONDS (26.8-37.9); PROTHROMBIN TIME 28.1 SECONDS (12.4-14.5)
[2017-06-23 20:23] LABS: LEUKOCYTE ESTERASE UR AUTO RFX 2+ (NEGATIVE); WBC, URINE AUTO RFX 57 /HPF (0-3)
[2017-06-23 20:29] LABS: AMPHETAMINES LEVEL URINE NEGATIVE (NEGATIVE); BARBITURATES URINE NEGATIVE (NEGATIVE); BENZODIAZEPINES URINE NEGATIVE (NEGATIVE); CANNABINOIDS URINE NEGATIVE (NEGATIVE); COCAINE METABOLITE URINE NEGATIVE (NEGATIVE); METHADONE URINE NEGATIVE (NEGATIVE); OPIATES URINE NEGATIVE (NEGATIVE); PHENCYCLIDINE URINE NEGATIVE (NEGATIVE)
[2017-06-23 20:34] LABS: ACETAMINOPHEN LEVEL < 2.0 UG/ML (10.0-30.0); ALBUMIN 2.7 GM/DL (3.2-5.2); ALBUMIN/GLOBULIN RATIO 0.69 (1.00-1.93); ALKALINE PHOSPHATASE 153 U/L (45-117); ALT/SGPT 10 U/L (12-78); ANION GAP 11 MEQ/L (8-16); AST/SGOT 24 U/L (7-37); BILIRUBIN,DIRECT 0.2 MG/DL (0.0-0.2); BILIRUBIN,TOTAL 0.9 MG/DL (0.2-1.0); BLOOD UREA NITROGEN 13 MG/DL (7-18); CALCIUM LEVEL 7.6 MG/DL (8.8-10.2); CARBON DIOXIDE LEVEL 25 MEQ/L (21-32); CHLORIDE LEVEL 97 MEQ/L (98-107); CPK CREATINE PHOSPHOKINASE 162 U/L (26-192); CREATININE FOR GFR 0.88 MG/DL (0.55-1.30); GLOMERULAR FILTRATION RATE > 60.0 (>32); GLUCOSE, FASTING 161 MG/DL (70-100); POTASSIUM SERUM 4.2 MEQ/L (3.5-5.1); SALICYLATE LEVEL < 1.7 MG/DL (5.0-30.0); SODIUM LEVEL 133 MEQ/L (136-145); TOTAL PROTEIN 6.6 GM/DL (6.4-8.2); TROPONIN I < 0.02 NG/ML (< 0.10)
[2017-06-23 20:35] LABS: LACTIC ACID SEPSIS PROTOCOL 2.9 MMOL/L (0.4-2.0)
[2017-06-23 20:40] LABS: CK-MB VALUE MASS 1.7 NG/ML (0.0-3.6); MB/CK RELATIVE INDEX 1.04 (< OR =4)
[2017-06-23 20:43] LABS: ETHYL ALCOHOL (ETHANOL) < 0.003 % (0.000-0.010)
[2017-06-23] MEDS: PIPERACILLIN/TAZOBACTAM SOD 3.375 GM in APPROPRIATE DILUENT 1 EA IV (21:00)
[2017-06-23] MEDS: HumaLOG INSULIN (NovoLOG) PER UNIT SC (21:00)
[2017-06-23] MEDS: PYRIDOSTIGMINE 60 MG TAB PO (21:00)
[2017-06-23] MEDS ORDERED: GLUCOSE 4 GM CHEW TABLET PO (21:45)
[2017-06-23] MEDS ORDERED: DEXTROSE 50% 50 ML SYRINGE IV (21:45)
[2017-06-23] MEDS ORDERED: GLUCAGON FOR INJ 1 MG VIAL (J1610) SC (21:45)
[2017-06-23 22:03] LABS: OSMOLALITY URINE 514 MOSM/KG (500-800)
[2017-06-23 22:06] LABS: FREE T4 1.39 NG/DL (0.76-1.46)
[2017-06-23 22:12] LABS: BEDSIDE GLUCOSE 164 MG/DL (83-110)
[2017-06-23 22:14] LABS: GAMMA GLUTAMYLTRANSPEPTIDASE 88 U/L (5-55)
[2017-06-23 22:16] LABS: TOTAL T3 69.6 NG/DL (60.0-181.0)
[2017-06-23 22:21] LABS: SODIUM,RANDOM URINE 46 MEQ/L
[2017-06-23 22:30] LABS: ESTIMATED AVERAGE GLUCOSE 131 MG/DL (60-110); HEMOGLOBIN A1c 6.2 %
[2017-06-23] MEDS: RIVAROXABAN 20 MG TAB (XARELTO) PO (23:33)
[2017-06-23] MEDS: metroNIDAZOLE (FLAGYL) 500 MG TAB PO (23:34)
[2017-06-23] MEDS: CARVedilol 3.125 MG TAB PO (23:36)
[2017-06-24 01:18] LABS: CPK CREATINE PHOSPHOKINASE 395 U/L (26-192); TROPONIN I 0.03 NG/ML (< 0.10)
[2017-06-24 01:19] LABS: CK-MB VALUE MASS 3.8 NG/ML (0.0-3.6); MB/CK RELATIVE INDEX 0.96 (< OR =4)
[2017-06-24 01:47] LABS: OSMOLALITY SERUM 278 MOSM/KG (280-301)
[2017-06-24] MEDS: PIPERACILLIN/TAZOBACTAM SOD 3.375 GM in APPROPRIATE DILUENT 1 EA IV (06:00)
[2017-06-24 06:36] LABS: BASO % 0.2 % (0.0-1.0); EOS % 0.1 % (0.0-3.0); HEMATOCRIT 33.3 % (36.0-47.0); HEMOGLOBIN 10.7 g/dl (12.0-16.0); IMMATURE GRANULOCYTE % 0.5 % (0-3.0); LYMPH # 0.8 10^3/uL (1.5-4.5); LYMPH % 6.6 % (24.0-44.0); MEAN CORPUSCULAR HEMOGLOBIN 28.8 pg (27.0-33.0); MEAN CORPUSCULAR HGB CONC 32.1 g/dl (32.0-36.5); MEAN CORPUSCULAR VOLUME 89.5 fl (80.0-96.0); MONO # 0.6 10^3/uL (0.0-0.8); NEUTROPHILS # 9.9 10^3/uL (1.8-7.7); NEUTROPHILS % 87.6 % (36.0-66.0); PLATELET COUNT, AUTOMATED 144 10^3/uL (150-450); RED BLOOD COUNT 3.72 10^6/uL (4.00-5.40); RED CELL DISTRIBUTION WIDTH 16.3 % (11.5-14.5); WHITE BLOOD COUNT 11.3 10^3/uL (4.0-10.0)
[2017-06-24 06:55] LABS: ALBUMIN 2.1 GM/DL (3.2-5.2); ALBUMIN/GLOBULIN RATIO 0.54 (1.00-1.93); ALKALINE PHOSPHATASE 120 U/L (45-117); ALT/SGPT 10 U/L (12-78); ANION GAP 9 MEQ/L (8-16); AST/SGOT 25 U/L (7-37); BILIRUBIN,TOTAL 0.6 MG/DL (0.2-1.0); BLOOD UREA NITROGEN 12 MG/DL (7-18); CALCIUM LEVEL 7.6 MG/DL (8.8-10.2); CARBON DIOXIDE LEVEL 27 MEQ/L (21-32); CHLORIDE LEVEL 103 MEQ/L (98-107); CREATININE FOR GFR 0.72 MG/DL (0.55-1.30); GLOMERULAR FILTRATION RATE > 60.0 (>32); GLUCOSE, FASTING 141 MG/DL (70-100); MAGNESIUM LEVEL 1.9 MG/DL (1.8-2.4); POTASSIUM SERUM 3.3 MEQ/L (3.5-5.1); SODIUM LEVEL 139 MEQ/L (136-145)
[2017-06-24 08:29] LABS: CPK CREATINE PHOSPHOKINASE 407 U/L (26-192); MB/CK RELATIVE INDEX 0.98 (< OR =4); TROPONIN I 0.02 NG/ML (< 0.10)
[2017-06-24 08:47] LABS: BEDSIDE GLUCOSE 127 MG/DL (83-110)
[2017-06-24] MEDS: HumaLOG INSULIN (NovoLOG) PER UNIT SC ×4 (08:49→21:00)
[2017-06-24] MEDS: LACTOBACILLUS ACIDOPHILUS CAP (BACID) PO ×3 (08:50→21:53)
[2017-06-24] MEDS: metroNIDAZOLE (FLAGYL) 500 MG TAB PO ×3 (08:50→21:53)
[2017-06-24] MEDS: FOLIC ACID 1 MG TAB PO (08:50)
[2017-06-24] MEDS: CARVedilol 3.125 MG TAB PO ×2 (08:50→21:53)
[2017-06-24] MEDS: PYRIDOSTIGMINE 60 MG TAB PO ×2 (08:51→21:53)
[2017-06-24] MEDS: POTASSIUM CHLORIDE 10 MEQ SR TABLET PO (10:32)
[2017-06-24 12:40] LABS: BEDSIDE GLUCOSE 185 MG/DL (83-110)
[2017-06-24] MEDS ORDERED: [UNRECOGNIZED DRUG - REMARK] XX (13:15)
[2017-06-24] MEDS: CEFAZOLIN SOD 1 GM in APPROPRIATE DILUENT 1 EA IV ×2 (15:48→21:53)
[2017-06-24] MEDS: NS 1,000 ML IV (17:44)
[2017-06-24] MEDS: RIVAROXABAN 20 MG TAB (XARELTO) PO (18:49)
[2017-06-24 19:22] LABS: BEDSIDE GLUCOSE 120 MG/DL (83-110)
[2017-06-25 03:33] LABS: BEDSIDE GLUCOSE 140 MG/DL (83-110)
[2017-06-25 05:03] LABS: BASO % 0.4 % (0.0-1.0); EOS # 0.2 10^3/uL (0.0-0.50); EOS % 2.5 % (0.0-3.0); HEMATOCRIT 31.5 % (36.0-47.0); HEMOGLOBIN 10.1 g/dl (12.0-16.0); IMMATURE GRANULOCYTE % 0.3 % (0-3.0); LYMPH # 0.9 10^3/uL (1.5-4.5); LYMPH % 12.4 % (24.0-44.0); MEAN CORPUSCULAR HEMOGLOBIN 28.5 pg (27.0-33.0); MEAN CORPUSCULAR HGB CONC 32.1 g/dl (32.0-36.5); MEAN CORPUSCULAR VOLUME 88.7 fl (80.0-96.0); MONO # 0.4 10^3/uL (0.0-0.8); NEUTROPHILS # 5.6 10^3/uL (1.8-7.7); NEUTROPHILS % 78.4 % (36.0-66.0); PLATELET COUNT, AUTOMATED 137 10^3/uL (150-450); RED BLOOD COUNT 3.55 10^6/uL (4.00-5.40); RED CELL DISTRIBUTION WIDTH 16.4 % (11.5-14.5); WHITE BLOOD COUNT 7.2 10^3/uL (4.0-10.0)
[2017-06-25 05:25] LABS: ALBUMIN 2.1 GM/DL (3.2-5.2); ALBUMIN/GLOBULIN RATIO 0.57 (1.00-1.93); ALKALINE PHOSPHATASE 124 U/L (45-117); ALT/SGPT 12 U/L (12-78); ANION GAP 7 MEQ/L (8-16); AST/SGOT 31 U/L (7-37); BILIRUBIN,TOTAL 0.3 MG/DL (0.2-1.0); BLOOD UREA NITROGEN 19 MG/DL (7-18); CALCIUM LEVEL 7.5 MG/DL (8.8-10.2); CARBON DIOXIDE LEVEL 25 MEQ/L (21-32); CHLORIDE LEVEL 109 MEQ/L (98-107); CREATININE FOR GFR 0.62 MG/DL (0.55-1.30); GLOMERULAR FILTRATION RATE > 60.0 (>32); GLUCOSE, FASTING 130 MG/DL (70-100); MAGNESIUM LEVEL 1.8 MG/DL (1.8-2.4); POTASSIUM SERUM 3.7 MEQ/L (3.5-5.1); SODIUM LEVEL 141 MEQ/L (136-145); TOTAL PROTEIN 5.8 GM/DL (6.4-8.2)
[2017-06-25] MEDS: CEFAZOLIN SOD 1 GM in APPROPRIATE DILUENT 1 EA IV ×3 (06:13→21:49)
[2017-06-25] MEDS: HumaLOG INSULIN (NovoLOG) PER UNIT SC ×4 (08:56→20:41)
[2017-06-25] MEDS: LACTOBACILLUS ACIDOPHILUS CAP (BACID) PO ×3 (08:57→20:51)
[2017-06-25] MEDS: metroNIDAZOLE (FLAGYL) 500 MG TAB PO ×3 (08:57→20:52)
[2017-06-25] MEDS: FOLIC ACID 1 MG TAB PO (08:57)
[2017-06-25] MEDS: CARVedilol 3.125 MG TAB PO ×2 (08:57→20:52)
[2017-06-25] MEDS: PYRIDOSTIGMINE 60 MG TAB PO ×2 (09:03→20:52)
[2017-06-25 11:32] LABS: BEDSIDE GLUCOSE 128 MG/DL (83-110)
[2017-06-25] MEDS: RIVAROXABAN 20 MG TAB (XARELTO) PO (18:20)
[2017-06-25 19:06] LABS: BEDSIDE GLUCOSE 129 MG/DL (83-110)
[2017-06-25 20:50] LABS: BEDSIDE GLUCOSE 90 MG/DL (83-110)
[2017-06-26] MEDS ORDERED: LORazepam 2 MG/ML VIAL (J2060) As Ordered (02:04)
[2017-06-26] MEDS: LORazepam 2 MG/ML VIAL (J2060) IV ×2 (02:15→08:20)
[2017-06-26] MEDS: CEFAZOLIN SOD 1 GM in APPROPRIATE DILUENT 1 EA IV ×2 (05:42→14:17)
[2017-06-26 05:47] LABS: BASO % 0.4 % (0.0-1.0); EOS # 0.2 10^3/uL (0.0-0.50); EOS % 2.5 % (0.0-3.0); HEMATOCRIT 34.9 % (36.0-47.0); HEMOGLOBIN 11.3 g/dl (12.0-16.0); IMMATURE GRANULOCYTE % 0.5 % (0-3.0); LYMPH # 1.6 10^3/uL (1.5-4.5); LYMPH % 17.4 % (24.0-44.0); MEAN CORPUSCULAR HGB CONC 32.4 g/dl (32.0-36.5); MEAN CORPUSCULAR VOLUME 89.7 fl (80.0-96.0); MONO # 0.5 10^3/uL (0.0-0.8); MONO % 5.1 % (0.0-5.0); NEUTROPHILS # 6.8 10^3/uL (1.8-7.7); NEUTROPHILS % 74.1 % (36.0-66.0); PLATELET COUNT, AUTOMATED 198 10^3/uL (150-450); RED BLOOD COUNT 3.89 10^6/uL (4.00-5.40); RED CELL DISTRIBUTION WIDTH 16.6 % (11.5-14.5); WHITE BLOOD COUNT 9.2 10^3/uL (4.0-10.0)
[2017-06-26 06:10] LABS: ALBUMIN 2.6 GM/DL (3.2-5.2); ALKALINE PHOSPHATASE 156 U/L (45-117); ALT/SGPT 13 U/L (12-78); ANION GAP 8 MEQ/L (8-16); AST/SGOT 33 U/L (7-37); BILIRUBIN,TOTAL 0.4 MG/DL (0.2-1.0); BLOOD UREA NITROGEN 16 MG/DL (7-18); CALCIUM LEVEL 7.8 MG/DL (8.8-10.2); CARBON DIOXIDE LEVEL 23 MEQ/L (21-32); CHLORIDE LEVEL 108 MEQ/L (98-107); CREATININE FOR GFR 0.62 MG/DL (0.55-1.30); GLOMERULAR FILTRATION RATE > 60.0 (>32); GLUCOSE, FASTING 135 MG/DL (70-100); MAGNESIUM LEVEL 1.8 MG/DL (1.8-2.4); POTASSIUM SERUM 3.9 MEQ/L (3.5-5.1); SODIUM LEVEL 139 MEQ/L (136-145); TOTAL PROTEIN 6.9 GM/DL (6.4-8.2)
[2017-06-26] MEDS: HumaLOG INSULIN (NovoLOG) PER UNIT SC ×4 (08:20→21:00)
[2017-06-26] MEDS: LACTOBACILLUS ACIDOPHILUS CAP (BACID) PO ×3 (08:22→20:55)
[2017-06-26] MEDS: CARVedilol 3.125 MG TAB PO ×2 (08:22→20:59)
[2017-06-26] MEDS: PYRIDOSTIGMINE 60 MG TAB PO ×2 (08:23→20:56)
[2017-06-26] MEDS: FOLIC ACID 1 MG TAB PO (08:23)
[2017-06-26 12:16] LABS: BEDSIDE GLUCOSE 101 MG/DL (83-110)
[2017-06-26 18:20] LABS: BEDSIDE GLUCOSE 84 MG/DL (83-110)
[2017-06-26] MEDS: RIVAROXABAN 20 MG TAB (XARELTO) PO (18:54)
[2017-06-26 21:08] LABS: BEDSIDE GLUCOSE 140 MG/DL (83-110)
[2017-06-27 05:45] LABS: BASO % 0.4 % (0.0-1.0); EOS # 0.2 10^3/uL (0.0-0.50); HEMATOCRIT 35.1 % (36.0-47.0); HEMOGLOBIN 11.3 g/dl (12.0-16.0); IMMATURE GRANULOCYTE % 0.4 % (0-3.0); LYMPH # 1.2 10^3/uL (1.5-4.5); LYMPH % 15.3 % (24.0-44.0); MEAN CORPUSCULAR HGB CONC 32.2 g/dl (32.0-36.5); MEAN CORPUSCULAR VOLUME 90.2 fl (80.0-96.0); MONO # 0.5 10^3/uL (0.0-0.8); MONO % 6.6 % (0.0-5.0); NEUTROPHILS # 5.8 10^3/uL (1.8-7.7); NEUTROPHILS % 74.3 % (36.0-66.0); PLATELET COUNT, AUTOMATED 199 10^3/uL (150-450); RED BLOOD COUNT 3.89 10^6/uL (4.00-5.40); RED CELL DISTRIBUTION WIDTH 17.1 % (11.5-14.5); WHITE BLOOD COUNT 7.8 10^3/uL (4.0-10.0)
[2017-06-27 06:11] LABS: ERYTHROCYTE SEDIMENTATION RATE 52 mm/hr (0-42)
[2017-06-27 06:16] LABS: ALBUMIN 2.4 GM/DL (3.2-5.2); ALBUMIN/GLOBULIN RATIO 0.59 (1.00-1.93); ALKALINE PHOSPHATASE 145 U/L (45-117); ALT/SGPT 10 U/L (12-78); ANION GAP 8 MEQ/L (8-16); AST/SGOT 26 U/L (7-37); BILIRUBIN,TOTAL 0.4 MG/DL (0.2-1.0); BLOOD UREA NITROGEN 12 MG/DL (7-18); C REACTIVE PROTEIN QUANTITATIV 3.24 MG/DL (0.00-0.30); CALCIUM LEVEL 7.6 MG/DL (8.8-10.2); CARBON DIOXIDE LEVEL 26 MEQ/L (21-32); CHLORIDE LEVEL 107 MEQ/L (98-107); CREATININE FOR GFR 0.63 MG/DL (0.55-1.30); GLOMERULAR FILTRATION RATE > 60.0 (>32); GLUCOSE, FASTING 109 MG/DL (70-100); MAGNESIUM LEVEL 1.9 MG/DL (1.8-2.4); POTASSIUM SERUM 3.8 MEQ/L (3.5-5.1); SODIUM LEVEL 141 MEQ/L (136-145); TOTAL PROTEIN 6.5 GM/DL (6.4-8.2)
[2017-06-27] MEDS: HumaLOG INSULIN (NovoLOG) PER UNIT SC ×4 (09:15→21:00)
[2017-06-27] MEDS: LACTOBACILLUS ACIDOPHILUS CAP (BACID) PO ×3 (09:20→21:05)
[2017-06-27] MEDS: CARVedilol 3.125 MG TAB PO ×2 (09:20→21:06)
[2017-06-27] MEDS: FOLIC ACID 1 MG TAB PO (09:20)
[2017-06-27] MEDS: PYRIDOSTIGMINE 60 MG TAB PO ×2 (09:21→21:05)
[2017-06-27] MEDS ORDERED: ISOVUE-370 76% 100ML VIAL (Q9967) As Ordered (11:36)
[2017-06-27] MEDS: GASTROGRAFIN SOLUTION 30ML PO ×2 (11:45→12:15)
[2017-06-27 12:06] LABS: BEDSIDE GLUCOSE 191 MG/DL (83-110)
[2017-06-27] MEDS: CEPHALEXIN 500 MG CAP PO ×2 (12:10→21:06)
[2017-06-27] MEDS: VANCOMYCIN HCL 1,000 MG, VIAL MATE ADAPTER 1 EACH in D5W 250 ML IV ×2 (12:12→18:04)
[2017-06-27] MEDS ORDERED: MIDAZOLAM INJ 2 MG/2 ML VIAL (J2250) As Ordered ×2 (15:43)
[2017-06-27] MEDS ORDERED: CETACAINE SPRAY 5GM As Ordered (15:51)
[2017-06-27] MEDS: RIVAROXABAN 20 MG TAB (XARELTO) PO (18:04)
[2017-06-27] MEDS: ACETAMINOPHEN TAB 650MG DOSE (2X325MG) PO (23:59)
[2017-06-28 05:48] LABS: BASO % 0.1 % (0.0-1.0); EOS % 0.3 % (0.0-3.0); HEMATOCRIT 35.5 % (36.0-47.0); HEMOGLOBIN 11.3 g/dl (12.0-16.0); IMMATURE GRANULOCYTE % 0.5 % (0-3.0); LYMPH # 0.5 10^3/uL (1.5-4.5); LYMPH % 5.6 % (24.0-44.0); MEAN CORPUSCULAR HEMOGLOBIN 28.9 pg (27.0-33.0); MEAN CORPUSCULAR HGB CONC 31.8 g/dl (32.0-36.5); MEAN CORPUSCULAR VOLUME 90.8 fl (80.0-96.0); MONO # 0.5 10^3/uL (0.0-0.8); MONO % 5.1 % (0.0-5.0); NEUTROPHILS # 8.5 10^3/uL (1.8-7.7); NEUTROPHILS % 88.4 % (36.0-66.0); PLATELET COUNT, AUTOMATED 192 10^3/uL (150-450); RED BLOOD COUNT 3.91 10^6/uL (4.00-5.40); RED CELL DISTRIBUTION WIDTH 17.2 % (11.5-14.5); WHITE BLOOD COUNT 9.6 10^3/uL (4.0-10.0)
[2017-06-28] MEDS: VANCOMYCIN HCL 1,000 MG, VIAL MATE ADAPTER 1 EACH in D5W 250 ML IV (05:49)
[2017-06-28 06:11] LABS: ALBUMIN 2.4 GM/DL (3.2-5.2); ALBUMIN/GLOBULIN RATIO 0.59 (1.00-1.93); ALKALINE PHOSPHATASE 138 U/L (45-117); ALT/SGPT 11 U/L (12-78); ANION GAP 5 MEQ/L (8-16); AST/SGOT 29 U/L (7-37); BILIRUBIN,TOTAL 0.4 MG/DL (0.2-1.0); BLOOD UREA NITROGEN 11 MG/DL (7-18); CALCIUM LEVEL 7.6 MG/DL (8.8-10.2); CARBON DIOXIDE LEVEL 28 MEQ/L (21-32); CHLORIDE LEVEL 106 MEQ/L (98-107); CREATININE FOR GFR 0.65 MG/DL (0.55-1.30); GLOMERULAR FILTRATION RATE > 60.0 (>32); GLUCOSE, FASTING 110 MG/DL (70-100); MAGNESIUM LEVEL 1.9 MG/DL (1.8-2.4); POTASSIUM SERUM 3.6 MEQ/L (3.5-5.1); SODIUM LEVEL 139 MEQ/L (136-145); TOTAL PROTEIN 6.5 GM/DL (6.4-8.2)
[2017-06-28] MEDS: PYRIDOSTIGMINE 60 MG TAB PO ×2 (09:17→21:54)
[2017-06-28] MEDS: HumaLOG INSULIN (NovoLOG) PER UNIT SC ×4 (09:17→21:00)
[2017-06-28] MEDS: LACTOBACILLUS ACIDOPHILUS CAP (BACID) PO ×3 (09:17→21:54)
[2017-06-28] MEDS: CEPHALEXIN 500 MG CAP PO ×2 (09:17→21:54)
[2017-06-28] MEDS: FOLIC ACID 1 MG TAB PO (09:17)
[2017-06-28] MEDS: ACETAMINOPHEN TAB 650MG DOSE (2X325MG) PO (09:18)
[2017-06-28] MEDS: CARVedilol 3.125 MG TAB PO ×2 (09:18→21:56)
[2017-06-28 12:25] LABS: BEDSIDE GLUCOSE 121 MG/DL (83-110)
[2017-06-28 12:25] LABS: BEDSIDE GLUCOSE 193 MG/DL (83-110)
[2017-06-28 12:25] LABS: BEDSIDE GLUCOSE 94 MG/DL (83-110)
[2017-06-28] MEDS: RIVAROXABAN 20 MG TAB (XARELTO) PO (17:01)
[2017-06-28 17:16] LABS: BEDSIDE GLUCOSE 130 MG/DL (83-110)
[2017-06-28 22:10] LABS: BEDSIDE GLUCOSE 116 MG/DL (83-110)
[2017-06-29 05:42] LABS: BASO % 0.3 % (0.0-1.0); EOS # 0.1 10^3/uL (0.0-0.50); EOS % 1.2 % (0.0-3.0); HEMATOCRIT 30.8 % (36.0-47.0); IMMATURE GRANULOCYTE % 0.3 % (0-3.0); LYMPH # 0.9 10^3/uL (1.5-4.5); LYMPH % 15.6 % (24.0-44.0); MEAN CORPUSCULAR HEMOGLOBIN 28.7 pg (27.0-33.0); MEAN CORPUSCULAR HGB CONC 32.5 g/dl (32.0-36.5); MEAN CORPUSCULAR VOLUME 88.3 fl (80.0-96.0); MONO # 0.5 10^3/uL (0.0-0.8); MONO % 7.5 % (0.0-5.0); NEUTROPHILS # 4.5 10^3/uL (1.8-7.7); NEUTROPHILS % 75.1 % (36.0-66.0); PLATELET COUNT, AUTOMATED 160 10^3/uL (150-450); RED BLOOD COUNT 3.49 10^6/uL (4.00-5.40); RED CELL DISTRIBUTION WIDTH 17.3 % (11.5-14.5)
[2017-06-29 06:06] LABS: ALBUMIN 2.1 GM/DL (3.2-5.2); ALBUMIN/GLOBULIN RATIO 0.55 (1.00-1.93); ALKALINE PHOSPHATASE 107 U/L (45-117); ALT/SGPT 10 U/L (12-78); ANION GAP 6 MEQ/L (8-16); AST/SGOT 23 U/L (7-37); BILIRUBIN,TOTAL 0.3 MG/DL (0.2-1.0); BLOOD UREA NITROGEN 12 MG/DL (7-18); CALCIUM LEVEL 7.5 MG/DL (8.8-10.2); CARBON DIOXIDE LEVEL 26 MEQ/L (21-32); CHLORIDE LEVEL 106 MEQ/L (98-107); GLOMERULAR FILTRATION RATE > 60.0 (>32); GLUCOSE, FASTING 95 MG/DL (70-100); MAGNESIUM LEVEL 1.6 MG/DL (1.8-2.4); POTASSIUM SERUM 3.5 MEQ/L (3.5-5.1); SODIUM LEVEL 138 MEQ/L (136-145); TOTAL PROTEIN 5.9 GM/DL (6.4-8.2)
[2017-06-29] MEDS: VANCOMYCIN HCL 1,000 MG, VIAL MATE ADAPTER 1 EACH in D5W 250 ML IV (06:44)
[2017-06-29] MEDS: HumaLOG INSULIN (NovoLOG) PER UNIT SC ×2 (07:30→11:33)
[2017-06-29] MEDS: FOLIC ACID 1 MG TAB PO (09:17)
[2017-06-29] MEDS: METHOTREXATE 2.5 MG TAB (J8610 PER 2.5MG) PO (09:17)
[2017-06-29] MEDS: CEPHALEXIN 500 MG CAP PO (09:17)
[2017-06-29] MEDS: LACTOBACILLUS ACIDOPHILUS CAP (BACID) PO ×3 (09:17→20:03)
[2017-06-29] MEDS: PYRIDOSTIGMINE 60 MG TAB PO ×2 (09:17→20:04)
[2017-06-29] MEDS: CARVedilol 3.125 MG TAB PO ×2 (09:18→20:04)
[2017-06-29 11:32] LABS: BEDSIDE GLUCOSE 154 MG/DL (83-110)
[2017-06-29 16:49] LABS: BEDSIDE GLUCOSE 121 MG/DL (83-110)
[2017-06-29] MEDS: RIVAROXABAN 20 MG TAB (XARELTO) PO (17:15)
[2017-06-29 20:39] LABS: BEDSIDE GLUCOSE 200 MG/DL (83-110)
[2017-06-30] MEDS: VANCOMYCIN HCL 1,000 MG, VIAL MATE ADAPTER 1 EACH in D5W 250 ML IV (05:10)
[2017-06-30 05:11] LABS: BASO % 0.1 % (0.0-1.0); EOS # 0.3 10^3/uL (0.0-0.50); EOS % 3.8 % (0.0-3.0); HEMATOCRIT 31.2 % (36.0-47.0); HEMOGLOBIN 10.2 g/dl (12.0-16.0); IMMATURE GRANULOCYTE % 0.4 % (0-3.0); LYMPH # 1.1 10^3/uL (1.5-4.5); LYMPH % 15.8 % (24.0-44.0); MEAN CORPUSCULAR HEMOGLOBIN 28.8 pg (27.0-33.0); MEAN CORPUSCULAR HGB CONC 32.7 g/dl (32.0-36.5); MEAN CORPUSCULAR VOLUME 88.1 fl (80.0-96.0); MONO # 0.5 10^3/uL (0.0-0.8); MONO % 6.9 % (0.0-5.0); PLATELET COUNT, AUTOMATED 196 10^3/uL (150-450); RED BLOOD COUNT 3.54 10^6/uL (4.00-5.40); RED CELL DISTRIBUTION WIDTH 17.2 % (11.5-14.5); WHITE BLOOD COUNT 6.8 10^3/uL (4.0-10.0)
[2017-06-30 05:33] LABS: ALBUMIN 2.2 GM/DL (3.2-5.2); ALBUMIN/GLOBULIN RATIO 0.56 (1.00-1.93); ALKALINE PHOSPHATASE 104 U/L (45-117); ALT/SGPT 11 U/L (12-78); ANION GAP 6 MEQ/L (8-16); AST/SGOT 21 U/L (7-37); BILIRUBIN,TOTAL 0.3 MG/DL (0.2-1.0); BLOOD UREA NITROGEN 9 MG/DL (7-18); CALCIUM LEVEL 7.2 MG/DL (8.8-10.2); CARBON DIOXIDE LEVEL 28 MEQ/L (21-32); CHLORIDE LEVEL 105 MEQ/L (98-107); CREATININE FOR GFR 0.47 MG/DL (0.55-1.30); GLOMERULAR FILTRATION RATE > 60.0 (>32); GLUCOSE, FASTING 99 MG/DL (70-100); MAGNESIUM LEVEL 1.8 MG/DL (1.8-2.4); POTASSIUM SERUM 3.4 MEQ/L (3.5-5.1); SODIUM LEVEL 139 MEQ/L (136-145); TOTAL PROTEIN 6.1 GM/DL (6.4-8.2); VANCOMYCIN LEVEL TROUGH 6.5 UG/ML (10.0-20.0)
[2017-06-30] MEDS: LACTOBACILLUS ACIDOPHILUS CAP (BACID) PO ×3 (08:45→22:03)
[2017-06-30] MEDS: VANCOMYCIN HCL 500 MG in D5W MINI-BAG PLUS 100 ML IV (08:45)
[2017-06-30] MEDS: FOLIC ACID 1 MG TAB PO (08:45)
[2017-06-30] MEDS: CARVedilol 3.125 MG TAB PO ×2 (08:46→22:04)
[2017-06-30] MEDS: PYRIDOSTIGMINE 60 MG TAB PO ×2 (08:46→22:03)
[2017-06-30 17:04] LABS: BEDSIDE GLUCOSE 161 MG/DL (83-110)
[2017-06-30] MEDS: VANCOMYCIN HCL 750 MG in D5W 250 ML IV (17:33)
[2017-06-30] MEDS: RIVAROXABAN 20 MG TAB (XARELTO) PO (17:33)
[2017-06-30] MEDS ORDERED: VANCOMYCIN HCL 1,000 MG, VIAL MATE ADAPTER 1 EACH in D5W 250 ML IV (18:00)
[2017-06-30] MEDS ORDERED: VANCOMYCIN HCL 750 MG, VIAL MATE ADAPTER 1 EACH in D5W 250 ML IV (18:00)
[2017-07-01] MEDS: VANCOMYCIN HCL 750 MG in D5W 250 ML IV (05:33)
[2017-07-01 08:03] LABS: MEAN CORPUSCULAR HEMOGLOBIN 28.9 pg (27.0-33.0); MEAN CORPUSCULAR HGB CONC 32.4 g/dl (32.0-36.5); MEAN CORPUSCULAR VOLUME 89.5 fl (80.0-96.0); PLATELET COUNT, AUTOMATED 196 10^3/uL (150-450); RED CELL DISTRIBUTION WIDTH 17.5 % (11.5-14.5); WHITE BLOOD COUNT 7.4 10^3/uL (4.0-10.0)
[2017-07-01 08:21] LABS: ANION GAP 5 MEQ/L (8-16); BLOOD UREA NITROGEN 7 MG/DL (7-18); CALCIUM LEVEL 7.2 MG/DL (8.8-10.2); CARBON DIOXIDE LEVEL 29 MEQ/L (21-32); CHLORIDE LEVEL 101 MEQ/L (98-107); CREATININE FOR GFR 0.54 MG/DL (0.55-1.30); GLOMERULAR FILTRATION RATE > 60.0 (>32); GLUCOSE, FASTING 124 MG/DL (70-100); POTASSIUM SERUM 3.5 MEQ/L (3.5-5.1); SODIUM LEVEL 135 MEQ/L (136-145)
[2017-07-01] MEDS: CARVedilol 3.125 MG TAB PO ×2 (08:50→21:00)
[2017-07-01] MEDS: LACTOBACILLUS ACIDOPHILUS CAP (BACID) PO (08:50)
[2017-07-01] MEDS: FOLIC ACID 1 MG TAB PO (08:50)
[2017-07-01] MEDS: PYRIDOSTIGMINE 60 MG TAB PO ×2 (08:50→21:00)
[2017-07-01] MEDS ORDERED: FLEET ENEMA PR (10:00)
[2017-07-01] MEDS ORDERED: BISACODYL 10 MG SUPP PR (10:00)
[2017-07-01] MEDS ORDERED: ONDANSETRON 4 MG ORAL DISINTEGRATING TAB (S0181) PO (10:00)
[2017-07-01] MEDS ORDERED: ACETAMINOPHEN 650 MG SUPP PR (10:00)
[2017-07-01] MEDS ORDERED: MORPHINE 10MG/0.5ML ORAL CONCENTRATE SOLUTION U/D SL (10:00)
[2017-07-01] MEDS: SCOPOLAMINE 1MG TRANSDERMAL PATCH TOP (11:39)
[2017-07-02] MEDS: LORazepam 2 MG/ML VIAL (J2060) IV ×3 (03:42→21:42)
[2017-07-02] MEDS: FOLIC ACID 1 MG TAB PO (09:00)
[2017-07-02] MEDS: PYRIDOSTIGMINE 60 MG TAB PO ×2 (09:00→20:58)
[2017-07-02] MEDS: CARVedilol 3.125 MG TAB PO ×2 (09:00→20:57)
[2017-07-02] MEDS: MORPHINE SULFATE ORAL SOLN 10 MG/5 ML UD SL (23:39)
[2017-07-03] MEDS: LORazepam 1 MG TAB PO (01:27)
[2017-07-03] MEDS: MORPHINE 10MG/0.5ML ORAL CONCENTRATE SOLUTION U/D SL ×2 (01:27→04:02)
[2017-07-03] MEDS: PYRIDOSTIGMINE 60 MG TAB PO (09:00)
[2017-07-03] MEDS: FOLIC ACID 1 MG TAB PO (09:00)
[2017-07-03] MEDS: CARVedilol 3.125 MG TAB PO (09:00)
== END 2017-07-03 14:20 | disposition expired | DRG 288 ==
LOC: M ED 19:29 → M PCU 06-25 17:30 → M MS4PR 07-01 14:38 → M ED INP 21:37 → M PCU 06-24 18:14
PROC: B246ZZ4 Ultrasonography of Right and Left Heart, Transesophageal (ICD-10-PCS; principal; 2017-06-27 14:15)
DX: I33.0 Acute and subacute infective endocarditis (principal); G93.41 Metabolic encephalopathy; E87.2 Acidosis; E87.1 Hypo-osmolality and hyponatremia; A04.72 Enterocolitis due to Clostridium difficile, not specified as recurrent; R78.81 Bacteremia; N39.0 Urinary tract infection, site not specified; I48.0 Paroxysmal atrial fibrillation; I10 Essential (primary) hypertension; Z51.5 Encounter for palliative care; Z66 Do not resuscitate; G70.00 Myasthenia gravis without (acute) exacerbation; E87.6 Hypokalemia; R73.9 Hyperglycemia, unspecified; I34.0 Nonrheumatic mitral (valve) insufficiency; B96.4 Proteus (mirabilis) (morganii) as the cause of diseases classified elsewhere; E55.9 Vitamin D deficiency, unspecified; I83.90 Asymptomatic varicose veins of unspecified lower extremity; Z86.711 Personal history of pulmonary embolism; Z86.718 Personal history of other venous thrombosis and embolism; Z79.01 Long term (current) use of anticoagulants; Z86.73 Personal history of transient ischemic attack (TIA), and cerebral infarction without residual deficits; Z79.899 Other long term (current) drug therapy; Z90.49 Acquired absence of other specified parts of digestive tract